=== PATIENT | female | born 1965 | race Caucasian/White ===

== ENCOUNTER 2018-10-24 18:54 | Emergency (ER) | payer OTHER ==
[~2018-10-24] VITALS: Ht 154.9 cm; Wt 161.4 kg
[~2018-10-24 18:54] MED LIST: ASPI-630 PO; DICY20TA3 PO; FLUT1DIS IH; GARL1TAB2 PO; HUM100VI SQ; INSU100V8 SQ; LORA5TAB7 PO; OMEG500C3 PO
--- NOTE | 2018-10-24 19:10 | EKG ---
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
[2018-10-24] MEDS ORDERED: APIX5TAB3 PO (19:12)
[2018-10-24] MEDS ORDERED: MICONAZOLE 2% (19:12)
[2018-10-24] MEDS ORDERED: CARV6.25 PO (19:12)
[2018-10-24] MEDS ORDERED: ATORVASTATIN CA80 MG PO (19:12)
[2018-10-24] MEDS ORDERED: INSU100V SQ (19:12)
[2018-10-24] MEDS ORDERED: METF500T16 PO (19:12)
[2018-10-24] MEDS ORDERED: LORA10TA3 PO (19:12)
[2018-10-24] MEDS ORDERED: FURO-68 PO (19:12)
[2018-10-24] MEDS ORDERED: ESOM40CA PO (19:12)
[2018-10-24] MEDS ORDERED: POTA10TA10 PO (19:15)
[2018-10-24] MEDS ORDERED: ALBU2.5V8 INH (19:15)
[2018-10-24] MEDS ORDERED: LIRA0.6P2 SQ (19:15)
[2018-10-24] MEDS ORDERED: SACU1TAB7 PO (19:15)
[2018-10-24] MEDS ORDERED: NITR0.4T22 SL (19:15)
--- NOTE | 2018-10-24 19:38 | PHYS DOC ---
Past History Past Medical History: A-Fib, Diabetes, Hypertension Additional Past Medical Histor: cardiomegaly Smoking: Non-smoker Alcohol Use: None Drug Use: None Adult General Chief Complaint Chief Complaint: Palpitations HPI HPI Patient is a 52-year-old female presents complaining of palpitations and chills. This is been going on since the beginning of the month. She has been seen 2 times by a the ER at [facility]. They found nothing. She recently completed a 2 week evaluation with an event monitor and is supposed to follow-up with her primary care physician about this and for an additional EKG tomorrow. She has been on no recent antibiotics. Denies any nausea, vomiting, or new diarrhea, has chronic diarrhea from her metformin. Nothing seems to make the symptoms better or worse.[] Review of Systems Review of Systems Constitutional: Denies [] Eyes: Denies change in visual acuity, redness, or eye pain [] HENT: Denies nasal congestion or sore throat [] Respiratory: Denies cough or shortness of breath [] Cardiovascular: No additional information not addressed in HPI [] GI: Denies abdominal pain, nausea, vomiting, bloody stools or new diarrhea [] : Denies dysuria or hematuria [] Musculoskeletal: Denies back pain or joint pain [] Integument: Denies rash or skin lesions [] Neurologic: Denies headache, focal weakness or sensory changes [] Endocrine: Denies polyuria or polydipsia [] All other systems were reviewed and found to be within normal limits, except as documented in this note. Allergies Allergies Allergies Coded Allergies Type Severity Reaction Last Updated Verified No Known Drug Allergies 10/24/18 No Physical Exam Physical Exam Constitutional: Well developed, well nourished, no acute distress, non-toxic appearance. [] HENT: Normocephalic, atraumatic, bilateral external ears normal, oropharynx moist, no oral exudates, nose normal. [] Eyes: PERRLA, EOMI, conjunctiva normal, no discharge. [] Neck: Normal range of motion, no tenderness, supple, no stridor. [] Cardiovascular:Heart rate is in the low 100s with an irregularly irregular rhythm, no murmur [] Lungs & Thorax: Bilateral breath sounds clear to auscultation [] Abdomen: Bowel sounds normal, soft, no tenderness, no masses, no pulsatile masses. [] Skin: Warm, dry, no erythema, no rash. [] Back: No tenderness, no CVA tenderness. [] Extremities: No tenderness, no cyanosis, no clubbing, ROM intact, no edema. [] Neurologic: Alert and oriented X 3, normal motor function, normal sensory function, no focal deficits noted. [] Psychologic: Affect normal, judgement normal, mood normal. [] Current Patient Data Vital Signs Vital Signs Date Time Temp Pulse Resp B/P (MAP) Pulse Ox O2 Delivery O2 Flow Rate FiO2 10/24/18 19:03 98.5 115 26 125/73 (90) 96 Room Air EKG EKG EKG shows an irregular rhythm at 104 bpm, left axis deviation, QTC of 504 ms, no ST elevations, no old EKG available for comparison. Interpreted by me at 1905 [] Radiology/Procedures Radiology/Procedures CHEST PA LATERAL Technique: PA and lateral views of the chest were obtained. Clinical History: cough, shortness of breath Comparison: None. Findings: There is low lung volumes causing crowding of pulmonary vasculature. The heart is moderately enlarged. The pulmonary vessels appear normal. The lungs are clear. Impression: Moderate cardiomegaly. Stable appearance of the chest.[] Course & Med Decision Making Course & Med Decision Making Pertinent Labs and Imaging studies reviewed. (See chart for details) ED course and medical decision making: Patient arrived, was placed in bed, and tolerated exam well. She was transferred to and from radiology with any complications. The return of the imaging and lab studies, these were discussed with the patient who voiced understanding. All questions were answered. She was discharged in improved condition. She appears to have a urinary tract infection causing these chills. There is no evidence of systemic toxicity. She is afebrile. No evidence of this being an acute coronary syndrome. Thyroid studies are a "send out" lab from this facility and will not be back today but she does not appear to be in myxedema coma on clinical exam. No evidence of pneumonia.[] Dragon Disclaimer Dragon Disclaimer This electronic medical record was generated, in whole or in part, using a voice recognition dictation system. Departure Departure: Impression: Primary Impression: Chills (without fever) Additional Impression: Urinary tract infection Disposition: HOME, SELF-CARE Condition: IMPROVED Referrals: EULOGIO KISER (PCP) Keep your appointment tomorrow Patient Instructions: Urinary Tract Infection Additional Instructions: Follow-up with your regular doctor as scheduled tomorrow. Drink plenty of fluids. Take medication as prescribed. Return to the ER if worsening fever, chills, unable to tolerate liquids, or any other concerns. Scripts Cephalexin (KEFLEX) 500 Mg Capsule 500 MG PO TID for UTI for 10 Days, #30 CAP Prov: EHSAN JOHNSON DO 10/24/18 Problem Qualifiers Additional Impression: Urinary tract infection Urinary tract infection type: site unspecified Hematuria presence: with hematuria Qualified Codes: N39.0 - Urinary tract infection, site not specified ; R31.9 - Hematuria, unspecified EHSAN JOHNSON DO Oct 24, 2018 19:38
[2018-10-24 20:16] LABS: BASO # 0.1 x10^3/uL (0.0-0.2); BASO % 1 % (0-3); EOS # 0.1 x10^3/uL (0.0-0.7); EOS % 1 % (0-3); HEMATOCRIT 32.3 % (36.0-47.0); HEMOGLOBIN 9.9 g/dL (12.0-15.5); LYMPH # 2.2 x10^3/uL (1.0-4.8); LYMPH % 27 % (24-48); MEAN CORPUSCULAR HEMOGLOBIN 21 pg (25-35); MEAN CORPUSCULAR HGB CONC 31 g/dL (31-37); MEAN CORPUSCULAR VOLUME 70 fL (79-100); MONO # 0.6 x10^3/uL (0.0-1.1); MONO % 7 % (0-9); NEUT # 5.3 x10^3uL (1.8-7.7); NEUT % 64 % (31-73); PLATELET COUNT 384 x10^3/uL (140-400); RED BLOOD COUNT 4.63 x10^6/uL (3.50-5.40); RED CELL DISTRIBUTION WIDTH 21.1 % (11.5-14.5); WHITE BLOOD COUNT 8.3 x10^3/uL (4.0-11.0)
[2018-10-24 20:39] LABS: ALBUMIN 3.3 g/dL (3.4-5.0); ALBUMIN/GLOBULIN RATIO 0.8 (1.0-1.7); CREATININE 1.2 mg/dL (0.6-1.0); MAGNESIUM 1.9 mg/dL (1.8-2.4); POTASSIUM 4.5 mmol/L (3.5-5.1); TOTAL BILIRUBIN 0.3 mg/dL (0.2-1.0); TOTAL PROTEIN 7.3 g/dL (6.4-8.2)
--- NOTE | 2018-10-24 20:43 | RAD ---
CHEST PA LATERAL Technique: PA and lateral views of the chest were obtained. Clinical History: cough, shortness of breath Comparison: None. Findings: There is low lung volumes causing crowding of pulmonary vasculature. The heart is moderately enlarged. The pulmonary vessels appear normal. The lungs are clear. Impression: Moderate cardiomegaly. Stable appearance of the chest. Electronically signed by: Anand Zabala III, MD (10/24/2018 8:40 PM) [id number]
[2018-10-24 20:46] LABS: BACTERIA,URINE FEW /HPF (0-FEW); BILIRUBIN,URINE NEG (NEG); CLARITY,URINE TURBID; COLOR,URINE AMBER; GLUCOSE,URINE 100 mg/dL (NEG); NITRITE,URINE NEG (NEG); RBC,URINE TNTC /HPF (0-2); SQUAMOUS EPITHELIAL CELL,UR OCC /LPF; UROBILINOGEN,URINE 1 mg/dL (0.2 mg/dL)
[2018-10-24] MEDS ORDERED: cefTRIAXone SODIUM 1 GM VIAL ONE ×2 (21:00→21:01)
[2018-10-24] MEDS ORDERED: IV NORMAL SALINE 50ML 50 ML ONE (21:01)
[2018-10-24] MEDS ORDERED: CEPH-264 PO (21:03)
[2018-10-24 21:13] LABS: ANISOCYTOSIS SLIGHT; HYPOCHROMIA SLIGHT; OVALOCYTES OCC; PLT ESTIMATE INCREASED (ADEQUATE); POLYCHROMASIA SLIGHT; SCHISTOCYTES OCC
[2018-10-24 21:20] VITALS: BP 113/74
== END 2018-10-24 21:24 | disposition home or self-care (01) ==
LOC: ER 18:54
DX: N39.0 Urinary tract infection, site not specified (principal); R68.83 Chills (without fever); R00.2 Palpitations; R31.9 Hematuria, unspecified; I48.91 Unspecified atrial fibrillation; E11.9 Type 2 diabetes mellitus without complications; I10 Essential (primary) hypertension; I51.7 Cardiomegaly
CPT/HCPCS: 36415; 71046; 80053; 81001; 83690; 83735; 83880; 84443; 84484; 85025; 85610; 85730; 87040; 87086; 93005; 96374; 99285; J0696

== ENCOUNTER 2018-10-25 21:44 | Inpatient (IN) | payer OTHER ==
[~2018-10-25] VITALS: Ht 154.9 cm; Wt 158.8 kg
[~2018-10-25 21:44] MED LIST changes: +ALBU2.5V8 INH; +APIX5TAB3 PO; +ATORVASTATIN CA80 MG PO; +CARV6.25 PO; +CEPH-264 PO; +ESOM40CA PO; +FURO-68 PO; +INSU100V SQ; +LIRA0.6P2 SQ; +LORA10TA3 PO; +METF500T16 PO; +MICONAZOLE 2%; +NITR0.4T22 SL; +POTA10TA10 PO; +SACU1TAB7 PO
[2018-10-26] VITALS (8 sets, daily range): BP systolic 101–144; BP diastolic 62–82
--- NOTE | 2018-10-26 01:53 | ED.ADGEN ---
Past History Past Medical History: A-Fib, Arrhythmia, CAD, Diabetes, Hypertension, Other Additional Past Medical Histor: cardiomegaly Past Surgical History: No Surgical History Smoking: Non-smoker Alcohol Use: None Drug Use: None Adult General Chief Complaint Chief Complaint ".. ".. I ve been having these episodes of chest pain.. I was seen here.. I was seen at [place].. but I had them again tonight.. and sometime my heart skips a beat..."..." I got DM.. and COPD... HPI HPI Patient is a 52 year old female who presents with chest pain and dysrhythmia. Pt. follows with Dr. Barton. Hx. of CADz, CHF, HTN, DM, Afib. COPD. Hx. recently reduced lasix from 40 twice a day to 40 once a day. See downtime form for details. Review of Systems Review of Systems Constitutional: Denies fever or chills [] Eyes: Denies change in visual acuity, redness, or eye pain [] HENT: Denies nasal congestion or sore throat [] Respiratory: Denies cough or shortness of breath [] Cardiovascular: No additional information not addressed in HPI [] GI: Denies abdominal pain, nausea, vomiting, bloody stools or diarrhea [] : Denies dysuria or hematuria [] Musculoskeletal: Denies back pain or joint pain [] Integument: Denies rash or skin lesions [] Neurologic: Denies headache, focal weakness or sensory changes [] Endocrine: Denies polyuria or polydipsia [] All other systems were reviewed and found to be within normal limits, except as documented in this note. Family History Family History Cardiac Current Medications Current Medications See Nursing for home meds. Allergies Allergies Allergies Coded Allergies Type Severity Reaction Last Updated Verified No Known Drug Allergies 10/24/18 No Physical Exam Physical Exam Constitutional: mild to moderate distress, non-toxic appearance. [] HENT: Normocephalic, atraumatic, bilateral external ears normal, oropharynx moist, no oral exudates, nose normal. [] Eyes: PERRLA, EOMI, conjunctiva normal, no discharge. [] Neck: Normal range of motion, no tenderness, supple, no stridor. [] Cardiovascular: Irregulatr Heart rate regular rhythm, no murmur []PMI to Lt. Lungs & Thorax: Bilateral breath sounds equal apexes with scattered wheezes on auscultation [] Abdomen: Bowel sounds normal, soft, no tenderness, no masses, no pulsatile masses. [] Morbid obesity. Skin: Warm, dry, no erythema, no rash. [] Decub sacral. Back: No tenderness, no CVA tenderness. [] Extremities: No tenderness, no cyanosis, no clubbing, ROM intact, ankle. edema. [] Neurologic: Alert and oriented X 3, normal motor function, normal sensory function, no focal deficits noted. [] Psychologic: Affect anxious, judgement normal, mood normal. [] EKG EKG EKG - shows Afib. with rapid vent. reponse at rate of 103. Lt. axis , nonspecific anterio septal change] Radiology/Procedures Radiology/Procedures CXR- cardiomegaly. No acute interval changes[] Course & Med Decision Making Course & Med Decision Making Pertinent Labs and Imaging studies reviewed. (See chart for details) Heart score 4-[address] Guevara- with Cardiology consult. Further details see down time paper work. [] Final Impression Final Impression 1. Chest Pain[] 2. Afib 3. Dysrhythmia- PVC 4. COPD 5. DM 170 6. Anemia Hgb 9.4 7 Decub- sacral 8. UTI Dragon Disclaimer Adalberto Disclaimer This electronic medical record was generated, in whole or in part, using a voice recognition dictation system. Discharge Summary Visit Information Final Diagnosis Problems Medical Problems: (1) Chest pain Status: Acute Brief Hospital Course Allergies Allergies Coded Allergies Type Severity Reaction Last Updated Verified No Known Drug Allergies 10/24/18 No Brief Hospital Course Ms. Florez is a 52 old female who presented with chest pain. Admitted Dr. Guevara with cardiology consult. Discharge Information Condition at Discharge: Improved Dischare Medications Active Scripts Active Keflex (Cephalexin) 500 Mg Capsule 500 Mg PO TID 10 Days Reported Victoza 3-Ady (Liraglutide) 0.6 Mg/0.1 Ml Pen.injctr 0.6 Mg SQ D Entresto 49 mg-51 mg Tablet (Sacubitril/Valsartan) 1 Each Tablet 1 Each PO BID Proair Hfa Inhaler (Albuterol Sulfate) 8.5 Gm Hfa.aer.ad 2 Puff INH PRN Q6HRS PRN Potassium Chloride 10 Meq Tablet.er 10 Meq PO DAILY NITROGLYCERIN SubLingual (Nitroglycerin) 0.4 Mg Tab.subl 0.4 Mg SL PRN Q5MIN PRN [miconazole 2% powder] Metformin Hcl 500 Mg Tablet 500 Mg PO BIDWMEALS Humalog (Insulin Lispro) 100 Unit/1 Ml Vial 100 Unit SQ AC/HS Lasix (Furosemide) 40 Mg Tablet 40 Mg PO DAILY Nexium Capsule (Esomeprazole Magnesium) 40 Mg Capsule.dr 40 Mg PO DAILYAC Coreg (Carvedilol) 6.25 Mg Tablet 6.25 Mg PO BIDWMEALS Atorvastatin Calcium 80 Mg Tablet 80 Mg PO QHS Eliquis (Apixaban) 5 Mg Tablet 5 Mg PO BID Loratadine 10 Mg Tablet 10 Mg PO DAILY Lantus (Insulin Glargine,Hum.rec.anlog) 100 Unit/1 Ml Vial 100 Unit SQ Aspirin 81 Mg Tab.chew 81 Mg PO Advair 100-50 Diskus (Fluticasone/Salmeterol) 1 Each Disk.w.dev 1 Each IH Dragon Disclaimer This chart was dictated in whole or in part using Voice Recognition software in a busy, high-work load, and often noisy Emergency Department environment. It may contain unintended and wholly unrecognized errors or omissions. LIBRA TRACEY MD Oct 26, 2018 01:53
[2018-10-26 03:24] LABS: BILIRUBIN,URINE NEG (NEG); CLARITY,URINE HAZY; COLOR,URINE STRAW; GLUCOSE,URINE NEG (NEG)
[2018-10-26 03:25] LABS: BACTERIA,URINE FEW /HPF (0-FEW); NITRITE,URINE NEG (NEG); RBC,URINE >40 /HPF (0-2); RED BLOOD COUNT 4.42 x10^6/uL (3.50-5.40); SQUAMOUS EPITHELIAL CELL,UR FEW /LPF; UROBILINOGEN,URINE 0.2 mg/dL (0.2 mg/dL); WBC,URINE OCC /HPF (0-4); WHITE BLOOD COUNT 7.9 x10^3/uL (4.0-11.0)
[2018-10-26 03:26] LABS: BASO # 0.1 x10^3/uL (0.0-0.2); BASO % 1 % (0-3); EOS # 0.1 x10^3/uL (0.0-0.7); EOS % 1 % (0-3); HEMATOCRIT 30.8 % (36.0-47.0); HEMOGLOBIN 9.4 g/dL (12.0-15.5); LYMPH # 2.2 x10^3/uL (1.0-4.8); LYMPH % 28 % (24-48); MEAN CORPUSCULAR HEMOGLOBIN 21 pg (25-35); MEAN CORPUSCULAR HGB CONC 30 g/dL (31-37); MEAN CORPUSCULAR VOLUME 70 fL (79-100); MONO # 0.7 x10^3/uL (0.0-1.1); MONO % 8 % (0-9); NEUT # 4.9 x10^3uL (1.8-7.7); NEUT % 62 % (31-73); PLATELET COUNT 367 x10^3/uL (140-400); RED CELL DISTRIBUTION WIDTH 20.7 % (11.5-14.5)
[2018-10-26 03:27] LABS: ALBUMIN 3.2 g/dL (3.4-5.0); CALCIUM 8.9 mg/dL (8.5-10.1); CREATININE 1.2 mg/dL (0.6-1.0); TOTAL BILIRUBIN 0.3 mg/dL (0.2-1.0)
[2018-10-26 03:28] LABS: DIRECT BILIRUBIN 0.1 mg/dL (0.0-0.2); POTASSIUM 4.1 mmol/L (3.5-5.1)
[2018-10-26 04:02] LABS: ANISOCYTOSIS MOD; HYPOCHROMIA MOD; MICROCYTOSIS MOD; PLT ESTIMATE ADEQUATE (ADEQUATE)
[2018-10-26] MEDS ORDERED: levoFLOXacin 500 MG TABLET PO ONE (05:30)
[2018-10-26] MEDS ORDERED: ANTI-COAG MONITOR BY PHARMACY. MC PRN (05:45)
[2018-10-26] MEDS: ENOXAPARIN ** NOTE DOSE ** SYRINGE SQ SCH ×2 (06:00→06:10)
--- NOTE | 2018-10-26 07:53 | RAD ---
Portable chest, 10/25/2018: HISTORY: Chest pain Comparison is made to yesterday's study. The heart remains mildly enlarged. The pulmonary vascularity is normal. No pulmonary infiltrate is seen. There is no evidence of pleural fluid. IMPRESSION: 1. Cardiomegaly. 2. No new abnormality is detected. Electronically signed by: Brock Boo MD (10/26/2018 7:50 AM) [facility]
[2018-10-26] MEDS: FUROSEMIDE 40 MG TABLET PO SCH (09:38)
--- NOTE | 2018-10-26 10:21 | PDOC2 ---
CONSULT Date of Admission DATE: 10/26/18 TIME: 10:20 Reason for Consult: chest pain Problem List Problems Medical Problems: (1) Chest pain Status: Acute History of Present Illness Ms Florez is a 52 year old female with a history fo NICM, chronic systolic heart failure, left ventricular thrombus, left bundle branch block, paroxysmal atrial fibrillation, and hypertensive heart disease with renal disease. She follows with [facility] for her cardiology care. She presents to the ER with complaints of chest pain. 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 She recently finished wearing the monitor but has no results. She reports since that time she has been seen here and at [place] for the complaints of chest pain. She presented back to the ED here yesterday reporting ongoing pain. She describes a tapping or pinching sensation unrelated to exertion and lasting only a second or two each occurrence. She denies increased dyspnea or edema from baseline. She denies lightheadedness or syncope. Past Medical History echo 03/24/17 LV moderately dilated, normal wall thickness. severe LV systolic dysfunction with ef of 20-25%. global hypokinesis. prior apical thrombus not observed. Cardiac cath 2017 Normal coronaries. Cardiovascular: AFIB, CHF, HTN, hyperipidemia, Other (NICM) Pulmonary: COPD, Other (pulmonary embolism) GI: GERD Renal/: Chronic renal insuff Endocrine: Diabetes Past Surgical History: Hernia Repair, Other (vaginal surgery) Family History non contributory Social History + smoker, no significant etoh, no illicit drugs Current Medications Current Medications Furosemide (Lasix) 40 mg DAILY PO Last administered on 10/26/18at 09:38; Start 10/26/18 at 09:00 Levofloxacin (Levaquin) 500 mg 1X ONCE PO Last administered on 10/26/18at 06:10 ; Start 10/26/18 at 05:30; Stop 10/26/18 at 05:31; Status DC Enoxaparin Sodium (Lovenox 150mg Syringe) 150 mg Q12HR SQ ; Start 10/26/18 at 06 :00 Info (Anti-Coagulation Monitoring By Pharmacy) 1 each PRN DAILY PRN MC SEE COMMENTS; Start 10/26/18 at 05:45; Status Cancel Active Scripts Active Keflex (Cephalexin) 500 Mg Capsule 500 Mg PO TID 10 Days Reported Victoza 3-Ady (Liraglutide) 0.6 Mg/0.1 Ml Pen.injctr 0.6 Mg SQ D Entresto 49 mg-51 mg Tablet (Sacubitril/Valsartan) 1 Each Tablet 1 Each PO BID Proair Hfa Inhaler (Albuterol Sulfate) 8.5 Gm Hfa.aer.ad 2 Puff INH PRN Q6HRS PRN Potassium Chloride 10 Meq Tablet.er 10 Meq PO DAILY NITROGLYCERIN SubLingual (Nitroglycerin) 0.4 Mg Tab.subl 0.4 Mg SL PRN Q5MIN PRN [miconazole 2% powder] Metformin Hcl 500 Mg Tablet 500 Mg PO BIDWMEALS Humalog (Insulin Lispro) 100 Unit/1 Ml Vial 100 Unit SQ AC/HS Lasix (Furosemide) 40 Mg Tablet 40 Mg PO DAILY Nexium Capsule (Esomeprazole Magnesium) 40 Mg Capsule.dr 40 Mg PO DAILYAC Coreg (Carvedilol) 6.25 Mg Tablet 6.25 Mg PO BIDWMEALS Atorvastatin Calcium 80 Mg Tablet 80 Mg PO QHS Eliquis (Apixaban) 5 Mg Tablet 5 Mg PO BID Loratadine 10 Mg Tablet 10 Mg PO DAILY Lantus (Insulin Glargine,Hum.rec.anlog) 100 Unit/1 Ml Vial 100 Unit SQ Aspirin 81 Mg Tab.chew 81 Mg PO Advair 100-50 Diskus (Fluticasone/Salmeterol) 1 Each Disk.w.dev 1 Each IH Allergies: Coded Allergies: No Known Drug Allergies (Unverified , 10/24/18) Review of System as per HPI, denies fever, chills, signs of infection, denies increase in edema and dyspnea from baseline, denies lightheadedness or syncope. +chest pain, palpitations. + hard of hearing, denies sick contacts, denies signs or symptoms of bleeding. + reflux, no nausea, vomiting, diarrhea or abd pain. Denies other complaints. General: Alert, Oriented X3, Cooperative, No acute distress, Other (morbidly obese) HEENT: Atraumatic, EOMI, Mucous membr. moist/pink, Other (very hard of hearing) Lungs: Clear to auscultation, Normal air movement Heart: Normal S1, Normal S2, Other (irregular rate and rhythm, no gallops, clicks or rubs) Abdomen: Normal bowel sounds, Soft, No tenderness Extremities: No cyanosis, Other (1+ edema, Palpable pulses) Neuro: Normal speech, Strength at 5/5 X4 ext Psych/Mental Status: Mental status NL, Mood NL VITALS Vital Signs Date Time Temp Pulse Resp B/P (MAP) Pulse Ox O2 Delivery O2 Flow Rate FiO2 10/26/18 05:19 88 20 126/73 (90) 99 Room Air 10/26/18 00:45 97.2 Labs Laboratory Tests Test 10/25/18 21:30 10/26/18 02:03 10/26/18 05:57 10/26/18 09:42 White Blood Count 7.9 x10^3/uL (4.0-11.0) Red Blood Count 4.42 x10^6/uL (3.50-5.40) Hemoglobin 9.4 g/dL (12.0-15.5) Hematocrit 30.8 % (36.0-47.0) Mean Corpuscular Volume 70 fL (79-100) Mean Corpuscular Hemoglobin 21 pg (25-35) Mean Corpuscular Hemoglobin Concent 30 g/dL (31-37) Red Cell Distribution Width 20.7 % (11.5-14.5) Platelet Count 367 x10^3/uL (140-400) Neutrophils (%) (Auto) 62 % (31-73) Lymphocytes (%) (Auto) 28 % (24-48) Monocytes (%) (Auto) 8 % (0-9) Eosinophils (%) (Auto) 1 % (0-3) Basophils (%) (Auto) 1 % (0-3) Neutrophils # (Auto) 4.9 x10^3uL (1.8-7.7) Lymphocytes # (Auto) 2.2 x10^3/uL (1.0-4.8) Monocytes # (Auto) 0.7 x10^3/uL (0.0-1.1) Eosinophils # (Auto) 0.1 x10^3/uL (0.0-0.7) Basophils # (Auto) 0.1 x10^3/uL (0.0-0.2) Platelet Estimate Adequate (ADEQUATE) Hypochromasia Mod Anisocytosis Mod Microcytosis Mod Prothrombin Time 11.2 SEC (9.4-11.4) Prothromb Time International Ratio 1.1 (0.9-1.1) Activated Partial Thromboplast Time 26 SEC (23-33) D-Dimer (Maria Alejandra) 0.19 mg/L (0.00-0.50) Urine Collection Type Unknown Urine Color Straw Urine Clarity Hazy Urine pH 6.0 Urine Specific Zimmerman 1.015 Urine Protein 30 mg/dl (NEG-TRACE) Urine Glucose (UA) Neg mg/dL (NEG) Urine Ketones (Stick) Neg mg/dL (NEG) Urine Blood Large (NEG) Urine Nitrite Neg (NEG) Urine Bilirubin Neg (NEG) Urine Urobilinogen Dipstick 0.2 mg/dL (0.2 mg/dL) Urine Leukocyte Esterase Neg (NEG) Urine RBC >40 /HPF (0-2) Urine WBC Occ /HPF (0-4) Urine Squamous Epithelial Cells Few /LPF Urine Bacteria Few /HPF (0-FEW) Sodium Level 142 mmol/L (136-145) Potassium Level 4.1 mmol/L (3.5-5.1) Chloride Level 106 mmol/L (98-107) Carbon Dioxide Level 27 mmol/L (21-32) Anion Gap 9 (6-14) Blood Urea Nitrogen 24 mg/dL (7-20) Creatinine 1.2 mg/dL (0.6-1.0) Estimated GFR (Cockcroft-Gault) 47.0 Glucose Level 170 mg/dL (70-99) Calcium Level 8.9 mg/dL (8.5-10.1) Total Bilirubin 0.3 mg/dL (0.2-1.0) Direct Bilirubin 0.1 mg/dL (0.0-0.2) Aspartate Amino Transf (AST/SGOT) 13 U/L (15-37) Alanine Aminotransferase (ALT/SGPT) 21 U/L (14-59) Alkaline Phosphatase 89 U/L (46-116) Troponin I Quantitative < 0.017 ng/mL (0-0.055) ZZ-Eap-V-Type Natriuretic Peptide 771 pg/mL (0-124) Total Protein 7.0 g/dL (6.4-8.2) Albumin 3.2 g/dL (3.4-5.0) Lipase 219 U/L (73-393) Glucose (Fingerstick) 191 mg/dL (70-99) 169 mg/dL (70-99) 297 mg/dL (70-99) Images CXR - IMPRESSION: 1. Cardiomegaly. 2. No new abnormality is detected. Assessment/Plan 1. Chest pain in the setting of severe NICM, no acute ischemic ekg changes, neg troponin. Normal coronaries by cath in 2017. 2. severe NICM with chronic systolic heart failure - continue with guideline directed medical therapy. check echo. 3. atrial fibrillation - 2 week Zio recently worn revealed 100% AF burden. Rate ranges from 50-110bpm. Continue current medical therapy with rate control. [id number] score = 4+, continue Eliquis for stroke prophylaxis. 4. Hypertension/hypertensive heart disease - 5. CKD stage 2 - monitor. 6. hyperlipidemia - check lipids. 7. Anemia - check fe panel. VEENA [employer] Oct 26, 2018 10:21
[2018-10-26] MEDS ORDERED: NON FORMULARY ITEM (Liraglutide (Victoza 3-Pak) 0.6 MG) SQ SCH (10:45)
[2018-10-26] MEDS ORDERED: ALBUTEROL SULFATE 2.5 MG/3 ML NEBU. INH PRN (10:45)
[2018-10-26] MEDS ORDERED: NITROGLYCERIN SUBLINGUAL 0.4 MG BOTTLE OF 25. SL PRN (10:45)
[2018-10-26] MEDS ORDERED: DEXTROSE 50% 25 GM / 50ML DISP.SYRIN. IV PRN (10:45)
[2018-10-26] MEDS ORDERED: NON FORMULARY ITEM (Insulin Lispro (Humalog) 100 UNIT) SQ SCH (10:45)
[2018-10-26] MEDS ORDERED: FUROSEMIDE 40 MG TABLET PO SCH (11:00)
[2018-10-26] MEDS: PANTOPRAZOLE 40 MG TABLET. PO SCH (11:18)
[2018-10-26] MEDS: SACUBITRIL/VALSARTAN 49/51MG TABLET. PO SCH ×2 (11:18→22:01)
[2018-10-26] MEDS: ASPIRIN 81 MG TAB.CHEW PO SCH (11:18)
[2018-10-26] MEDS: CARVEDILOL 6.25 MG TABLET PO SCH ×2 (11:18→17:40)
[2018-10-26] MEDS: CETIRIZINE HCL 10 MG TABLET PO SCH (11:18)
[2018-10-26] MEDS: POTASSIUM CHLORIDE 10 MEQ TABLET.ER. PO SCH (11:20)
[2018-10-26] MEDS: INSULIN LISPRO 300 UNITS/3 ML INSULN.PEN. SQ SCH ×2 (11:31→17:45)
--- NOTE | 2018-10-26 12:29 | HP ---
ADMIT DATE: 10/26/2018 HISTORY OF PRESENT ILLNESS: The patient is a 52-year-old female patient, who came to the Emergency Room complaining of recurrent episodes of chest pain that she describes as very frequent, has no relationship with exertion. It most commonly happens when she was sitting or lying in her bed, lasts only few seconds, not associated with any nausea, vomiting, no diaphoresis. She is only short of breath when she is exerting herself. She apparently was seen before at her primary prep cook, Dr. Maloney and apparently she has had energy consultant and showed that she is constantly in atrial fibrillation for which she is actually on Eliquis. She was seen apparently for similar problem at [facility]. She was seen few days ago at Emergency Room of [facility], diagnosed with UTI. She was basically evaluated in the Emergency Room, has had extensive investigation including lab work, which showed that she has microcytic hypochromic anemia. Her chemistry showed slightly impaired kidney function; however, her first set of cardiac enzyme was negative. Her D-dimer was normal at 0.19. Urinalysis was actually unremarkable, showed only blood with no leukocyturia. Her chest x-ray showed that she has cardiomegaly, but no other new abnormalities detected. She was admitted to the ICU to consult the cardiology team. PAST MEDICAL HISTORY: Significant for coronary artery disease, diabetes, hypertension, chronic atrial fibrillation, and morbid obesity. PAST SURGICAL HISTORY: Significant for left heart catheterization, which showed no significant obstructive coronary artery disease. ALLERGIES: She has no known drug allergies. MEDICATIONS: She is currently on following medications: She is on loratadine 10 mg once a day, cephalexin 500 mg 3 times a day, albuterol sulfate 2 puffs every 6 hours, apixaban 5 mg twice a day, atorvastatin calcium 80 mg at bedtime, nitroglycerin 0.4 mg sublingually 5 minutes x 3, carvedilol 6.25 mg twice a day, Entresto 49/51 mg tablet twice a day, aspirin 81 mg once a day, potassium chloride 10 mEq once a day, furosemide 40 mg daily, Advair Diskus 100/50 one puff twice a day, Nexium 40 mg once a day, metformin 500 mg twice a day with meals, Victoza 0.6 mg sublingually daily. She is on Lantus insulin. Though, we do not have the actual dose and Humalog also as insulin sliding scale before meals. FAMILY HISTORY: Unremarkable. SOCIAL HISTORY: She lives with her roommate and daughter. She apparently does not smoke, drink alcohol or use recreational drugs. REVIEW OF SYSTEMS: As per history of present illness. PHYSICAL EXAMINATION: GENERAL: On arrival to the Emergency Room, she looked well and was clearly in no apparent respiratory distress, slightly pale, but no jaundice, cyanosis, or thyromegaly. No jugular venous distension. No limb edema. VITAL SIGNS: Her heart rate was 92, blood pressure 101/70, temperature was 97.2, respiratory rate was 20, and oxygen saturation was 98% on room air. HEAD, EYES, EARS, NOSE, AND THROAT: Showed normocephalic, atraumatic. NECK: Supple. HEART: Showed normal first and second heart sounds. No gallop, rub or murmur. CHEST: Clear to auscultation. No crepitation or rhonchi. ABDOMEN: Distended, soft, nontender. No guarding or rigidity. No organomegaly. All hernial orifice intact. Bowel sounds normal. NEUROLOGIC: She was awake, alert, responding appropriately. All cranial nerves intact. EXTREMITIES: She moves extremities without difficulty. She ambulates without assistance or assistive devices. LABORATORY DATA: Showed a white cell count 7900, hemoglobin 9.4, hematocrit 31, MCV 70, platelet count 367,000 with normal manual differential. Her chemistry showed a serum sodium 142, potassium 4.1, chloride 106, bicarbonate 27, anion gap of 9, BUN 24, creatinine 1.2, estimated GFR was 47 mL per minute. Her glucose 170, calcium was 8.9. Total bilirubin, AST, ALT, alkaline phosphatase were normal. Total protein 7, albumin 3.2. Troponin was less than 0.017. Her prothrombin time was 11.2, INR of 1.1, aPTT was 26. Her D-dimer was 0.19 mg/dL. Urinalysis showed the urine was straw colored, hazy with a pH of 6, specific gravity of 1.015 with small amount of protein. The urine was negative for glucose, ketones, large amount of blood, negative for nitrites and leukocyte esterase. There were more than 40 rbc's, occasional wbc's, very few bacteria. She did have a chest x-ray, which showed that the heart remains mildly enlarged. Pulmonary vascularity is normal. No pulmonary infiltrate is seen. There is no evidence of pleural fluid. ASSESSMENT: Currently, the patient is known to the [facility] Cardiology team and has had heart monitor for 2 weeks, which showed that she has been resistant atrial fibrillation. She has a cardiac catheterization done 2 years ago, which showed that nonobstructive coronary artery disease and apparently is known to have nonischemic cardiomyopathy with an ejection fraction of 35%. We did consult the cardiology team. PLAN: For her to have another echocardiogram. Meanwhile, we will discontinue Lovenox and resume her apixaban. We will monitor her blood sugar and use insulin sliding scale to cover her while she is here. WILLIAMS LOUIS MD DR: NEGRA/davina JOB#: [id number] / [id number]
[2018-10-26] MEDS: CEPHALEXIN 250 MG CAPSULE PO SCH ×2 (14:53→22:02)
--- NOTE | 2018-10-26 15:29 | CARD ---
MR#: [id number] Date of Study: 10/26/2018 Ordering Physician: VEENA DE LA VEGA, Referring Physician: WILLIAMS LOUIS Tech: Mary Miller RDCS APPROVED REPORT EXAM: Two-dimensional and M-mode echocardiogram with Doppler and color Doppler. Other Information Quality : Technically Limited Technically limited study due to body habitus. INDICATION Palpitations Chest Pain Morbid Obesity 2D DIMENSIONS RVDd3.6 (2.9-3.5cm)Left Atrium(2D)5.2 (1.6-4.0cm) IVSd1.1 (0.7-1.1cm)Aortic Root(2D)2.8 (2.0-3.7cm) LVDd5.0 (3.9-5.9cm)PWd1.1 (0.7-1.1cm) LVDs4.1 (2.5-4.0cm)FS (%) 17.3 % SV41.7 mlLVEF(%)30.0 (>50%) Aortic Valve AoV Peak Bonifacio.105.8cm/sAoV VTI16.3cm AO Peak GR.4.5mmHgAO Mean GR.3mmHg SHEA (VTI)3.21cm2 Mitral Valve MV E Prvcplre30.2cm/sMV DECEL [id number] Tricuspid Valve TR P. [id number]/sRAP [id number] TR Peak Gr.[id number] LEFT VENTRICLE The left ventricle is normal size. There is normal left ventricular wall thickness. Left ventricle sy stolic function is severely impaired. The Ejection Fraction is 25-30%. There is global hypokinesis of the left ventricle. RIGHT VENTRICLE The right ventricle is normal size. The right ventricular systolic function is normal. ATRIA The left atrium is moderately dilated. The right atrium is moderately dilated. The interatrial septum is intact with no evidence for an atrial septal defect or patent foramen ovale as noted on 2-D or Do ppler imaging. AORTIC VALVE The aortic valve is normal in structure and function. Doppler and Color Flow revealed no significant aortic regurgitation. There is no significant aortic valvular stenosis. MITRAL VALVE The mitral valve is normal in structure and function. There is no evidence of mitral valve prolapse. There is no mitral valve stenosis. Doppler and Color Flow revealed no mitral valve regurgitation note d. TRICUSPID VALVE The tricuspid valve is normal in structure and function. There is mild pulmonary hypertension. The PA pressure was estimated at 31 mmHg. Doppler and Color Flow revealed trace to mild tricuspid regurgita tion. There is no tricuspid valve stenosis. PULMONIC VALVE The pulmonic valve is not well visualized. Doppler and Color Flow revealed trace pulmonic valvular re gurgitation. There is no pulmonic valvular stenosis. GREAT VESSELS The aortic root is normal in size. The ascending aorta is normal in size. The IVC was not visualized. PERICARDIAL EFFUSION There is no evidence of significant pericardial effusion. Critical Notification Critical Value: No <Conclusion> Technically very difficult study. Valves not well visualized. Left ventricle systolic function appears to be severely impaired. The Ejection Fraction is 25-30%. The left atrium is moderately dilated. Trace to mild tricuspid regurgitation. The PA pressure was estimated at 31 mmHg. There is no evidence of significant pericardial effusion. Signed by : Chance Richard, Electronically Approved : 10/26/2018 15:29:11
--- NOTE | 2018-10-26 16:18 | EKG ---
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
[2018-10-26] MEDS: metFORMIN 500 MG TABLET PO SCH (17:40)
[2018-10-26] MEDS ORDERED: ATORVASTATIN CALCIUM 20 MG TABLET PO SCH (21:00)
[2018-10-26] MEDS ORDERED: INSULIN GLARGINE 300 UNITS/3 ML INSULN.PEN. SQ ONE (21:15)
[2018-10-26] MEDS: LACTOBACILLUS RHAMNOSUS GG 1 CAPSULE. PO SCH (22:02)
[2018-10-26] MEDS: APIXABAN 5 MG TABLET. PO SCH (22:02)
[2018-10-27 05:40] VITALS: BP 104/66
[2018-10-27 07:02] LABS: HEMATOCRIT 30.1 % (36.0-47.0); HEMOGLOBIN 9.1 g/dL (12.0-15.5); RED BLOOD COUNT 4.29 x10^6/uL (3.50-5.40); RED CELL DISTRIBUTION WIDTH 21.2 % (11.5-14.5); WHITE BLOOD COUNT 6.4 x10^3/uL (4.0-11.0)
[2018-10-27 07:20] LABS: CALCIUM 8.9 mg/dL (8.5-10.1); POTASSIUM 4.1 mmol/L (3.5-5.1)
[2018-10-27 07:25] VITALS: BP 125/76
[2018-10-27] MEDS: LACTOBACILLUS RHAMNOSUS GG 1 CAPSULE. PO SCH (07:45)
[2018-10-27] MEDS: CARVEDILOL 6.25 MG TABLET PO SCH (07:45)
[2018-10-27] MEDS: CEPHALEXIN 250 MG CAPSULE PO SCH ×2 (07:45→14:00)
[2018-10-27] MEDS: SACUBITRIL/VALSARTAN 49/51MG TABLET. PO SCH (07:45)
[2018-10-27] MEDS: APIXABAN 5 MG TABLET. PO SCH (07:46)
[2018-10-27] MEDS: CETIRIZINE HCL 10 MG TABLET PO SCH (07:46)
[2018-10-27] MEDS: POTASSIUM CHLORIDE 10 MEQ TABLET.ER. PO SCH (07:46)
[2018-10-27] MEDS: metFORMIN 500 MG TABLET PO SCH (07:46)
[2018-10-27] MEDS: FUROSEMIDE 40 MG TABLET PO SCH (07:46)
[2018-10-27] MEDS: PANTOPRAZOLE 40 MG TABLET. PO SCH (07:46)
[2018-10-27] MEDS: ASPIRIN 81 MG TAB.CHEW PO SCH (07:46)
[2018-10-27] MEDS: INSULIN LISPRO 300 UNITS/3 ML INSULN.PEN. SQ SCH ×2 (07:49→12:37)
--- NOTE | 2018-10-27 09:37 | PDOC ---
VEENA DE LA VEGA ARTISTIC DIRECTOR 10/27/18 0937: PROGRESS NOTES Diagnosis Problem Problems Medical Problems: (1) Chest pain Status: Acute Assessment Problems Medical Problems: (1) Chest pain Status: Acute 1. Chest pain, atypical, in the setting of severe NICM, no acute ischemic ekg changes, neg troponin. Normal coronaries by cath in 2017. 2. severe NICM with chronic systolic heart failure - continue with guideline directed medical therapy. EF 25-30 % by echo. follow up with primary templer head to discuss ICD for primary prevention. consult zoll for lifevest as bridge to ICD. 3. atrial fibrillation, chronic - 2 week Zio recently worn revealed 100% AF burden. Rate ranges from 50-110bpm. Continue current medical therapy with rate control. LA diameter 5.2cm [id number] score = 4+, continue Eliquis for stroke prophylaxis. 4. Hypertension/hypertensive heart disease - controlled. 5. CKD stage 2 - monitor. 6. hyperlipidemia - check lipids. 7. Anemia - check fe panel. Subjective no chest pain, breathing stable, no palpitations, c/o low back pain Objective Vital Signs Date Time Temp Pulse Resp B/P (MAP) Pulse Ox O2 Delivery O2 Flow Rate FiO2 10/27/18 08:00 Room Air 10/27/18 07:45 71 10/27/18 07:25 97.8 24 125/76 (92) 98 Intake and Output 10/27/18 06:59 Intake Total 2055 ml Output Total 1875 ml Balance 180 ml Intake Oral 2055 ml Output Urine Total 1875 ml # Bowel Movements 1 Physical Exam gen: awake, alert, NAD ENT: hard of hearing CV: IRR, no gallops, clicks or rubs Lungs: clear abd: soft, non tender, bowel sounds present ext: edema 1+ Review of Relevant I have reviewed the following items madison (where applicable) has been applied. Labs Laboratory Tests Test 10/25/18 21:30 10/26/18 01:30 10/26/18 02:03 10/26/18 05:57 White Blood Count 7.9 x10^3/uL (4.0-11.0) Red Blood Count 4.42 x10^6/uL (3.50-5.40) Hemoglobin 9.4 g/dL (12.0-15.5) Hematocrit 30.8 % (36.0-47.0) Mean Corpuscular Volume 70 fL (79-100) Mean Corpuscular Hemoglobin 21 pg (25-35) Mean Corpuscular Hemoglobin Concent 30 g/dL (31-37) Red Cell Distribution Width 20.7 % (11.5-14.5) Platelet Count 367 x10^3/uL (140-400) Neutrophils (%) (Auto) 62 % (31-73) Lymphocytes (%) (Auto) 28 % (24-48) Monocytes (%) (Auto) 8 % (0-9) Eosinophils (%) (Auto) 1 % (0-3) Basophils (%) (Auto) 1 % (0-3) Neutrophils # (Auto) 4.9 x10^3uL (1.8-7.7) Lymphocytes # (Auto) 2.2 x10^3/uL (1.0-4.8) Monocytes # (Auto) 0.7 x10^3/uL (0.0-1.1) Eosinophils # (Auto) 0.1 x10^3/uL (0.0-0.7) Basophils # (Auto) 0.1 x10^3/uL (0.0-0.2) Platelet Estimate Adequate (ADEQUATE) Hypochromasia Mod Anisocytosis Mod Microcytosis Mod Prothrombin Time 11.2 SEC (9.4-11.4) Prothromb Time International Ratio 1.1 (0.9-1.1) Activated Partial Thromboplast Time 26 SEC (23-33) D-Dimer (Maria Alejandra) 0.19 mg/L (0.00-0.50) Urine Collection Type Unknown Urine Color Straw Urine Clarity Hazy Urine pH 6.0 Urine Specific Whitefish 1.015 Urine Protein 30 mg/dl (NEG-TRACE) Urine Glucose (UA) Neg mg/dL (NEG) Urine Ketones (Stick) Neg mg/dL (NEG) Urine Blood Large (NEG) Urine Nitrite Neg (NEG) Urine Bilirubin Neg (NEG) Urine Urobilinogen Dipstick 0.2 mg/dL (0.2 mg/dL) Urine Leukocyte Esterase Neg (NEG) Urine RBC >40 /HPF (0-2) Urine WBC Occ /HPF (0-4) Urine Squamous Epithelial Cells Few /LPF Urine Bacteria Few /HPF (0-FEW) Sodium Level 142 mmol/L (136-145) Potassium Level 4.1 mmol/L (3.5-5.1) Chloride Level 106 mmol/L (98-107) Carbon Dioxide Level 27 mmol/L (21-32) Anion Gap 9 (6-14) Blood Urea Nitrogen 24 mg/dL (7-20) Creatinine 1.2 mg/dL (0.6-1.0) Estimated GFR (Cockcroft-Gault) 47.0 Glucose Level 170 mg/dL (70-99) Calcium Level 8.9 mg/dL (8.5-10.1) Total Bilirubin 0.3 mg/dL (0.2-1.0) Direct Bilirubin 0.1 mg/dL (0.0-0.2) Aspartate Amino Transf (AST/SGOT) 13 U/L (15-37) Alanine Aminotransferase (ALT/SGPT) 21 U/L (14-59) Alkaline Phosphatase 89 U/L (46-116) Troponin I Quantitative < 0.017 ng/mL (0-0.055) QW-Yvq-T-Type Natriuretic Peptide 771 pg/mL (0-124) Total Protein 7.0 g/dL (6.4-8.2) Albumin 3.2 g/dL (3.4-5.0) Triglycerides Level 93 mg/dL (0-150) Cholesterol Level 110 mg/dL (0-200) LDL Cholesterol, Calculated 51 mg/dL (0-100) VLDL Cholesterol, Calculated 18 mg/dL (0-40) Non-HDL Cholesterol Calculated 69 mg/dL (0-129) HDL Cholesterol 41 mg/dL (40-60) Cholesterol/HDL Ratio 2.0 Lipase 219 U/L (73-393) Nasal Screen MRSA (PCR) Negative (Negative) Glucose (Fingerstick) 191 mg/dL (70-99) 169 mg/dL (70-99) Test 10/26/18 09:42 10/26/18 17:31 10/26/18 20:06 10/27/18 05:40 Glucose (Fingerstick) 297 mg/dL (70-99) 185 mg/dL (70-99) 249 mg/dL (70-99) White Blood Count 6.4 x10^3/uL (4.0-11.0) Red Blood Count 4.29 x10^6/uL (3.50-5.40) Hemoglobin 9.1 g/dL (12.0-15.5) Hematocrit 30.1 % (36.0-47.0) Mean Corpuscular Volume 70 fL (79-100) Mean Corpuscular Hemoglobin 21 pg (25-35) Mean Corpuscular Hemoglobin Concent 30 g/dL (31-37) Red Cell Distribution Width 21.2 % (11.5-14.5) Platelet Count 325 x10^3/uL (140-400) Sodium Level 141 mmol/L (136-145) Potassium Level 4.1 mmol/L (3.5-5.1) Chloride Level 105 mmol/L (98-107) Carbon Dioxide Level 28 mmol/L (21-32) Anion Gap 8 (6-14) Blood Urea Nitrogen 20 mg/dL (7-20) Creatinine 1.0 mg/dL (0.6-1.0) Estimated GFR (Cockcroft-Gault) 58.0 Glucose Level 182 mg/dL (70-99) Calcium Level 8.9 mg/dL (8.5-10.1) Test 10/27/18 07:02 Glucose (Fingerstick) 190 mg/dL (70-99) Medications Current Medications Furosemide (Lasix) 40 mg DAILY PO Last administered on 10/27/18at 07:46; Start 10/26/18 at 09:00 Levofloxacin (Levaquin) 500 mg 1X ONCE PO Last administered on 10/26/18at 06:10 ; Start 10/26/18 at 05:30; Stop 10/26/18 at 05:31; Status DC Enoxaparin Sodium (Lovenox 150mg Syringe) 150 mg Q12HR SQ ; Start 10/26/18 at 06 :00; Stop 10/26/18 at 11:50; Status DC Info (Anti-Coagulation Monitoring By Pharmacy) 1 each PRN DAILY PRN MC SEE COMMENTS; Start 10/26/18 at 05:45; Status Cancel Albuterol Sulfate (Ventolin) 2.5 mg PRN Q6HRS PRN INH SHORTNESS OF BREATH; Start 10/26/18 at 10:45 Nitroglycerin (Nitrostat) 0.4 mg PRN Q5MIN PRN SL CHEST PAIN; Start 10/26/18 at 10:45 Apixaban (Eliquis) 5 mg BID PO Last administered on 10/27/18 07:46; Start at 21:00 Atorvastatin Calcium (Lipitor) 80 mg QHS PO Last administered on 10/26/18at 22: 02; Start 10/26/18 at 21:00 Carvedilol (Coreg) 6.25 mg BIDWMEALS PO Last administered on 10/27/18 07:45; Start 10/26/18 at 11:00 Cephalexin HCl (Keflex) 500 mg TID PO Last administered on 10/27/18 07:45; Start 10/26/18 at 14:00 Pantoprazole Sodium (Protonix) 40 mg DAILYAC PO Last administered on 10/27/18 07:46; Start 10/26/18 at 11:00 Furosemide (Lasix) 40 mg DAILY PO ; Start 10/26/18 at 11:00; Status Cancel Non-Formulary Medication (Insulin Lispro (Humalog)) 100 unit ac/hs SQ ; Start at 10:45; Stop 10/26/18 at 11:50; Status DC Non-Formulary Medication (Liraglutide (Victoza 3-Ady)) 0.6 mg d SQ ; Start 10/26 at 10:45; Status UNV Cetirizine HCl (ZyrTEC) 10 mg DAILY PO Last administered on 10/27/18 07:46; Start 10/26/18 at 11:00 Metformin HCl (Glucophage) 500 mg BIDWMEALS PO Last administered on 10/27/18 07:46; Start 10/26/18 at 17:00 Potassium Chloride (Klor-Con) 10 meq DAILYWBKFT PO Last administered on 07:46; Start 10/26/18 at 12:00 Sacubitril/ Valsartan (Entresto 49 Mg-51 Mg) 1 tab BID PO Last administered on 10/27/18 07:45; Start 10/26/18 at 11:00 Aspirin (Children'S Aspirin) 81 mg DAILYWBKFT PO Last administered on 07:46; Start 10/26/18 at 12:00 Insulin Human Lispro (HumaLOG) 0-7 UNITS TIDWMEALS SQ Last administered on 4/17 /19at 07:49; Start 10/26/18 at 12:00 Dextrose 12.5 gm PRN Q15MIN PRN IV SEE COMMENTS; Start 10/26/18 at 10:45 Lactobacillus Rhamnosus (Culturelle) 1 cap BID PO Last administered on at 07:45; Start 10/26/18 at 21:00 Insulin Glargine (Lantus) 20 units 1X ONCE SQ Last administered on 10/26/18at 22:06; Start 10/26/18 at 21:15; Stop 10/26/18 at 21:16; Status DC Active Scripts Active Keflex (Cephalexin) 500 Mg Capsule 500 Mg PO TID 10 Days Reported Victoza 3-Ady (Liraglutide) 0.6 Mg/0.1 Ml Pen.injctr 0.6 Mg SQ D Entresto 49 mg-51 mg Tablet (Sacubitril/Valsartan) 1 Each Tablet 1 Each PO BID Proair Hfa Inhaler (Albuterol Sulfate) 8.5 Gm Hfa.aer.ad 2 Puff INH PRN Q6HRS PRN Potassium Chloride 10 Meq Tablet.er 10 Meq PO DAILY NITROGLYCERIN SubLingual (Nitroglycerin) 0.4 Mg Tab.subl 0.4 Mg SL PRN Q5MIN PRN [miconazole 2% powder] Metformin Hcl 500 Mg Tablet 500 Mg PO BIDWMEALS Humalog (Insulin Lispro) 100 Unit/1 Ml Vial 100 Unit SQ AC/HS Lasix (Furosemide) 40 Mg Tablet 40 Mg PO DAILY Nexium Capsule (Esomeprazole Magnesium) 40 Mg Capsule.dr 40 Mg PO DAILYAC Coreg (Carvedilol) 6.25 Mg Tablet 6.25 Mg PO BIDWMEALS Atorvastatin Calcium 80 Mg Tablet 80 Mg PO QHS Eliquis (Apixaban) 5 Mg Tablet 5 Mg PO BID Loratadine 10 Mg Tablet 10 Mg PO DAILY Lantus (Insulin Glargine,Hum.rec.anlog) 100 Unit/1 Ml Vial 100 Unit SQ Aspirin 81 Mg Tab.chew 81 Mg PO Advair 100-50 Diskus (Fluticasone/Salmeterol) 1 Each Disk.w.dev 1 Each IH Vitals/I & O Vital Sign - Last 24 Hours 10/26/18 10/26/18 10/26/18 10/26/18 11:00 11:18 11:18 15:00 Pulse 88 88 88 84 Resp 20 20 B/P (MAP) 122/76 (91) 126/73 126/73 101/68 (79) Pulse Ox 94 96 O2 Delivery Room Air Room Air 10/26/18 10/26/18 10/26/18 10/26/18 17:40 19:38 20:30 22:01 Temp 98.0 Pulse 95 91 84 Resp 26 B/P (MAP) 101/68 109/75 (86) 115/80 Pulse Ox 98 O2 Delivery Room Air 10/26/18 10/26/18 10/27/18 10/27/18 23:01 23:54 05:40 05:53 Temp 98.5 97.6 Pulse 76 78 82 Resp 24 22 26 B/P (MAP) 115/80 (92) 105/62 (76) 104/66 (79) Pulse Ox 95 98 97 O2 Delivery Room Air Room Air 10/27/18 10/27/18 10/27/18 10/27/18 07:25 07:45 07:45 08:00 Temp 97.8 Pulse 86 79 71 Resp 24 B/P (MAP) 125/76 (92) Pulse Ox 98 O2 Delivery Room Air Room Air Intake and Output 10/26/18 10/26/18 10/27/18 14:59 22:59 06:59 Intake Total 840 ml 360 ml 855 ml Output Total 525 ml 800 ml 550 ml Balance 315 ml -440 ml 305 ml ADAM ZAMORANO MD 10/27/18 1551: PROGRESS NOTES Review of Relevant Pt. seen and examined. Agree with above STATION REPAIRER note with following changes/comments : 1. Ok to stop ASA given NICM 2. Continue eliquis for afib. 3. Continue coreg, entresto. 4. Continue statin for her dyslipidemia. LDL at goal. VEENA DE LA VEGA ARTISTIC DIRECTOR Oct 27, 2018 09:37 ADAM ZAMORANO MD Oct 27, 2018 15:51
[2018-10-27 12:10] VITALS: BP 95/75
[2018-10-27] MEDS ORDERED: ACETAMINOPHEN 325 MG TABLET PO PRN (12:30)
[2018-10-27 16:21] VITALS: BP 104/71
--- NOTE | 2018-10-27 18:47 | DS ---
DATE OF DISCHARGE: 10/27/2018 HOSPITAL COURSE: The patient is a 52-year-old female patient who came to the Emergency Room complaining of chest pain that is fairly atypical, it lasts only few seconds and is not associated with any exertion, not associated with any nausea, vomiting or diaphoresis. The patient is known to have severe non-ischemic cardiomyopathy with no evidence of ischemic changes in her EKG or troponin. She has had cardiac catheterization done in 2017 showing her coronary arteries to be normal. She is in chronic atrial fibrillation with a heart rate that ranged between 50-110. She was evaluated by the Cardiology team and they initially recommended LifeVest, but apparently that does not fit her and therefore, a decision was made to discharge her home to follow with her primary centrifugal screen tender, Dr. Maloney at [facility]. PHYSICAL EXAMINATION: GENERAL: When I saw her this afternoon, she was resting slightly propped up in bed, in no apparent respiratory distress. No pallor, jaundice, cyanosis, or thyromegaly. No jugular venous distension. No limb edema. VITAL SIGNS: Her heart rate was 84, blood pressure was 104/71, temperature was 97.6, respiratory rate 20, and oxygen saturation was 98%. HEAD, EYES, EARS, NOSE AND THROAT: Showed normocephalic, atraumatic. NECK: Supple. HEART: Showed normal first and second sounds. No gallop, rub or murmur. CHEST: Clear to auscultation. No crepitation or rhonchi. ABDOMEN: Distended, soft, nontender. No guarding or rigidity. No organomegaly. All hernial orifice intact. Bowel sounds normal. NEUROLOGICAL: She was hard of hearing. Otherwise, her cranial nerves intact. She moves extremities without difficulty. She ambulates without assistance or assistive devices. LABORATORY DATA: Her lab work this morning showed a white cell count 6400, hemoglobin 9, hematocrit 30, MCV 70 and platelet count 325,000. Her chemistry showed a serum sodium 141, potassium 4.1, chloride 105, bicarbonate 28, anion gap of 8, BUN 20, creatinine 1, estimated GFR was 58 mL per minute. Her glucose 182, calcium was 8.9. Her prothrombin time was 11.2, INR 1.1, aPTT 26 and D-dimer was 0.19. DISCHARGE MEDICATIONS: She was discharged home to continue on following medication: Albuterol sulfate 2 puffs q.6h, apixaban 5 mg twice a day, aspirin 81 mg once a day, atorvastatin calcium 80 mg at bedtime, carvedilol 6.25 mg twice a day, Keflex 500 mg 3 times a day for UTI for a total of 10 days, Nexium 40 mg daily, Advair Diskus 1 puff once a day, furosemide 40 mg once a day. She is on Lantus insulin as well as Humalog insulin as insulin sliding scale. She is on Victoza 0.6 mg subcutaneously daily, loratadine 10 mg once a day, metformin 500 mg twice a day. FINAL DISCHARGE DIAGNOSES: 1. Severe nonischemic cardiomyopathy with an ejection fraction of 25-30%. 2. Chronic atrial fibrillation. 3. Hypertension. 4. Hypertensive heart disease. 5. Chronic kidney disease. 6. Hyperlipidemia. 7. Anemia. WILLIAMS LOUIS MD DR: NEGRA/davina JOB#: [id number] / [id number]
== END 2018-10-27 16:25 | disposition home or self-care (01) | DRG 315 ==
LOC: ER 21:44 → ICU 21:50
PROVIDERS: ADMIT Internal Medicine; ATTEND Internal Medicine
DX: I42.9 Cardiomyopathy, unspecified (principal); I50.22 Chronic systolic (congestive) heart failure; I13.0 Hypertensive heart and chronic kidney disease with heart failure and stage 1 through stage 4 chronic kidney disease, or unspecified chronic kidney disease; R07.89 Other chest pain; J44.9 Chronic obstructive pulmonary disease, unspecified; D50.9 Iron deficiency anemia, unspecified; E11.22 Type 2 diabetes mellitus with diabetic chronic kidney disease; E78.5 Hyperlipidemia, unspecified; F17.200 Nicotine dependence, unspecified, uncomplicated; I25.10 Atherosclerotic heart disease of native coronary artery without angina pectoris; I48.0 Paroxysmal atrial fibrillation; I48.2 Chronic atrial fibrillation; K21.9 Gastro-esophageal reflux disease without esophagitis; N18.2 Chronic kidney disease, stage 2 (mild); Z86.711 Personal history of pulmonary embolism; E66.01 Morbid (severe) obesity due to excess calories
CPT/HCPCS: 36415; 71045; 80048; 80061; 80076; 81001; 82947; 83690; 83880; 84484; 85025; 85027; 85379; 85610; 85730; 87641; 93005; 93306; J1650; J1815; 99285-25

== ENCOUNTER 2018-11-07 16:00 | Inpatient (IN) | payer OTHER ==
[~2018-11-07] VITALS: Ht 154.9 cm; Wt 161.5 kg
--- NOTE | 2018-11-07 16:25 | PHYS DOC ---
Past History Past Medical History: A-Fib, Arrhythmia, CAD, Diabetes, Hypertension, Other Additional Past Medical Histor: cardiomegaly Past Surgical History: No Surgical History Smoking: Non-smoker Alcohol Use: None Drug Use: None Adult General Chief Complaint Chief Complaint: FLU SYMPTOM HPI HPI Patient is a 52-year-old female presents with cough and fever, labile blood sugars, dry mouth, and blurred vision. This has been going on for the past several days since being released from the hospital. Nothing seems to make the symptoms better or worse.[] Review of Systems Review of Systems Constitutional: Denies fever or chills [] Eyes: Denies change in visual acuity, redness, or eye pain [] HENT: Denies nasal congestion or sore throat [] Respiratory: Denies cough or shortness of breath [] Cardiovascular: No chest pain or palpitations[] GI: Denies abdominal pain, nausea, vomiting, bloody stools or diarrhea [] : Denies dysuria or hematuria [] Musculoskeletal: Denies back pain or joint pain [] Integument: Denies rash or skin lesions [] Neurologic: Denies headache, focal weakness or sensory changes [] Endocrine: Denies polyuria or polydipsia [] All other systems were reviewed and found to be within normal limits, except as documented in this note. Allergies Allergies Allergies Coded Allergies Type Severity Reaction Last Updated Verified No Known Drug Allergies 10/24/18 No Physical Exam Physical Exam Constitutional: Well developed, well nourished, no acute distress, non-toxic appearance. [] HENT: Normocephalic, atraumatic, bilateral external ears normal, oropharynx moist, no oral exudates, nose normal. [] Eyes: PERRLA, EOMI, conjunctiva normal, no discharge. [] Neck: Normal range of motion, no tenderness, supple, no stridor. [] Cardiovascular:Heart rate regular rhythm, no murmur [] Lungs & Thorax: Bilateral breath sounds clear to auscultation [] Abdomen: Bowel sounds normal, soft, no tenderness, no masses, no pulsatile masses. [] Skin: Warm, dry, no erythema, no rash. [] Back: No tenderness, no CVA tenderness. [] Extremities: No tenderness, no cyanosis, no clubbing, ROM intact, no edema. [] Neurologic: Alert and oriented X 3, normal motor function, normal sensory function, no focal deficits noted. [] Psychologic: Affect normal, judgement normal, mood normal. [] EKG EKG EKG shows atrial fibrillation, rate of 92 bpm, left axis at -56, QTC of 498 ms, when compared with EKG of 10/25/2018 no acute changes were noted. Interpreted by me at 1641[] Radiology/Procedures Radiology/Procedures PROCEDURE: PORTABLE CHEST 1V PORTABLE CHEST 1V History: Cough, history of heart disease Comparison: October 25, 2018 Findings: Single view of the chest is submitted. Pericardial cardiac silhouette is again enlarged. There is no dependent pleural fluid or pneumothorax. There is mild hazy right base airspace opacity. Impression: 1. Pericardial cardiac silhouette is again enlarged. There is mild hazy right base airspace opacity difficult to evaluate due to beam attenuation by soft tissues, possible mild infiltrate.[] Course & Med Decision Making Course & Med Decision Making Pertinent Labs and Imaging studies reviewed. (See chart for details) ED course and medical decision making: Patient arrived, was placed in bed, and tolerated exam well. She is remained afebrile while in the emergency department. Chest x-ray is noted, believe this may be more due to fluid rather than an infiltrate given her elevated BNP. Consultation was made with the hospitalist who graciously accepted the patient for admission. Patient was admitted in improved condition. She did receive Lasix in accordance with her daily oral dose, via the IV while in the emergency department.[] Dragon Disclaimer Dragon Disclaimer This electronic medical record was generated, in whole or in part, using a voice recognition dictation system. Departure Departure: Impression: Primary Impression: Chronic atrial fibrillation Additional Impressions: Chronic systolic CHF (congestive heart failure) Acute exacerbation of CHF (congestive heart failure) Disposition: ADMITTED INPATIENT Admitting Physician: Natalia Guevara Condition: IMPROVED Referrals: EULOGIO KISER (PCP) Problem Qualifiers Additional Impressions: Acute exacerbation of CHF (congestive heart failure) Heart failure type: unspecified Qualified Codes: I50.9 - Heart failure, unspecified EHSAN JOHNSON Nov 07, 2018 16:25
[2018-11-07] MEDS ORDERED: IV NORMAL SALINE 500ML 500 ML IV ONE (16:30)
--- NOTE | 2018-11-07 16:40 | RAD ---
PORTABLE CHEST 1V History: Cough, history of heart disease Comparison: October 25, 2018 Findings: Single view of the chest is submitted. Pericardial cardiac silhouette is again enlarged. There is no dependent pleural fluid or pneumothorax. There is mild hazy right base airspace opacity. Impression: 1. Pericardial cardiac silhouette is again enlarged. There is mild hazy right base airspace opacity difficult to evaluate due to beam attenuation by soft tissues, possible mild infiltrate. Electronically signed by: Perfecto Morfin MD (11/07/2018 4:38 PM) [facility]
[2018-11-07 16:56] LABS: BASO # 0.1 x10^3/uL (0.0-0.2); BASO % 1 % (0-3); EOS # 0.2 x10^3/uL (0.0-0.7); EOS % 2 % (0-3); HEMOGLOBIN 9.8 g/dL (12.0-15.5); LYMPH # 2.9 x10^3/uL (1.0-4.8); LYMPH % 31 % (24-48); MEAN CORPUSCULAR HEMOGLOBIN 21 pg (25-35); MEAN CORPUSCULAR HGB CONC 31 g/dL (31-37); MEAN CORPUSCULAR VOLUME 69 fL (79-100); MONO # 0.7 x10^3/uL (0.0-1.1); MONO % 7 % (0-9); NEUT # 5.6 x10^3uL (1.8-7.7); NEUT % 59 % (31-73); PLATELET COUNT 389 x10^3/uL (140-400); RED BLOOD COUNT 4.64 x10^6/uL (3.50-5.40); RED CELL DISTRIBUTION WIDTH 20.3 % (11.5-14.5); WHITE BLOOD COUNT 9.4 x10^3/uL (4.0-11.0)
[2018-11-07 17:01] LABS: ALBUMIN 3.4 g/dL (3.4-5.0); ALBUMIN/GLOBULIN RATIO 0.9 (1.0-1.7); CALCIUM 9.1 mg/dL (8.5-10.1); CREATININE 1.1 mg/dL (0.6-1.0); POTASSIUM 3.7 mmol/L (3.5-5.1); TOTAL BILIRUBIN 0.4 mg/dL (0.2-1.0); TOTAL PROTEIN 7.3 g/dL (6.4-8.2)
--- NOTE | 2018-11-07 17:08 | EKG ---
[address] [address] Test Date: 2018-11-07 Test Time: 16:41:21 Pat Name: DARELL CORONADO Department: Room: Gender: F Curam Developer: LEXIS : 1965 Requested By: EHSNA JOHNSON Order Number: [id number] Reading MD: Leroy Aponte Measurements Intervals [place] Rate: 92 P: VA: QRS: -56 QRSD: 122 T: 66 QT: 398 QTc: 498 Interpretive Statements ATRIAL FIBRILLATION. ABNORMAL LEFT AXIS DEVIATION LOW LIMB LEAD VOLTAGE QRS(T) CONTOUR ABNORMALITY CONSISTENT WITH INFERIOR INFARCT PROBABLY OLD Electronically Signed On 11-10-2018 17:42:31 CDT by Leroy Aponte
[2018-11-07 17:19] LABS: CLARITY,URINE CLOUDY; COLOR,URINE PINK
[2018-11-07 17:20] LABS: BACTERIA,URINE FEW /HPF (0-FEW); BILIRUBIN,URINE NEG (NEG); GLUCOSE,URINE NEG (NEG); NITRITE,URINE NEG (NEG); RBC,URINE TNTC /HPF (0-2); SQUAMOUS EPITHELIAL CELL,UR OCC /LPF; UROBILINOGEN,URINE 1 mg/dL (0.2 mg/dL)
[2018-11-07 17:48] LABS: INFLUENZA A PATIENT NEGATIVE (NEGATIVE); INFLUENZA B PATIENT NEGATIVE (NEGATIVE)
[2018-11-07] MEDS ORDERED: ACETAMINOPHEN 325 MG TABLET PO PRN (18:30)
[2018-11-07] MEDS ORDERED: NITROGLYCERIN SUBLINGUAL 0.4 MG BOTTLE OF 25. SL PRN ×2 (18:30→20:45)
[2018-11-07] MEDS ORDERED: ONDANSETRON PF 4 MG/2 ML VIAL. IV PRN (18:30)
[2018-11-07] MEDS ORDERED: FUROSEMIDE 40 MG/4 ML VIAL IVP ONE (18:30)
[2018-11-07] MEDS ORDERED: IPRATRPIUM/ALBUTEROL 0.5/2.5MG 3 ML NEBU. NEB SCH (20:00)
[2018-11-07 20:33] VITALS: BP 115/74
[2018-11-07] MEDS ORDERED: NON FORMULARY ITEM (Insulin Lispro (Humalog) 100 UNIT) SQ SCH (20:45)
[2018-11-07] MEDS: SACUBITRIL/VALSARTAN 49/51MG TABLET. PO SCH (21:00)
[2018-11-07] MEDS ORDERED: INSULIN LISPRO 300 UNITS/3 ML INSULN.PEN. SQ ONE (21:20)
[2018-11-07 22:00] LABS: ANISOCYTOSIS SLIGHT; HYPOCHROMIA SLIGHT; PLT ESTIMATE INCREASED (ADEQUATE); POLYCHROMASIA SLIGHT; SCHISTOCYTES OCC
[2018-11-07] MEDS: ATORVASTATIN CALCIUM 20 MG TABLET PO SCH (22:15)
[2018-11-07] MEDS: APIXABAN 5 MG TABLET. PO SCH (22:15)
[2018-11-07] MEDS: INSULIN GLARGINE 300 UNITS/3 ML INSULN.PEN. SQ SCH (22:20)
[2018-11-08] MEDS ORDERED: BENZOCAINE/MENTHOL LOZNGE 18'S BOX. PO PRN (04:00)
[2018-11-08 05:30] VITALS: BP 122/80
[2018-11-08 06:32] LABS: ALBUMIN 3.4 g/dL (3.4-5.0); ALBUMIN/GLOBULIN RATIO 0.8 (1.0-1.7); CALCIUM 9.1 mg/dL (8.5-10.1); CREATININE 1.1 mg/dL (0.6-1.0); POTASSIUM 3.8 mmol/L (3.5-5.1); TOTAL BILIRUBIN 0.4 mg/dL (0.2-1.0); TOTAL PROTEIN 7.7 g/dL (6.4-8.2)
[2018-11-08 06:38] LABS: BASO # 0.1 x10^3/uL (0.0-0.2); BASO % 1 % (0-3); EOS # 0.2 x10^3/uL (0.0-0.7); EOS % 2 % (0-3); HEMATOCRIT 33.5 % (36.0-47.0); HEMOGLOBIN 10.1 g/dL (12.0-15.5); LYMPH # 3.7 x10^3/uL (1.0-4.8); LYMPH % 39 % (24-48); MEAN CORPUSCULAR HEMOGLOBIN 21 pg (25-35); MEAN CORPUSCULAR HGB CONC 30 g/dL (31-37); MEAN CORPUSCULAR VOLUME 70 fL (79-100); MONO # 0.9 x10^3/uL (0.0-1.1); MONO % 9 % (0-9); NEUT # 4.7 x10^3uL (1.8-7.7); NEUT % 49 % (31-73); PLATELET COUNT 404 x10^3/uL (140-400); RED BLOOD COUNT 4.79 x10^6/uL (3.50-5.40); RED CELL DISTRIBUTION WIDTH 20.4 % (11.5-14.5); WHITE BLOOD COUNT 9.6 x10^3/uL (4.0-11.0)
[2018-11-08] MEDS: PANTOPRAZOLE 40 MG TABLET. PO SCH (07:50)
[2018-11-08] MEDS ORDERED: CARVEDILOL 6.25 MG TABLET PO SCH (08:00)
[2018-11-08] MEDS ORDERED: CARVEDILOL 3.125 MG PO SCH (08:00)
[2018-11-08] MEDS: INSULIN LISPRO 300 UNITS/3 ML INSULN.PEN. SQ SCH ×3 (08:11→17:44)
[2018-11-08] MEDS ORDERED: FUROSEMIDE 40 MG TABLET PO SCH (09:00)
[2018-11-08] MEDS: CARVEDILOL 3.125 MG TABLET PO SCH ×2 (09:02→17:41)
[2018-11-08] MEDS: ASPIRIN 81 MG TAB.CHEW PO SCH (09:02)
[2018-11-08] MEDS: POTASSIUM CHLORIDE 10 MEQ TABLET.ER. PO SCH (09:03)
[2018-11-08] MEDS: FUROSEMIDE 40 MG/4 ML VIAL IVP SCH ×2 (09:03→14:15)
[2018-11-08] MEDS: SACUBITRIL/VALSARTAN 49/51MG TABLET. PO SCH ×2 (09:04→20:11)
[2018-11-08] MEDS: CETIRIZINE HCL 10 MG TABLET PO SCH (09:04)
[2018-11-08] MEDS: APIXABAN 5 MG TABLET. PO SCH ×2 (09:04→20:12)
[2018-11-08] MEDS: NYSTATIN TOPICAL POWDER 15GM BOTTLE. TP SCH ×2 (09:11→20:15)
[2018-11-08 10:42] VITALS: BP 99/66
[2018-11-08] MEDS ORDERED: PIP/TAZO PER PHARMACY MC PRN (13:30)
[2018-11-08] MEDS: PIPERACILLIN/TAZOBACTAM 4.5 GM in IV NORMAL SALINE 50ML 50 ML IV SCH ×2 (14:17→20:15)
[2018-11-08] MEDS: VANCOMYCIN PER PHARMACY MC PRN (14:51)
[2018-11-08] MEDS ORDERED: VANCOMYCIN 2 GM in IV NORMAL SALINE 500ML 500 ML IV ONE (15:00)
[2018-11-08 15:11] VITALS: BP 102/69
[2018-11-08] MEDS: IPRATRPIUM/ALBUTEROL 0.5/2.5MG 3 ML NEBU. NEB SCH ×2 (16:06→19:12)
--- NOTE | 2018-11-08 16:23 | PDOC2 ---
CONSULT Date of Admission DATE: 11/08/18 TIME: 16:23 Reason for Consult: Congestive heart failure Referring Physician: Dr. Guevara Chief Complaint Shortness of breath, cough Source: Chart review, Patient Problem List Problems Medical Problems: (1) Acute exacerbation of CHF (congestive heart failure) Status: Acute History of Present Illness 52-year-old female presented with shortness of breath and cough and was diagnosed with acute on chronic systolic heart failure. She was recently evaluated at [facility] for atypical chest pain. She is not a very good historian but she presently denied any chest pain, palpitations or syncope. Her cough is productive with greenish sputum. She has history of nonischemic cardiomyopathy and recent 2-D echo showed LVEF 25-30%. She usually sees [facility] for cardiac care. Past Medical History Permanent atrial fibrillation Hypertension Hyperlipidemia Chronic systolic heart failure/nonischemic cardiomyopathy COPD Pulmonary embolism Diabetes mellitus type 2 Gastroesophageal reflux disease Chronic kidney disease Past Surgical History Hernia repair Family History Hypertension Social History Patient is a current smoker but denied any alcohol or drug abuse Current Medications Current Medications Sodium Chloride 500 ml @ 0 mls/hr 1X ONCE IV Last administered on 11/07/18at 17:03; Start 11/07/18 at 16:30; Stop 11/07/18 at 16:47; Status DC Furosemide (Lasix) 40 mg 1X ONCE IVP Last administered on 11/07/18at 19:44; Start 11/07/18 at 18:30; Stop 11/07/18 at 18:31; Status DC Ondansetron HCl (Zofran) 4 mg PRN Q4HRS PRN IV NAUSEA/VOMITING; Start 11/07/18 at 18:30; Stop 11/08/18 at 18:29 Acetaminophen (Tylenol) 650 mg PRN Q4HRS PRN PO FEVER; Start 11/07/18 at 18:30; Stop 11/08/18 at 18:29 Nitroglycerin (Nitrostat) 0.4 mg PRN Q5MIN PRN SL CHEST PAIN; Start 11/07/18 at 18:30; Stop 11/08/18 at 18:29 Albuterol/ Ipratropium (Duoneb) 3 ml RTQID NEB Last administered on 11/07/18at 19:44; Start 11/07/18 at 20:00; Stop 11/07/18 at 20:51; Status DC Nitroglycerin (Nitrostat) 0.4 mg PRN Q5MIN PRN SL CHEST PAIN; Start 11/07/18 at 20:45 Apixaban (Eliquis) 5 mg BID PO Last administered on 11/08/18at 09:04; Start 11/07/18 at 21:00 Atorvastatin Calcium (Lipitor) 80 mg QHS PO Last administered on 11/07/18at 22:15; Start 11/07/18 at 21:00 Carvedilol (Coreg) 6.25 mg BIDWMEALS PO ; Start 11/08/18 at 08:00; Stop 11/08/18 at 08:00; Status DC Pantoprazole Sodium (Protonix) 40 mg DAILYAC PO Last administered on 11/08/18at 07:50; Start 11/08/18 at 07:30 Furosemide (Lasix) 40 mg DAILY PO ; Start 11/08/18 at 09:00; Stop 11/08/18 at 09:00; Status DC Non-Formulary Medication (Insulin Lispro (Humalog)) 100 unit ac/hs SQ ; Start 11/07/18 at 20:45; Stop 11/07/18 at 21:10; Status DC Non-Formulary Medication (Liraglutide (Victoza 3-Ady)) 0.6 mg d SQ ; Start 11/07/18 at 20:45; Status UNV Cetirizine HCl (ZyrTEC) 10 mg DAILY PO Last administered on 11/08/18at 09:04; Start 11/08/18 at 09:00 Potassium Chloride (Klor-Con) 10 meq DAILYWBKFT PO Last administered on 11/08/18at 09:03; Start 11/08/18 at 08:00 Sacubitril/ Valsartan (Entresto 49 Mg-51 Mg) 1 tab BID PO Last administered on 11/08/18 09:04; Start 11/07/18 at 21:00 Insulin Human Lispro (HumaLOG) 15 units TIDAC SQ Last administered on 11/08/18at 12:12; Start 11/08/18 at 07:30 Non-Formulary Medication (Carvedilol (Coreg )) 3.125 mg BIDWMEALS PO ; Start 11/08/18 at 08:00; Status UNV Furosemide (Lasix) 40 mg BID92 IVP Last administered on 11/08/18 14:15; Start 11/08/18 at 09:00 Aspirin (Children'S Aspirin) 81 mg DAILYWBKFT PO Last administered on 11/08/18at 09:02; Start 11/08/18 at 08:00 Insulin Glargine (Lantus) 35 units QHS SQ Last administered on 11/07/18at 22:20; Start 11/07/18 at 21:00 Insulin Glargine (Lantus) 35 units QHS SQ ; Start 11/08/18 at 21:00; Status UNV Carvedilol (Coreg) 3.125 mg BIDWMEALS PO Last administered on 11/08/18 09:02; Start 11/08/18 at 08:00 Nystatin (Nystop) 1 robby BID TP Last administered on 11/08/18at 09:11; Start 11/08/18 at 09:00 Insulin Human Lispro (HumaLOG) 300 units STK-MED ONCE SQ ; Start 11/07/18 at 21:20; Stop 11/07/18 at 21:21; Status DC Throat Lozenges (Cepacol Sore Throat Lozenge) 1 carlos PRN Q2HR PRN PO SORE THROAT Last administered on 11/08/18at 04:11; Start 11/08/18 at 04:00 Furosemide (Lasix) 40 mg BID IVP ; Start 11/08/18 at 21:00; Stop 11/08/18 at 21:00; Status DC Metformin HCl (Glucophage Xr) 500 mg BIDWMEALS PO ; Start 11/08/18 at 17:00 Vancomycin HCl (Vanco Per Pharmacy) 1 each PRN DAILY PRN MC SEE COMMENTS Last administered on 11/08/18at 14:51; Start 11/08/18 at 13:30 Piperacillin Sod/ Tazobactam Sod (Zosyn Per Pharmacy) 1 each PRN DAILY PRN MC SEE COMMENTS; Start 11/08/18 at 13:30 Acetaminophen/ Codeine Phosphate (Tylenol #3) 1 tab QHS PO ; Start 11/08/18 at 21:00 Piperacillin Sod/ Tazobactam Sod 4.5 gm/Sodium Chloride 50 ml @ 100 mls/hr Q6H IV Last administered on 4/29/19at 14:17; Start 11/08/18 at 14:00 Albuterol/ Ipratropium (Duoneb) 3 ml RTQID NEB Last administered on 11/08/18at 16:06; Start 11/08/18 at 16:00 Vancomycin HCl 2 gm/Sodium Chloride 500 ml @ 250 mls/hr 1X ONCE IV Last administered on 11/08/18at 15:25; Start 11/08/18 at 15:00; Stop 11/08/18 at 16:59 Lactobacillus Rhamnosus (Culturelle) 1 cap BID PO ; Start 11/08/18 at 21:00 Vancomycin HCl 2 gm/Sodium Chloride 500 ml @ 250 mls/hr Q12H IV ; Start 11/09/18 at 03:00 Vancomycin HCl (Vancomycin Trough Level) 1 each 1X ONCE MC ; Start 11/10/18 at 02:30; Stop 11/10/18 at 02:31 Active Scripts Active Keflex (Cephalexin) 500 Mg Capsule 500 Mg PO TID 10 Days Reported Victoza 3-Ady (Liraglutide) 0.6 Mg/0.1 Ml Pen.injctr 0.6 Mg SQ D Entresto 49 mg-51 mg Tablet (Sacubitril/Valsartan) 1 Each Tablet 1 Each PO BID Proair Hfa Inhaler (Albuterol Sulfate) 8.5 Gm Hfa.aer.ad 2 Puff INH PRN Q6HRS PRN Potassium Chloride 10 Meq Tablet.er 10 Meq PO DAILY NITROGLYCERIN SubLingual (Nitroglycerin) 0.4 Mg Tab.subl 0.4 Mg SL PRN Q5MIN PRN [miconazole 2% powder] Metformin Hcl 500 Mg Tablet 500 Mg PO BIDWMEALS Humalog (Insulin Lispro) 100 Unit/1 Ml Vial 100 Unit SQ AC/HS Lasix (Furosemide) 40 Mg Tablet 40 Mg PO DAILY Nexium Capsule (Esomeprazole Magnesium) 40 Mg Capsule.dr 40 Mg PO DAILYAC Coreg (Carvedilol) 6.25 Mg Tablet 6.25 Mg PO BIDWMEALS Atorvastatin Calcium 80 Mg Tablet 80 Mg PO QHS Eliquis (Apixaban) 5 Mg Tablet 5 Mg PO BID Loratadine 10 Mg Tablet 10 Mg PO DAILY Lantus (Insulin Glargine,Hum.rec.anlog) 100 Unit/1 Ml Vial 100 Unit SQ Aspirin 81 Mg Tab.chew 81 Mg PO Advair 100-50 Diskus (Fluticasone/Salmeterol) 1 Each Disk.w.dev 1 Each IH Allergies: Coded Allergies: No Known Drug Allergies (Unverified , 11/07/18) PSYCHOLOGICAL ROS: No: Hallucinations Eyes: No: Loss of vision HEENT: No: Epistaxis Respiratory: YES: Cough, Shortness of breath; No: Orthopnea Cardiovascular: No: Chest Pain, Palpitations Gastrointestinal: YES: Diarrhea; No: Vomiting Genitourinary: No: [place] Neurological: No: Memory Loss, Seizures Skin: No: Rash General: Alert, No acute distress HEENT: Atraumatic Lungs: Other (bilateral basal crepitations) Heart: Regular rate Abdomen: Soft, No tenderness Extremities: Other (1+ pitting edema) Psych/Mental Status: Mood NL VITALS Vital Signs Date Time Temp Pulse Resp B/P (MAP) Pulse Ox O2 Delivery O2 Flow Rate FiO2 11/08/18 16:07 97 Room Air 11/08/18 15:11 98.1 71 24 102/69 (80) Labs Laboratory Tests Test 11/07/18 16:08 11/07/18 16:20 11/07/18 16:37 11/07/18 16:50 Glucose (Fingerstick) 180 mg/dL (70-99) White Blood Count 9.4 x10^3/uL (4.0-11.0) Red Blood Count 4.64 x10^6/uL (3.50-5.40) Hemoglobin 9.8 g/dL (12.0-15.5) Hematocrit 32.0 % (36.0-47.0) Mean Corpuscular Volume 69 fL (79-100) Mean Corpuscular Hemoglobin 21 pg (25-35) Mean Corpuscular Hemoglobin Concent 31 g/dL (31-37) Red Cell Distribution Width 20.3 % (11.5-14.5) Platelet Count 389 x10^3/uL (140-400) Neutrophils (%) (Auto) 59 % (31-73) Lymphocytes (%) (Auto) 31 % (24-48) Monocytes (%) (Auto) 7 % (0-9) Eosinophils (%) (Auto) 2 % (0-3) Basophils (%) (Auto) 1 % (0-3) Neutrophils # (Auto) 5.6 x10^3uL (1.8-7.7) Lymphocytes # (Auto) 2.9 x10^3/uL (1.0-4.8) Monocytes # (Auto) 0.7 x10^3/uL (0.0-1.1) Eosinophils # (Auto) 0.2 x10^3/uL (0.0-0.7) Basophils # (Auto) 0.1 x10^3/uL (0.0-0.2) Platelet Estimate Increased (ADEQUATE) Large Platelets Occ Polychromasia Slight Hypochromasia Slight Anisocytosis Slight Schistocytes Occ Sodium Level 142 mmol/L (136-145) Potassium Level 3.7 mmol/L (3.5-5.1) Chloride Level 105 mmol/L (98-107) Carbon Dioxide Level 27 mmol/L (21-32) Anion Gap 10 (6-14) Blood Urea Nitrogen 20 mg/dL (7-20) Creatinine 1.1 mg/dL (0.6-1.0) Estimated GFR (Cockcroft-Gault) 52.0 BUN/Creatinine Ratio 18 (6-20) Glucose Level 181 mg/dL (70-99) Calcium Level 9.1 mg/dL (8.5-10.1) Total Bilirubin 0.4 mg/dL (0.2-1.0) Aspartate Amino Transf (AST/SGOT) 13 U/L (15-37) Alanine Aminotransferase (ALT/SGPT) 22 U/L (14-59) Alkaline Phosphatase 98 U/L (46-116) Troponin I Quantitative 0.018 ng/mL (0-0.055) UQ-Svs-Q-Type Natriuretic Peptide 1223 pg/mL (0-124) Total Protein 7.3 g/dL (6.4-8.2) Albumin 3.4 g/dL (3.4-5.0) Albumin/Globulin Ratio 0.9 (1.0-1.7) Influenza Type A (Rapid) Negative (NEGATIVE) Influenza Type B (Rapid) Negative (NEGATIVE) Urine Collection Type Unknown Urine Color [place] Urine Clarity Cloudy Urine pH 7.0 Urine Specific [place] 1.015 Urine Protein 30 mg/dl (NEG-TRACE) Urine Glucose (UA) Neg mg/dL (NEG) Urine Ketones (Stick) Neg mg/dL (NEG) Urine Blood Large (NEG) Urine Nitrite Neg (NEG) Urine Bilirubin Neg (NEG) Urine Urobilinogen Dipstick 1 mg/dL (0.2 mg/dL) Urine Leukocyte Esterase Trace (NEG) Urine RBC Tntc /HPF (0-2) Urine WBC 5-10 /HPF (0-4) Urine Squamous Epithelial Cells Occ /LPF Urine Bacteria Few /HPF (0-FEW) Test 11/07/18 18:22 11/07/18 22:19 11/08/18 00:40 11/08/18 05:57 Prothrombin Time 11.7 SEC (9.4-11.4) Prothromb Time International Ratio 1.2 (0.9-1.1) Glucose (Fingerstick) 251 mg/dL (70-99) Troponin I Quantitative 0.023 ng/mL (0-0.055) White Blood Count 9.6 x10^3/uL (4.0-11.0) Red Blood Count 4.79 x10^6/uL (3.50-5.40) Hemoglobin 10.1 g/dL (12.0-15.5) Hematocrit 33.5 % (36.0-47.0) Mean Corpuscular Volume 70 fL (79-100) Mean Corpuscular Hemoglobin 21 pg (25-35) Mean Corpuscular Hemoglobin Concent 30 g/dL (31-37) Red Cell Distribution Width 20.4 % (11.5-14.5) Platelet Count 404 x10^3/uL (140-400) Neutrophils (%) (Auto) 49 % (31-73) Lymphocytes (%) (Auto) 39 % (24-48) Monocytes (%) (Auto) 9 % (0-9) Eosinophils (%) (Auto) 2 % (0-3) Basophils (%) (Auto) 1 % (0-3) Neutrophils # (Auto) 4.7 x10^3uL (1.8-7.7) Lymphocytes # (Auto) 3.7 x10^3/uL (1.0-4.8) Monocytes # (Auto) 0.9 x10^3/uL (0.0-1.1) Eosinophils # (Auto) 0.2 x10^3/uL (0.0-0.7) Basophils # (Auto) 0.1 x10^3/uL (0.0-0.2) Sodium Level 140 mmol/L (136-145) Potassium Level 3.8 mmol/L (3.5-5.1) Chloride Level 101 mmol/L (98-107) Carbon Dioxide Level 27 mmol/L (21-32) Anion Gap 12 (6-14) Blood Urea Nitrogen 20 mg/dL (7-20) Creatinine 1.1 mg/dL (0.6-1.0) Estimated GFR (Cockcroft-Gault) 52.0 BUN/Creatinine Ratio 18 (6-20) Glucose Level 228 mg/dL (70-99) Calcium Level 9.1 mg/dL (8.5-10.1) Total Bilirubin 0.4 mg/dL (0.2-1.0) Aspartate Amino Transf (AST/SGOT) 14 U/L (15-37) Alanine Aminotransferase (ALT/SGPT) 22 U/L (14-59) Alkaline Phosphatase 97 U/L (46-116) Total Protein 7.7 g/dL (6.4-8.2) Albumin 3.4 g/dL (3.4-5.0) Albumin/Globulin Ratio 0.8 (1.0-1.7) Test 11/08/18 07:33 11/08/18 11:41 Glucose (Fingerstick) 206 mg/dL (70-99) 176 mg/dL (70-99) Assessment/Plan 1. Acute on chronic systolic heart failure: Patient has history of nonischemic cardiomyopathy. Acute decompensation probably secondary to recent decrease in Lasix dose. Recent 2-D echo 10/26/18 showed LVEF 25-30%. Cardiac catheterization in 2017 did not show any significant coronary artery disease. Continue gentle diuresis with Lasix with close monitoring of BUN/creatinine. 2. Permanent atrial fibrillation: Heart rate slightly elevated. Blood pressure marginal and hence cannot go up on beta blockers. Start digoxin for better rate control. Continue eliquis for stroke prophylaxis. 3. COPD/bronchitis: Continue antibiotics per IM 4. Hyperlipidemia: On statins 5. Diabetes mellitus type 2: Treat per IM Thank you for your consultation ZAIRA SANTOS MD Nov 08, 2018 16:23
--- NOTE | 2018-11-08 16:27 | HP ---
ADMIT DATE: 11/07/2018 HISTORY OF PRESENT ILLNESS: The patient is a 52-year-old female patient, who was brought to the Emergency Room complaining of cough, fever, labile blood sugars, dry mouth, and blurred vision. She stated this has been going on for the past several days since she was released from the hospital. Nothing seems to make her symptoms better or worse. She said that she had the cough that has been productive with greenish to yellowish sputum, although she denied any chest pain. Did complain of shortness of breath. She had also problems with her metformin. She has severe diarrhea whenever she takes her metformin and apparently her diuretics were cut down from 40 mg twice a day to 40 mg once a day when she was discharged from the hospital and since then her symptoms have basically worsened. She was evaluated in the Emergency Room and basically has had a chest x-ray, which showed that the pericardial and cardiac silhouette is again enlarged. There is no dependent pleural fluid or pneumothorax. There are mild hazy right base airspace opacities. Her lab work showed that she has microcytic hypochromic anemia; however, her white cell count and platelets are normal. Her chemistry showed that her beta natriuretic peptide was slightly elevated at 1223. Her troponin was less than 0.018. Her prothrombin time was 11.2. INR was 1.2. Urinalysis showed that she has large amount of blood, trace of leukocyte esterase, too numerous to count rbc's and 5-10 wbc's, very few bacteria. Her influenza A and B were negative and her chest x-ray. The patient was admitted with acute on chronic systolic congestive heart failure, was given IV Lasix. The patient was admitted with acute on chronic systolic congestive heart failure. She has also had recurrent bouts of cough with yellowish sputum as well as metformin-induced severe diarrhea. PAST MEDICAL HISTORY: Significant for she has coronary artery disease, nonischemic cardiomyopathy, type 2 diabetes, hypertension, chronic atrial fibrillation and morbid obesity. PAST SURGICAL HISTORY: Significant for left heart catheterization, which showed that there was no obstructive coronary artery disease. ALLERGIES: She has no known drug allergies. FAMILY HISTORY: Unremarkable. SOCIAL HISTORY: She lives with her roommate and daughter. She apparently does not smoke, drink alcohol or use any recreational drugs. MEDICATIONS: She is currently on following medications: She is on loratadine 10 mg twice a day, cephalexin 500 mg 3 times a day, albuterol sulfate 2 puffs every 6 hours, apixaban 5 mg twice a day, atorvastatin calcium 80 mg at bedtime. She is on nitroglycerin 0.4 mg sublingually every 5 minutes x3, carvedilol 6.25 mg once a day, Entresto 49/51 tablet twice a day, aspirin 81 mg once a day, potassium chloride 10 mEq daily, loop diuretic 40 mg daily, fluticasone/salmeterol, Advair Diskus 100/50 one puff twice a day, Nexium 40 mg once a day, metformin 500 mg twice a day with meals and liraglutide, Victoza ____ subcutaneously daily. She is on Lantus insulin 100 units subQ before meals and at bedtime. PHYSICAL EXAMINATION: GENERAL: On arrival to the Emergency Room, slightly tachypneic, but not pale, not jaundice, cyanosis or thyromegaly. No jugular venous distention. No limb edema. VITAL SIGNS: Her heart rate was 104, blood pressure was 137/78, temperature was 97.8, respiratory rate 22, and oxygen saturation was 96% on room air. HEAD, EYES, EARS, NOSE, and THROAT: Showed normocephalic, atraumatic. NECK: Supple. HEART: Showed normal first and second heart sounds with no gallop, rub or murmur. CHEST: Clear to auscultation. No crepitation or rhonchi. ABDOMEN: Distended, soft, and nontender. No guarding or rigidity. No organomegaly. All hernial orifices intact. Bowel sounds normal. NEUROLOGIC: She was awake, alert, responding appropriately. All cranial nerves are intact. She moves extremities without difficulty. LABORATORY DATA: While in the Emergency Room, her white cell count was 9400, hemoglobin 9.8, hematocrit 32, MCV 69, and platelet count of 389,000. Her chemistry showed a serum sodium of 142, potassium 3.7, chloride 105, bicarbonate 27, anion gap of 10, BUN 20, creatinine 1.1, estimated GFR was 52 mL per minute. Her glucose was 181, calcium was 9.1. Total bilirubin, AST, ALT, and alkaline phosphatase were normal. ____ was 1223. Total protein was 7.3, albumin 3.7. Her prothrombin time was 11.7, INR 1.2. Urinalysis showed the urine was cloudy with a pH of 7, specific gravity of 1.015. There was small amount of protein, negative for glucose and ketones, large amount of blood, trace of leukocyte esterase, too numerous to count rbc's, 5-10 wbc's, and very few bacteria. Her influenza A and B were negative. IMPRESSION: In summary, this is a 52-year-old female patient, who basically came in with [id number] systolic congestive heart failure. Her echocardiogram showed that her left ventricular systolic function appears to be severely impaired, her ejection fraction is 25%-30%, left atrium is moderately dilated, trace to mild tricuspid regurgitation. Pulmonary artery pressure was estimated at 31 mmHg, with no evidence of significant pericardial effusion. She has cough with greenish sputum. Metformin-induced diarrhea with irritation of the perianal skin. Other medical problems include chronic atrial fibrillation, severe nonischemic cardiomyopathy, hypertension, hypertensive heart disease, chronic kidney disease, hyperlipidemia and anemia. PLAN: My plan is to start her on IV antibiotic, add also Lasix twice a day and change her metformin to extended release form. WILLIAMS LOUIS MD DR: NEGRA/davina JOB#: [id number] / [id number]
[2018-11-08] MEDS: metFORMIN XR 500 MG TAB.ER.24H PO SCH (17:40)
[2018-11-08 18:38] VITALS: BP 102/54
[2018-11-08] MEDS: LACTOBACILLUS RHAMNOSUS GG 1 CAPSULE. PO SCH (20:12)
[2018-11-08] MEDS: ACETAMINOPHEN/CODEINE 300/30MG TABLET PO SCH (20:14)
[2018-11-08] MEDS: ATORVASTATIN CALCIUM 20 MG TABLET PO SCH (20:15)
[2018-11-08] MEDS: INSULIN GLARGINE 300 UNITS/3 ML INSULN.PEN. SQ SCH (20:16)
[2018-11-08] MEDS ORDERED: FUROSEMIDE 40 MG/4 ML VIAL IVP SCH (21:00)
[2018-11-08] MEDS ORDERED: INSULIN GLARGINE 300 UNITS/3 ML INSULN.PEN. SQ SCH (21:00)
--- NOTE | 2018-11-08 23:18 | PN ---
DATE: 11/08/2018 SUBJECTIVE: The patient is sitting on the edge of the bed comfortably. On questioning her, she continued to have cough with yellowish to greenish sputum. She does complain of aches and pains all over, but denied any chest pain. PHYSICAL EXAMINATION: GENERAL: When I examined her this afternoon, she was pale, but no jaundice, cyanosis or thyromegaly. No jugular venous distension. No lower limb edema. VITAL SIGNS: Her heart rate was 81, blood pressure was 99/66, temperature was 97.5, respiratory rate was 24, oxygen saturation was 91%. HEAD, EYES, EARS, NOSE AND THROAT: Normocephalic, atraumatic. NECK: Supple. HEART: Showed distant first and second heart sounds. No gallop, rub or murmur. CHEST: Shows central trachea, equally reduced expansion, reduced air entry, vesicular breath sounds. No crepitation or rhonchi. ABDOMEN: Distended, soft, nontender. No guarding or rigidity. No organomegaly. All hernial orifice intact. Bowel sounds normal. NEUROLOGIC: She was very hard of hearing, otherwise, all her cranial nerves are intact. She moves extremities without difficulty. Her intake over the last 24 hours was incompletely recorded. LABORATORY DATA: Her lab work this morning showed that her white cell count was 9600, hemoglobin 10, hematocrit 33, MCV 70 and platelet count 404,000. Her chemistry showed a serum sodium 140, potassium 3.8, chloride 101, bicarbonate 27, anion gap of 20. BUN 20, creatinine was 1.1. Estimated GFR was 52 mL per minute. Her glucose 228, calcium was 9.1. Total bilirubin, AST, ALT, alkaline phosphatase were normal. Total protein was 7.7, albumin was 3.4. ASSESSMENT: 1. Acute on chronic systolic congestive heart failure. 2. Metformin induced diarrhea for which we switched her to extended release metformin. 3. Acute bronchitis with greenish sputum for which she was started on vancomycin and Zosyn. Other medical problems include severe nonischemic cardiomyopathy, chronic systolic heart failure, atrial fibrillation, hypertension, chronic kidney disease, hyperlipidemia as well as anemia, morbid obesity, questionable obstructive sleep apnea. WILLIAMS LOUIS MD DR: NEGRA/davina JOB#: [id number] / [id number]
[2018-11-09] VITALS (12 sets, daily range): BP systolic 71–141; BP diastolic 43–86
[2018-11-09] MEDS: PIPERACILLIN/TAZOBACTAM 4.5 GM in IV NORMAL SALINE 50ML 50 ML IV SCH ×4 (02:00→21:00)
[2018-11-09] MEDS: VANCOMYCIN 2 GM in IV NORMAL SALINE 500ML 500 ML IV SCH ×2 (02:48→15:15)
[2018-11-09] MEDS: IPRATRPIUM/ALBUTEROL 0.5/2.5MG 3 ML NEBU. NEB SCH ×4 (04:20→19:58)
[2018-11-09 06:15] LABS: HEMATOCRIT 32.8 % (36.0-47.0); HEMOGLOBIN 9.9 g/dL (12.0-15.5); RED BLOOD COUNT 4.68 x10^6/uL (3.50-5.40); RED CELL DISTRIBUTION WIDTH 20.8 % (11.5-14.5); WHITE BLOOD COUNT 9.7 x10^3/uL (4.0-11.0)
[2018-11-09 06:23] LABS: CALCIUM 9.2 mg/dL (8.5-10.1); CREATININE 1.1 mg/dL (0.6-1.0); POTASSIUM 3.8 mmol/L (3.5-5.1)
[2018-11-09] MEDS: PANTOPRAZOLE 40 MG TABLET. PO SCH (07:32)
[2018-11-09] MEDS: INSULIN LISPRO 300 UNITS/3 ML INSULN.PEN. SQ SCH ×3 (08:02→17:25)
[2018-11-09] MEDS: POTASSIUM CHLORIDE 10 MEQ TABLET.ER. PO SCH (08:03)
[2018-11-09] MEDS: metFORMIN XR 500 MG TAB.ER.24H PO SCH ×2 (08:03→17:24)
[2018-11-09] MEDS: ASPIRIN 81 MG TAB.CHEW PO SCH (08:04)
[2018-11-09] MEDS: CETIRIZINE HCL 10 MG TABLET PO SCH (08:04)
[2018-11-09] MEDS: CARVEDILOL 3.125 MG TABLET PO SCH ×2 (08:04→17:24)
[2018-11-09] MEDS: APIXABAN 5 MG TABLET. PO SCH ×2 (08:04→21:02)
[2018-11-09] MEDS: LACTOBACILLUS RHAMNOSUS GG 1 CAPSULE. PO SCH ×2 (08:04→21:00)
[2018-11-09] MEDS: FUROSEMIDE 40 MG/4 ML VIAL IVP SCH ×3 (08:05→14:08)
[2018-11-09] MEDS: SACUBITRIL/VALSARTAN 49/51MG TABLET. PO SCH ×2 (08:06→21:07)
[2018-11-09] MEDS: NYSTATIN TOPICAL POWDER 15GM BOTTLE. TP SCH ×2 (08:08→21:05)
[2018-11-09] MEDS ORDERED: DIGOXIN IV 500 MCG/2 ML AMPUL. IV ONE (08:15)
--- NOTE | 2018-11-09 12:18 | PDOC ---
PROGRESS NOTES Diagnosis Problem Problems Medical Problems: (1) Acute exacerbation of CHF (congestive heart failure) Status: Acute Assessment 1. Acute on chronic systolic heart failure: Patient has history of nonischemic cardiomyopathy. Acute decompensation probably secondary to recent decrease in Lasix dose. Recent 2-D echo 10/26/18 showed LVEF 25-30%. Cardiac catheterization in 2017 did not show any significant coronary artery disease. Symptoms improved with diuresis. Change Lasix to 40 mg daily PO. 2. Permanent atrial fibrillation: Heart rate better controlled with addition of digoxin. Continue eliquis for stroke prophylaxis. 3. COPD/acute bronchitis: Continue antibiotics per IM 4. Hyperlipidemia: On statins 5. Diabetes mellitus type 2 with metformin-induced diarrhea: Treat per IM Subjective Continues to complain of cough and generalized body aches Objective Vital Signs Date Time Temp Pulse Resp B/P (MAP) Pulse Ox O2 Delivery O2 Flow Rate FiO2 11/09/18 10:39 97.6 89 83/49 (60) 98 Room Air 11/09/18 05:15 20 Intake and Output 11/09/18 07:00 Intake Total 2340.67 ml Balance 2340.67 ml Intake Oral 1690 ml IV Total 650.67 ml # Voids 5 Abdomen: Soft Heart: Other (heart rate is irregular) Extremities: Other (trace) General: Alert HEENT: Atraumatic Lungs: Clear to auscultation Neck: Supple Psych/Mental Status: Mood NL Review of Relevant I have reviewed the following items [place] (where applicable) has been applied. Labs Laboratory Tests Test 11/07/18 16:08 11/07/18 16:20 11/07/18 16:37 11/07/18 16:50 Glucose (Fingerstick) 180 mg/dL (70-99) White Blood Count 9.4 x10^3/uL (4.0-11.0) Red Blood Count 4.64 x10^6/uL (3.50-5.40) Hemoglobin 9.8 g/dL (12.0-15.5) Hematocrit 32.0 % (36.0-47.0) Mean Corpuscular Volume 69 fL (79-100) Mean Corpuscular Hemoglobin 21 pg (25-35) Mean Corpuscular Hemoglobin Concent 31 g/dL (31-37) Red Cell Distribution Width 20.3 % (11.5-14.5) Platelet Count 389 x10^3/uL (140-400) Neutrophils (%) (Auto) 59 % (31-73) Lymphocytes (%) (Auto) 31 % (24-48) Monocytes (%) (Auto) 7 % (0-9) Eosinophils (%) (Auto) 2 % (0-3) Basophils (%) (Auto) 1 % (0-3) Neutrophils # (Auto) 5.6 x10^3uL (1.8-7.7) Lymphocytes # (Auto) 2.9 x10^3/uL (1.0-4.8) Monocytes # (Auto) 0.7 x10^3/uL (0.0-1.1) Eosinophils # (Auto) 0.2 x10^3/uL (0.0-0.7) Basophils # (Auto) 0.1 x10^3/uL (0.0-0.2) Platelet Estimate Increased (ADEQUATE) Large Platelets Occ Polychromasia Slight Hypochromasia Slight Anisocytosis Slight Schistocytes Occ Sodium Level 142 mmol/L (136-145) Potassium Level 3.7 mmol/L (3.5-5.1) Chloride Level 105 mmol/L (98-107) Carbon Dioxide Level 27 mmol/L (21-32) Anion Gap 10 (6-14) Blood Urea Nitrogen 20 mg/dL (7-20) Creatinine 1.1 mg/dL (0.6-1.0) Estimated GFR (Cockcroft-Gault) 52.0 BUN/Creatinine Ratio 18 (6-20) Glucose Level 181 mg/dL (70-99) Calcium Level 9.1 mg/dL (8.5-10.1) Total Bilirubin 0.4 mg/dL (0.2-1.0) Aspartate Amino Transf (AST/SGOT) 13 U/L (15-37) Alanine Aminotransferase (ALT/SGPT) 22 U/L (14-59) Alkaline Phosphatase 98 U/L (46-116) Troponin I Quantitative 0.018 ng/mL (0-0.055) [id number]-[id number]-Type Natriuretic Peptide 1223 pg/mL (0-124) Total Protein 7.3 g/dL (6.4-8.2) Albumin 3.4 g/dL (3.4-5.0) Albumin/Globulin Ratio 0.9 (1.0-1.7) Influenza Type A (Rapid) Negative (NEGATIVE) Influenza Type B (Rapid) Negative (NEGATIVE) Urine Collection Type Unknown Urine Color [employer] Urine Clarity Cloudy Urine pH 7.0 Urine Specific [place] 1.015 Urine Protein 30 mg/dl (NEG-TRACE) Urine Glucose (UA) Neg mg/dL (NEG) Urine Ketones (Stick) Neg mg/dL (NEG) Urine Blood Large (NEG) Urine Nitrite Neg (NEG) Urine Bilirubin Neg (NEG) Urine Urobilinogen Dipstick 1 mg/dL (0.2 mg/dL) Urine Leukocyte Esterase Trace (NEG) Urine RBC Tntc /HPF (0-2) Urine WBC 5-10 /HPF (0-4) Urine Squamous Epithelial Cells Occ /LPF Urine Bacteria Few /HPF (0-FEW) Test 11/07/18 18:22 11/07/18 22:19 11/08/18 00:40 11/08/18 05:57 Prothrombin Time 11.7 SEC (9.4-11.4) Prothromb Time International Ratio 1.2 (0.9-1.1) Glucose (Fingerstick) 251 mg/dL (70-99) Troponin I Quantitative 0.023 ng/mL (0-0.055) White Blood Count 9.6 x10^3/uL (4.0-11.0) Red Blood Count 4.79 x10^6/uL (3.50-5.40) Hemoglobin 10.1 g/dL (12.0-15.5) Hematocrit 33.5 % (36.0-47.0) Mean Corpuscular Volume 70 fL (79-100) Mean Corpuscular Hemoglobin 21 pg (25-35) Mean Corpuscular Hemoglobin Concent 30 g/dL (31-37) Red Cell Distribution Width 20.4 % (11.5-14.5) Platelet Count 404 x10^3/uL (140-400) Neutrophils (%) (Auto) 49 % (31-73) Lymphocytes (%) (Auto) 39 % (24-48) Monocytes (%) (Auto) 9 % (0-9) Eosinophils (%) (Auto) 2 % (0-3) Basophils (%) (Auto) 1 % (0-3) Neutrophils # (Auto) 4.7 x10^3uL (1.8-7.7) Lymphocytes # (Auto) 3.7 x10^3/uL (1.0-4.8) Monocytes # (Auto) 0.9 x10^3/uL (0.0-1.1) Eosinophils # (Auto) 0.2 x10^3/uL (0.0-0.7) Basophils # (Auto) 0.1 x10^3/uL (0.0-0.2) Sodium Level 140 mmol/L (136-145) Potassium Level 3.8 mmol/L (3.5-5.1) Chloride Level 101 mmol/L (98-107) Carbon Dioxide Level 27 mmol/L (21-32) Anion Gap 12 (6-14) Blood Urea Nitrogen 20 mg/dL (7-20) Creatinine 1.1 mg/dL (0.6-1.0) Estimated GFR (Cockcroft-Gault) 52.0 BUN/Creatinine Ratio 18 (6-20) Glucose Level 228 mg/dL (70-99) Calcium Level 9.1 mg/dL (8.5-10.1) Total Bilirubin 0.4 mg/dL (0.2-1.0) Aspartate Amino Transf (AST/SGOT) 14 U/L (15-37) Alanine Aminotransferase (ALT/SGPT) 22 U/L (14-59) Alkaline Phosphatase 97 U/L (46-116) Total Protein 7.7 g/dL (6.4-8.2) Albumin 3.4 g/dL (3.4-5.0) Albumin/Globulin Ratio 0.8 (1.0-1.7) Test 11/08/18 07:33 11/08/18 11:41 11/08/18 16:31 11/08/18 20:06 Glucose (Fingerstick) 206 mg/dL (70-99) 176 mg/dL (70-99) 141 mg/dL (70-99) 107 mg/dL (70-99) Test 11/09/18 03:34 11/09/18 05:45 11/09/18 07:29 Glucose (Fingerstick) 146 mg/dL (70-99) 209 mg/dL (70-99) White Blood Count 9.7 x10^3/uL (4.0-11.0) Red Blood Count 4.68 x10^6/uL (3.50-5.40) Hemoglobin 9.9 g/dL (12.0-15.5) Hematocrit 32.8 % (36.0-47.0) Mean Corpuscular Volume 70 fL (79-100) Mean Corpuscular Hemoglobin 21 pg (25-35) Mean Corpuscular Hemoglobin Concent 30 g/dL (31-37) Red Cell Distribution Width 20.8 % (11.5-14.5) Platelet Count 378 x10^3/uL (140-400) Sodium Level 142 mmol/L (136-145) Potassium Level 3.8 mmol/L (3.5-5.1) Chloride Level 103 mmol/L (98-107) Carbon Dioxide Level 30 mmol/L (21-32) Anion Gap 9 (6-14) Blood Urea Nitrogen 21 mg/dL (7-20) Creatinine 1.1 mg/dL (0.6-1.0) Estimated GFR (Cockcroft-Gault) 52.0 Glucose Level 208 mg/dL (70-99) Calcium Level 9.2 mg/dL (8.5-10.1) Microbiology 11/07/18 Blood Culture - Preliminary, Resulted NO GROWTH AFTER 1 DAY... Medications Current Medications Sodium Chloride 500 ml @ 0 mls/hr 1X ONCE IV Last administered on 11/07/18at 17:03; Start 11/07/18 at 16:30; Stop 11/07/18 at 16:47; Status DC Furosemide (Lasix) 40 mg 1X ONCE IVP Last administered on 11/07/18at 19:44; Start 11/07/18 at 18:30; Stop 11/07/18 at 18:31; Status DC Ondansetron HCl (Zofran) 4 mg PRN Q4HRS PRN IV NAUSEA/VOMITING; Start 11/07/18 at 18:30; Stop 11/08/18 at 18:29; Status DC Acetaminophen (Tylenol) 650 mg PRN Q4HRS PRN PO FEVER; Start 11/07/18 at 18:30; Stop 11/08/18 at 18:29; Status DC Nitroglycerin (Nitrostat) 0.4 mg PRN Q5MIN PRN SL CHEST PAIN; Start 11/07/18 at 18:30; Stop 11/08/18 at 18:29; Status DC Albuterol/ Ipratropium (Duoneb) 3 ml RTQID NEB Last administered on 11/07/18at 19:44; Start 11/07/18 at 20:00; Stop 11/07/18 at 20:51; Status DC Nitroglycerin (Nitrostat) 0.4 mg PRN Q5MIN PRN SL CHEST PAIN; Start 11/07/18 at 20:45 Apixaban (Eliquis) 5 mg BID PO Last administered on 11/09/18at 08:04; Start 11/07/18 at 21:00 Atorvastatin Calcium (Lipitor) 80 mg QHS PO Last administered on 11/08/18at 20:15; Start 11/07/18 at 21:00 Carvedilol (Coreg) 6.25 mg BIDWMEALS PO ; Start 11/08/18 at 08:00; Stop 11/08/18 at 08:00; Status DC Pantoprazole Sodium (Protonix) 40 mg DAILYAC PO Last administered on 11/09/18at 07:32; Start 11/08/18 at 07:30 Furosemide (Lasix) 40 mg DAILY PO ; Start 11/08/18 at 09:00; Stop 11/08/18 at 09:00; Status DC Non-Formulary Medication (Insulin Lispro (Humalog)) 100 unit ac/hs SQ ; Start 11/07/18 at 20:45; Stop 11/07/18 at 21:10; Status DC Non-Formulary Medication (Liraglutide (Victoza 3-Ady)) 0.6 mg d SQ ; Start 11/07/18 at 20:45; Status UNV Cetirizine HCl (ZyrTEC) 10 mg DAILY PO Last administered on 11/09/18at 08:04; Start 11/08/18 at 09:00 Potassium Chloride (Klor-Con) 10 meq DAILYWBKFT PO Last administered on 9at 08:03; Start 11/08/18 at 08:00 Sacubitril/ Valsartan (Entresto 49 Mg-51 Mg) 1 tab BID PO Last administered on 11/09/18at 08:06; Start 11/07/18 at 21:00 Insulin Human Lispro (HumaLOG) 15 units TIDAC SQ Last administered on 11/09/18 08:02; Start 11/08/18 at 07:30 Non-Formulary Medication (Carvedilol (Coreg )) 3.125 mg BIDWMEALS PO ; Start 11/08/18 at 08:00; Status UNV Furosemide (Lasix) 40 mg BID92 IVP Last administered on 11/09/18 08:05; Start 11/08/18 at 09:00 Aspirin (Children'S Aspirin) 81 mg DAILYWBKFT PO Last administered on 11/09/18 08:04; Start 11/08/18 at 08:00 Insulin Glargine (Lantus) 35 units QHS SQ Last administered on 11/07/18 22:20; Start 11/07/18 at 21:00 Insulin Glargine (Lantus) 35 units QHS SQ ; Start 11/08/18 at 21:00; Status UNV Carvedilol (Coreg) 3.125 mg BIDWMEALS PO Last administered on 11/09/18 08:04; Start 11/08/18 at 08:00 Nystatin (Nystop) 1 robby BID TP Last administered on 11/09/18 08:08; Start 11/08/18 at 09:00 Insulin Human Lispro (HumaLOG) 300 units STK-MED ONCE SQ ; Start 11/07/18 at 21:20; Stop 11/07/18 at 21:21; Status DC Throat Lozenges (Cepacol Sore Throat Lozenge) 1 carlos PRN Q2HR PRN PO SORE THROAT Last administered on 11/08/18at 04:11; Start 11/08/18 at 04:00 Furosemide (Lasix) 40 mg BID IVP ; Start 11/08/18 at 21:00; Stop 11/08/18 at 21:00; Status DC Metformin HCl (Glucophage Xr) 500 mg BIDWMEALS PO Last administered on 9at 08:03; Start 11/08/18 at 17:00 Vancomycin HCl (Vanco Per Pharmacy) 1 each PRN DAILY PRN MC SEE COMMENTS Last administered on 11/08/18at 14:51; Start 11/08/18 at 13:30 Piperacillin Sod/ Tazobactam Sod (Zosyn Per Pharmacy) 1 each PRN DAILY PRN MC SEE COMMENTS; Start 11/08/18 at 13:30 Acetaminophen/ Codeine Phosphate (Tylenol #3) 1 tab QHS PO Last administered on 11/08/18at 20:14; Start 11/08/18 at 21:00 Piperacillin Sod/ Tazobactam Sod 4.5 gm/Sodium Chloride 50 ml @ 100 mls/hr Q6H IV Last administered on 11/09/18at 08:07; Start 11/08/18 at 14:00 Albuterol/ Ipratropium (Duoneb) 3 ml RTQID NEB Last administered on 11/09/18at 09:12; Start 11/08/18 at 16:00 Vancomycin HCl 2 gm/Sodium Chloride 500 ml @ 250 mls/hr 1X ONCE IV Last administered on 11/08/18at 15:25; Start 11/08/18 at 15:00; Stop 11/08/18 at 16:59; Status DC Lactobacillus Rhamnosus (Culturelle) 1 cap BID PO Last administered on 11/09/18at 08:04; Start 11/08/18 at 21:00 Vancomycin HCl 2 gm/Sodium Chloride 500 ml @ 250 mls/hr Q12H IV Last admini stered on 11/09/18at 02:48; Start 11/09/18 at 03:00 Vancomycin HCl (Vancomycin Trough Level) 1 each 1X ONCE MC ; Start 11/10/18 at 02:30; Stop 11/10/18 at 02:31 Digoxin (Lanoxin) 500 mcg 1X ONCE IV Last administered on 11/09/18at 09:19; Start 11/09/18 at 08:15; Stop 11/09/18 at 08:19; Status DC Digoxin (Lanoxin) 125 mcg DAILY PO ; Start 11/10/18 at 09:00 Active Scripts Active Keflex (Cephalexin) 500 Mg Capsule 500 Mg PO TID 10 Days Reported Victoza 3-Ady (Liraglutide) 0.6 Mg/0.1 Ml Pen.injctr 0.6 Mg SQ D Entresto 49 mg-51 mg Tablet (Sacubitril/Valsartan) 1 Each Tablet 1 Each PO BID Proair Hfa Inhaler (Albuterol Sulfate) 8.5 Gm Hfa.aer.ad 2 Puff INH PRN Q6HRS PRN Potassium Chloride 10 Meq Tablet.er 10 Meq PO DAILY NITROGLYCERIN SubLingual (Nitroglycerin) 0.4 Mg Tab.subl 0.4 Mg SL PRN Q5MIN PRN [miconazole 2% powder] Metformin Hcl 500 Mg Tablet 500 Mg PO BIDWMEALS Humalog (Insulin Lispro) 100 Unit/1 Ml Vial 100 Unit SQ AC/HS Lasix (Furosemide) 40 Mg Tablet 40 Mg PO DAILY Nexium Capsule (Esomeprazole Magnesium) 40 Mg Capsule.dr 40 Mg PO DAILYAC Coreg (Carvedilol) 6.25 Mg Tablet 6.25 Mg PO BIDWMEALS Atorvastatin Calcium 80 Mg Tablet 80 Mg PO QHS Eliquis (Apixaban) 5 Mg Tablet 5 Mg PO BID Loratadine 10 Mg Tablet 10 Mg PO DAILY Lantus (Insulin Glargine,Hum.rec.anlog) 100 Unit/1 Ml Vial 100 Unit SQ Aspirin 81 Mg Tab.chew 81 Mg PO Advair 100-50 Diskus (Fluticasone/Salmeterol) 1 Each Disk.w.dev 1 Each IH Vitals/I & O Vital Sign - Last 24 Hours 11/08/18 11/08/18 11/08/18 11/08/18 15:11 16:07 17:41 18:38 Temp 98.1 97.4 Pulse 71 71 84 Resp 24 20 B/P (MAP) 102/69 (80) 102/69 102/54 (70) Pulse Ox 96 97 94 O2 Delivery Room Air Room Air Room Air 11/08/18 11/08/18 11/08/18 11/08/18 19:13 20:00 20:11 20:14 Pulse 84 Resp 22 B/P (MAP) 102/54 Pulse Ox 97 97 O2 Delivery Room Air Room Air Room Air 11/08/18 11/09/18 11/09/18 11/09/18 21:14 00:06 03:40 04:21 Temp 97.7 97.8 Pulse 84 90 Resp 16 24 22 B/P (MAP) 104/68 (80) 103/70 (81) Pulse Ox 95 95 96 96 O2 Delivery Room Air Room Air Room Air Room Air 11/09/18 11/09/18 11/09/18 11/09/18 05:15 08:00 08:04 08:06 Temp 98.1 Pulse 82 82 82 Resp 20 B/P (MAP) 106/68 (81) 106/68 106/68 Pulse Ox 95 O2 Delivery Room Air Room Air 11/09/18 11/09/18 11/09/18 09:13 09:19 10:39 Temp 97.6 Pulse 82 89 B/P (MAP) 106/68 83/49 (60) Pulse Ox 96 98 O2 Delivery Room Air Room Air Intake and Output 11/08/18 11/08/18 11/09/18 15:00 23:00 07:00 Intake Total 240 ml 1610.67 ml 490 ml Balance 240 ml 1610.67 ml 490 ml ZAIRA SANTOS MD Nov 09, 2018 12:18
[2018-11-09] MEDS: ATORVASTATIN CALCIUM 20 MG TABLET PO SCH (21:01)
[2018-11-09] MEDS: ACETAMINOPHEN/CODEINE 300/30MG TABLET PO SCH (21:02)
[2018-11-09] MEDS: INSULIN GLARGINE 300 UNITS/3 ML INSULN.PEN. SQ SCH (21:05)
--- NOTE | 2018-11-09 21:33 | PN ---
DATE: 11/09/2018 SUBJECTIVE: The patient is resting, slightly propped up in bed, in no apparent respiratory distress. She continued to have cough with yellowish sputum. Denied any chest pain. Continued to have shortness of breath on exertion, but denied any orthopnea or paroxysmal nocturnal dyspnea. She is very hard of hearing. She was seen by the gasoline truck operator, who added digoxin to have a better control of her heart rate. PHYSICAL EXAMINATION: GENERAL: When I examined her this morning, she looked well and was clearly in no apparent respiratory distress, pale, but no jaundice, cyanosis or thyromegaly. No jugular venous distension. No lower limb edema. VITAL SIGNS: Her heart rate was 89, blood pressure was 83/49, temperature was 97.6, respiratory rate was 20, and oxygen saturation was 98% on room air. HEAD, EYES, EARS, NOSE, AND THROAT: Showed normocephalic, atraumatic. NECK: Supple. HEART: Showed normal first and second heart sounds with no gallop, rub, or murmur. CHEST: Shows central trachea, equally reduced expansion, reduced air entry, vesicular sounds. I could not appreciate any crepitation or rhonchi. ABDOMEN: Huge, distended, soft, nontender. NEUROLOGIC: She is very hard of hearing, but otherwise all cranial nerves intact. She moves all extremities without difficulty. Her intake over the last 24 hours was 600, no output was recorded. LABORATORY DATA: As of this morning, her serum sodium was 142, potassium 3.8, chloride 103, bicarbonate 30, anion gap of 9, BUN 21, creatinine 1.1, estimated GFR was 62 mL per minute. Her glucose was 208, calcium was 9.2. Her white cell count was 9700, hemoglobin 10, hematocrit 33, MCV 70 and platelet count of 378,000. Her influenza A and B were negative. ASSESSMENT: 1. Acute on chronic systolic congestive heart failure. 2. Metformin-induced diarrhea for which we switched her to extended release metformin. 3. Acute bronchitis with greenish sputum for which she was started on vancomycin and Zosyn. 4. OTHER MEDICAL PROBLEMS: Include: A. Severe nonischemic cardiomyopathy. B. Chronic systolic congestive heart failure. C. Atrial fibrillation. D. Hypertension. E. Chronic kidney disease. F. Hyperlipidemia. G. Anemia. H. Morbid obesity with possible obstructive sleep apnea. PLAN: To continue with the IV antibiotic. Continue with IV Lasix. Digoxin was added for a better control of her heart rate. Continue apixaban for stroke prevention. WILLIAMS LOUIS MD DR: NEGRA/davina JOB#: [id number] / [id number]
[2018-11-10] VITALS (20 sets, daily range): BP systolic 81–115; BP diastolic 43–79
[2018-11-10] MEDS: PIPERACILLIN/TAZOBACTAM 4.5 GM in IV NORMAL SALINE 50ML 50 ML IV SCH ×3 (02:16→14:52)
[2018-11-10 02:47] LABS: CALCIUM 8.8 mg/dL (8.5-10.1); CREATININE 1.2 mg/dL (0.6-1.0); POTASSIUM 4.1 mmol/L (3.5-5.1)
[2018-11-10 02:52] LABS: VANC TR 19.9 mcg/mL (10.0-20.0)
[2018-11-10] MEDS: VANCOMYCIN 2 GM in IV NORMAL SALINE 500ML 500 ML IV SCH ×2 (03:19→15:10)
[2018-11-10] MEDS: VANCOMYCIN PER PHARMACY MC PRN (03:27)
[2018-11-10] MEDS: IPRATRPIUM/ALBUTEROL 0.5/2.5MG 3 ML NEBU. NEB SCH ×3 (05:42→15:09)
[2018-11-10] MEDS: INSULIN LISPRO 300 UNITS/3 ML INSULN.PEN. SQ SCH ×2 (07:30→12:10)
[2018-11-10] MEDS: CARVEDILOL 3.125 MG TABLET PO SCH ×2 (08:00→16:44)
[2018-11-10] MEDS ORDERED: FUROSEMIDE 40 MG TABLET PO SCH (09:00)
[2018-11-10] MEDS ORDERED: DIGOXIN 125 MCG TABLET PO SCH (09:00)
[2018-11-10] MEDS: SACUBITRIL/VALSARTAN 49/51MG TABLET. PO SCH (09:00)
[2018-11-10] MEDS: NYSTATIN TOPICAL POWDER 15GM BOTTLE. TP SCH (09:00)
[2018-11-10] MEDS: CETIRIZINE HCL 10 MG TABLET PO SCH (09:19)
[2018-11-10] MEDS: LACTOBACILLUS RHAMNOSUS GG 1 CAPSULE. PO SCH (09:19)
[2018-11-10] MEDS: ASPIRIN 81 MG TAB.CHEW PO SCH (09:22)
[2018-11-10] MEDS: APIXABAN 5 MG TABLET. PO SCH (09:22)
[2018-11-10] MEDS: PANTOPRAZOLE 40 MG TABLET. PO SCH (09:22)
[2018-11-10] MEDS: POTASSIUM CHLORIDE 10 MEQ TABLET.ER. PO SCH (09:22)
[2018-11-10] MEDS: metFORMIN XR 500 MG TAB.ER.24H PO SCH ×2 (09:22→16:48)
[2018-11-10] MEDS ORDERED: BENZONATATE 100 MG CAPSULE. PO SCH ×2 (15:00→21:00)
[2018-11-10] MEDS ORDERED: guaiFENesin/PS-EPHED 600/60MG 1 TAB TAB.ER.12H PO SCH (21:00)
--- NOTE | 2018-11-10 23:44 | DS ---
DATE OF DISCHARGE: 11/10/2018 HISTORY OF PRESENT ILLNESS: The patient is a 52-year-old female patient, who was admitted originally to the Emergency Room with a complaint of cough, fever, labile blood sugar, dry mouth and blurred vision. She also said that this has been going on for the last several days. Since she was released from the hospital, nothing seems to make the symptoms better or worse. She said that she had cough, which has been productive with greenish to yellowish sputum, although she denied any chest pain, denied any complaint of shortness of breath. She also has problems with her metformin. She has had severe diarrhea whenever she takes metformin and apparently her diuretics were cut down from 40 mg twice a day to 40 mg once a day. She was in the hospital since then, her symptoms have basically worsened. On her last admission, she was fitted with a LifeVest that she did not tolerate and there were plans for her to be admitted to be evaluated by the Cardiology team at [facility] for AICD. However, she ended up in our Emergency Room where she had had basically chest x-ray, which showed that cardiac silhouette is again enlarged. There is no dependent pleural fluid or pneumothorax. There is mild hazy right base airspace opacities. Her lab work showed that she has microcytic hypochromic anemia; however, her white cell count and platelets are normal. Her chemistry showed her brain natriuretic peptide was elevated at 1223. Her troponin was less than 0.018. Urinalysis was mostly unremarkable. Influenza A and B were negative. The patient was admitted with acute on chronic systolic congestive heart failure and treated with IV Lasix. She has also had recurrent bouts of cough with yellowish sputum as well as metformin induce severe diarrhea. We changed her metformin to a longer acting metformin and she was started on IV vancomycin and Zosyn. Unfortunately, the patient's blood pressure continued to be low and with a systolic pressure in the 70s. I did speak with Dr. Maloney about the fact that she was supposed to have an AICD and he currently arranged for her to be transferred to [facility] for further evaluation and treatment. PHYSICAL EXAMINATION: GENERAL: When I saw her this afternoon, she looked well, she was resting, slightly propped up in bed, slightly tachypneic. She was pale, but no jaundice, cyanosis or thyromegaly. No jugular venous distention. No lower limb edema. VITAL SIGNS: Her heart rate was 85, blood pressure was 101/70, temperature was 98, respiratory rate 22, and oxygen saturation was 97. HEAD, EYES, EARS, NOSE AND THROAT: Showed normocephalic, atraumatic. NECK: Supple. HEART: Showed normal first and second heart sounds. No gallop, rub or murmur. CHEST: Shows central trachea, equally reduced expansion, reduced air entry, vascular breath sounds. I could not really appreciate any crepitation or rhonchi. ABDOMEN: Distended, soft, nontender. No guarding or rigidity. No organomegaly. All hernial orifice intact. Bowel sounds normal. NEUROLOGIC: She was awake, alert, responding appropriately. All cranial nerves intact. She moves extremities without difficulty. LABORATORY DATA: Her lab work this morning showed a white cell count 9700, hemoglobin 10, hematocrit 33, MCV 70 and platelet count of 378,000. Her chemistry this morning showed a serum sodium 143, potassium 4.1, chloride 106, bicarbonate 30, anion gap of 7, BUN 20, creatinine 1.2, estimated GFR was 47 mL per minute. Her glucose 118, calcium was 8.8. Her prothrombin time was 11.7, INR 1.2. Urinalysis was essentially unremarkable. There is large amount of too numerous to count rbc's, only 5-10 wbc's and very few bacteria. Her toxic screen showed the vancomycin was slightly elevated at 19.9. Her influenza A and B were negative. Her nasal screen for MRSA PCR was negative. DISCHARGE MEDICATIONS: She was transferred to [facility] to continue on vancomycin as per pharmacy and Zosyn as getting 4.5 grams IV every 6 hours. She is on liraglutide for Victoza 0.6 mg subcutaneously daily, Mucinex 600 mg twice a day, benzonatate 100 mg 3 times a day, furosemide 40 mg daily, digoxin 125 mcg once a day, Tylenol No 3 one tablet at bedtime, metformin extended release 500 mg twice a day, DuoNeb in 3 mL by nebulizer 4 times a day, cetirizine 10 mg once a day, carvedilol 3.125 mg twice a day with meals, aspirin 81 mg once a day, potassium chloride 10 mEq daily with breakfast. She is on Humalog insulin 15 units 3 times a day before meals. She is on Protonix 40 mg daily. She is on throat lozenges 1 lozenge every 2 hours as needed. She is on Lantus insulin 35 units at bedtime. She is also on Entresto 24 and 26 tablet 1 tablet twice a day, atorvastatin calcium 80 mg at bedtime, apixaban 5 mg twice a day, and nitroglycerin 0.4 mg subcutaneously every 5 minutes as needed. FINAL DISCHARGE DIAGNOSES: 1. Acute on chronic systolic congestive heart failure. 2. Metformin-induced diarrhea. We will switch her to extended release metformin. 3. Acute bronchitis with greenish sputum, for which she was started on vancomycin and Zosyn. OTHER MEDICAL PROBLEMS: Include: A. Severe nonischemic cardiomyopathy. B. Chronic systolic congestive heart failure. C. Atrial fibrillation. D. Hypertension. E. Chronic kidney disease. F. Hyperlipidemia. G. She microcytic hypochromic anemia. H. Morbid obesity with possible obstructive sleep apnea. WILLIAMS LOUIS MD DR: NEGRA/davina JOB#: [id number] / [id number]
[2018-11-11] MEDS ORDERED: NON FORMULARY ITEM (Liraglutide (Victoza 3-Pak) 0.6 MG) SQ SCH (09:00)
== END 2018-11-10 17:42 | disposition short-term general hospital (02) | DRG 871 ==
LOC: ER 16:00 → 1 SOUTH 19:06 → ICU 11-09 18:55
PROVIDERS: ADMIT Internal Medicine; ATTEND Internal Medicine
DX: A41.9 Sepsis, unspecified organism (principal); I50.23 Acute on chronic systolic (congestive) heart failure; I13.0 Hypertensive heart and chronic kidney disease with heart failure and stage 1 through stage 4 chronic kidney disease, or unspecified chronic kidney disease; J44.0 Chronic obstructive pulmonary disease with (acute) lower respiratory infection; Z68.44 Body mass index [BMI] 60.0-69.9, adult; I42.9 Cardiomyopathy, unspecified; J20.9 Acute bronchitis, unspecified; D50.9 Iron deficiency anemia, unspecified; E11.22 Type 2 diabetes mellitus with diabetic chronic kidney disease; E66.01 Morbid (severe) obesity due to excess calories; E78.5 Hyperlipidemia, unspecified; H91.90 Unspecified hearing loss, unspecified ear; I25.10 Atherosclerotic heart disease of native coronary artery without angina pectoris; I48.2 Chronic atrial fibrillation; K21.9 Gastro-esophageal reflux disease without esophagitis; G47.33 Obstructive sleep apnea (adult) (pediatric); N18.9 Chronic kidney disease, unspecified; Z82.49 Family history of ischemic heart disease and other diseases of the circulatory system; Z86.711 Personal history of pulmonary embolism
CPT/HCPCS: 36415; 71045; 80048; 80053; 80202; 81001; 82947; 83880; 84484; 85025; 85027; 85610; 87040; 87641; 87804; 93005; 94640; J1160; J1815; J1940; J2543; J3370; J7040; J7620; 92610

== ENCOUNTER 2018-11-18 03:28 | Emergency (ER) | payer OTHER ==
[~2018-11-18] VITALS: Ht 154.9 cm; Wt 165.0 kg
--- NOTE | 2018-11-18 04:00 | PHYS DOC ---
Past History Past Medical History: A-Fib, Anemia, CHF, Diabetes, High Cholesterol, Heart Disease, Hypertension, Renal Disease, Other Additional Past Medical Histor: cardiomegaly Past Surgical History: Other Additional Past Surgical Histo: pacemaker Smoking: Non-smoker Alcohol Use: None Drug Use: None Adult General Chief Complaint Chief Complaint: OTHER COMPLAINTS HPI HPI Patient is a 52-year-old female presents complaining of chills that started earlier this evening. Patient has a cough that has been present for the past several weeks. She was recently admitted here at [facility] and transferred to [facility] where she had a pacemaker placed 6 days ago. She reports doing well since the pacemaker placement. She has taken nothing for fever or chills. Denies any chest pain or palpitations. Denies any nausea or vomiting. Symptoms are mild to moderate.[] Review of Systems Review of Systems Constitutional: Denies fever[] Eyes: Denies change in visual acuity, redness, or eye pain [] HENT: Denies nasal congestion or sore throat [] Respiratory: Denies shortness of breath, see history of present illness [] Cardiovascular: No additional information not addressed in HPI [] GI: Denies abdominal pain, nausea, vomiting, bloody stools or diarrhea [] : Denies dysuria, reports intermittent hematuria since being diagnosed with diabetes[] Musculoskeletal: Denies back pain or joint pain [] Integument: Denies rash or skin lesions [] Neurologic: Denies headache, focal weakness or sensory changes [] Endocrine: Denies polyuria or polydipsia [] All other systems were reviewed and found to be within normal limits, except as documented in this note. Allergies Allergies Allergies Coded Allergies Type Severity Reaction Last Updated Verified No Known Drug Allergies 11/07/18 No Physical Exam Physical Exam Constitutional: Well developed, well nourished, no acute distress, non-toxic appearance. [] HENT: Normocephalic, atraumatic, bilateral external ears normal, oropharynx moist, no oral exudates, nose normal. [] Eyes: PERRLA, EOMI, conjunctiva normal, no discharge. [] Neck: Normal range of motion, no tenderness, supple, no stridor. [] Cardiovascular:Heart rate regular rhythm, no murmur [] Lungs & Thorax: Bilateral breath sounds clear to auscultation [] Abdomen: Bowel sounds normal, soft, no tenderness, no masses, no pulsatile masses. [] Skin: Warm, dry, no erythema, no rash. Pacemaker incision appears clean and dry. Steri-Strips are intact. No purulent drainage, and no wound erythema, no evidence of dehiscence [] Back: No tenderness, no CVA tenderness. [] Extremities: No tenderness, no cyanosis, no clubbing, ROM intact, no edema. [] Neurologic: Alert and oriented X 3, normal motor function, normal sensory function, no focal deficits noted. [] Psychologic: Affect normal, judgement normal, mood normal. [] EKG EKG EKG shows an irregular rhythm with a rate of 94 bpm, axis of -117, PT C of 498 ms, intermittent pacing is present. Compared with EKG of 11/07/2018, demand pacing is now present. Interpreted by me at 0353[] Radiology/Procedures Radiology/Procedures Chest x-ray shows no infiltrate, pacemaker is now in place which was not there on previous x-rays. cardiomegaly is present[] Course & Med Decision Making Course & Med Decision Making Pertinent Labs and Imaging studies reviewed. (See chart for details) ED course: Patient arrived, was placed in bed, and tolerated exam well. She was transported to and from [facility] without any complications. Discussed findings with patient as well as the hospitalist here at [facility]. He is willing to admit her to [facility] were more specialists are available. Offered this plan to the patient. She elects to be transferred to [facility] where the thread cutter tender that cared for her is located. Medical decision making: Patient with reported chills. Normal white count, and afebrile in the emergency department here. Concerned about the gross hematuria along with the anemia noted compared to her previous baseline. Her BNP is elevated but is consistent with previous ~1000 range.[] Dragon Disclaimer Dragon Disclaimer This electronic medical record was generated, in whole or in part, using a voice recognition dictation system. Departure Departure: Impression: Primary Impression: Chills (without fever) Additional Impressions: Chronic systolic CHF (congestive heart failure) Chronic atrial fibrillation Pacemaker Anemia Disposition: 05 TRANSFER OTHER Referrals: EULOGIO KISER (PCP) Problem Qualifiers Additional Impressions: Anemia Anemia type: unspecified type Qualified Codes: D64.9 - Anemia, unspecified EHSAN JOHNSON DO November 18, 2018 04:00
[2018-11-18 04:43] LABS: BASO # 0.1 x10^3/uL (0.0-0.2); BASO % 1 % (0-3); EOS # 0.2 x10^3/uL (0.0-0.7); EOS % 3 % (0-3); HEMATOCRIT 28.8 % (36.0-47.0); HEMOGLOBIN 8.8 g/dL (12.0-15.5); LYMPH % 25 % (24-48); MEAN CORPUSCULAR HEMOGLOBIN 21 pg (25-35); MEAN CORPUSCULAR HGB CONC 31 g/dL (31-37); MEAN CORPUSCULAR VOLUME 70 fL (79-100); MONO # 0.6 x10^3/uL (0.0-1.1); MONO % 8 % (0-9); NEUT % 63 % (31-73); PLATELET COUNT 336 x10^3/uL (140-400); RED BLOOD COUNT 4.12 x10^6/uL (3.50-5.40); RED CELL DISTRIBUTION WIDTH 19.8 % (11.5-14.5); WHITE BLOOD COUNT 7.9 x10^3/uL (4.0-11.0)
[2018-11-18 04:51] LABS: BILIRUBIN,URINE NEG (NEG); CLARITY,URINE CLOUDY; COLOR,URINE RED; GLUCOSE,URINE NEG (NEG)
[2018-11-18 04:52] LABS: BACTERIA,URINE FEW /HPF (0-FEW); NITRITE,URINE NEG (NEG); RBC,URINE TNTC /HPF (0-2); SQUAMOUS EPITHELIAL CELL,UR FEW /LPF; UROBILINOGEN,URINE 1 mg/dL (0.2 mg/dL)
[2018-11-18 04:57] LABS: ANISOCYTOSIS SLIGHT; HYPOCHROMIA SLIGHT; MICROCYTOSIS SLIGHT; PLT ESTIMATE ADEQUATE (ADEQUATE)
[2018-11-18 05:01] LABS: ALBUMIN 3.1 g/dL (3.4-5.0); ALBUMIN/GLOBULIN RATIO 0.8 (1.0-1.7); CALCIUM 9.2 mg/dL (8.5-10.1); CREATININE 1.2 mg/dL (0.6-1.0); MAGNESIUM 1.7 mg/dL (1.8-2.4); POTASSIUM 3.8 mmol/L (3.5-5.1); TOTAL BILIRUBIN 0.4 mg/dL (0.2-1.0)
[2018-11-18] MEDS ORDERED: VANCOMYCIN 1 GM in IV NORMAL SALINE 250ML 250 ML IV ONE (05:45)
[2018-11-18] MEDS ORDERED: IV NORMAL SALINE 50ML 50 ML ONE (05:48)
[2018-11-18] MEDS ORDERED: cefTRIAXone SODIUM 1 GM VIAL ONE (05:48)
[2018-11-18] MEDS ORDERED: VANCOMYCIN PER PHARMACY MC PRN (06:00)
[2018-11-18] MEDS ORDERED: VANCOMYCIN 1 GM VIAL. ONE (06:28)
[2018-11-18] MEDS ORDERED: IV NORMAL SALINE 500ML 500 ML ONE (06:28)
[2018-11-18] MEDS ORDERED: VANCOMYCIN 2 GM in IV NORMAL SALINE 500ML 500 ML IV ONE (06:30)
--- NOTE | 2018-11-18 06:31 | EKG ---
[address] [address] Test Date: 2018-11-18 Test Time: 03:50:26 Pat Name: DARELL CORONADO Department: Room: Gender: F Cell Tuber Machine: MARÍA : 1965 Requested By: EHSAN JOHNSON Order Number: [id number] Reading MD: Chance Richard Measurements Intervals [place] Rate: 94 P: [place]: QRS: -117 QRSD: 114 T: 21 QT: 398 QTc: 498 Interpretive Statements VENTRICULAR PACED RHYTHM Electronically Signed On 12-16-2018 13:10:06 CDT by Chance Richard
[2018-11-18 07:30] VITALS: BP 121/71
--- NOTE | 2018-11-18 07:51 | RAD ---
Chest, 2 views, 11/18/2018: HISTORY: Cough, chills Comparison is made to a study from 11/07/2018. A left-sided transvenous pacing device has been inserted. One lead extends into the inferior aspect of the right ventricle, while the other lead extends along the posterior aspect of the heart presumably lying in a cardiac vein. The heart is enlarged. The pulmonary vascularity is within normal limits. No pulmonary infiltrate is seen. There is no evidence of pleural fluid or pneumothorax. IMPRESSION: 1. Cardiomegaly. 2. Interval insertion of a left-sided transvenous pacing device. 3. No acute infiltrates. Electronically signed by: Brcok Boo MD (11/18/2018 7:48 AM) [facility]
== END 2018-11-18 07:30 | disposition short-term general hospital (02) ==
LOC: ER 03:28
DX: I48.2 Chronic atrial fibrillation (principal); D64.9 Anemia, unspecified; I11.0 Hypertensive heart disease with heart failure; I50.22 Chronic systolic (congestive) heart failure; E11.9 Type 2 diabetes mellitus without complications; E78.00 Pure hypercholesterolemia, unspecified; Z86.2 Personal history of diseases of the blood and blood-forming organs and certain disorders involving the immune mechanism; Z95.0 Presence of cardiac pacemaker
CPT/HCPCS: 36415; 71046; 80053; 81001; 83735; 83880; 84484; 85025; 85610; 87040; 93005; 96365; 96367; 99285; J0696; J3370; J7040

== ENCOUNTER 2018-11-27 06:03 | Emergency (ER) | payer OTHER ==
[~2018-11-27] VITALS: Ht 154.9 cm; Wt 165.0 kg
[2018-11-27 06:24] LABS: BASO # 0.1 x10^3/uL (0.0-0.2); BASO % 1 % (0-3); EOS # 0.3 x10^3/uL (0.0-0.7); EOS % 3 % (0-3); HEMATOCRIT 29.5 % (36.0-47.0); HEMOGLOBIN 8.8 g/dL (12.0-15.5); LYMPH # 3.1 x10^3/uL (1.0-4.8); LYMPH % 37 % (24-48); MEAN CORPUSCULAR HEMOGLOBIN 21 pg (25-35); MEAN CORPUSCULAR HGB CONC 30 g/dL (31-37); MEAN CORPUSCULAR VOLUME 69 fL (79-100); MONO # 0.9 x10^3/uL (0.0-1.1); MONO % 11 % (0-9); NEUT % 48 % (31-73); PLATELET COUNT 326 x10^3/uL (140-400); RED BLOOD COUNT 4.25 x10^6/uL (3.50-5.40); RED CELL DISTRIBUTION WIDTH 19.7 % (11.5-14.5); WHITE BLOOD COUNT 8.4 x10^3/uL (4.0-11.0)
--- NOTE | 2018-11-27 06:34 | PHYS DOC ---
Past History Past Medical History: A-Fib, Anemia, CHF, COPD, Diabetes, High Cholesterol, Heart Disease, Hypertension, Renal Disease, Other Additional Past Medical Histor: cardiomegaly Past Surgical History: Pacemaker, Other Additional Past Surgical Histo: pacemaker Smoking: Non-smoker Alcohol Use: None Drug Use: None Adult General Chief Complaint Chief Complaint: CHEST PAIN [facility] HPI 52-year-old female presents via EMS with chest pain. The patient has been having intermittent chest pain for the last 5 days. It is a dull sensation in the right side of her chest. Sometimes a last for a couple minutes and sometimes for a couple hours. The patient presents today because it seems to be more persistent throughout the night. The pain is still waxing and waning, but she has noticed it more. At this time she rates the pain a 1 out of 10. She was given 324 of aspirin in the ambulance. She thinks that this improved her pain. The patient took one nitroglycerin last night which seemed to work at that time. She denies increased shortness of breath or diaphoresis. The patient had a pacemaker installed a couple weeks ago. She does not report any complications with this procedure. She also had a ureteral stent placed one week ago for kidney stone. The patient admits that she has had some increased stress because her roommate has a hip fracture and she has been more worried about him. She denies other illness, fever or chills. Review of Systems Review of Systems Constitutional: Denies fever or chills [] Eyes: Denies change in visual acuity, redness, or eye pain [] HENT: Denies nasal congestion or sore throat [] Respiratory: Denies cough or shortness of breath [] Cardiovascular: No additional information not addressed in HPI [] GI: Denies abdominal pain, nausea, vomiting, bloody stools or diarrhea [] : Denies dysuria or hematuria [] Musculoskeletal: Denies back pain or joint pain [] Integument: Denies rash or skin lesions [] Neurologic: Denies headache, focal weakness or sensory changes [] Endocrine: Denies polyuria or polydipsia [] All other systems were reviewed and found to be within normal limits, except as documented in this note. Allergies Allergies Allergies Coded Allergies Type Severity Reaction Last Updated Verified No Known Drug Allergies 11/07/18 No Physical Exam Physical Exam Constitutional: Well developed, morbid obesity, well nourished, no acute distress, non-toxic appearance. [] HENT: Normocephalic, atraumatic, bilateral external ears normal, oropharynx moist, no oral exudates, nose normal. Extremely hard of hearing[] Eyes: PERRLA, EOMI, conjunctiva normal, no discharge. [] Neck: Normal range of motion, no tenderness, supple, no stridor. [] Cardiovascular:Heart rate 90, irregular rhythm, no murmur [] Lungs & Thorax: Bilateral breath sounds clear to auscultation [] Abdomen: Bowel sounds normal, soft, no tenderness, no masses, no pulsatile masses. [] Skin: Warm, dry, no erythema, no rash. [] Back: No tenderness, no CVA tenderness. [] Extremities: No tenderness, no cyanosis, no clubbing, ROM intact, no edema. [] Neurologic: Alert and oriented X 3, normal motor function, normal sensory function, no focal deficits noted. [] Psychologic: Affect normal, judgement normal, mood normal. [] EKG EKG Irregular rhythm, rate 90, no ST elevations or depressions, downward QRS in 2, 3, and aVF, low voltage, no R-wave progression[] Radiology/Procedures Radiology/Procedures [] Course & Med Decision Making Course & Med Decision Making Pertinent Labs and Imaging studies reviewed. (See chart for details) EKG is negative for acute findings. Her CXR is negative for acute findings. The patient's labs are remarkable for hemoglobin of 8.8, glucose just above 200, and proBNP 1300. Review of the patient's chart shows that her hemoglobin is similar in the past. Her proBNP is also similar. Her troponin is within normal limits and also similar to previous. The patient's HEART score is 4, mostly due to her risk factors of obesity, diabetes, pacemaker. I discussed with the patient the option of admission for further observation versus going home. She would prefer to go home. She is feeling better at this time. She believes that her discomfort is likely due to the stress of her roommates injury. She is stable for discharge at this time. [] Dragon Disclaimer Dragon Disclaimer This electronic medical record was generated, in whole or in part, using a voice recognition dictation system. Departure Departure: Impression: Primary Impression: Acute chest pain Additional Impression: Chronic atrial fibrillation Disposition: HOME, SELF-CARE Condition: STABLE Referrals: EULOGIO KISER (PCP) Patient Instructions: Chest Pain (Nonspecific), [id number] Problem Qualifiers BETSEY JOYCE DO November 27, 2018 06:34
[2018-11-27 06:44] LABS: ALBUMIN 3.2 g/dL (3.4-5.0); ALBUMIN/GLOBULIN RATIO 0.9 (1.0-1.7); CALCIUM 9.1 mg/dL (8.5-10.1); POTASSIUM 4.2 mmol/L (3.5-5.1); TOTAL BILIRUBIN 0.4 mg/dL (0.2-1.0); TOTAL PROTEIN 6.6 g/dL (6.4-8.2)
--- NOTE | 2018-11-27 06:57 | EKG ---
[address] [address] Test Date: 2018-11-27 Test Time: 06:06:29 Pat Name: DARELL CORONADO Department: Room: Gender: F Rec Therapist: : 1965 Requested By: BETSEY JOYCE Order Number: [id number] Reading MD: Chance Richard Measurements Intervals [place] Rate: 90 P: [place]: QRS: -112 QRSD: 112 T: 71 QT: 412 QTc: 509 Interpretive Statements VENTRICULAR PACED RHYTHM Electronically Signed On 12-17-2018 12:40:31 CDT by Chance Richard
[2018-11-27 06:58] VITALS: BP 126/67
--- NOTE | 2018-11-27 07:39 | RAD ---
EXAM: CHEST 1 VIEW History: Chest pain COMPARISON: 11/18/2018 TECHNIQUE: Single portable radiograph of the chest FINDINGS: Low lung volumes and technique accentuates heart size and pulmonary vascularity. Mild cardiomegaly. Left-sided cardiac pacer AICD is again identified. There is minimal prominent appearing bilateral interstitial lung markings likely minimal congestive changes. Impression: 1. Minimal congestive changes. Electronically signed by: Karlos Birmingham MD (11/27/2018 7:36 AM) [facility]
[2018-11-27 07:57] LABS: PLT ESTIMATE ADEQUATE (ADEQUATE)
[2018-11-27 07:58] LABS: ANISOCYTOSIS SLIGHT; HYPOCHROMIA MOD; MICROCYTOSIS MOD; OVALOCYTES FEW; POLYCHROMASIA SLIGHT; SCHISTOCYTES OCC; TARGET CELLS OCC
== END 2018-11-27 07:11 | disposition home or self-care (01) ==
LOC: ER 06:04
DX: R07.89 Other chest pain (principal); I48.2 Chronic atrial fibrillation; E11.9 Type 2 diabetes mellitus without complications; E78.00 Pure hypercholesterolemia, unspecified; I11.0 Hypertensive heart disease with heart failure; I50.9 Heart failure, unspecified; J44.9 Chronic obstructive pulmonary disease, unspecified; Z86.2 Personal history of diseases of the blood and blood-forming organs and certain disorders involving the immune mechanism; Z95.0 Presence of cardiac pacemaker
CPT/HCPCS: 36415; 71045; 80053; 83880; 84484; 85025; 93005; 99285

== ENCOUNTER 2018-12-17 18:16 | Observation (INO) | payer OTHER ==
[~2018-12-17] VITALS: Ht 154.9 cm; Wt 161.7 kg
--- NOTE | 2018-12-17 18:27 | PHYS DOC ---
Past History Past Medical History: A-Fib, Anemia, CHF, COPD, Diabetes, High Cholesterol, Heart Disease, Hypertension, Renal Disease, Other Additional Past Medical Histor: cardiomegaly Past Surgical History: Pacemaker, Other Additional Past Surgical Histo: pacemaker Smoking: Non-smoker Alcohol Use: None Drug Use: None Adult General Chief Complaint Chief Complaint: CHEST PAIN [facility] HPI Patient is a 52-year-old female who presents with complaint of intermittent chest pain that started a little over an hour ago. Patient states that sometimes this happens when her blood sugar gets elevated. She states the last few days she has been having difficulty maintaining control of her blood sugar. Medics indicate that her blood sugar was 236. Patient states that that is high for her and she states that she become symptomatic when her blood sugar gets over about 190. Currently she denies any chest pain and states that when it was present, it was very mild. She states the pain is intermittent and only lasts for a few seconds to a minute. She denies any radiation of the pain. She denies any nausea, vomiting or diaphoresis. She also denies any shortness of breath.[] Review of Systems Review of Systems Constitutional: Denies fever or chills [] Respiratory: Denies cough or shortness of breath [] Cardiovascular: No additional information not addressed in HPI [] GI: Denies abdominal pain, nausea, vomiting or diarrhea [] Integument: Denies rash or skin lesions [] Neurologic: Denies headache, focal weakness or sensory changes [] All other systems were reviewed and found to be within normal limits, except as documented in this note. Allergies Allergies Allergies Coded Allergies Type Severity Reaction Last Updated Verified No Known Drug Allergies 11/07/18 No Physical Exam Physical Exam Constitutional: Well developed, well nourished, no acute distress, non-toxic appearance. [] HENT: Normocephalic, atraumatic, bilateral external ears normal, oropharynx moist, no oral exudates, nose normal. [] Eyes: PERRLA, EOMI, conjunctiva normal, no discharge. [] Neck: Normal range of motion, no tenderness, supple, no stridor. [] Cardiovascular:Heart rate regular rhythm, no murmur [] Lungs & Thorax: Bilateral breath sounds clear to auscultation [] Abdomen: Bowel sounds normal, soft, no tenderness. [] Skin: Warm, dry, no erythema, no rash. [] Extremities: No tenderness, no cyanosis, no clubbing, ROM intact. [] Neurologic: Alert and oriented X 3, no focal deficits noted. [] EKG EKG EKG demonstrates normal sinus rhythm.[] Radiology/Procedures Radiology/Procedures [] Impressions: PROCEDURE: PORTABLE CHEST 1V EXAM: Chest, single view. HISTORY: Chest pain. COMPARISON: 11/27/2018. FINDINGS: A frontal view of the chest is obtained. There is stable diffuse increased interstitial opacity. There is stable enlargement of the cortex silhouette. There is a cardiac pacemaker defibrillator in expected position. IMPRESSION: 1. Stable diffuse increased interstitial opacity suggesting mild congestion. 2. Stable enlargement of the cardiac silhouette. Electronically signed by: Mildred Edmond MD (12/17/2018 6:44 PM) [facility] Course & Med Decision Making Course & Med Decision Making Pertinent Labs and Imaging studies reviewed. (See chart for details) [] Dragon Disclaimer Dragon Disclaimer This electronic medical record was generated, in whole or in part, using a voice recognition dictation system. Departure Departure: Impression: Primary Impression: Acute chest pain Disposition: ADMITTED INPATIENT Admitting Physician: Chirag Henrandez Condition: IMPROVED Referrals: EULOGIO KISER (PCP) GORDO HARRELL Jr. DO Dec 17, 2018 18:27
--- NOTE | 2018-12-17 18:27 | EKG ---
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
[2018-12-17] MEDS ORDERED: ASPIRIN 81 MG TAB.CHEW PO ONE (18:30)
[2018-12-17 18:39] LABS: BASO # 0.1 x10^3/uL (0.0-0.2); BASO % 1 % (0-3); EOS # 0.2 x10^3/uL (0.0-0.7); EOS % 2 % (0-3); HEMATOCRIT 28.3 % (36.0-47.0); HEMOGLOBIN 8.4 g/dL (12.0-15.5); LYMPH # 2.6 x10^3/uL (1.0-4.8); LYMPH % 33 % (24-48); MEAN CORPUSCULAR HEMOGLOBIN 20 pg (25-35); MEAN CORPUSCULAR HGB CONC 30 g/dL (31-37); MEAN CORPUSCULAR VOLUME 68 fL (79-100); MONO # 0.6 x10^3/uL (0.0-1.1); MONO % 8 % (0-9); NEUT # 4.5 x10^3uL (1.8-7.7); NEUT % 56 % (31-73); PLATELET COUNT 327 x10^3/uL (140-400); RED BLOOD COUNT 4.16 x10^6/uL (3.50-5.40); RED CELL DISTRIBUTION WIDTH 19.1 % (11.5-14.5); WHITE BLOOD COUNT 7.9 x10^3/uL (4.0-11.0)
--- NOTE | 2018-12-17 18:47 | RAD ---
EXAM: Chest, single view. HISTORY: Chest pain. COMPARISON: 11/27/2018. FINDINGS: A frontal view of the chest is obtained. There is stable diffuse increased interstitial opacity. There is stable enlargement of the cortex silhouette. There is a cardiac pacemaker defibrillator in expected position. IMPRESSION: 1. Stable diffuse increased interstitial opacity suggesting mild congestion. 2. Stable enlargement of the cardiac silhouette. Electronically signed by: Mildred Edmond MD (12/17/2018 6:44 PM) [facility]
[2018-12-17 18:54] LABS: ALBUMIN 3.4 g/dL (3.4-5.0); ALBUMIN/GLOBULIN RATIO 1.1 (1.0-1.7); CALCIUM 8.7 mg/dL (8.5-10.1); CREATININE 1.1 mg/dL (0.6-1.0); MAGNESIUM 1.7 mg/dL (1.8-2.4); POTASSIUM 4.1 mmol/L (3.5-5.1); TOTAL BILIRUBIN 0.4 mg/dL (0.2-1.0); TOTAL PROTEIN 6.6 g/dL (6.4-8.2)
[2018-12-17 20:01] LABS: PLT ESTIMATE ADEQUATE (ADEQUATE)
[2018-12-17 20:02] LABS: HYPOCHROMIA MOD
[2018-12-17 20:03] LABS: ANISOCYTOSIS MOD; MICROCYTOSIS SLIGHT
[2018-12-17] MEDS ORDERED: oxyCODONE/APAP 5/325 1 TAB TABLET PO PRN (20:15)
[2018-12-17] MEDS ORDERED: ONDANSETRON PF 4 MG/2 ML VIAL. IV PRN (20:15)
[2018-12-17] MEDS ORDERED: MAG HYDROX/AL HYDROX/SIMETH 30 ML ORAL.SUSP PO PRN (20:15)
--- NOTE | 2018-12-17 20:59 | HP ---
ADMIT DATE: 12/17/2018 ATTENDING PHYSICIAN: Dr. Womack. CHIEF COMPLAINT: Chest pain. HISTORY OF PRESENT ILLNESS: This is a 52-year-old female admitted through the ED with a localized chest pain. It is pressure in nature. She has morbid obesity and diabetes. Her symptoms are very vague. She is very hard of hearing, not exactly a great historian. In any event, she was not in florid heart failure. She had cardiac enzyme, which showed no significant bump in her enzymes. Because of her diabetes and her symptoms, it was decided to bring her in overnight to monitor her, recheck her enzymes, and continue her home meds. Her sugar was not well controlled and she had vague other complaints. The chest x-ray showed stable cardiac silhouette. She does have a permanent pacemaker. There is mild congestion noted on the chest x-ray. She has been saying that she drinks a lot of fluid. The chest pain is intermittent starting over an hour ago. She is having difficulty maintaining control of her blood sugar, it was at 236. PAST MEDICAL HISTORY: Significant for permanent pacemaker, congestive heart failure, type 2 diabetes, essential hypertension, again morbid obesity weighed in excess of 165 kilograms. She also has a history of chronic bronchitis and systolic heart failure. ALLERGIES: She has no recorded drug. SOCIAL HISTORY: Nonsmoker, nondrinker. CURRENT MEDICATIONS: Reviewed. She was Coreg, Lasix, insulin regular and Lantus, senna, aspirin, and oxycodone. SURGICAL HISTORY: Permanent pacemaker. FAMILY HISTORY: Noncontributory. REVIEW OF SYSTEMS: Significant for localized chest pain. She denied any indigestion. She denied any fevers or chills. She has dyspnea with minimal exertion. Her weight is in excess of 335 pounds. All other systems were reviewed and determined to be negative. PHYSICAL EXAMINATION: GENERAL: When I saw her, this is a pleasant female who was in no acute distress. VITAL SIGNS: Her initial vital signs showed a blood pressure of 100 systolic, but it is difficult to getting an accurate reading. Her pulse is 86 and regular. She was afebrile. HEENT: Head is without trauma. Pupils are reactive. Sclerae are nonicteric. The oropharynx is clear. NECK: Supple, no bruits identified. LUNGS: Fairly good breath sounds, minimal crackles at the bases. CARDIOVASCULAR: Showed distant heart tones. No obvious gallops. Peripheral pulses are palpable and full. ABDOMEN: Morbidly obese, protuberant. No guarding or rebound tenderness. EXTREMITIES: Show 2+ edema. NEUROLOGIC FUNCTION: Focally intact. LABORATORY STUDIES: Her hemoglobin is 8.4 g/dL with a white count of 7900. This is chronic in nature for her. MCV are diminished. Chemistry panel showed normal electrolytes. Creatinine is 1.1 mg percent, nonfasting blood sugar 205. First set of troponin was 0.024 with the upper limits of normal at 0.05 at this hospital. ASSESSMENT: 1. This 52-year-old female has atypical chest pain. She has multiple risk factors. She is admitted for observation. 2. Morbid obesity. 3. Type 2 diabetes with poor control. 4. Permanent pacemaker. 5. History of compensated congestive heart failure. 6. Paroxysmal atrial fibrillation. 7. Diabetes. PLAN: 1. Admit to the inpatient unit. 2. Serial enzymes. 3. Continue most home meds. 4. Should her enzymes elevate, we will consult Cardiology in the morning. JAVON WOMACK MD DR: EVERARDO/davina JOB#: [id number] / [id number] WILLIAMS Keith MD
[2018-12-17] MEDS: SENNOSIDES/DOCUSATE 8.6/50MG TABLET. PO SCH (21:00)
[2018-12-17 22:00] VITALS: BP 109/67
[2018-12-17] MEDS ORDERED: ATOR80TA72 (23:22)
[2018-12-17] MEDS ORDERED: DIGO125T2 (23:22)
[2018-12-17] MEDS ORDERED: FURO40TA4 (23:22)
[2018-12-17] MEDS ORDERED: ESOM40CA47 PO (23:22)
[2018-12-17] MEDS ORDERED: METF500T9 (23:22)
[2018-12-17] MEDS ORDERED: APIX5TAB5 PO (23:22)
[2018-12-17] MEDS ORDERED: POTA10TA (23:22)
[2018-12-18 05:25] VITALS: BP 108/69
[2018-12-18] MEDS ORDERED: ANTI-COAG MONITOR BY PHARMACY. MC PRN (06:45)
[2018-12-18] MEDS ORDERED: PANTOPRAZOLE 40 MG TABLET. PO SCH (07:30)
[2018-12-18] MEDS ORDERED: INSULIN LISPRO 300 UNITS/3 ML INSULN.PEN. SQ SCH (08:00)
[2018-12-18] MEDS ORDERED: CARVEDILOL 6.25 MG TABLET PO SCH (08:00)
[2018-12-18] MEDS ORDERED: POTASSIUM CHLORIDE 10 MEQ TABLET.ER. PO SCH (08:00)
[2018-12-18] MEDS ORDERED: metFORMIN XR 500 MG TAB.ER.24H PO SCH (08:00)
[2018-12-18] MEDS: SENNOSIDES/DOCUSATE 8.6/50MG TABLET. PO SCH (08:25)
[2018-12-18 08:32] VITALS: BP 108/69
[2018-12-18] MEDS ORDERED: CETIRIZINE HCL 10 MG TABLET PO SCH (09:00)
[2018-12-18] MEDS ORDERED: DIGOXIN 125 MCG TABLET PO SCH (09:00)
[2018-12-18] MEDS ORDERED: SACUBITRIL/VALSARTAN 49/51MG TABLET. PO SCH (09:00)
[2018-12-18] MEDS ORDERED: FUROSEMIDE 40 MG TABLET PO SCH (09:00)
[2018-12-18] MEDS ORDERED: APIXABAN 5 MG TABLET. PO SCH (09:00)
--- NOTE | 2018-12-18 09:48 | DS ---
DATE OF DISCHARGE: 12/18/2018 ATTENDING PHYSICIAN: Dr. Womack. FINAL DISCHARGE DIAGNOSES: 1. Chest pain, atypical, coronary ischemia ruled out. 2. Morbid obesity, weight 363 pounds. 3. Type 2 diabetes mellitus with poor control. 4. Paroxysmal atrial fibrillation. 5. Acute chronic bronchitis. 6. Acute on chronic systolic congestive heart failure, compensated. 7. Hyperlipidemia. 8. Gastroesophageal reflux disease. HISTORY AND PHYSICAL: This 52-year-old female, morbidly obese, with diabetes also has heart disease. She has had a previous permanent pacemaker and has congestive heart failure. She presented to the ED with atypical chest pressure, noncardiac in nature. EKG showed no acute changes. Chest x-ray showed stable cardiomegaly. Cardiac enzymes were negative on admission. HOSPITAL COURSE: The patient was observed overnight. She had no further chest discomfort. Serial enzymes showed trending downwards and no elevation of troponin levels based on this laboratory. Home meds were continued. Her insulin was continued. By the next hospital day, she was doing better. She was ready for discharge. At this time, I made no changes on her home medication. She should continue her albuterol, Eliquis 5 mg b.i.d., aspirin 81 mg daily, Lipitor 80 mg daily, Coreg 6.25 mg b.i.d., digoxin 0.125 mg daily, Nexium 40 mg daily, Lasix 40 mg daily, insulin Lantus and regular, metformin 500 mg daily, nitroglycerin, potassium, and Entresto 49/51 one tablet b.i.d. She will follow up with her regular physician. She was discharged from our hospital in stable condition with instructions for followup care. JAVON WOMACK MD DR: EVERARDO/davina JOB#: [id number] / [id number] WILLIAMS Keith MD
[2018-12-18] MEDS ORDERED: ATORVASTATIN CALCIUM 20 MG TABLET PO SCH (21:00)
[2018-12-18] MEDS ORDERED: INSULIN GLARGINE 300 UNITS/3 ML INSULN.PEN. SQ SCH (21:00)
== END 2018-12-18 11:00 | disposition home or self-care (01) ==
LOC: ER 18:16 → INTOOBSV 20:34 → 1 SOUTH 20:34 → UNDOADMOB 20:34 → UNDODISOB 12-18 11:00
PROVIDERS: ADMIT Hospitalist; ATTEND Hospitalist
DX: R07.89 Other chest pain (principal); E66.01 Morbid (severe) obesity due to excess calories; E78.00 Pure hypercholesterolemia, unspecified; E78.5 Hyperlipidemia, unspecified; Z95.0 Presence of cardiac pacemaker; J42 Unspecified chronic bronchitis; J44.9 Chronic obstructive pulmonary disease, unspecified; I11.0 Hypertensive heart disease with heart failure; E11.65 Type 2 diabetes mellitus with hyperglycemia; I48.0 Paroxysmal atrial fibrillation; H91.90 Unspecified hearing loss, unspecified ear; N28.9 Disorder of kidney and ureter, unspecified; K21.9 Gastro-esophageal reflux disease without esophagitis; I50.23 Acute on chronic systolic (congestive) heart failure; Z79.01 Long term (current) use of anticoagulants; Z79.899 Other long term (current) drug therapy; Z79.84 Long term (current) use of oral hypoglycemic drugs; Z79.82 Long term (current) use of aspirin
CPT/HCPCS: 36415; 71045; 80053; 82947; 83735; 84484; 85025; 93005; 96372; 99284; G0378; G0379; J1815

== ENCOUNTER 2018-12-27 00:58 | Emergency (ER) | payer OTHER ==
[~2018-12-27] VITALS: Ht 154.9 cm; Wt 156.5 kg
[~2018-12-27 00:58] MED LIST changes: +APIX5TAB5 PO; +ATOR80TA72; +DIGO125T2; +ESOM40CA47 PO; +FURO40TA4; +METF500T9; +POTA10TA
--- NOTE | 2018-12-27 01:01 | ED.ADGEN ---
Past History Past Medical History: Anemia, Angina, Anxiety, Arthritis, CHF, Diabetes, GERD, High Cholesterol, Heart Disease, Hypertension, Kidney Infection, Kidney Stones, Renal Disease, UTI Additional Past Medical Histor: cardiomegaly Past Medical History Marked Hearing Deficits Past Surgical History: No Surgical History, Pacemaker, Other (Rt. renal stent) Additional Past Surgical Histo: pacemaker Smoking: Non-smoker Alcohol Use: None Drug Use: None Adult General Chief Complaint Chief Complaint ".. I ve been having chest pain for past 8 hrs.. I took my nitro.. "..." My sugars are too high.. "... and I am having problems.. with my kidneys..".. " I am tired and short of breath all the time....".." My back and flanks hurt..." HPI HPI Patient is a 52 year old female who presents with above hx and complaints of chest pain, high blood sugars.. and dysuria. Pt. reports Rt sided chest pain for entire day. Pt is reproduce with palpation, deep breaths and movement. Pt. has hx prior hx CADz, CHF, and Angina. Nitro did not seem to help the chest pain today. Pt. recently discharge 12/17 for atypical chest pain. Pt. very poor historian. Pt. has history of chronic congestive heart failure, diabetes, hypertension, morbid obesity, renal insufficiency, chronic bronchitis, A. fib, obstructive renal stone with stent placement and deconditioning. Patient reportedly on multiple meds. but it is unclear if she takes them as directed. Pt. is reportedly on Eliquis 5 mg twice a day. Pt. has kevin hematuria. Reportedly no longer on anti- biotic s for UTI. Pt. states she is to have a renal stent removed or replaced, but has no scheduled follow up. Pt has had tarry stools, but none tonight. Review of Systems Review of Systems Somewhat poor historian- in part because of marked hearing deficit Constitutional: Denies fever or chills [] Eyes: Denies change in visual acuity, redness, or eye pain [] HENT: Denies nasal congestion or sore throat [] Respiratory: Complaints of cough and shortness of breath [] Cardiovascular: No additional information not addressed in HPI [] GI: Flank abdominal pain, nausea. Denies vomiting, diarrhea []Has had tarry stools. : has dysuria and hematuria [] Musculoskeletal: Has flank back pain and joint pain [] Integument: Denies rash or skin lesions [] Neurologic: Denies headache, focal weakness or sensory changes [] Endocrine: Has polyuria or polydipsia [] All other systems were reviewed and found to be within normal limits, except as documented in this note. Family History Family History Noncontributory Current Medications Current Medications Current Medications Medications (Trade) Dose Ordered Sig/Christina Start Time Stop Time Status Last Admin Dose Admin Aspirin (Children'S Aspirin) 324 mg 1X ONCE 12/27/18 01:30 12/27/18 01:49 DC Ceftriaxone Sodium 1 gm/ Sodium Chloride 50 ml @ 100 mls/hr 1X ONCE 12/27/18 03:00 12/27/18 03:29 DC 12/27/18 03:13 100 MLS/HR Ceftriaxone Sodium (Rocephin) 1 gm STK-MED ONCE 12/27/18 03:07 12/27/18 03:08 DC Lactated Ringer's 1,000 ml @ 100 mls/hr Q10H 12/27/18 01:30 12/27/18 05:17 DC 12/27/18 01:52 100 MLS/HR Allergies Allergies Allergies Coded Allergies Type Severity Reaction Last Updated Verified No Known Drug Allergies 11/07/18 No Physical Exam Physical Exam Constitutional: moderate acute distress, non-toxic appearance. [] HENT: Normocephalic, atraumatic, bilateral external ears normal, oropharynx mo ist, no oral exudates, nose normal. []Poor dentition. Eyes: PERRLA, EOMI, conjunctiva pale, no discharge. [] Neck: Normal range of motion, no tenderness, supple, no stridor. [] More than 17 inches circumference Cardiovascular: Irregular Heart rate regular rhythm, PMI to the left. Frequent PVC's on monitor. Lungs & Thorax: Bilateral breath sounds scattered crackles and wheezing on auscultation [Has healing pacer scar on left chest wall Abdomen: Bowel sounds decreased, soft, no tenderness, no masses, no pulsatile masses. Morbid obesity. Skin: Warm, dry, no erythema, no rash. Pale. Back: mid back and chest pain, , bilateral CVA tenderness, more on Rt. Extremities: No tenderness, no cyanosis, no clubbing, ROM intact, ankle edema. [] Neurologic: Alert and oriented X 3, moves all ext. on request, has distal sensory, very hard of hearing. Psychologic: Affect anxious, judgement seems to have limited insight to some of her medical issues, mood normal. [] Current Patient Data Vital Signs Vital Signs Date Time Temp Pulse Resp B/P (MAP) Pulse Ox O2 Delivery O2 Flow Rate FiO2 12/27/18 05:05 91 22 100/70 (80) 97 Room Air 12/27/18 00:58 98.0 Lab Results Laboratory Tests Test 12/27/18 01:15 12/27/18 01:25 12/27/18 02:32 White Blood Count 7.5 x10^3/uL (4.0-11.0) Red Blood Count 4.02 x10^6/uL (3.50-5.40) Hemoglobin 8.1 g/dL (12.0-15.5) L Hematocrit 27.1 % (36.0-47.0) L Mean Corpuscular Volume 68 fL (79-100) L Mean Corpuscular Hemoglobin 20 pg (25-35) L Mean Corpuscular Hemoglobin Concent 30 g/dL (31-37) L Red Cell Distribution Width 19.4 % (11.5-14.5) H Platelet Count 362 x10^3/uL (140-400) Neutrophils (%) (Auto) 55 % (31-73) Lymphocytes (%) (Auto) 33 % (24-48) Monocytes (%) (Auto) 9 % (0-9) Eosinophils (%) (Auto) 2 % (0-3) Basophils (%) (Auto) 1 % (0-3) Neutrophils # (Auto) 4.2 x10^3uL (1.8-7.7) Lymphocytes # (Auto) 2.5 x10^3/uL (1.0-4.8) Monocytes # (Auto) 0.7 x10^3/uL (0.0-1.1) Eosinophils # (Auto) 0.1 x10^3/uL (0.0-0.7) Basophils # (Auto) 0.0 x10^3/uL (0.0-0.2) Platelet Estimate Adequate (ADEQUATE) Hypochromasia Mod Anisocytosis Slight Microcytosis Mod Prothrombin Time 11.2 SEC (9.4-11.4) Prothrombin Time INR 1.1 (0.9-1.1) PTT 26 SEC (23-33) D-Dimer (Maria Alejandra) 0.43 mg/L (0.00-0.50) Sodium Level 141 mmol/L (136-145) Potassium Level 4.3 mmol/L (3.5-5.1) Chloride Level 106 mmol/L (98-107) Carbon Dioxide Level 29 mmol/L (21-32) Anion Gap 6 (6-14) Blood Urea Nitrogen 20 mg/dL (7-20) Creatinine 1.2 mg/dL (0.6-1.0) H Estimated GFR (Cockcroft-Gault) 47.0 Glucose Level 264 mg/dL (70-99) H Glucose (Fingerstick) 271 mg/dL (70-99) H 252 mg/dL (70-99) H Calcium Level 8.7 mg/dL (8.5-10.1) Magnesium Level 1.9 mg/dL (1.8-2.4) Total Bilirubin 0.3 mg/dL (0.2-1.0) Direct Bilirubin 0.1 mg/dL (0.0-0.2) Aspartate Amino Transferase (AST) 14 U/L (15-37) L Alanine Aminotransferase (ALT) 25 U/L (14-59) Alkaline Phosphatase 86 U/L (46-116) Creatine Kinase 74 U/L (26-192) Troponin I Quantitative < 0.017 ng/mL (0-0.055) CY-Xnv-S-Type Natriuretic Peptide 784 pg/mL (0-124) H Total Protein 6.6 g/dL (6.4-8.2) Albumin 3.3 g/dL (3.4-5.0) L Lipase 211 U/L (73-393) Urine Collection Type Unknown Urine Color Yellow Urine Clarity Cloudy Urine pH 6.0 Urine Specific [place] 1.025 Urine Protein 100 mg/dl (NEG-TRACE) Urine Glucose (UA) Neg mg/dL (NEG) Urine Ketones (Stick) Trace mg/dL (NEG) Urine Blood Large (NEG) Urine Nitrite Neg (NEG) Urine Bilirubin Neg (NEG) Urine Urobilinogen Dipstick 4 mg/dL (0.2 mg/dL) Urine Leukocyte Esterase Mod (NEG) Urine RBC >40 /HPF (0-2) Urine WBC >40 /HPF (0-4) Urine Squamous Epithelial Cells Few /LPF Urine Bacteria Many /HPF (0-FEW) Urine Opiates Screen Neg (NEG) Urine Methadone Screen Neg (NEG) Urine Barbiturates Neg (NEG) Urine Phencyclidine Screen Neg (NEG) Urine Amphetamine/Methamphetamine Neg (NEG) Urine Benzodiazepines Screen Neg (NEG) Urine Cocaine Screen Neg (NEG) Urine Cannabinoids Screen Neg (NEG) Urine Ethyl Alcohol Neg (NEG) EKG EKG My interpretation of EKG shows Afib- with Vent. rate of 95. Frequent PVC. No obvious pacer spikes. BB Block. [] Radiology/Procedures Radiology/Procedures My interpretation of CXR shows cardiomegaly, some cephalization. Basilar atelectasis. Pacer. []Renal stent on Rt . Course & Med Decision Making Course & Med Decision Making Pertinent Labs and Imaging studies reviewed. (See chart for details) Discussed presentation, testing and tx plan with Dr. Guevara. Will accept pt in transfer to [facility]. Cardiology consult. Possible Urology and GI consult. Will restart pt. on antibiotics for elevated WBC in urine. [] Final Impression Final Impression 1. Chest Pain[] 2. CHF 784 BNP 3. Renal Insuf. Creat. 1.2 4. Anemia Hgb 8.1, Microcytic Hypochromic 68/20 5. UTI 6. DM= Gluc. 264 7. Afib. 8. Morbid Obesity 9. Marked Hearing Deficits 10.Pacemaker placement November 12. 11.Hx. of Obstructive Renal Stone on Rt. with placement of renal stent. Dragon Disclaimer Dragon Disclaimer This electronic medical record was generated, in whole or in part, using a voice recognition dictation system. Discharge Summary Visit Information Final Diagnosis Problems Medical Problems: (1) Chest pain Status: Acute Brief Hospital Course Allergies Allergies Coded Allergies Type Severity Reaction Last Updated Verified No Known Drug Allergies 11/07/18 No Vital Signs Vital Signs Date Time Temp Pulse Resp B/P (MAP) Pulse Ox O2 Delivery O2 Flow Rate FiO2 12/27/18 05:05 91 22 100/70 (80) 97 Room Air 12/27/18 00:58 98.0 Lab Results Laboratory Tests Test 12/27/18 01:15 12/27/18 01:25 12/27/18 02:32 White Blood Count 7.5 x10^3/uL (4.0-11.0) Red Blood Count 4.02 x10^6/uL (3.50-5.40) Hemoglobin 8.1 g/dL (12.0-15.5) Hematocrit 27.1 % (36.0-47.0) Mean Corpuscular Volume 68 fL (79-100) Mean Corpuscular Hemoglobin 20 pg (25-35) Mean Corpuscular Hemoglobin Concent 30 g/dL (31-37) Red Cell Distribution Width 19.4 % (11.5-14.5) Platelet Count 362 x10^3/uL (140-400) Neutrophils (%) (Auto) 55 % (31-73) Lymphocytes (%) (Auto) 33 % (24-48) Monocytes (%) (Auto) 9 % (0-9) Eosinophils (%) (Auto) 2 % (0-3) Basophils (%) (Auto) 1 % (0-3) Neutrophils # (Auto) 4.2 x10^3uL (1.8-7.7) Lymphocytes # (Auto) 2.5 x10^3/uL (1.0-4.8) Monocytes # (Auto) 0.7 x10^3/uL (0.0-1.1) Eosinophils # (Auto) 0.1 x10^3/uL (0.0-0.7) Basophils # (Auto) 0.0 x10^3/uL (0.0-0.2) Platelet Estimate Adequate (ADEQUATE) Hypochromasia Mod Anisocytosis Slight Microcytosis Mod Prothrombin Time 11.2 SEC (9.4-11.4) Prothromb Time International Ratio 1.1 (0.9-1.1) Activated Partial Thromboplast Time 26 SEC (23-33) D-Dimer (Maria Alejandra) 0.43 mg/L (0.00-0.50) Sodium Level 141 mmol/L (136-145) Potassium Level 4.3 mmol/L (3.5-5.1) Chloride Level 106 mmol/L (98-107) Carbon Dioxide Level 29 mmol/L (21-32) Anion Gap 6 (6-14) Blood Urea Nitrogen 20 mg/dL (7-20) Creatinine 1.2 mg/dL (0.6-1.0) Estimated GFR (Cockcroft-Gault) 47.0 Glucose Level 264 mg/dL (70-99) Glucose (Fingerstick) 271 mg/dL (70-99) 252 mg/dL (70-99) Calcium Level 8.7 mg/dL (8.5-10.1) Magnesium Level 1.9 mg/dL (1.8-2.4) Total Bilirubin 0.3 mg/dL (0.2-1.0) Direct Bilirubin 0.1 mg/dL (0.0-0.2) Aspartate Amino Transf (AST/SGOT) 14 U/L (15-37) Alanine Aminotransferase (ALT/SGPT) 25 U/L (14-59) Alkaline Phosphatase 86 U/L (46-116) Creatine Kinase 74 U/L (26-192) Troponin I Quantitative < 0.017 ng/mL (0-0.055) PC-Bga-L-Type Natriuretic Peptide 784 pg/mL (0-124) Total Protein 6.6 g/dL (6.4-8.2) Albumin 3.3 g/dL (3.4-5.0) Lipase 211 U/L (73-393) Urine Collection Type Unknown Urine Color Yellow Urine Clarity Cloudy Urine pH 6.0 Urine Specific [place] 1.025 Urine Protein 100 mg/dl (NEG-TRACE) Urine Glucose (UA) Neg mg/dL (NEG) Urine Ketones (Stick) Trace mg/dL (NEG) Urine Blood Large (NEG) Urine Nitrite Neg (NEG) Urine Bilirubin Neg (NEG) Urine Urobilinogen Dipstick 4 mg/dL (0.2 mg/dL) Urine Leukocyte Esterase Mod (NEG) Urine RBC >40 /HPF (0-2) Urine WBC >40 /HPF (0-4) Urine Squamous Epithelial Cells Few /LPF Urine Bacteria Many /HPF (0-FEW) Urine Opiates Screen Neg (NEG) Urine Methadone Screen Neg (NEG) Urine Barbiturates Neg (NEG) Urine Phencyclidine Screen Neg (NEG) Urine Amphetamine/Methamphetamine Neg (NEG) Urine Benzodiazepines Screen Neg (NEG) Urine Cocaine Screen Neg (NEG) Urine Cannabinoids Screen Neg (NEG) Urine Ethyl Alcohol Neg (NEG) Brief Hospital Course Ms. Florez is a 52 old female who presented with multiple complaints, CP, Flank pain, Hyperglycemia, CHF, Tarry Stools, Fatigue. Transfer to [facility]- Dr. Guevara. Suspect CP not primary issue currently. May need Urology and GI consults once rule out with Trop. Discharge Information Condition at Discharge: Improved Dischare Medications Current Medications Aspirin (Children'S Aspirin) 324 mg 1X ONCE PO ; Start 12/27/18 at 01:30; Stop 12/27/18 at 01:49; Status DC Lactated Ringer's 1,000 ml @ 100 mls/hr Q10H IV Last administered on 12/27/18at 01:52; Admin Dose 100 MLS/HR; Start 12/27/18 at 01:30; Stop 12/27/18 at 05:17; Status DC Ceftriaxone Sodium 1 gm/ Sodium Chloride 50 ml @ 100 mls/hr 1X ONCE IV Last administered on 12/27/18at 03:13; Admin Dose 100 MLS/HR; Start 12/27/18 at 03:00; Stop 12/27/18 at 03:29; Status DC Ceftriaxone Sodium (Rocephin) 1 gm STK-MED ONCE .ROUTE ; Start 12/27/18 at 03:07; Stop 12/27/18 at 03:08; Status DC Active Scripts Active Reported Eliquis (Apixaban) 5 Mg Tab.ds.pk 5 PO BID Digoxin 125 Mcg Tablet 1 DAILY Atorvastatin Calcium 80 Mg Tablet 1 HS K-Tab (Potassium Chloride) 10 Meq Tablet.er 1 DAILY Esomeprazole Magnesium 40 Mg Capsule. 1 PO DAILY Metformin Hcl Er (Metformin Hcl) 500 Mg Tab.er.24h 1 DAILY Furosemide 40 Mg Tablet 1 DAILY Entresto 49 mg-51 mg Tablet (Sacubitril/Valsartan) 1 Each Tablet 1 Each PO BID Proair Hfa Inhaler (Albuterol Sulfate) 8.5 Gm Hfa.aer.ad 2 Puff INH PRN Q6HRS PRN NITROGLYCERIN SubLingual (Nitroglycerin) 0.4 Mg Tab.subl 0.4 Mg SL PRN Q5MIN PRN Humalog (Insulin Lispro) 100 Unit/1 Ml Vial 35 Unit SQ HS Nexium Capsule (Esomeprazole Magnesium) 40 Mg Capsule. 40 Mg PO DAILYAC Coreg (Carvedilol) 6.25 Mg Tablet 6.25 Mg PO BIDWMEALS Lantus (Insulin Glargine,Hum.rec.anlog) 100 Unit/1 Ml Vial 15 Unit SQ TIDWMEALS Aspirin 81 Mg Tab.chew 81 Mg PO DAILY Dragon Disclaimer This chart was dictated in whole or in part using Voice Recognition software in a busy, high-work load, and often noisy Emergency Department environment. It may contain unintended and wholly unrecognized errors or omissions. LIBRA TRACEY MD Dec 27, 2018 01:01
[2018-12-27] MEDS ORDERED: IV RINGERS SOLUTION,LACTATED 1,000 ML IV SCH (01:30)
[2018-12-27] MEDS ORDERED: ASPIRIN 81 MG TAB.CHEW PO ONE (01:30)
[2018-12-27 01:47] LABS: BARBITURATES NEG (NEG); BENZODIAZEPINES NEG (NEG); CANNABINOIDS NEG (NEG); COCAINE NEG (NEG); METHADONE NEG (NEG); OPIATES NEG (NEG); PHENCYCLIDINE NEG (NEG)
[2018-12-27 01:48] LABS: AMPHETAMINE/METHAMPHETAMINE NEG (NEG)
[2018-12-27 01:54] LABS: BACTERIA,URINE MANY /HPF (0-FEW); BILIRUBIN,URINE NEG (NEG); CLARITY,URINE CLOUDY; COLOR,URINE YELLOW; GLUCOSE,URINE NEG (NEG); NITRITE,URINE NEG (NEG); RBC,URINE >40 /HPF (0-2); SQUAMOUS EPITHELIAL CELL,UR FEW /LPF; UROBILINOGEN,URINE 4 mg/dL (0.2 mg/dL); WBC,URINE >40 /HPF (0-4)
[2018-12-27 01:58] LABS: ALBUMIN 3.3 g/dL (3.4-5.0); CALCIUM 8.7 mg/dL (8.5-10.1); CREATININE 1.2 mg/dL (0.6-1.0); DIRECT BILIRUBIN 0.1 mg/dL (0.0-0.2); MAGNESIUM 1.9 mg/dL (1.8-2.4); POTASSIUM 4.3 mmol/L (3.5-5.1); TOTAL BILIRUBIN 0.3 mg/dL (0.2-1.0); TOTAL PROTEIN 6.6 g/dL (6.4-8.2)
[2018-12-27 02:03] LABS: BASO % 1 % (0-3); EOS # 0.1 x10^3/uL (0.0-0.7); EOS % 2 % (0-3); HEMATOCRIT 27.1 % (36.0-47.0); HEMOGLOBIN 8.1 g/dL (12.0-15.5); LYMPH # 2.5 x10^3/uL (1.0-4.8); LYMPH % 33 % (24-48); MEAN CORPUSCULAR HEMOGLOBIN 20 pg (25-35); MEAN CORPUSCULAR HGB CONC 30 g/dL (31-37); MEAN CORPUSCULAR VOLUME 68 fL (79-100); MONO # 0.7 x10^3/uL (0.0-1.1); MONO % 9 % (0-9); NEUT # 4.2 x10^3uL (1.8-7.7); NEUT % 55 % (31-73); PLATELET COUNT 362 x10^3/uL (140-400); RED BLOOD COUNT 4.02 x10^6/uL (3.50-5.40); RED CELL DISTRIBUTION WIDTH 19.4 % (11.5-14.5); WHITE BLOOD COUNT 7.5 x10^3/uL (4.0-11.0)
[2018-12-27] MEDS ORDERED: cefTRIAXone SODIUM 1 GM VIAL ONE (03:07)
[2018-12-27 03:25] LABS: HYPOCHROMIA MOD; PLT ESTIMATE ADEQUATE (ADEQUATE)
[2018-12-27 03:26] LABS: ANISOCYTOSIS SLIGHT; MICROCYTOSIS MOD
[2018-12-27 05:05] VITALS: BP 100/70
--- NOTE | 2018-12-27 08:00 | RAD ---
CHEST PA LATERAL History: Chest pain, pacemaker Comparison: December 17, 2018 Findings: 2 views of the chest are submitted. There is again left electronic cardiac device. Pericardial cardiac silhouette is somewhat prominent although stable. There is no lobar consolidation, pleural fluid, pneumothorax. Mild interstitial opacity is stable. IMPRESSION: 1. No acute radiographic abnormality is identified. Electronically signed by: Perfecto Morfin MD (12/27/2018 7:57 AM) [id number]
--- NOTE | 2018-12-27 08:29 | RAD ---
Abdomen, 2 views, 12/27/2018: HISTORY: Pain A right ureteral stent is in place. A 1.9 cm radiopacity is projected over the upper pigtail of the stent, approximately L3-4 level. The lower end of the stent is projected over the region of the bladder near the midline. The abdominal gas pattern is unremarkable. No free air seen in the abdomen. There is no evidence of organomegaly. Lower pelvic calcifications are probably phleboliths. IMPRESSION: 1. A right ureteral stent is in place. 2. A moderate sized calculus is projected over the upper pigtail loop of the stent, probably lying near the ureteropelvic junction or in the proximal right ureter. CT scanning may be useful for further evaluation, if clinically indicated. Electronically signed by: Brock Boo MD (12/27/2018 8:26 AM) [facility]
[2018-12-27 13:26] LABS: THYROID STIM HORMONE (TSH) 1.235 uIU/mL (0.358-3.740)
--- NOTE | 2018-12-27 15:10 | EKG ---
[address] [address] Test Date: 2018-12-27 Test Time: 01:09:20 Pat Name: DARELL CORONADO Department: Room: Gender: F Bilingual Sales Representative: MARÍA : 1965 Requested By: LIBRA TRACEY Order Number: [id number] Reading MD: Measurements Intervals [place] Rate: 95 P: DC: QRS: -127 QRSD: 108 T: 39 QT: 396 QTc: 501 Interpretive Statements IRREGULAR RHYTHM, NO P-WAVE FOUND VENTRICULAR PREMATURE COMPLEX(ES) ABNORMAL RIGHT SUPERIOR AXIS DEVIATION LOW VOLTAGE INCOMPLETE RIGHT BUNDLE BRANCH BLOCK RIGHT VENTRICULAR HYPERTROPHY QRS(T) CONTOUR ABNORMALITY CONSISTENT WITH ANTERIOR INFARCT PROBABLY OLD CONSISTENT WITH INFEROLATERAL INFARCT PROBABLY OLD ABNORMAL ECG
== END 2018-12-27 05:15 | disposition short-term general hospital (02) ==
LOC: ER 00:58
DX: R07.89 Other chest pain (principal); I11.0 Hypertensive heart disease with heart failure; I50.9 Heart failure, unspecified; N28.9 Disorder of kidney and ureter, unspecified; N39.0 Urinary tract infection, site not specified; D50.9 Iron deficiency anemia, unspecified; E11.65 Type 2 diabetes mellitus with hyperglycemia; I48.91 Unspecified atrial fibrillation; E66.01 Morbid (severe) obesity due to excess calories; F41.9 Anxiety disorder, unspecified; M19.90 Unspecified osteoarthritis, unspecified site; K21.9 Gastro-esophageal reflux disease without esophagitis; I25.10 Atherosclerotic heart disease of native coronary artery without angina pectoris; K92.1 Melena; Z68.44 Body mass index [BMI] 60.0-69.9, adult; Z87.442 Personal history of urinary calculi; Z87.440 Personal history of urinary (tract) infections; Z86.2 Personal history of diseases of the blood and blood-forming organs and certain disorders involving the immune mechanism; Z95.0 Presence of cardiac pacemaker; Z96.0 Presence of urogenital implants; Z79.82 Long term (current) use of aspirin
CPT/HCPCS: 36415; 71046; 74019; 80048; 80061; 80076; 80307; 81001; 82550; 82947; 83690; 83735; 83880; 84443; 84484; 85025; 85379; 85610; 85730; 87086; 87186; 93005; 96361; 96365; 99285; J0696; J7120

== ENCOUNTER 2019-01-09 04:28 | Observation (INO) | payer OTHER ==
[~2019-01-09] VITALS: Ht 154.9 cm; Wt 155.6 kg
--- NOTE | 2019-01-09 04:46 | ED.ADGEN ---
Past History Past Medical History: Anemia, Angina, Anxiety, Arthritis, CHF, Diabetes, GERD, High Cholesterol, Heart Disease, Hypertension, Kidney Infection, Kidney Stones, Renal Disease, UTI Additional Past Medical Histor: cardiomegaly Past Surgical History: No Surgical History, Pacemaker, Other Additional Past Surgical Histo: pacemaker Smoking: Non-smoker Alcohol Use: None Drug Use: None Adult General Chief Complaint Chief Complaint ".. I think .. I got too hot... to hot today... I don't have ... air condition... I ve been siting on the front porch all day.. in front of fan.. ".." I think .. I got dehydrated..." HPI HPI Patient is a 53 year old female who presents with above hx and complaints of fatigue and "feeling dehydrated...". Pt. has has no air conditioning. Has been sitting front of a fan but not using mists spray or anything to lower overall environmental temperatures.. Patient states she has had less oral intake today because she did not feel like consuming fluids. Patient denies any chest pain. Patient has a history of cardiac disease, morbid obesity and diabetes. Her symptoms are very vague but states she has been very hot today. Patient is overall a very poor historian. Patient is extremely hard of hearing. Patient denies any change in her meds. Patient's previous admission she was noted to have a pacemaker congestive heart failure, diabetes, hypertension, morbid obesity with kilogram waits excess of 160. She has history of chronic bronchitis and diastolic heart failure, anemia, anxiety disorder, arthritis, hyper cholesterol, GERD, chronic pain, renal insufficiency, kidney stones, UTIs, and marked hearing loss. Patient normally follows with Dr. Barton. Patient denies any change in medications. No recent travel. No specific ill contacts... ... Review of Systems Review of Systems Constitutional: Complaints of fever Eyes: Denies change in visual acuity, redness, or eye pain [] HENT: Denies nasal congestion or sore throat [] Respiratory: Complaints of chronic shortness of breath [] Cardiovascular: No additional information not addressed in HPI [] GI: Denies abdominal pain, , vomiting, bloody stools or diarrhea []complaints of nausea : Denies dysuria or hematuria [] Musculoskeletal: Plaints of chronic back pain or joint pain [] Integument: Denies rash or skin lesions [] Neurologic: Denies headache, focal weakness or sensory changes [] Endocrine: Denies polyuria or polydipsia [] All other systems were reviewed and found to be within normal limits, except as documented in this note. Family History Family History Noncontributory to presentation Current Medications Current Medications Current Medications Medications (Trade) Dose Ordered Sig/Christina Start Time Stop Time Status Last Admin Dose Admin Albuterol/ Ipratropium (Duoneb) 3 ml RTQID 01/09/19 08:00 01/10/19 07:59 01/09/19 15:09 3 ML Ceftriaxone Sodium 1 gm/ Sodium Chloride 50 ml @ 100 mls/hr DAILY 01/09/19 09:00 01/09/19 09:27 100 MLS/HR Ceftriaxone Sodium (Rocephin) 1 gm STK-MED ONCE 01/09/19 09:19 01/09/19 09:20 DC Lactated Ringer's 1,000 ml @ 75 mls/hr 1X ONCE 01/09/19 05:45 01/09/19 19:04 01/09/19 05:44 75 MLS/HR Ondansetron HCl (Zofran) 4 mg PRN Q4HRS PRN 01/09/19 05:45 01/10/19 05:44 01/09/19 09:27 4 MG Sodium Chloride 50 ml @ As Directed STK-MED ONCE 01/09/19 09:19 01/09/19 09:20 DC Allergies Allergies Allergies Coded Allergies Type Severity Reaction Last Updated Verified No Known Drug Allergies 11/07/18 No Physical Exam Physical Exam Constitutional: Moderately acute distress, non-toxic appearance. [] HENT: Normocephalic, atraumatic, bilateral external ears normal, oropharynx moist, no oral exudates, nose normal. [] Eyes: PERRLA, EOMI, conjunctiva normal, no discharge. [] Neck: Normal range of motion, no tenderness, supple, no stridor. His neck circumference more than 17 inches . Cardiovascular:Heart rate regular rhythm, no murmur, PMI to the left Lungs & Thorax: Bilateral breath sounds equal at apex with scattered crackles bilateral bases on auscultation [] Abdomen: Bowel sounds normal, soft, no tenderness, no masses, no pulsatile masses. Morbidly obese. Skin: Warm, dry, no erythema, no rash. [] Back: No tenderness, no CVA tenderness. [] Extremities: No tenderness, no cyanosis, no clubbing, ROM intact, bilateral leg edema. [] Patient is ambulatory. Neurologic: Alert and oriented X 3, moves all extremities on request, does have distal sensory, no gross focal deficits noted. []Severe hearing loss. ( Refused hearing aids- states her ears are allergic to them) Psychologic: Affect anxious, judgement normal, mood normal. [] Current Patient Data Vital Signs Vital Signs Date Time Temp Pulse Resp B/P (MAP) Pulse Ox O2 Delivery O2 Flow Rate FiO2 01/09/19 06:06 64 21 111/65 (80) 98 Room Air 01/09/19 04:43 97.6 Lab Results Laboratory Tests Test 01/09/19 04:40 01/09/19 05:00 White Blood Count 8.5 x10^3/uL (4.0-11.0) Red Blood Count 4.52 x10^6/uL (3.50-5.40) Hemoglobin 8.8 g/dL (12.0-15.5) L Hematocrit 29.7 % (36.0-47.0) L Mean Corpuscular Volume 67 fL (79-100) L Mean Corpuscular Hemoglobin 20 pg (25-35) L Mean Corpuscular Hemoglobin Concent 30 g/dL (31-37) L Red Cell Distribution Width 19.3 % (11.5-14.5) H Platelet Count 372 x10^3/uL (140-400) Neutrophils (%) (Auto) 58 % (31-73) Lymphocytes (%) (Auto) 30 % (24-48) Monocytes (%) (Auto) 10 % (0-9) H Eosinophils (%) (Auto) 1 % (0-3) Basophils (%) (Auto) 1 % (0-3) Neutrophils # (Auto) 4.9 x10^3uL (1.8-7.7) Lymphocytes # (Auto) 2.6 x10^3/uL (1.0-4.8) Monocytes # (Auto) 0.8 x10^3/uL (0.0-1.1) Eosinophils # (Auto) 0.1 x10^3/uL (0.0-0.7) Basophils # (Auto) 0.1 x10^3/uL (0.0-0.2) Platelet Estimate Adequate (ADEQUATE) Large Platelets Few Polychromasia Slight Hypochromasia Marked Anisocytosis Mod Microcytosis Marked Macrocytosis Slight Ovalocytes Occ Crenated Cell Present Prothrombin Time 11.5 SEC (9.4-11.4) H Prothrombin Time INR 1.1 (0.9-1.1) PTT 25 SEC (23-33) D-Dimer (Maria Alejandra) 0.29 mg/L (0.00-0.50) Sodium Level 141 mmol/L (136-145) Potassium Level 4.1 mmol/L (3.5-5.1) Chloride Level 106 mmol/L (98-107) Carbon Dioxide Level 25 mmol/L (21-32) Anion Gap 10 (6-14) Blood Urea Nitrogen 22 mg/dL (7-20) H Creatinine 1.1 mg/dL (0.6-1.0) H Estimated GFR (Cockcroft-Gault) 51.8 Glucose Level 185 mg/dL (70-99) H Calcium Level 9.2 mg/dL (8.5-10.1) Magnesium Level 2.0 mg/dL (1.8-2.4) Total Bilirubin 0.5 mg/dL (0.2-1.0) Direct Bilirubin 0.1 mg/dL (0.0-0.2) Aspartate Amino Transferase (AST) 13 U/L (15-37) L Alanine Aminotransferase (ALT) 24 U/L (14-59) Alkaline Phosphatase 92 U/L (46-116) Creatine Kinase 72 U/L (26-192) Troponin I Quantitative < 0.017 ng/mL (0-0.055) XR-Yth-Q-Type Natriuretic Peptide 602 pg/mL (0-124) H Total Protein 7.2 g/dL (6.4-8.2) Albumin 3.3 g/dL (3.4-5.0) L Lipase 160 U/L (73-393) Urine Collection Type Unknown Urine Color Brown Urine Clarity Cloudy Urine pH 6.0 Urine Specific [place] 1.025 Urine Protein 100 mg/dl (NEG-TRACE) Urine Glucose (UA) Neg mg/dL (NEG) Urine Ketones (Stick) Neg mg/dL (NEG) Urine Blood Large (NEG) Urine Nitrite Neg (NEG) Urine Bilirubin Neg (NEG) Urine Urobilinogen Dipstick 2 mg/dL (0.2 mg/dL) Urine Leukocyte Esterase Small (NEG) Urine RBC Tntc /HPF (0-2) Urine WBC >40 /HPF (0-4) Urine Squamous Epithelial Cells Many /LPF Urine Bacteria Many /HPF (0-FEW) Urine Mucus Mod /LPF Urine Opiates Screen Neg (NEG) Urine Methadone Screen Neg (NEG) Urine Barbiturates Neg (NEG) Urine Phencyclidine Screen Neg (NEG) Urine Amphetamine/Methamphetamine Neg (NEG) Urine Benzodiazepines Screen Neg (NEG) Urine Cocaine Screen Neg (NEG) Urine Cannabinoids Screen Neg (NEG) Urine Ethyl Alcohol Neg (NEG) EKG EKG My interpretation EKG shows irregular rhythm and rate with ventricular rate at 82. Findings consistent with A. fib. Does have a right axis deviation.[] Radiology/Procedures Radiology/Procedures My interpretation of chest x-ray shows cardiomegaly, pacer, degenerative joint changes. Some increased cephalization.[] Course & Med Decision Making Course & Med Decision Making Pertinent Labs and Imaging studies reviewed. (See chart for details) Discussed presentation, testing and tx. plan with Dr. Guevara. Will admit for further eval. Social service consult. Administration advised to be held the emergency department no hospital beds available in [facility]. Patient endorsed to Dr. Benavides at shift change because patient is still in the emergency department. Patient still holding in the emergency department at 7:30 hours. [] Final Impression Final Impression 1. Head exhaustion 2. Microcytic Hypochromic Anemia Hgb 8.5 3. DM- 185 4. Morbid Obesity 5. Elevated Creat. /BUN 1.08/03 6. UTI Dragon Disclaimer Dragon Disclaimer This electronic medical record was generated, in whole or in part, using a voice recognition dictation system. Discharge Summary Visit Information Final Diagnosis Problems Medical Problems: (1) Heat exhaustion Status: Acute Brief Hospital Course Allergies Allergies Coded Allergies Type Severity Reaction Last Updated Verified No Known Drug Allergies 11/07/18 No Vital Signs Vital Signs Date Time Temp Pulse Resp B/P (MAP) Pulse Ox O2 Delivery O2 Flow Rate FiO2 01/09/19 06:06 64 21 111/65 (80) 98 Room Air 01/09/19 04:43 97.6 Lab Results Laboratory Tests Test 01/09/19 04:40 01/09/19 05:00 White Blood Count 8.5 x10^3/uL (4.0-11.0) Red Blood Count 4.52 x10^6/uL (3.50-5.40) Hemoglobin 8.8 g/dL (12.0-15.5) Hematocrit 29.7 % (36.0-47.0) Mean Corpuscular Volume 67 fL (79-100) Mean Corpuscular Hemoglobin 20 pg (25-35) Mean Corpuscular Hemoglobin Concent 30 g/dL (31-37) Red Cell Distribution Width 19.3 % (11.5-14.5) Platelet Count 372 x10^3/uL (140-400) Neutrophils (%) (Auto) 58 % (31-73) Lymphocytes (%) (Auto) 30 % (24-48) Monocytes (%) (Auto) 10 % (0-9) Eosinophils (%) (Auto) 1 % (0-3) Basophils (%) (Auto) 1 % (0-3) Neutrophils # (Auto) 4.9 x10^3uL (1.8-7.7) Lymphocytes # (Auto) 2.6 x10^3/uL (1.0-4.8) Monocytes # (Auto) 0.8 x10^3/uL (0.0-1.1) Eosinophils # (Auto) 0.1 x10^3/uL (0.0-0.7) Basophils # (Auto) 0.1 x10^3/uL (0.0-0.2) Platelet Estimate Adequate (ADEQUATE) Large Platelets Few Polychromasia Slight Hypochromasia Marked Anisocytosis Mod Microcytosis Marked Macrocytosis Slight Ovalocytes Occ Crenated Cell Present Prothrombin Time 11.5 SEC (9.4-11.4) Prothromb Time International Ratio 1.1 (0.9-1.1) Activated Partial Thromboplast Time 25 SEC (23-33) D-Dimer (Maria Alejandra) 0.29 mg/L (0.00-0.50) Sodium Level 141 mmol/L (136-145) Potassium Level 4.1 mmol/L (3.5-5.1) Chloride Level 106 mmol/L (98-107) Carbon Dioxide Level 25 mmol/L (21-32) Anion Gap 10 (6-14) Blood Urea Nitrogen 22 mg/dL (7-20) Creatinine 1.1 mg/dL (0.6-1.0) Estimated GFR (Cockcroft-Gault) 51.8 Glucose Level 185 mg/dL (70-99) Calcium Level 9.2 mg/dL (8.5-10.1) Magnesium Level 2.0 mg/dL (1.8-2.4) Total Bilirubin 0.5 mg/dL (0.2-1.0) Direct Bilirubin 0.1 mg/dL (0.0-0.2) Aspartate Amino Transf (AST/SGOT) 13 U/L (15-37) Alanine Aminotransferase (ALT/SGPT) 24 U/L (14-59) Alkaline Phosphatase 92 U/L (46-116) Creatine Kinase 72 U/L (26-192) Troponin I Quantitative < 0.017 ng/mL (0-0.055) EO-Rvd-I-Type Natriuretic Peptide 602 pg/mL (0-124) Total Protein 7.2 g/dL (6.4-8.2) Albumin 3.3 g/dL (3.4-5.0) Lipase 160 U/L (73-393) Urine Collection Type Unknown Urine Color Brown Urine Clarity Cloudy Urine pH 6.0 Urine Specific [place] 1.025 Urine Protein 100 mg/dl (NEG-TRACE) Urine Glucose (UA) Neg mg/dL (NEG) Urine Ketones (Stick) Neg mg/dL (NEG) Urine Blood Large (NEG) Urine Nitrite Neg (NEG) Urine Bilirubin Neg (NEG) Urine Urobilinogen Dipstick 2 mg/dL (0.2 mg/dL) Urine Leukocyte Esterase Small (NEG) Urine RBC Tntc /HPF (0-2) Urine WBC >40 /HPF (0-4) Urine Squamous Epithelial Cells Many /LPF Urine Bacteria Many /HPF (0-FEW) Urine Mucus Mod /LPF Urine Opiates Screen Neg (NEG) Urine Methadone Screen Neg (NEG) Urine Barbiturates Neg (NEG) Urine Phencyclidine Screen Neg (NEG) Urine Amphetamine/Methamphetamine Neg (NEG) Urine Benzodiazepines Screen Neg (NEG) Urine Cocaine Screen Neg (NEG) Urine Cannabinoids Screen Neg (NEG) Urine Ethyl Alcohol Neg (NEG) Brief Hospital Course Ms. Florez is a 53 old female who presented with heat exhaustion. Admitted Dr. Guevara Discharge Information Condition at Discharge: Improved Dischare Medications Current Medications Lactated Ringer's 1,000 ml @ 100 mls/hr Q10H IV Last administered on 01/09/19at 05:05; Admin Dose 100 MLS/HR; Start 01/09/19 at 05:00; Stop 01/09/19 at 14:59; Status DC Ondansetron HCl (Zofran) 4 mg PRN Q4HRS PRN IV NAUSEA/VOMITING Last administered on 01/09/19at 09:27; Admin Dose 4 MG; Start 01/09/19 at 05:45; Stop 01/10/19 at 05:44 Albuterol/ Ipratropium (Duoneb) 3 ml RTQID NEB Last administered on 01/09/19at 15:09; Admin Dose 3 ML; Start 01/09/19 at 08:00; Stop 01/10/19 at 07:59 Lactated Ringer's 1,000 ml @ 75 mls/hr 1X ONCE IV Last administered on 01/09/19at 05:44; Admin Dose 75 MLS/HR; Start 01/09/19 at 05:45; Stop 01/09/19 at 19:04 Ceftriaxone Sodium 1 gm/ Sodium Chloride 50 ml @ 100 mls/hr DAILY IV Last administered on 01/09/19at 09:27; Admin Dose 100 MLS/HR; Start 01/09/19 at 09:00 Sodium Chloride 50 ml @ As Directed STK-MED ONCE .ROUTE ; Start 01/09/19 at 09:19; Stop 01/09/19 at 09:20; Status DC Ceftriaxone Sodium (Rocephin) 1 gm STK-MED ONCE .ROUTE ; Start 01/09/19 at 09:19; Stop 01/09/19 at 09:20; Status DC Active Scripts Active Reported Eliquis (Apixaban) 5 Mg Tab.ds.pk 5 PO BID Digoxin 125 Mcg Tablet 1 DAILY Atorvastatin Calcium 80 Mg Tablet 1 HS K-Tab (Potassium Chloride) 10 Meq Tablet.er 1 DAILY Metformin Hcl Er (Metformin Hcl) 500 Mg Tab.er.24h 1 DAILY Furosemide 40 Mg Tablet 1 DAILY Entresto 49 mg-51 mg Tablet (Sacubitril/Valsartan) 1 Each Tablet 1 Each PO BID Proair Hfa Inhaler (Albuterol Sulfate) 8.5 Gm Hfa.aer.ad 2 Puff INH PRN Q6HRS PRN NITROGLYCERIN SubLingual (Nitroglycerin) 0.4 Mg Tab.subl 0.4 Mg SL PRN Q5MIN PRN Humalog (Insulin Lispro) 100 Unit/1 Ml Vial 35 Unit SQ HS Nexium Capsule (Esomeprazole Magnesium) 40 Mg Capsule.dr 40 Mg PO DAILYAC Coreg (Carvedilol) 6.25 Mg Tablet 6.25 Mg PO BIDWMEALS Lantus (Insulin Glargine,Hum.rec.anlog) 100 Unit/1 Ml Vial 15 Unit SQ TIDWMEALS Aspirin 81 Mg Tab.chew 81 Mg PO DAILY Discharge Summary Visit Information Final Diagnosis Problems Medical Problems: (1) Heat exhaustion Status: Acute Brief Hospital Course Allergies Allergies Coded Allergies Type Severity Reaction Last Updated Verified No Known Drug Allergies 11/07/18 No Vital Signs Vital Signs Date Time Temp Pulse Resp B/P (MAP) Pulse Ox O2 Delivery O2 Flow Rate FiO2 01/09/19 06:06 64 21 111/65 (80) 98 Room Air 01/09/19 04:43 97.6 Lab Results Laboratory Tests Test 01/09/19 04:40 01/09/19 05:00 White Blood Count 8.5 x10^3/uL (4.0-11.0) Red Blood Count 4.52 x10^6/uL (3.50-5.40) Hemoglobin 8.8 g/dL (12.0-15.5) Hematocrit 29.7 % (36.0-47.0) Mean Corpuscular Volume 67 fL (79-100) Mean Corpuscular Hemoglobin 20 pg (25-35) Mean Corpuscular Hemoglobin Concent 30 g/dL (31-37) Red Cell Distribution Width 19.3 % (11.5-14.5) Platelet Count 372 x10^3/uL (140-400) Neutrophils (%) (Auto) 58 % (31-73) Lymphocytes (%) (Auto) 30 % (24-48) Monocytes (%) (Auto) 10 % (0-9) Eosinophils (%) (Auto) 1 % (0-3) Basophils (%) (Auto) 1 % (0-3) Neutrophils # (Auto) 4.9 x10^3uL (1.8-7.7) Lymphocytes # (Auto) 2.6 x10^3/uL (1.0-4.8) Monocytes # (Auto) 0.8 x10^3/uL (0.0-1.1) Eosinophils # (Auto) 0.1 x10^3/uL (0.0-0.7) Basophils # (Auto) 0.1 x10^3/uL (0.0-0.2) Platelet Estimate Adequate (ADEQUATE) Large Platelets Few Polychromasia Slight Hypochromasia Marked Anisocytosis Mod Microcytosis Marked Macrocytosis Slight Ovalocytes Occ Crenated Cell Present Prothrombin Time 11.5 SEC (9.4-11.4) Prothromb Time International Ratio 1.1 (0.9-1.1) Activated Partial Thromboplast Time 25 SEC (23-33) D-Dimer (Maria Alejandra) 0.29 mg/L (0.00-0.50) Sodium Level 141 mmol/L (136-145) Potassium Level 4.1 mmol/L (3.5-5.1) Chloride Level 106 mmol/L (98-107) Carbon Dioxide Level 25 mmol/L (21-32) Anion Gap 10 (6-14) Blood Urea Nitrogen 22 mg/dL (7-20) Creatinine 1.1 mg/dL (0.6-1.0) Estimated GFR (Cockcroft-Gault) 51.8 Glucose Level 185 mg/dL (70-99) Calcium Level 9.2 mg/dL (8.5-10.1) Magnesium Level 2.0 mg/dL (1.8-2.4) Total Bilirubin 0.5 mg/dL (0.2-1.0) Direct Bilirubin 0.1 mg/dL (0.0-0.2) Aspartate Amino Transf (AST/SGOT) 13 U/L (15-37) Alanine Aminotransferase (ALT/SGPT) 24 U/L (14-59) Alkaline Phosphatase 92 U/L (46-116) Creatine Kinase 72 U/L (26-192) Troponin I Quantitative < 0.017 ng/mL (0-0.055) XO-Sex-I-Type Natriuretic Peptide 602 pg/mL (0-124) Total Protein 7.2 g/dL (6.4-8.2) Albumin 3.3 g/dL (3.4-5.0) Lipase 160 U/L (73-393) Urine Collection Type Unknown Urine Color Brown Urine Clarity Cloudy Urine pH 6.0 Urine Specific [place] 1.025 Urine Protein 100 mg/dl (NEG-TRACE) Urine Glucose (UA) Neg mg/dL (NEG) Urine Ketones (Stick) Neg mg/dL (NEG) Urine Blood Large (NEG) Urine Nitrite Neg (NEG) Urine Bilirubin Neg (NEG) Urine Urobilinogen Dipstick 2 mg/dL (0.2 mg/dL) Urine Leukocyte Esterase Small (NEG) Urine RBC Tntc /HPF (0-2) Urine WBC >40 /HPF (0-4) Urine Squamous Epithelial Cells Many /LPF Urine Bacteria Many /HPF (0-FEW) Urine Mucus Mod /LPF Urine Opiates Screen Neg (NEG) Urine Methadone Screen Neg (NEG) Urine Barbiturates Neg (NEG) Urine Phencyclidine Screen Neg (NEG) Urine Amphetamine/Methamphetamine Neg (NEG) Urine Benzodiazepines Screen Neg (NEG) Urine Cocaine Screen Neg (NEG) Urine Cannabinoids Screen Neg (NEG) Urine Ethyl Alcohol Neg (NEG) Brief Hospital Course Ms. Florez is a 53 old female who presented with heat exhaustion. Admitted M bhanu. Discharge Information Condition at Discharge: Improved Dischare Medications Current Medications Lactated Ringer's 1,000 ml @ 100 mls/hr Q10H IV Last administered on 01/09/19at 05:05; Admin Dose 100 MLS/HR; Start 01/09/19 at 05:00; Stop 01/09/19 at 14:59; Status DC Ondansetron HCl (Zofran) 4 mg PRN Q4HRS PRN IV NAUSEA/VOMITING Last administered on 01/09/19at 09:27; Admin Dose 4 MG; Start 01/09/19 at 05:45; Stop 01/10/19 at 05:44 Albuterol/ Ipratropium (Duoneb) 3 ml RTQID NEB Last administered on 01/09/19at 15:09; Admin Dose 3 ML; Start 01/09/19 at 08:00; Stop 01/10/19 at 07:59 Lactated Ringer's 1,000 ml @ 75 mls/hr 1X ONCE IV Last administered on 01/09/19at 05:44; Admin Dose 75 MLS/HR; Start 01/09/19 at 05:45; Stop 01/09/19 at 19:04 Ceftriaxone Sodium 1 gm/ Sodium Chloride 50 ml @ 100 mls/hr DAILY IV Last administered on 01/09/19at 09:27; Admin Dose 100 MLS/HR; Start 01/09/19 at 09:00 Sodium Chloride 50 ml @ As Directed STK-MED ONCE .ROUTE ; Start 01/09/19 at 09:19; Stop 01/09/19 at 09:20; Status DC Ceftriaxone Sodium (Rocephin) 1 gm STK-MED ONCE .ROUTE ; Start 01/09/19 at 09:19; Stop 01/09/19 at 09:20; Status DC Active Scripts Active Reported Eliquis (Apixaban) 5 Mg Tab.ds.pk 5 PO BID Digoxin 125 Mcg Tablet 1 DAILY Atorvastatin Calcium 80 Mg Tablet 1 HS K-Tab (Potassium Chloride) 10 Meq Tablet.er 1 DAILY Metformin Hcl Er (Metformin Hcl) 500 Mg Tab.er.24h 1 DAILY Furosemide 40 Mg Tablet 1 DAILY Entresto 49 mg-51 mg Tablet (Sacubitril/Valsartan) 1 Each Tablet 1 Each PO BID Proair Hfa Inhaler (Albuterol Sulfate) 8.5 Gm Hfa.aer.ad 2 Puff INH PRN Q6HRS PRN NITROGLYCERIN SubLingual (Nitroglycerin) 0.4 Mg Tab.subl 0.4 Mg SL PRN Q5MIN PRN Humalog (Insulin Lispro) 100 Unit/1 Ml Vial 35 Unit SQ HS Nexium Capsule (Esomeprazole Magnesium) 40 Mg Capsule.dr 40 Mg PO DAILYAC Coreg (Carvedilol) 6.25 Mg Tablet 6.25 Mg PO BIDWMEALS Lantus (Insulin Glargine,Hum.rec.anlog) 100 Unit/1 Ml Vial 15 Unit SQ TIDWMEALS Aspirin 81 Mg Tab.chew 81 Mg PO DAILY Dragon Disclaimer This chart was dictated in whole or in part using Voice Recognition software in a busy, high-work load, and often noisy Emergency Department environment. It may contain unintended and wholly unrecognized errors or omissions. Dragon Disclaimer This chart was dictated in whole or in part using Voice Recognition software in a busy, high-work load, and often noisy Emergency Department environment. It m ay contain unintended and wholly unrecognized errors or omissions. LIBRA TRACEY MD Jan 09, 2019 04:46
[2019-01-09] MEDS ORDERED: IV RINGERS SOLUTION,LACTATED 1,000 ML IV SCH (05:00)
[2019-01-09 05:20] LABS: BASO # 0.1 x10^3/uL (0.0-0.2); BASO % 1 % (0-3); EOS # 0.1 x10^3/uL (0.0-0.7); EOS % 1 % (0-3); LYMPH # 2.6 x10^3/uL (1.0-4.8); LYMPH % 30 % (24-48); MEAN CORPUSCULAR VOLUME 67 fL (79-100); MONO # 0.8 x10^3/uL (0.0-1.1); MONO % 10 % (0-9); NEUT # 4.9 x10^3uL (1.8-7.7); NEUT % 58 % (31-73); PLATELET COUNT 372 x10^3/uL (140-400); RED BLOOD COUNT 4.52 x10^6/uL (3.50-5.40); WHITE BLOOD COUNT 8.5 x10^3/uL (4.0-11.0)
[2019-01-09 05:32] LABS: HEMATOCRIT 29.7 % (36.0-47.0); HEMOGLOBIN 8.8 g/dL (12.0-15.5); MEAN CORPUSCULAR HEMOGLOBIN 20 pg (25-35); MEAN CORPUSCULAR HGB CONC 30 g/dL (31-37); RED CELL DISTRIBUTION WIDTH 19.3 % (11.5-14.5)
[2019-01-09 05:36] LABS: ALBUMIN 3.3 g/dL (3.4-5.0); CALCIUM 9.2 mg/dL (8.5-10.1); CREATININE 1.1 mg/dL (0.6-1.0); DIRECT BILIRUBIN 0.1 mg/dL (0.0-0.2); GFR 51.8; POTASSIUM 4.1 mmol/L (3.5-5.1); TOTAL BILIRUBIN 0.5 mg/dL (0.2-1.0); TOTAL PROTEIN 7.2 g/dL (6.4-8.2)
[2019-01-09 05:39] LABS: BARBITURATES NEG (NEG); BENZODIAZEPINES NEG (NEG); CANNABINOIDS NEG (NEG); COCAINE NEG (NEG); METHADONE NEG (NEG); OPIATES NEG (NEG); PHENCYCLIDINE NEG (NEG)
[2019-01-09 05:41] LABS: AMPHETAMINE/METHAMPHETAMINE NEG (NEG)
[2019-01-09] MEDS ORDERED: ONDANSETRON PF 4 MG/2 ML VIAL. IV PRN (05:45)
[2019-01-09] MEDS ORDERED: IV RINGERS SOLUTION,LACTATED 1,000 ML IV ONE (05:45)
[2019-01-09 05:50] LABS: COLOR,URINE BROWN
[2019-01-09 05:51] LABS: BACTERIA,URINE MANY /HPF (0-FEW); BILIRUBIN,URINE NEG (NEG); CLARITY,URINE CLOUDY; GLUCOSE,URINE NEG (NEG); NITRITE,URINE NEG (NEG); RBC,URINE TNTC /HPF (0-2); SQUAMOUS EPITHELIAL CELL,UR MANY /LPF; UROBILINOGEN,URINE 2 mg/dL (0.2 mg/dL); WBC,URINE >40 /HPF (0-4)
[2019-01-09 05:55] LABS: PLT ESTIMATE ADEQUATE (ADEQUATE)
[2019-01-09 05:56] LABS: ANISOCYTOSIS MOD; HYPOCHROMIA MARKED; MICROCYTOSIS MARKED; OVALOCYTES OCC; POLYCHROMASIA SLIGHT
[2019-01-09] MEDS: IPRATRPIUM/ALBUTEROL 0.5/2.5MG 3 ML NEBU. NEB SCH ×3 (08:00→19:48)
--- NOTE | 2019-01-09 08:32 | RAD ---
EXAM: CHEST 1 VIEW. HISTORY: Fever, chronic obstructive pulmonary disease, heat exhaustion. COMPARISON: 12/27/2018. FINDINGS: A frontal view of the chest is obtained. A left-sided pacemaker/defibrillator has its leads in the right atrium, right ventricle and a left cardiac vein. Linear opacities in the bases indicate atelectasis or mild pulmonary edema. There is no pneumothorax or pleural effusion. The heart is moderately enlarged. IMPRESSION: 1. Bibasilar atelectasis versus mild pulmonary edema. Moderate cardiomegaly. Electronically signed by: Rishi Cisneros MD (01/09/2019 8:29 AM) [facility]
[2019-01-09] MEDS ORDERED: IV NORMAL SALINE 50ML 50 ML ONE (09:19)
[2019-01-09] MEDS ORDERED: cefTRIAXone SODIUM 1 GM VIAL ONE (09:19)
[2019-01-09 11:32] VITALS: BP 109/67
[2019-01-09 15:42] VITALS: BP 129/82
[2019-01-09] MEDS: CARVEDILOL 6.25 MG TABLET PO SCH (17:02)
[2019-01-09] MEDS: INSULIN LISPRO 300 UNITS/3 ML INSULN.PEN. SQ SCH (17:05)
--- NOTE | 2019-01-09 18:25 | HP ---
ADMIT DATE: 01/09/2019 HISTORY OF PRESENT ILLNESS: The patient is a 53-year-old female patient, who was brought to the Emergency Room as she apparently got too hot, did not have an air conditioner and she was sitting on the front porch all day in front of a fan. She was apparently drenching in sweats, complaining of fatigue and feeling dehydrated. She has no air conditioning, has been sitting in front of a fan, but not using mist spray or anything to lower overall environmental temperature and apparently has less oral intake, because of this she did not feel like consuming fluid. She denied, however, any chest pain and was admitted for heat exhaustion, dehydration and possible UTI. PAST MEDICAL HISTORY: Significant for congestive heart failure, type 2 diabetes, essential hypertension, morbid obesity, chronic bronchitis, chronic systolic heart failure. PAST SURGICAL HISTORY: Significant for permanent pacemaker placement. She also has stones in her kidney, status post cystoscopy and ureteral stent deployment. She has also microcytic hypochromic anemia. ALLERGIES: She has no known drug allergies. MEDICATIONS: She is currently on following medications: She is on albuterol sulfate 2 puffs every 6 hours, apixaban 5 mg twice a day, digoxin 125 mcg once a day, atorvastatin calcium 80 mg at bedtime, nitroglycerin 0.4 mg sublingually every 5 minutes x 3, carvedilol 6.25 mg twice a day with meals, Entresto 49/51 tablet 1 tablet twice a day, aspirin 81 mg once a day, potassium chloride 10 mEq once a day, furosemide 40 mg daily, Nexium 40 mg p.o. daily, metformin 500 mg once a day. She is on actually Lantus 35 units subcutaneously and Humalog 15 units before meals. FAMILY HISTORY: Noncontributory. SOCIAL HISTORY: She lives with her roommate and daughter. She apparently does not smoke, drink alcohol or use recreational drugs. REVIEW OF SYSTEMS: As per history of present illness. PHYSICAL EXAMINATION: GENERAL: On arrival to the Emergency Room, she looked well and was clearly in no apparent respiratory distress, slightly pale without jaundice, cyanosis, or thyromegaly. No jugular venous distension. No limb edema. VITAL SIGNS: Her heart rate was 77, blood pressure was 113/67, her temperature was 97.6, respiratory rate was 18 and oxygen saturation was 98% on room air. HEAD, EYES, EARS, NOSE AND THROAT: Showed she is normocephalic, atraumatic. NECK: Supple. HEART: Showed normal first and second heart sounds. No gallop, rub or murmur. CHEST: Clear to auscultation. No crepitation or rhonchi. ABDOMEN: Distended, soft, nontender. NEUROLOGIC: She is extremely hard of hearing, but otherwise all cranial nerves intact. EXTREMITIES: She moves extremities without difficulty. She ambulates without assistance or assistive devices. LABORATORY DATA: On admission showed a white cell count of 8500, hemoglobin 8.8, hematocrit 29.7, MCV 67 and platelet count 372,000. Her chemistry showed a serum sodium 141, potassium 4.1, chloride 106, bicarbonate 25, anion gap of 10, BUN 22, creatinine 1.1, estimated GFR was 52 mL per minute. Her glucose 185, calcium was 9.2, magnesium 2. Total bilirubin, AST, ALT, alkaline phosphatase were normal. Her CK was 72. Total protein was 7.2, albumin was 3.3 and serum lipase 160. Her prothrombin time was 11.5, INR of 1.1, aPTT was 25 and D-dimer was 0.29. Her urinalysis showed the urine was brown, cloudy with a pH of 6, specific gravity of 1.025. Her urine has large amount of protein, negative for glucose, negative for ketones, large amount of blood, negative for nitrite, small amount of leukocyte esterase, too numerous to count rbc's, more than 40 wbc's, many bacteria. Her toxicology screen was negative. Her chest x-ray showed the frontal view of the chest, which showed left-sided pacemaker defibrillator has its leads in the right atrium, right ventricle and the left cardiac ____; linear opacities in the bases indicating atelectasis or mild pulmonary edema. There is ____ pneumothorax with pleural effusion and the heart is moderately enlarged. ASSESSMENT AND PLAN: So, the patient was admitted and started on IV fluid with diagnosis of heat exhaustion, acute kidney injury. She has also multiple other medical problems including type 2 diabetes, congestive heart failure and microcytic hypochromic anemia, chronic kidney disease, hypertension and was treated for urinary tract infection at [facility]. WILLIAMS LOUIS MD DR: NEGRA/davina JOB#: [id number] / [id number]
[2019-01-09 19:00] VITALS: BP 107/69
[2019-01-09] MEDS ORDERED: ATORVASTATIN CALCIUM 20 MG TABLET PO SCH (21:00)
[2019-01-09] MEDS ORDERED: INSULIN GLARGINE 300 UNITS/3 ML INSULN.PEN. SQ SCH (21:00)
[2019-01-09] MEDS: APIXABAN 5 MG TABLET. PO SCH (21:29)
[2019-01-09] MEDS: SACUBITRIL/VALSARTAN 49/51MG TABLET. PO SCH (21:39)
[2019-01-09 23:00] VITALS: BP 104/69
[2019-01-10] MEDS: IPRATRPIUM/ALBUTEROL 0.5/2.5MG 3 ML NEBU. NEB SCH (04:42)
[2019-01-10 05:52] VITALS: BP 105/68
[2019-01-10 06:44] LABS: BASO # 0.1 x10^3/uL (0.0-0.2); BASO % 1 % (0-3); EOS # 0.1 x10^3/uL (0.0-0.7); EOS % 2 % (0-3); HEMATOCRIT 29.4 % (36.0-47.0); HEMOGLOBIN 8.5 g/dL (12.0-15.5); LYMPH # 2.8 x10^3/uL (1.0-4.8); LYMPH % 37 % (24-48); MEAN CORPUSCULAR HEMOGLOBIN 20 pg (25-35); MEAN CORPUSCULAR HGB CONC 29 g/dL (31-37); MEAN CORPUSCULAR VOLUME 67 fL (79-100); MONO # 0.7 x10^3/uL (0.0-1.1); MONO % 9 % (0-9); NEUT # 3.8 x10^3uL (1.8-7.7); NEUT % 51 % (31-73); PLATELET COUNT 354 x10^3/uL (140-400); RED BLOOD COUNT 4.36 x10^6/uL (3.50-5.40); WHITE BLOOD COUNT 7.5 x10^3/uL (4.0-11.0)
[2019-01-10 06:52] LABS: CALCIUM 9.5 mg/dL (8.5-10.1); CREATININE 0.9 mg/dL (0.6-1.0); GFR 65.2; POTASSIUM 4.3 mmol/L (3.5-5.1)
[2019-01-10] MEDS ORDERED: PANTOPRAZOLE 40 MG TABLET. PO SCH (07:30)
--- NOTE | 2019-01-10 07:52 | EKG ---
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
[2019-01-10] MEDS ORDERED: metFORMIN 500 MG TABLET PO SCH (08:00)
[2019-01-10] MEDS ORDERED: POTASSIUM CHLORIDE 10 MEQ TABLET.ER. PO SCH (08:00)
[2019-01-10] MEDS ORDERED: ASPIRIN 81 MG TAB.CHEW PO SCH (08:00)
[2019-01-10 08:34] VITALS: BP 106/61
[2019-01-10] MEDS: APIXABAN 5 MG TABLET. PO SCH (08:36)
[2019-01-10] MEDS: SACUBITRIL/VALSARTAN 49/51MG TABLET. PO SCH (08:36)
[2019-01-10] MEDS: INSULIN LISPRO 300 UNITS/3 ML INSULN.PEN. SQ SCH ×2 (08:46→11:55)
[2019-01-10] MEDS ORDERED: FUROSEMIDE 40 MG TABLET PO SCH (09:00)
[2019-01-10] MEDS ORDERED: DIGOXIN 125 MCG TABLET PO SCH (09:00)
[2019-01-10 10:45] VITALS: BP 107/64
[2019-01-10] MEDS: CARVEDILOL 6.25 MG TABLET PO SCH (10:47)
[2019-01-10 12:56] VITALS: BP 96/67
[2019-01-10] MEDS ORDERED: LACTOBACILLUS RHAMNOSUS GG 1 CAPSULE. PO SCH (21:00)
--- NOTE | 2019-01-10 21:12 | DS ---
DATE OF DISCHARGE: 01/10/2019 HOSPITAL COURSE: The patient is sitting in the edge of the bed comfortably in no apparent complaint. She is afebrile, hemodynamically stable. Her kidney function has improved with creatinine down from 1.1 to 0.9. 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 PHYSICAL EXAMINATION: GENERAL: When I examined her this afternoon, she looked well and was clearly in no apparent respiratory distress, pale, but no jaundice, cyanosis, or thyromegaly. No jugular venous distension. No limb edema. VITAL SIGNS: Her heart rate was 73, blood pressure was 107/64, temperature was 97.8, respiratory rate was 18 and oxygen saturation was 96%. HEAD, EYES, EARS, NOSE AND THROAT: Showed normocephalic, atraumatic. NECK: Supple. HEART: Showed normal first and second heart sounds. No gallop, rub or murmur. CHEST: Clear to auscultation. No crepitation or rhonchi. ABDOMEN: Distended, soft, nontender. No guarding or rigidity. No organomegaly. All hernial orifice intact. Bowel sounds normal. NEUROLOGIC: She was awake. She is very hard of hearing, otherwise, all her cranial nerves are intact. She moves extremities without difficulty. She ambulates without assistance or assistive devices. Her intake over the last 24 hours was 2700, no output was recorded. LABORATORY DATA: Her lab work this morning showed a white cell count 7500, hemoglobin 8.5, hematocrit 29, MCV 67 and platelet count of 354,000. Her chemistry showed a serum sodium 139, potassium 4.3, chloride 103, bicarbonate 26, anion gap of 10, BUN 19, creatinine 0.9, estimated GFR was 65 mL per minute. Her glucose was 160 and calcium was 9.5. Prothrombin time was 11.5, INR 1.1, aPTT was 25. D-dimer was 0.29. Urinalysis showed that she has too numerous to count rbc's, more than 40 wbc's, and she has a large amount of blood. Toxic screen was negative. Her blood cultures are negative. SUMMARY: She was discharged home to continue on following medications: Albuterol sulfate 2 puffs every 6 hours, apixaban 5 mg twice a day, aspirin 81 mg once a day, atorvastatin calcium 80 mg at bedtime, carvedilol 6.25 mg twice a day, digoxin 125 mcg once a day, Nexium 40 mg daily, furosemide 40 mg daily, Lantus 15 units at bedtime, insulin lispro 35 units subcutaneous at bedtime and metformin 500 mg daily, nitroglycerin 0.4 mg sublingually every 5 minutes, potassium chloride 10 mEq once a day and Entresto 1 capsule twice a day. FINAL DISCHARGE DIAGNOSES: 1. Heat exhaustion, resolved. 2. Acute kidney injury, resolved. 3. Other medical problems include congestive heart failure due to nonischemic cardiomyopathy, status post AICD, type 2 diabetes mellitus, hypertension, morbid obesity, chronic systolic congestive heart failure. She has also had stones in her kidney, status post cystoscopy, ureteral stent deployment, has microcytic hypochromic anemia. WILLIAMS LOUIS MD DR: NEGRA/davina JOB#: [id number] / [id number]
== END 2019-01-10 14:58 | disposition home or self-care (01) ==
LOC: ER 04:28 → 1 SOUTH 10:34 → INTOOBSV 10:34
PROVIDERS: ADMIT Internal Medicine; ATTEND Internal Medicine
DX: T67.5XXA Heat exhaustion, unspecified, initial encounter (principal); E66.01 Morbid (severe) obesity due to excess calories; E86.0 Dehydration; E78.00 Pure hypercholesterolemia, unspecified; N39.0 Urinary tract infection, site not specified; X30.XXXA Exposure to excessive natural heat, initial encounter; Y93.89 Activity, other specified; Y92.89 Other specified places as the place of occurrence of the external cause; Y99.8 Other external cause status; E11.22 Type 2 diabetes mellitus with diabetic chronic kidney disease; I13.0 Hypertensive heart and chronic kidney disease with heart failure and stage 1 through stage 4 chronic kidney disease, or unspecified chronic kidney disease; N18.9 Chronic kidney disease, unspecified; I50.22 Chronic systolic (congestive) heart failure; N17.9 Acute kidney failure, unspecified; D63.1 Anemia in chronic kidney disease; J42 Unspecified chronic bronchitis; Z79.4 Long term (current) use of insulin; Z79.82 Long term (current) use of aspirin; Z95.0 Presence of cardiac pacemaker; Z95.810 Presence of automatic (implantable) cardiac defibrillator; Z79.01 Long term (current) use of anticoagulants; Z87.442 Personal history of urinary calculi; K21.9 Gastro-esophageal reflux disease without esophagitis; I42.9 Cardiomyopathy, unspecified; M19.90 Unspecified osteoarthritis, unspecified site; D50.9 Iron deficiency anemia, unspecified
CPT/HCPCS: 36415; 71045; 80048; 80076; 80307; 81001; 82550; 82728; 82947; 83540; 83550; 83690; 83735; 83880; 84484; 85025; 85379; 85610; 85730; 87040; 87086; 93005; 94640; 96361; 96365; 96366; 96372; 96375; 97162; 97165; 99284; G0378; J0696; J1815; J2405; J7120; J7620; G0379

== ENCOUNTER 2019-01-28 19:52 | Emergency (ER) | payer OTHER ==
[2019-01-28] MEDS ORDERED: IV NORMAL SALINE 1,000ML 1,000 ML IV ONE (20:15)
[2019-01-28 20:32] LABS: BASO # 0.1 x10^3/uL (0.0-0.2); BASO % 1 % (0-3); EOS # 0.1 x10^3/uL (0.0-0.7); EOS % 1 % (0-3); HEMATOCRIT 28.9 % (36.0-47.0); HEMOGLOBIN 8.3 g/dL (12.0-15.5); LYMPH # 2.3 x10^3/uL (1.0-4.8); LYMPH % 28 % (24-48); MEAN CORPUSCULAR HEMOGLOBIN 19 pg (25-35); MEAN CORPUSCULAR HGB CONC 29 g/dL (31-37); MEAN CORPUSCULAR VOLUME 67 fL (79-100); MONO # 0.8 x10^3/uL (0.0-1.1); MONO % 10 % (0-9); NEUT % 60 % (31-73); PLATELET COUNT 339 x10^3/uL (140-400); RED BLOOD COUNT 4.35 x10^6/uL (3.50-5.40); RED CELL DISTRIBUTION WIDTH 20.1 % (11.5-14.5); WHITE BLOOD COUNT 8.3 x10^3/uL (4.0-11.0)
[2019-01-28 20:49] LABS: ALBUMIN 3.1 g/dL (3.4-5.0); ALBUMIN/GLOBULIN RATIO 0.8 (1.0-1.7); CALCIUM 9.3 mg/dL (8.5-10.1); CREATININE 0.9 mg/dL (0.6-1.0); GFR 65.2; POTASSIUM 3.9 mmol/L (3.5-5.1); TOTAL BILIRUBIN 0.4 mg/dL (0.2-1.0)
--- NOTE | 2019-01-28 21:10 | PHYS DOC ---
Past History Past Medical History: Anemia, Angina, Anxiety, Arthritis, CHF, Diabetes, GERD, High Cholesterol, Heart Disease, Hypertension, Kidney Infection, Kidney Stones, Renal Disease, UTI Additional Past Medical Histor: cardiomegaly Past Surgical History: No Surgical History, Pacemaker, Other Additional Past Surgical Histo: pacemaker Smoking: Non-smoker Alcohol Use: None Drug Use: None Adult General Chief Complaint Chief Complaint: DIZZY/LIGHT HEADED HPI HPI 53-year-old female presents via EMS with visual disturbance and dizziness. The patient tells me that when her blood sugar gets about 200, she tends to have difficulty with her vision. She becomes unable to discern things. She was having a similar episode today, but did not check her blood sugar. She was concerned that her site was worse than usual so she came the emergency room. She also admits that she might be dehydrated. She has not had much to drink today. She denies fever or chills. Review of Systems Review of Systems Constitutional: Denies fever or chills [] Eyes: change in visual acuity. denies redness, or eye pain [] HENT: Denies nasal congestion or sore throat [] Respiratory: Denies cough or shortness of breath [] Cardiovascular: No additional information not addressed in HPI [] GI: Denies abdominal pain, nausea, vomiting, bloody stools or diarrhea [] : Denies dysuria or hematuria [] Musculoskeletal: Denies back pain or joint pain [] Integument: Denies rash or skin lesions [] Neurologic: Denies headache, focal weakness or sensory changes [] Endocrine: Denies polyuria or polydipsia [] All other systems were reviewed and found to be within normal limits, except as documented in this note. Current Medications Current Medications Current Medications Medications (Trade) Dose Ordered Sig/Christina Start Time Stop Time Status Last Admin Dose Admin Sodium Chloride 1,000 ml @ 1,000 mls/hr 1X ONCE 01/28/19 20:15 01/28/19 21:14 01/28/19 20:31 1,000 MLS/HR Allergies Allergies Allergies Coded Allergies Type Severity Reaction Last Updated Verified No Known Drug Allergies 11/07/18 No Physical Exam Physical Exam Constitutional: Well developed, morbidly obese, well nourished, no acute distress, non-toxic appearance. [] HENT: Normocephalic, atraumatic, bilateral external ears normal, oropharynx moist, no oral exudates, nose normal. Extremely hard of hearing.[] Eyes: PERRLA, EOMI, conjunctiva normal, no discharge. Periorbital area mildly erythematous bilaterally, no swelling [] Neck: Normal range of motion, no tenderness, supple, no stridor. [] Cardiovascular:Heart rate regular rhythm, no murmur [] Lungs & Thorax: Bilateral breath sounds clear to auscultation [] Abdomen: Bowel sounds normal, soft, no tenderness, no masses, no pulsatile masses. [] Skin: Warm, dry, no erythema, no rash. [] Back: No tenderness, no CVA tenderness. [] Extremities: No tenderness, no cyanosis, no clubbing, ROM intact, no edema. [] Neurologic: Alert and oriented X 3, normal motor function, normal sensory function, no focal deficits noted. [] Psychologic: Affect normal, judgement normal, mood normal. [] Current Patient Data Vital Signs Vital Signs Date Time Temp Pulse Resp B/P (MAP) Pulse Ox O2 Delivery O2 Flow Rate FiO2 01/28/19 19:58 98.7 80 18 96 Room Air Lab Results Laboratory Tests Test 01/28/19 20:15 01/28/19 20:19 White Blood Count 8.3 x10^3/uL (4.0-11.0) Red Blood Count 4.35 x10^6/uL (3.50-5.40) Hemoglobin 8.3 g/dL (12.0-15.5) L Hematocrit 28.9 % (36.0-47.0) L Mean Corpuscular Volume 67 fL (79-100) L Mean Corpuscular Hemoglobin 19 pg (25-35) L Mean Corpuscular Hemoglobin Concent 29 g/dL (31-37) L Red Cell Distribution Width 20.1 % (11.5-14.5) H Platelet Count 339 x10^3/uL (140-400) Neutrophils (%) (Auto) 60 % (31-73) Lymphocytes (%) (Auto) 28 % (24-48) Monocytes (%) (Auto) 10 % (0-9) H Eosinophils (%) (Auto) 1 % (0-3) Basophils (%) (Auto) 1 % (0-3) Neutrophils # (Auto) 5.0 x10^3uL (1.8-7.7) Lymphocytes # (Auto) 2.3 x10^3/uL (1.0-4.8) Monocytes # (Auto) 0.8 x10^3/uL (0.0-1.1) Eosinophils # (Auto) 0.1 x10^3/uL (0.0-0.7) Basophils # (Auto) 0.1 x10^3/uL (0.0-0.2) Platelet Estimate Pending Sodium Level 141 mmol/L (136-145) Potassium Level 3.9 mmol/L (3.5-5.1) Chloride Level 105 mmol/L (98-107) Carbon Dioxide Level 28 mmol/L (21-32) Anion Gap 8 (6-14) Blood Urea Nitrogen 17 mg/dL (7-20) Creatinine 0.9 mg/dL (0.6-1.0) Estimated GFR (Cockcroft-Gault) 65.2 BUN/Creatinine Ratio 19 (6-20) Glucose Level 220 mg/dL (70-99) H Calcium Level 9.3 mg/dL (8.5-10.1) Total Bilirubin 0.4 mg/dL (0.2-1.0) Aspartate Amino Transferase (AST) 11 U/L (15-37) L Alanine Aminotransferase (ALT) 23 U/L (14-59) Alkaline Phosphatase 99 U/L (46-116) Total Protein 7.0 g/dL (6.4-8.2) Albumin 3.1 g/dL (3.4-5.0) L Albumin/Globulin Ratio 0.8 (1.0-1.7) L Glucose (Fingerstick) 208 mg/dL (70-99) H EKG EKG [] Radiology/Procedures Radiology/Procedures [] Course & Med Decision Making Course & Med Decision Making Pertinent Labs and Imaging studies reviewed. (See chart for details) Patient's labs are unremarkable except for an elevated blood sugar of over 200. She was given 1 L normal saline. The patient is feeling better at this time. Her condition has improved. She feels well enough to go home. She is stable for discharge at this time. [] Dragon Disclaimer Dragon Disclaimer This electronic medical record was generated, in whole or in part, using a voice recognition dictation system. Departure Departure: Impression: Primary Impression: Dizziness Additional Impression: Hyperglycemia due to type 2 diabetes mellitus Disposition: HOME, SELF-CARE Condition: STABLE Referrals: EULOGIO KISER (PCP) Patient Instructions: Hyperglycemia, [id number] Problem Qualifiers Additional Impression: Hyperglycemia due to type 2 diabetes mellitus Diabetes mellitus jail insulin use: with emt intermediate use Qualified Codes: E11.65 - Type 2 diabetes mellitus with hyperglycemia; Z79.4 - prison (current) use of insulin BETSEY JOYCE DO Jan 28, 2019 21:10
[2019-01-28 21:20] LABS: HYPOCHROMIA MOD; PLT ESTIMATE ADEQUATE (ADEQUATE)
[2019-01-28 21:21] LABS: ANISOCYTOSIS MOD; MICROCYTOSIS MOD; POLYCHROMASIA SLIGHT
[2019-01-28 21:48] LABS: BILIRUBIN,URINE NEG (NEG); CLARITY,URINE HAZY; COLOR,URINE YELLOW; GLUCOSE,URINE NEG (NEG)
[2019-01-28 21:49] LABS: BACTERIA,URINE FEW /HPF (0-FEW); NITRITE,URINE NEG (NEG); SQUAMOUS EPITHELIAL CELL,UR OCC /LPF; UROBILINOGEN,URINE 0.2 mg/dL (0.2 mg/dL); WBC,URINE 0 /HPF (0-4)
[2019-01-28 23:28] VITALS: BP 114/43
--- NOTE | 2019-01-29 06:46 | EKG ---
[address] [address] Test Date: 2019-01-28 Test Time: 20:36:46 Pat Name: DARELL CORONADO Department: Room: Gender: F Senior Data Architect: MARÍA : 1965 Requested By: BETSEY JOYCE Order Number: [id number] Reading MD: Measurements Intervals [place] Rate: 80 P: [place]: QRS: -139 QRSD: 104 T: 41 QT: 408 QTc: 474 Interpretive Statements IRREGULAR RHYTHM, NO P-WAVE FOUND ABNORMAL RIGHT SUPERIOR AXIS DEVIATION LOW VOLTAGE RIGHT VENTRICULAR HYPERTROPHY QRS(T) CONTOUR ABNORMALITY CONSISTENT WITH ANTERIOR INFARCT AGE UNDETERMINED CONSISTENT WITH INFEROLATERAL INFARCT PROBABLY OLD ABNORMAL ECG RI6.01 No previous ECG available for comparison
--- NOTE | 2019-01-29 07:32 | RAD ---
Indication: Dizziness TECHNIQUE: A single AP view of the chest COMPARISON: 01/09/2019 FINDINGS: Heart is mildly enlarged in size. Stable position of left chest wall cardiac pacer with leads projecting over the heart. Diffuse bilateral mild interstitial opacities and prominence of vasculature. No focal consolidation. No pneumothorax or pleural effusion. Visualized bony thorax within normal limits. IMPRESSION: Mild cardiomegaly with pulmonary vascular congestion. Electronically signed by: Olaf Medrano DO (01/29/2019 7:29 AM) [facility]
== END 2019-01-28 23:55 | disposition home or self-care (01) ==
LOC: ER 19:52
DX: E11.65 Type 2 diabetes mellitus with hyperglycemia (principal); R42 Dizziness and giddiness; M19.90 Unspecified osteoarthritis, unspecified site; I11.0 Hypertensive heart disease with heart failure; I50.9 Heart failure, unspecified; K21.9 Gastro-esophageal reflux disease without esophagitis; E78.00 Pure hypercholesterolemia, unspecified; Z86.2 Personal history of diseases of the blood and blood-forming organs and certain disorders involving the immune mechanism; Z87.442 Personal history of urinary calculi; Z87.440 Personal history of urinary (tract) infections; Z95.0 Presence of cardiac pacemaker; Z79.4 Long term (current) use of insulin
CPT/HCPCS: 36415; 71045; 80053; 81001; 82947; 85025; 93005; 96360; 99285-25; J7030

== ENCOUNTER 2019-02-06 19:05 | Emergency (ER) | payer OTHER ==
[~2019-02-06] VITALS: Ht 154.9 cm; Wt 153.8 kg
--- NOTE | 2019-02-06 19:11 | ED.ADGEN ---
Past History Past Medical History: Anemia, Angina, Anxiety, Arthritis, CHF, Constipation, Diabetes, GERD, High Cholesterol, Heart Disease, Hypertension, Kidney Infection, Kidney Stones, Renal Disease, UTI, Other Additional Past Medical Histor: cardiomegaly Past Medical History Extremely hard of hearing Past Surgical History: No Surgical History, Pacemaker, Other Additional Past Surgical Histo: pacemaker Smoking: Non-smoker Alcohol Use: None Drug Use: None Adult General Chief Complaint Chief Complaint ".. My blood sugar is up...and it make my vision off....".. " I did see Dr. Barton on and Renee Escalante on .. this month.. ."... " Just felt like I needed to get checked tonight..." HPI HPI Patient is a 53 year old female who presents with above hx and complaints elevated glucose with visual changes. Patient admits to dietary and med noncompliance. Patient also admits to irregular intake of her diabetic meds. Patient has history of multiple medical issues, dysrhythmia with history of pacemaker placement, CHF, diabetes, hypertension, morbid obesity, chronic bronchitis, diastolic and systolic heart dysfunction, paroxysmal A. fib renal insufficiency, microcytic hypochromic anemia, clinical sleep apnea and noncompliance. Patient has been seen previously in the emergency room for dehydration and heat exhaustion and was admitted in December for these complaints. Patient does not remember her last diabetic eye exam. She advised her vision gets blurry when her sugars get high. No recent travel. No history of trauma. No specific ill contacts. Patient normally follows with Dr. Barton for care. Pt. poor historian because she can not hear questions. Pt. had pacemaker place in Nov, 2018. Review of Systems Review of Systems Constitutional: Denies fever or chills [] Eyes: Denies change in visual acuity, redness, or eye pain [] HENT: Denies nasal congestion or sore throat [] Respiratory: Denies cough or shortness of breath [] Cardiovascular: No additional information not addressed in HPI [] GI: Denies abdominal pain, nausea, vomiting, bloody stools or diarrhea [] : Denies dysuria or hematuria [] Musculoskeletal: Denies back pain or joint pain [] Integument: Denies rash or skin lesions [] Neurologic: Denies headache, focal weakness or sensory changes [] Endocrine: Complains of polyuria or polydipsia [] All other systems were reviewed and found to be within normal limits, except as documented in this note. Family History Family History Noncontributory Current Medications Current Medications Current Medications Medications (Trade) Dose Ordered Sig/Christina Start Time Stop Time Status Last Admin Dose Admin Lactated Ringer's 1,000 ml @ 1,000 mls/hr Q1H 02/06/19 19:12 02/06/19 20:11 DC 02/06/19 20:09 1,000 MLS/HR Magnesium Hydroxide (Milk Of Magnesia) 2,400 mg 1X ONCE 02/06/19 22:15 02/06/19 22:16 DC 02/06/19 23:30 2,400 MG Allergies Allergies Allergies Coded Allergies Type Severity Reaction Last Updated Verified No Known Drug Allergies 02/06/19 No Physical Exam Physical Exam Constitutional: , no acute distress, non-toxic appearance. [] HENT: Normocephalic, atraumatic, bilateral external ears normal, oropharynx moist, no oral exudates, nose normal. []Very hard of hearing Eyes: PERRLA, EOMI, conjunctiva normal, no discharge. [] Limited fundus exam- but no obvious significant bleed or cell flare. Microvascular changes noted Neck: Normal range of motion, no tenderness, supple, no stridor. [] Circumferences back more than 17 inches Cardiovascular: Regular Heart rate and irregular regular rhythm, no murmur []PMI to the left Lungs & Thorax: Bilateral breath sounds equal apex with scattered wheezes and basilar crackles on auscultation []pacer on Lt. Abdomen: Bowel sounds normal, soft, no tenderness, no masses, no pulsatile masses. [] Morbidly obese. Skin: Warm, dry, no erythema, no rash. [] Skin lesions Back: No tenderness, no CVA tenderness. [] Extremities: No tenderness, no cyanosis, no clubbing, ROM intact, ankle edema. [] Neurologic: Alert and oriented X 3, moves all extremities on request, plantar sensory decreased, no gross focal deficits noted. []DTRs +2 patella and brac hial. Is ambulatory. Extremely hard of hearing. Psychologic: Affect anxious, poor insight to her medical issues, mood normal. [] Current Patient Data Vital Signs Vital Signs Date Time Temp Pulse Resp B/P (MAP) Pulse Ox O2 Delivery O2 Flow Rate FiO2 02/06/19 23:25 78 22 128/68 (88) 94 Room Air 02/06/19 19:15 98.3 Lab Results Laboratory Tests Test 02/06/19 19:18 02/06/19 19:35 02/06/19 23:54 Glucose (Fingerstick) 168 mg/dL (70-99) H 134 mg/dL (70-99) H White Blood Count 8.2 x10^3/uL (4.0-11.0) Red Blood Count 4.40 x10^6/uL (3.50-5.40) Hemoglobin 8.5 g/dL (12.0-15.5) L Hematocrit 29.0 % (36.0-47.0) L Mean Corpuscular Volume 66 fL (79-100) L Mean Corpuscular Hemoglobin 19 pg (25-35) L Mean Corpuscular Hemoglobin Concent 29 g/dL (31-37) L Red Cell Distribution Width 20.5 % (11.5-14.5) H Platelet Count 357 x10^3/uL (140-400) Neutrophils (%) (Auto) 62 % (31-73) Lymphocytes (%) (Auto) 27 % (24-48) Monocytes (%) (Auto) 9 % (0-9) Eosinophils (%) (Auto) 1 % (0-3) Basophils (%) (Auto) 1 % (0-3) Neutrophils # (Auto) 5.1 x10^3uL (1.8-7.7) Lymphocytes # (Auto) 2.2 x10^3/uL (1.0-4.8) Monocytes # (Auto) 0.7 x10^3/uL (0.0-1.1) Eosinophils # (Auto) 0.1 x10^3/uL (0.0-0.7) Basophils # (Auto) 0.1 x10^3/uL (0.0-0.2) Platelet Estimate Adequate (ADEQUATE) Hypochromasia Mod Anisocytosis Mod Microcytosis Mod Prothrombin Time 11.6 SEC (9.4-11.4) H Prothrombin Time INR 1.1 (0.9-1.1) PTT 25 SEC (23-33) D-Dimer (Maria Alejandra) 0.30 mg/L (0.00-0.50) Urine Collection Type Unknown Urine Color Yellow Urine Clarity Cloudy Urine pH 6.5 Urine Specific [place] 1.020 Urine Protein 100 mg/dl (NEG-TRACE) Urine Glucose (UA) Neg mg/dL (NEG) Urine Ketones (Stick) Neg mg/dL (NEG) Urine Blood Large (NEG) Urine Nitrite Neg (NEG) Urine Bilirubin Neg (NEG) Urine Urobilinogen Dipstick 0.2 mg/dL (0.2 mg/dL) Urine Leukocyte Esterase Neg (NEG) Urine RBC 11-20 /HPF (0-2) Urine WBC Occ /HPF (0-4) Urine Squamous Epithelial Cells Occ /LPF Urine Bacteria Few /HPF (0-FEW) Sodium Level 142 mmol/L (136-145) Potassium Level 4.0 mmol/L (3.5-5.1) Chloride Level 105 mmol/L (98-107) Carbon Dioxide Level 26 mmol/L (21-32) Anion Gap 11 (6-14) Blood Urea Nitrogen 13 mg/dL (7-20) Creatinine 0.9 mg/dL (0.6-1.0) Estimated GFR (Cockcroft-Gault) 65.2 Glucose Level 173 mg/dL (70-99) H Calcium Level 8.9 mg/dL (8.5-10.1) Magnesium Level 1.7 mg/dL (1.8-2.4) L Total Bilirubin 0.4 mg/dL (0.2-1.0) Direct Bilirubin 0.1 mg/dL (0.0-0.2) Aspartate Amino Transferase (AST) 13 U/L (15-37) L Alanine Aminotransferase (ALT) 25 U/L (14-59) Alkaline Phosphatase 96 U/L (46-116) Creatine Kinase 74 U/L (26-192) Troponin I Quantitative < 0.017 ng/mL (0-0.055) QO-Hff-E-Type Natriuretic Peptide 1132 pg/mL (0-124) H Total Protein 6.7 g/dL (6.4-8.2) Albumin 3.3 g/dL (3.4-5.0) L Lipase 134 U/L (73-393) Urine Opiates Screen Neg (NEG) Urine Methadone Screen Neg (NEG) Urine Barbiturates Neg (NEG) Urine Phencyclidine Screen Neg (NEG) Urine Amphetamine/Methamphetamine Neg (NEG) Urine Benzodiazepines Screen Neg (NEG) Urine Cocaine Screen Neg (NEG) Urine Cannabinoids Screen Neg (NEG) Urine Ethyl Alcohol Neg (NEG) EKG EKG My interpretation EKG shows irregular rhythm and rate. No obvious P waves. Does have occasional premature ventricular complexes. Does have intraventricular block.-Findings consistent with A. fib with abnormal intraventricular conduction no pacer spikes appreciated on this EKG[] Radiology/Procedures Radiology/Procedures My interpretation chest x-ray shows no acute interval change. Cardiomegaly. Mild cephalization. Pacer.[] Course & Med Decision Making Course & Med Decision Making Pertinent Labs and Imaging studies reviewed. (See chart for details) Patient to resume her meds as directed. Patient encouraged to take her diabetic meds at scheduled times as well as eating at scheduled times. Patient encouraged to eat scheduled amounts of foods. Patient encouraged follow-up primary care. Patient return if any concerns. [] Final Impression Final Impression 1. Hyperglycemia-diabetes 2. Visual changes[] 3. Microcytic Hypochromic Anemia- Hgb 8.5, 66mcv, 19 mch 4, Diastolic and Systolic CHF- BNP 1132 5. DM - glu - 173 6. Hypomagnesium 1.7 7. Constipation 8. Afib 9. Non-compliance with diet and DM medication-s 10.Morbid Obesity 11.Extremely Hard of Hearing- ( Refuses hearing aid- states she is allergic and they make her ear itch.) Dragon Disclaimer Dragon Disclaimer This electronic medical record was generated, in whole or in part, using a voice recognition dictation system. Discharge Summary Brief Hospital Course Allergies Allergies Coded Allergies Type Severity Reaction Last Updated Verified No Known Drug Allergies 02/06/19 No Vital Signs Vital Signs Date Time Temp Pulse Resp B/P (MAP) Pulse Ox O2 Delivery O2 Flow Rate FiO2 02/06/19 23:25 78 22 128/68 (88) 94 Room Air 02/06/19 19:15 98.3 Lab Results Laboratory Tests Test 02/06/19 19:18 02/06/19 19:35 02/06/19 23:54 Glucose (Fingerstick) 168 mg/dL (70-99) 134 mg/dL (70-99) White Blood Count 8.2 x10^3/uL (4.0-11.0) Red Blood Count 4.40 x10^6/uL (3.50-5.40) Hemoglobin 8.5 g/dL (12.0-15.5) Hematocrit 29.0 % (36.0-47.0) Mean Corpuscular Volume 66 fL (79-100) Mean Corpuscular Hemoglobin 19 pg (25-35) Mean Corpuscular Hemoglobin Concent 29 g/dL (31-37) Red Cell Distribution Width 20.5 % (11.5-14.5) Platelet Count 357 x10^3/uL (140-400) Neutrophils (%) (Auto) 62 % (31-73) Lymphocytes (%) (Auto) 27 % (24-48) Monocytes (%) (Auto) 9 % (0-9) Eosinophils (%) (Auto) 1 % (0-3) Basophils (%) (Auto) 1 % (0-3) Neutrophils # (Auto) 5.1 x10^3uL (1.8-7.7) Lymphocytes # (Auto) 2.2 x10^3/uL (1.0-4.8) Monocytes # (Auto) 0.7 x10^3/uL (0.0-1.1) Eosinophils # (Auto) 0.1 x10^3/uL (0.0-0.7) Basophils # (Auto) 0.1 x10^3/uL (0.0-0.2) Platelet Estimate Adequate (ADEQUATE) Hypochromasia Mod Anisocytosis Mod Microcytosis Mod Prothrombin Time 11.6 SEC (9.4-11.4) Prothromb Time International Ratio 1.1 (0.9-1.1) Activated Partial Thromboplast Time 25 SEC (23-33) D-Dimer (Maria Alejandra) 0.30 mg/L (0.00-0.50) Urine Collection Type Unknown Urine Color Yellow Urine Clarity Cloudy Urine pH 6.5 Urine Specific [place] 1.020 Urine Protein 100 mg/dl (NEG-TRACE) Urine Glucose (UA) Neg mg/dL (NEG) Urine Ketones (Stick) Neg mg/dL (NEG) Urine Blood Large (NEG) Urine Nitrite Neg (NEG) Urine Bilirubin Neg (NEG) Urine Urobilinogen Dipstick 0.2 mg/dL (0.2 mg/dL) Urine Leukocyte Esterase Neg (NEG) Urine RBC 11-20 /HPF (0-2) Urine WBC Occ /HPF (0-4) Urine Squamous Epithelial Cells Occ /LPF Urine Bacteria Few /HPF (0-FEW) Sodium Level 142 mmol/L (136-145) Potassium Level 4.0 mmol/L (3.5-5.1) Chloride Level 105 mmol/L (98-107) Carbon Dioxide Level 26 mmol/L (21-32) Anion Gap 11 (6-14) Blood Urea Nitrogen 13 mg/dL (7-20) Creatinine 0.9 mg/dL (0.6-1.0) Estimated GFR (Cockcroft-Gault) 65.2 Glucose Level 173 mg/dL (70-99) Calcium Level 8.9 mg/dL (8.5-10.1) Magnesium Level 1.7 mg/dL (1.8-2.4) Total Bilirubin 0.4 mg/dL (0.2-1.0) Direct Bilirubin 0.1 mg/dL (0.0-0.2) Aspartate Amino Transf (AST/SGOT) 13 U/L (15-37) Alanine Aminotransferase (ALT/SGPT) 25 U/L (14-59) Alkaline Phosphatase 96 U/L (46-116) Creatine Kinase 74 U/L (26-192) Troponin I Quantitative < 0.017 ng/mL (0-0.055) CY-Opu-L-Type Natriuretic Peptide 1132 pg/mL (0-124) Total Protein 6.7 g/dL (6.4-8.2) Albumin 3.3 g/dL (3.4-5.0) Lipase 134 U/L (73-393) Urine Opiates Screen Neg (NEG) Urine Methadone Screen Neg (NEG) Urine Barbiturates Neg (NEG) Urine Phencyclidine Screen Neg (NEG) Urine Amphetamine/Methamphetamine Neg (NEG) Urine Benzodiazepines Screen Neg (NEG) Urine Cocaine Screen Neg (NEG) Urine Cannabinoids Screen Neg (NEG) Urine Ethyl Alcohol Neg (NEG) Brief Hospital Course Ms. Florez is a 53 old female who presented with DM, but non-compliant with med times and diet. Discharge Information Condition at Discharge: Improved, Stable Disposition/Orders: D/C to Home Dischare Medications Current Medications Lactated Ringer's 1,000 ml @ 1,000 mls/hr Q1H IV Last administered on 02/06/19at 20:09; Admin Dose 1,000 MLS/HR; Start 02/06/19 at 19:12; Stop 02/06/19 at 20:11; Status DC Magnesium Hydroxide (Milk Of Magnesia) 2,400 mg 1X ONCE PO Last administered on 02/06/19at 23:30; Admin Dose 2,400 MG; Start 02/06/19 at 22:15; Stop 02/06/19 at 22:16; Status DC Active Scripts Active Reported Eliquis (Apixaban) 5 Mg Tab.ds.pk 5 PO BID Digoxin 125 Mcg Tablet 1 DAILY Atorvastatin Calcium 80 Mg Tablet 1 HS K-Tab (Potassium Chloride) 10 Meq Tablet.er 1 DAILY Metformin Hcl Er (Metformin Hcl) 500 Mg Tab.er.24h 1 DAILY Furosemide 40 Mg Tablet 1 DAILY Entresto 49 mg-51 mg Tablet (Sacubitril/Valsartan) 1 Each Tablet 1 Each PO BID Proair Hfa Inhaler (Albuterol Sulfate) 8.5 Gm Hfa.aer.ad 2 Puff INH PRN Q6HRS PRN NITROGLYCERIN SubLingual (Nitroglycerin) 0.4 Mg Tab.subl 0.4 Mg SL PRN Q5MIN PRN Humalog (Insulin Lispro) 100 Unit/1 Ml Vial 35 Unit SQ HS Nexium Capsule (Esomeprazole Magnesium) 40 Mg Capsule.dr 40 Mg PO DAILYAC Coreg (Carvedilol) 6.25 Mg Tablet 6.25 Mg PO BIDWMEALS Lantus (Insulin Glargine,Hum.rec.anlog) 100 Unit/1 Ml Vial 15 Unit SQ TIDWMEALS Aspirin 81 Mg Tab.chew 81 Mg PO DAILY Adalberto Disclaimer This chart was dictated in whole or in part using Voice Recognition software in a busy, high-work load, and often noisy Emergency Department environment. It may contain unintended and wholly unrecognized errors or omissions. LIBRA TRACEY MD Feb 06, 2019 19:11
[2019-02-06] MEDS ORDERED: IV RINGERS SOLUTION,LACTATED 1,000 ML IV SCH (19:12)
[2019-02-06 20:01] LABS: BASO # 0.1 x10^3/uL (0.0-0.2); BASO % 1 % (0-3); EOS # 0.1 x10^3/uL (0.0-0.7); EOS % 1 % (0-3); HEMOGLOBIN 8.5 g/dL (12.0-15.5); LYMPH # 2.2 x10^3/uL (1.0-4.8); LYMPH % 27 % (24-48); MEAN CORPUSCULAR HEMOGLOBIN 19 pg (25-35); MEAN CORPUSCULAR HGB CONC 29 g/dL (31-37); MEAN CORPUSCULAR VOLUME 66 fL (79-100); MONO # 0.7 x10^3/uL (0.0-1.1); MONO % 9 % (0-9); NEUT # 5.1 x10^3uL (1.8-7.7); NEUT % 62 % (31-73); PLATELET COUNT 357 x10^3/uL (140-400); RED CELL DISTRIBUTION WIDTH 20.5 % (11.5-14.5); WHITE BLOOD COUNT 8.2 x10^3/uL (4.0-11.0)
[2019-02-06 20:08] LABS: BARBITURATES NEG (NEG); BENZODIAZEPINES NEG (NEG); CANNABINOIDS NEG (NEG); COCAINE NEG (NEG); METHADONE NEG (NEG); OPIATES NEG (NEG); PHENCYCLIDINE NEG (NEG)
[2019-02-06 20:09] LABS: AMPHETAMINE/METHAMPHETAMINE NEG (NEG)
[2019-02-06 20:18] LABS: BILIRUBIN,URINE NEG (NEG); CLARITY,URINE CLOUDY; COLOR,URINE YELLOW; GLUCOSE,URINE NEG (NEG); NITRITE,URINE NEG (NEG); UROBILINOGEN,URINE 0.2 mg/dL (0.2 mg/dL)
[2019-02-06 20:19] LABS: BACTERIA,URINE FEW /HPF (0-FEW); SQUAMOUS EPITHELIAL CELL,UR OCC /LPF; WBC,URINE OCC /HPF (0-4)
[2019-02-06 20:33] LABS: ALBUMIN 3.3 g/dL (3.4-5.0); CALCIUM 8.9 mg/dL (8.5-10.1); CREATININE 0.9 mg/dL (0.6-1.0); DIRECT BILIRUBIN 0.1 mg/dL (0.0-0.2); GFR 65.2; MAGNESIUM 1.7 mg/dL (1.8-2.4); TOTAL BILIRUBIN 0.4 mg/dL (0.2-1.0); TOTAL PROTEIN 6.7 g/dL (6.4-8.2)
[2019-02-06 21:12] LABS: ANISOCYTOSIS MOD; HYPOCHROMIA MOD; MICROCYTOSIS MOD; PLT ESTIMATE ADEQUATE (ADEQUATE)
[2019-02-06] MEDS ORDERED: MAGNESIUM HYDROXIDE 2,400 MG/30 ML ORAL.SUSP. PO ONE (22:15)
[2019-02-06 23:25] VITALS: BP 128/68
--- NOTE | 2019-02-07 06:26 | EKG ---
[address] [address] Test Date: 2019-02-06 Test Time: 19:24:41 Pat Name: DARELL CORONADO Department: Room: Gender: F Fisher Seal: MARTHA : 1965 Requested By: LIBRA TRACEY Order Number: [id number] Reading MD: Measurements Intervals Sidney Rate: 80 P: LA: QRS: -147 QRSD: 126 T: 21 QT: 436 QTc: 507 Interpretive Statements IRREGULAR RHYTHM, NO P-WAVE FOUND VENTRICULAR PREMATURE COMPLEX(ES) ABNORMAL RIGHT SUPERIOR AXIS DEVIATION LOW VOLTAGE NON SPECIFIC INTRAVENTRICULAR BLOCK CONSIDER RIGHT VENTRICULAR HYPERTROPHY QRS(T) CONTOUR ABNORMALITY CONSISTENT WITH ANTERIOR INFARCT AGE UNDETERMINED CONSISTENT WITH INFEROLATERAL INFARCT PROBABLY OLD
--- NOTE | 2019-02-07 08:13 | RAD ---
PORTABLE CHEST 1V History: Dyspnea Comparison: January 28, 2019 Findings: Single view of the chest is submitted. There is a lesser degree of inspiration for this exam, lower lung volumes. There is again left electronic cardiac device. Pericardial cardiac silhouette is again enlarged. There is again degree of cephalization, mild perihilar opacity bilaterally somewhat greater although may be accentuated by lesser degree of inspiration. There is no significant dependent pleural fluid or pneumothorax. Impression: 1. There is a lesser degree of inspiration for this exam, lower lung volumes and mild increased perihilar opacity which could be due to lesser degree of inspiration or mild perihilar edema. Electronically signed by: Perfecto Morfin MD (02/07/2019 8:11 AM) [id number]
[2019-02-08 01:10] LABS: HEMOGLOBIN A1C 9.3 % (4.8-5.6)
== END 2019-02-06 23:49 | disposition home or self-care (01) ==
LOC: ER 19:05
DX: E11.65 Type 2 diabetes mellitus with hyperglycemia (principal); H57.89 Other specified disorders of eye and adnexa; D50.9 Iron deficiency anemia, unspecified; I11.0 Hypertensive heart disease with heart failure; I50.40 Unspecified combined systolic (congestive) and diastolic (congestive) heart failure; E83.42 Hypomagnesemia; K59.00 Constipation, unspecified; I48.91 Unspecified atrial fibrillation; Z91.11 Patient's noncompliance with dietary regimen; Z91.14 Patient's other noncompliance with medication regimen; E66.01 Morbid (severe) obesity due to excess calories; H91.90 Unspecified hearing loss, unspecified ear; F41.9 Anxiety disorder, unspecified; M19.90 Unspecified osteoarthritis, unspecified site; K21.9 Gastro-esophageal reflux disease without esophagitis; E78.00 Pure hypercholesterolemia, unspecified; Z87.442 Personal history of urinary calculi; Z87.440 Personal history of urinary (tract) infections; Z95.0 Presence of cardiac pacemaker; Z68.44 Body mass index [BMI] 60.0-69.9, adult
CPT/HCPCS: 36415; 71045; 80048; 80076; 80307; 81001; 82550; 82947; 83036; 83690; 83735; 83880; 84443; 84484; 85025; 85045; 85379; 85610; 85730; 93005; 96360; 96361; 99285; J7120

== ENCOUNTER 2019-02-14 02:36 | Emergency (ER) | payer OTHER ==
[~2019-02-14] VITALS: Ht 154.9 cm; Wt 153.8 kg
--- NOTE | 2019-02-14 02:44 | ED.ADGEN ---
Past History Past Medical History: Anemia, Angina, Anxiety, Arthritis, CHF, Constipation, Diabetes, GERD, High Cholesterol, Heart Disease, Hypertension, Kidney Infection, Kidney Stones, Renal Disease, UTI, Other Additional Past Medical Histor: cardiomegaly Past Surgical History: No Surgical History, Pacemaker, Other Additional Past Surgical Histo: pacemaker Smoking: Non-smoker Alcohol Use: None Drug Use: None Adult General Chief Complaint Chief Complaint ".. I had some chest discomfort.. so I took two nitros and two aspirin. the chest is gone now..."".. I was hurting from about 10:00 am .. all day.. .here in my Lt shoulder....chest and back..." I got apt. at my Cardiology on . and also see Oralia..." HPI HPI Patient is a 53 year old female who presents with above hx and complaints of chest discomfort. Pt. chest pain resolve with ASA and Nitro. Pt. advise pain in chest and Lt shoulder present all day. Pain is at times severe but seems to be positional related. Moving the position she sits in or rolling on her side makes the pain go away or significantly reduced. Patient admits to noncompliance with her diet and diabetic meds. No recent falls. No history of trauma. Did eat just before coming in to the hospital. Patient just discharged from [facility] on 01/10 and 02/06 and 02/07.. Pt. patient normally follows with Dr. Barton. Patient has a long history of multiple medical p roblems, anemia, angina, anxiety, arthritis, CHF, and constipation, diabetes, GERD, elevated cholesterol, hypertension, UTIs, kidney stones, urinary tract infections. Patient also extremely hard of hearing and refuses to wear hearing aids stated she is allergic to them. Patient does seem exhibit need for attention and appears to enjoy coming to the hospital and the emergency de partment. No history of recent travel.No specific ill contacts. Review of Systems Review of Systems Constitutional: Denies fever or chills []reason history of feelings of fever and chills last only a few seconds Eyes: Denies change in visual acuity, redness, or eye pain [] HENT: Denies nasal congestion or sore throat [] Respiratory: Denies cough or shortness of breath [] Cardiovascular: No additional information not addressed in HPI [] GI: Denies abdominal pain, nausea, vomiting, bloody stools or diarrhea []patient does complain of constipation in the last few days. : Denies dysuria or hematuria [] Musculoskeletal: Complains of chronic back pain and left shoulder joint pain [] Integument: Denies rash or skin lesions [] Neurologic: Denies headache, focal weakness or sensory changes [] Endocrine: Denies polyuria or polydipsia [] All other systems were reviewed and found to be within normal limits, except as documented in this note. Family History Family History Noncontributory Current Medications Current Medications Current Medications Medications (Trade) Dose Ordered Sig/Christina Start Time Stop Time Status Last Admin Dose Admin Diphenhydramine HCl (Benadryl) 50 mg 1X ONCE 02/14/19 05:00 02/14/19 05:01 DC 02/14/19 04:53 50 MG Furosemide (Lasix) 40 mg 1X ONCE 02/14/19 04:15 02/14/19 04:16 DC 02/14/19 04:15 40 MG Ketorolac Tromethamine (Toradol 30mg Vial) 30 mg 1X ONCE 02/14/19 04:15 02/14/19 04:16 DC 02/14/19 04:42 30 MG Lactated Ringer's 1,000 ml @ 100 mls/hr Q10H 02/14/19 03:00 02/14/19 05:27 DC 02/14/19 04:42 100 MLS/HR Magnesium Hydroxide (Milk Of Magnesia) 2,400 mg 1X ONCE 02/14/19 03:00 02/14/19 03:01 DC 02/14/19 04:41 2,400 MG Prochlorperazine Edisylate (Compazine) 10 mg 1X ONCE 02/14/19 05:00 02/14/19 05:01 DC 02/14/19 05:02 10 MG Allergies Allergies Allergies Coded Allergies Type Severity Reaction Last Updated Verified No Known Drug Allergies 02/06/19 No Physical Exam Physical Exam Constitutional: in no acute distress, non-toxic appearance. [] HENT: Normocephalic, atraumatic, bilateral external ears normal, oropharynx moist, no oral exudates, nose normal. Poor dentition Eyes: PERRLA, EOMI, conjunctiva normal, no discharge. [] Neck: Normal range of motion, no tenderness, supple, no stridor. [] Cardiovascular:Heart rate regular rhythm, no murmur []PMI to the left. Monro reflexes a paced rhythm Lungs & Thorax: Bilateral breath sounds equal apexes with basilar crackles bilaterally auscultation []pacer scar Abdomen: Bowel sounds normal, soft, no tenderness, no masses, no pulsatile masses. [] Morbidly obese. Old surgery scars. Skin: Warm, dry, no erythema, no rash. [] Back: Bilateral trapezius muscle tenderness, no CVA tenderness. [] Extremities: No tenderness, no cyanosis, no clubbing, ROM intact, ankle edema. [] No obvious cording Neurologic: Alert and oriented X 3, moves all extremities on request, the motor function is at her baseline, distal sensory function, no focal deficits noted from previous visit on 02/07 . Pt. extremely hard of hearing. Psychologic: Affect normal, judgement normal, mood normal. [] Current Patient Data Vital Signs Vital Signs Date Time Temp Pulse Resp B/P (MAP) Pulse Ox O2 Delivery O2 Flow Rate FiO2 02/14/19 02:36 97.8 77 28 97 Room Air Lab Results Laboratory Tests Test 02/14/19 02:48 02/14/19 04:55 White Blood Count 9.6 x10^3/uL (4.0-11.0) Red Blood Count 4.43 x10^6/uL (3.50-5.40) Hemoglobin 8.6 g/dL (12.0-15.5) L Hematocrit 29.1 % (36.0-47.0) L Mean Corpuscular Volume 66 fL (79-100) L Mean Corpuscular Hemoglobin 20 pg (25-35) L Mean Corpuscular Hemoglobin Concent 30 g/dL (31-37) L Red Cell Distribution Width 20.4 % (11.5-14.5) H Platelet Count 338 x10^3/uL (140-400) Neutrophils (%) (Auto) 62 % (31-73) Lymphocytes (%) (Auto) 27 % (24-48) Monocytes (%) (Auto) 8 % (0-9) Eosinophils (%) (Auto) 1 % (0-3) Basophils (%) (Auto) 1 % (0-3) Neutrophils # (Auto) 6.0 x10^3uL (1.8-7.7) Lymphocytes # (Auto) 2.6 x10^3/uL (1.0-4.8) Monocytes # (Auto) 0.8 x10^3/uL (0.0-1.1) Eosinophils # (Auto) 0.1 x10^3/uL (0.0-0.7) Basophils # (Auto) 0.1 x10^3/uL (0.0-0.2) Platelet Estimate Adequate (ADEQUATE) Hypochromasia Mod Anisocytosis Slight Microcytosis Mod Prothrombin Time 11.0 SEC (9.4-11.4) Prothrombin Time INR 1.1 (0.9-1.1) PTT 21 SEC (23-33) L D-Dimer (Maria Alejandra) 0.27 mg/L (0.00-0.50) Sodium Level 138 mmol/L (136-145) Potassium Level 4.1 mmol/L (3.5-5.1) Chloride Level 104 mmol/L (98-107) Carbon Dioxide Level 26 mmol/L (21-32) Anion Gap 8 (6-14) Blood Urea Nitrogen 19 mg/dL (7-20) Creatinine 1.1 mg/dL (0.6-1.0) H Estimated GFR (Cockcroft-Gault) 51.8 Glucose Level 240 mg/dL (70-99) H Calcium Level 9.0 mg/dL (8.5-10.1) Magnesium Level 2.0 mg/dL (1.8-2.4) Total Bilirubin 0.4 mg/dL (0.2-1.0) Direct Bilirubin 0.1 mg/dL (0.0-0.2) Aspartate Amino Transferase (AST) 13 U/L (15-37) L Alanine Aminotransferase (ALT) 24 U/L (14-59) Alkaline Phosphatase 95 U/L (46-116) Creatine Kinase 52 U/L (26-192) Troponin I Quantitative < 0.017 ng/mL (0-0.055) [id number]-Type Natriuretic Peptide 887 pg/mL (0-124) H Total Protein 7.5 g/dL (6.4-8.2) Albumin 3.3 g/dL (3.4-5.0) L Lipase 293 U/L (73-393) Urine Collection Type Void Urine Color Yellow Urine Clarity Clear Urine pH 7.0 Urine Specific [place] 1.015 Urine Protein Trace (NEG-TRACE) Urine Glucose (UA) 100 mg/dL (NEG) Urine Ketones (Stick) Neg mg/dL (NEG) Urine Blood Large (NEG) Urine Nitrite Neg (NEG) Urine Bilirubin Neg (NEG) Urine Urobilinogen Dipstick 1 mg/dL (0.2 mg/dL) Urine Leukocyte Esterase Trace (NEG) Urine RBC >40 /HPF (0-2) Urine WBC 5-10 /HPF (0-4) Urine Squamous Epithelial Cells Few /LPF Urine Bacteria Few /HPF (0-FEW) Urine Opiates Screen Neg (NEG) Urine Methadone Screen Neg (NEG) Urine Barbiturates Neg (NEG) Urine Phencyclidine Screen Neg (NEG) Urine Amphetamine/Methamphetamine Neg (NEG) Urine Benzodiazepines Screen Neg (NEG) Urine Cocaine Screen Neg (NEG) Urine Cannabinoids Screen Neg (NEG) Urine Ethyl Alcohol Neg (NEG) EKG EKG My interpretation EKG shows a ventricular rate at 77 bpm. It is slightly irregular rhythm. No obvious P-wave some suggestion of A. fib.. Right axis deviation and low voltage does have intraventricular block, rhythm appears to be paced at a majority of the time[] Radiology/Procedures Radiology/Procedures My interpretation of chest x-ray shows no acute interval change. Cardiomegaly. Degenerative joint changes.[] Course & Med Decision Making Course & Med Decision Making Pertinent Labs and Imaging studies reviewed. (See chart for details) Patient take meds as previous directed. Patient review all labs and x-rays with Dr. Barton on follow-up. Patient keep follow-up with cardiology on the seventh. Patient encouraged to be compliant with her diabetic meds and diabetic diet. Suspect presentation today for her chest pain is musculoskeletal or arthritic in nature. Would expect at least some elevation in troponins if she's had cardiac pain since 10 AM. Patient's coag markers also within normal limits. Patient encouraged take a multivitamin with iron. [] Final Impression Final Impression 1. Chest Pain 2. Lt. Shoulder pain- suspect arthritic/ muscular skeletal 3. Renal Insuf. Creat. 1.1 4. Morbid Obesity 5. Hx. Hypertension 6. Anemia - Hgb 8.6, Microcytic Hypochromic 7. DM 240 8. Non Compliance 9. CHF- Chronic systolic and diastolic dysfunction- BNP 887 10.Very Hard of Hearing- refuses hearing aid[] Dragon Disclaimer Dragon Disclaimer This electronic medical record was generated, in whole or in part, using a voice recognition dictation system. Discharge Summary Brief Hospital Course Allergies Allergies Coded Allergies Type Severity Reaction Last Updated Verified No Known Drug Allergies 02/06/19 No Vital Signs Vital Signs Date Time Temp Pulse Resp B/P (MAP) Pulse Ox O2 Delivery O2 Flow Rate FiO2 02/14/19 02:36 97.8 77 28 97 Room Air Lab Results Laboratory Tests Test 02/14/19 02:48 02/14/19 04:55 White Blood Count 9.6 x10^3/uL (4.0-11.0) Red Blood Count 4.43 x10^6/uL (3.50-5.40) Hemoglobin 8.6 g/dL (12.0-15.5) Hematocrit 29.1 % (36.0-47.0) Mean Corpuscular Volume 66 fL (79-100) Mean Corpuscular Hemoglobin 20 pg (25-35) Mean Corpuscular Hemoglobin Concent 30 g/dL (31-37) Red Cell Distribution Width 20.4 % (11.5-14.5) Platelet Count 338 x10^3/uL (140-400) Neutrophils (%) (Auto) 62 % (31-73) Lymphocytes (%) (Auto) 27 % (24-48) Monocytes (%) (Auto) 8 % (0-9) Eosinophils (%) (Auto) 1 % (0-3) Basophils (%) (Auto) 1 % (0-3) Neutrophils # (Auto) 6.0 x10^3uL (1.8-7.7) Lymphocytes # (Auto) 2.6 x10^3/uL (1.0-4.8) Monocytes # (Auto) 0.8 x10^3/uL (0.0-1.1) Eosinophils # (Auto) 0.1 x10^3/uL (0.0-0.7) Basophils # (Auto) 0.1 x10^3/uL (0.0-0.2) Platelet Estimate Adequate (ADEQUATE) Hypochromasia Mod Anisocytosis Slight Microcytosis Mod Prothrombin Time 11.0 SEC (9.4-11.4) Prothromb Time International Ratio 1.1 (0.9-1.1) Activated Partial Thromboplast Time 21 SEC (23-33) D-Dimer (Maria Alejandra) 0.27 mg/L (0.00-0.50) Sodium Level 138 mmol/L (136-145) Potassium Level 4.1 mmol/L (3.5-5.1) Chloride Level 104 mmol/L (98-107) Carbon Dioxide Level 26 mmol/L (21-32) Anion Gap 8 (6-14) Blood Urea Nitrogen 19 mg/dL (7-20) Creatinine 1.1 mg/dL (0.6-1.0) Estimated GFR (Cockcroft-Gault) 51.8 Glucose Level 240 mg/dL (70-99) Calcium Level 9.0 mg/dL (8.5-10.1) Magnesium Level 2.0 mg/dL (1.8-2.4) Total Bilirubin 0.4 mg/dL (0.2-1.0) Direct Bilirubin 0.1 mg/dL (0.0-0.2) Aspartate Amino Transf (AST/SGOT) 13 U/L (15-37) Alanine Aminotransferase (ALT/SGPT) 24 U/L (14-59) Alkaline Phosphatase 95 U/L (46-116) Creatine Kinase 52 U/L (26-192) Troponin I Quantitative < 0.017 ng/mL (0-0.055) GZ-Dzo-N-Type Natriuretic Peptide 887 pg/mL (0-124) Total Protein 7.5 g/dL (6.4-8.2) Albumin 3.3 g/dL (3.4-5.0) Lipase 293 U/L (73-393) Urine Collection Type Void Urine Color Yellow Urine Clarity Clear Urine pH 7.0 Urine Specific [place] 1.015 Urine Protein Trace (NEG-TRACE) Urine Glucose (UA) 100 mg/dL (NEG) Urine Ketones (Stick) Neg mg/dL (NEG) Urine Blood Large (NEG) Urine Nitrite Neg (NEG) Urine Bilirubin Neg (NEG) Urine Urobilinogen Dipstick 1 mg/dL (0.2 mg/dL) Urine Leukocyte Esterase Trace (NEG) Urine RBC >40 /HPF (0-2) Urine WBC 5-10 /HPF (0-4) Urine Squamous Epithelial Cells Few /LPF Urine Bacteria Few /HPF (0-FEW) Urine Opiates Screen Neg (NEG) Urine Methadone Screen Neg (NEG) Urine Barbiturates Neg (NEG) Urine Phencyclidine Screen Neg (NEG) Urine Amphetamine/Methamphetamine Neg (NEG) Urine Benzodiazepines Screen Neg (NEG) Urine Cocaine Screen Neg (NEG) Urine Cannabinoids Screen Neg (NEG) Urine Ethyl Alcohol Neg (NEG) Brief Hospital Course Ms. Florez is a 53 old female who presented with chest and Lt shoulder pain that has been constant since 1000 hrs. Neg. Trop and coags. [place] pain muscular skeletal. Has follow up on . with cardiology and tomorrow with primary. Pt. return if any concerns. Pt. encourage compliance her meds. Discharge Information Condition at Discharge: Improved, Stable Disposition/Orders: D/C to Home Dischare Medications Current Medications Lactated Ringer's 1,000 ml @ 100 mls/hr Q10H IV Last administered on 02/14/19at 04:42; Admin Dose 100 MLS/HR; Start 02/14/19 at 03:00; Stop 02/14/19 at 05:27; Status DC Magnesium Hydroxide (Milk Of Magnesia) 2,400 mg 1X ONCE PO Last administered on 02/14/19at 04:41; Admin Dose 2,400 MG; Start 02/14/19 at 03:00; Stop 02/14/19 at 03:01; Status DC Furosemide (Lasix) 40 mg 1X ONCE IVP Last administered on 02/14/19at 04:15; Admin Dose 40 MG; Start 02/14/19 at 04:15; Stop 02/14/19 at 04:16; Status DC Ketorolac Tromethamine (Toradol 30mg Vial) 30 mg 1X ONCE IV Last administered on 02/14/19at 04:42; Admin Dose 30 MG; Start 02/14/19 at 04:15; Stop 02/14/19 at 04:16; Status DC Prochlorperazine Edisylate (Compazine) 10 mg 1X ONCE IM Last administered on 02/14/19at 05:02; Admin Dose 10 MG; Start 02/14/19 at 05:00; Stop 02/14/19 at 05:01; Status DC Diphenhydramine HCl (Benadryl) 50 mg 1X ONCE IM Last administered on 02/14/19at 04:53; Admin Dose 50 MG; Start 02/14/19 at 05:00; Stop 02/14/19 at 05:01; Status DC Active Scripts Active Reported Eliquis (Apixaban) 5 Mg Tab.ds.pk 5 PO BID Digoxin 125 Mcg Tablet 1 DAILY Atorvastatin Calcium 80 Mg Tablet 1 HS K-Tab (Potassium Chloride) 10 Meq Tablet.er 1 DAILY Metformin Hcl Er (Metformin Hcl) 500 Mg Tab.er.24h 1 DAILY Furosemide 40 Mg Tablet 1 DAILY Entresto 49 mg-51 mg Tablet (Sacubitril/Valsartan) 1 Each Tablet 1 Each PO BID Proair Hfa Inhaler (Albuterol Sulfate) 8.5 Gm Hfa.aer.ad 2 Puff INH PRN Q6HRS PRN NITROGLYCERIN SubLingual (Nitroglycerin) 0.4 Mg Tab.subl 0.4 Mg SL PRN Q5MIN PRN Humalog (Insulin Lispro) 100 Unit/1 Ml Vial 35 Unit SQ HS Nexium Capsule (Esomeprazole Magnesium) 40 Mg Capsule.dr 40 Mg PO DAILYAC Coreg (Carvedilol) 6.25 Mg Tablet 6.25 Mg PO BIDWMEALS Lantus (Insulin Glargine,Hum.rec.anlog) 100 Unit/1 Ml Vial 15 Unit SQ TIDWMEALS Aspirin 81 Mg Tab.chew 81 Mg PO DAILY Adalberto Disclaimer This chart was dictated in whole or in part using Voice Recognition software in a busy, high-work load, and often noisy Emergency Department environment. It may contain unintended and wholly unrecognized errors or omissions. LIBRA TRACEY MD Feb 14, 2019 02:44
[2019-02-14] MEDS ORDERED: IV RINGERS SOLUTION,LACTATED 1,000 ML IV SCH (03:00)
[2019-02-14] MEDS ORDERED: MAGNESIUM HYDROXIDE 2,400 MG/30 ML ORAL.SUSP. PO ONE (03:00)
[2019-02-14 03:40] LABS: ALBUMIN 3.3 g/dL (3.4-5.0); CREATININE 1.1 mg/dL (0.6-1.0); DIRECT BILIRUBIN 0.1 mg/dL (0.0-0.2); GFR 51.8; POTASSIUM 4.1 mmol/L (3.5-5.1); TOTAL BILIRUBIN 0.4 mg/dL (0.2-1.0); TOTAL PROTEIN 7.5 g/dL (6.4-8.2)
[2019-02-14 04:04] LABS: BASO # 0.1 x10^3/uL (0.0-0.2); BASO % 1 % (0-3); EOS # 0.1 x10^3/uL (0.0-0.7); EOS % 1 % (0-3); HEMATOCRIT 29.1 % (36.0-47.0); HEMOGLOBIN 8.6 g/dL (12.0-15.5); LYMPH # 2.6 x10^3/uL (1.0-4.8); LYMPH % 27 % (24-48); MEAN CORPUSCULAR HEMOGLOBIN 20 pg (25-35); MEAN CORPUSCULAR HGB CONC 30 g/dL (31-37); MEAN CORPUSCULAR VOLUME 66 fL (79-100); MONO # 0.8 x10^3/uL (0.0-1.1); MONO % 8 % (0-9); NEUT % 62 % (31-73); PLATELET COUNT 338 x10^3/uL (140-400); RED BLOOD COUNT 4.43 x10^6/uL (3.50-5.40); RED CELL DISTRIBUTION WIDTH 20.4 % (11.5-14.5); WHITE BLOOD COUNT 9.6 x10^3/uL (4.0-11.0)
[2019-02-14] MEDS ORDERED: FUROSEMIDE 40 MG/4 ML VIAL IVP ONE (04:15)
[2019-02-14] MEDS ORDERED: KETOROLAC 30 MG/ML VIAL. IV ONE (04:15)
[2019-02-14 04:35] LABS: HYPOCHROMIA MOD; MICROCYTOSIS MOD; PLT ESTIMATE ADEQUATE (ADEQUATE)
[2019-02-14 04:36] LABS: ANISOCYTOSIS SLIGHT
[2019-02-14] MEDS ORDERED: diphenhydrAMINE 50 MG/ML VIAL IM ONE (05:00)
[2019-02-14] MEDS ORDERED: PROCHLORPERAZINE 10 MG/2 ML VIAL. IM ONE (05:00)
[2019-02-14 05:29] LABS: BARBITURATES NEG (NEG); BENZODIAZEPINES NEG (NEG); CANNABINOIDS NEG (NEG); COCAINE NEG (NEG); METHADONE NEG (NEG); OPIATES NEG (NEG); PHENCYCLIDINE NEG (NEG)
[2019-02-14 05:30] LABS: AMPHETAMINE/METHAMPHETAMINE NEG (NEG)
[2019-02-14 05:31] LABS: BACTERIA,URINE FEW /HPF (0-FEW); BILIRUBIN,URINE NEG (NEG); CLARITY,URINE CLEAR; COLOR,URINE YELLOW; GLUCOSE,URINE 100 mg/dL (NEG); NITRITE,URINE NEG (NEG); RBC,URINE >40 /HPF (0-2); SQUAMOUS EPITHELIAL CELL,UR FEW /LPF; UROBILINOGEN,URINE 1 mg/dL (0.2 mg/dL)
--- NOTE | 2019-02-14 08:24 | RAD ---
EXAM: Chest, single view. HISTORY: Chest pain. COMPARISON: 02/06/2019 FINDINGS: A frontal view of the chest is obtained. There is mild interstitial prominence without kevin congestion. There is no consolidation, pleural effusion or pneumothorax. There is a stable prominent cardiac silhouette. There are cardiac pacemaker defibrillator leads. IMPRESSION: 1. Stable mild diffuse interstitial prominence without kevin congestion. 2. Stable prominent cardiac silhouette. Electronically signed by: Mildred Edmond MD (02/14/2019 8:21 AM) [id number]
[2019-02-16 03:19] VITALS: BP 110/72
== END 2019-02-14 05:25 | disposition home or self-care (01) ==
LOC: ER 02:36
DX: R07.89 Other chest pain (principal); M25.512 Pain in left shoulder; G89.29 Other chronic pain; M54.6 Pain in thoracic spine; K59.00 Constipation, unspecified; N28.9 Disorder of kidney and ureter, unspecified; E66.01 Morbid (severe) obesity due to excess calories; I10 Essential (primary) hypertension; D50.9 Iron deficiency anemia, unspecified; E11.9 Type 2 diabetes mellitus without complications; I11.0 Hypertensive heart disease with heart failure; I50.42 Chronic combined systolic (congestive) and diastolic (congestive) heart failure; H91.90 Unspecified hearing loss, unspecified ear; M19.90 Unspecified osteoarthritis, unspecified site; K21.9 Gastro-esophageal reflux disease without esophagitis; E78.00 Pure hypercholesterolemia, unspecified; Z87.442 Personal history of urinary calculi; Z87.440 Personal history of urinary (tract) infections; Z95.0 Presence of cardiac pacemaker; Z91.19 Patient's noncompliance with other medical treatment and regimen; Z86.73 Personal history of transient ischemic attack (TIA), and cerebral infarction without residual deficits; Z68.44 Body mass index [BMI] 60.0-69.9, adult
CPT/HCPCS: 36415; 71045; 80048; 80076; 80307; 81001; 82550; 83690; 83735; 83880; 84484; 85025; 85379; 85610; 85730; 87086; 93005; 96372; 96374; 96375; 99285; J0780; J1200; J1885; J1940; J7120

== ENCOUNTER 2019-02-23 23:12 | Emergency (ER) | payer OTHER ==
[~2019-02-23] VITALS: Ht 154.9 cm; Wt 153.8 kg
--- NOTE | 2019-02-23 23:19 | ED.ADGEN ---
Past History Past Medical History: Anemia, Angina, Anxiety, Arthritis, CHF, Constipation, Diabetes, GERD, High Cholesterol, Heart Disease, Hypertension, Kidney Infection, Kidney Stones, Renal Disease, UTI, Other Additional Past Medical Histor: cardiomegaly Past Surgical History: No Surgical History, Pacemaker, Other Additional Past Surgical Histo: pacemaker Smoking: Non-smoker Alcohol Use: None Drug Use: None Adult General Chief Complaint Chief Complaint ".. I don't think my insulin is working right.. I took my blood sugar before dinner and it was 203.. then I ate a hamburger with lettuce... and I rechecked my glucose 2 hours afterwards.. and it was 225.. so I called the ambulance.. because when I sugars go up... I pee and pee..and pee... and then I get dizzy... ".. I get dehydrated.. if I pee too much..." HPI HPI Patient is a 53 year old female who presents with complaints of hyperglycemia, frequent urination and dizziness. Patient denies any changes in her meds. Patient denies any travel. Patient denies any specific ill contacts. Patient was recently seen in the emergency department for these type problems. Patient was seen on 12/17, 11/27, 11/28, 11/07, 10/24 Patient normally follows with [facility] primary care. Patient has history of multiple medical conditions consisting of anemia, angina, anxiety, arthritis, CHF, chronic constipation, diabetes, GERD, elevated cholesterol, coronary artery disease, hypertension, UTIs, kidney stones, renal insufficiency, morbid obesity, very hard of hearing, and deconditioning. Review of Systems Review of Systems Constitutional: Denies fever or chills [] Eyes: Denies change in visual acuity, redness, or eye pain [] HENT: Denies nasal congestion or sore throat [] Respiratory: Denies cough or shortness of breath [] Cardiovascular: No additional information not addressed in HPI [] GI: Denies abdominal pain, nausea, vomiting, bloody stools or diarrhea [] : Complaints frequent urination Musculoskeletal: Denies back pain or joint pain [] Integument: Denies rash or skin lesions [] Neurologic: Denies headache, focal weakness or sensory changes []dizzy Endocrine: Denies polyuria or polydipsia [] All other systems were reviewed and found to be within normal limits, except as documented in this note. Family History Family History Non contributory Current Medications Current Medications Current Medications Medications (Trade) Dose Ordered Sig/Christina Start Time Stop Time Status Last Admin Dose Admin Sodium Chloride 1,000 ml @ 1,000 mls/hr Q1H 02/23/19 23:30 02/24/19 00:29 DC 02/24/19 00:24 1,000 MLS/HR Allergies Allergies Allergies Coded Allergies Type Severity Reaction Last Updated Verified No Known Drug Allergies 02/06/19 No Physical Exam Physical Exam Constitutional: no acute distress, non-toxic appearance. [] HENT: Normocephalic, atraumatic, bilateral external ears normal, oropharynx moist, no oral exudates, nose normal. []Very hard of hearing. E dentures. Eyes: PERRLA, EOMI, conjunctiva normal, no discharge. [] Neck: Normal range of motion, no tenderness, supple, no stridor. [] More than 17 inches circumference Cardiovascular:Heart rate regular rhythm, no murmur [] Lungs & Thorax: Bilateral breath sounds equal apexes with basilar crackles bilateral auscultation [] Abdomen: Bowel sounds normal, soft, no tenderness, no masses, no pulsatile masses. [] Morbid obesity. Skin: Warm, dry, areas of skin that she's picked at Back: No tenderness, no CVA tenderness. [] Extremities: No tenderness, no cyanosis, no clubbing, ROM intact, bilateral leg edema. [] Neurologic: Alert and oriented X 3, normal extremities on request. Does have some distal sensory function. DTRs +2 patella and brachial. Psychologic: Affect anxious ,judgement limited insight to her medical condition,, mood normal. [] Current Patient Data Lab Results Laboratory Tests Test 02/24/19 00:05 02/24/19 00:34 White Blood Count 8.7 x10^3/uL (4.0-11.0) Red Blood Count 4.13 x10^6/uL (3.50-5.40) Hemoglobin 8.0 g/dL (12.0-15.5) L Hematocrit 27.0 % (36.0-47.0) L Mean Corpuscular Volume 65 fL (79-100) L Mean Corpuscular Hemoglobin 20 pg (25-35) L Mean Corpuscular Hemoglobin Concent 30 g/dL (31-37) L Red Cell Distribution Width 20.7 % (11.5-14.5) H Platelet Count 360 x10^3/uL (140-400) Neutrophils (%) (Auto) 63 % (31-73) Lymphocytes (%) (Auto) 27 % (24-48) Monocytes (%) (Auto) 8 % (0-9) Eosinophils (%) (Auto) 2 % (0-3) Basophils (%) (Auto) 1 % (0-3) Neutrophils # (Auto) 5.4 x10^3uL (1.8-7.7) Lymphocytes # (Auto) 2.3 x10^3/uL (1.0-4.8) Monocytes # (Auto) 0.7 x10^3/uL (0.0-1.1) Eosinophils # (Auto) 0.1 x10^3/uL (0.0-0.7) Basophils # (Auto) 0.1 x10^3/uL (0.0-0.2) Platelet Estimate Adequate (ADEQUATE) Hypochromasia Mod Anisocytosis Slight Microcytosis Slight Prothrombin Time 11.4 SEC (9.4-11.4) Prothrombin Time INR 1.1 (0.9-1.1) Activated Partial Thromboplast Time 26 SEC (23-33) D-Dimer (Maria Alejandra) 0.28 mg/L (0.00-0.50) Sodium Level 139 mmol/L (136-145) Potassium Level 4.4 mmol/L (3.5-5.1) Chloride Level 105 mmol/L (98-107) Carbon Dioxide Level 27 mmol/L (21-32) Anion Gap 7 (6-14) Blood Urea Nitrogen 21 mg/dL (7-20) H Creatinine 1.1 mg/dL (0.6-1.0) H Estimated GFR (Cockcroft-Gault) 51.8 Glucose Level 233 mg/dL (70-99) H Calcium Level 8.7 mg/dL (8.5-10.1) Magnesium Level 1.9 mg/dL (1.8-2.4) Total Bilirubin 0.4 mg/dL (0.2-1.0) Direct Bilirubin 0.1 mg/dL (0.0-0.2) Aspartate Amino Transferase (AST) 11 U/L (15-37) L Alanine Aminotransferase (ALT) 23 U/L (14-59) Alkaline Phosphatase 99 U/L (46-116) Creatine Kinase 60 U/L (26-192) Troponin I Quantitative < 0.017 ng/mL (0-0.055) OH-Tbf-W-Type Natriuretic Peptide 1105 pg/mL (0-124) H Total Protein 7.1 g/dL (6.4-8.2) Albumin 3.1 g/dL (3.4-5.0) L Lipase 272 U/L (73-393) Urine Collection Type Unknown Urine Color Yellow Urine Clarity Hazy Urine pH 5.5 Urine Specific [place] 1.020 Urine Protein 100 mg/dl (NEG-TRACE) Urine Glucose (UA) Neg mg/dL (NEG) Urine Ketones (Stick) Neg mg/dL (NEG) Urine Blood Large (NEG) Urine Nitrite Neg (NEG) Urine Bilirubin Neg (NEG) Urine Urobilinogen Dipstick 2 mg/dL (0.2 mg/dL) Urine Leukocyte Esterase Trace (NEG) Urine RBC >40 /HPF (0-2) Urine WBC Occ /HPF (0-4) Urine Squamous Epithelial Cells Mod /LPF Urine Bacteria Few /HPF (0-FEW) Urine Opiates Screen Neg (NEG) Urine Methadone Screen Neg (NEG) Urine Barbiturates Neg (NEG) Urine Phencyclidine Screen Neg (NEG) Urine Amphetamine/Methamphetamine Neg (NEG) Urine Benzodiazepines Screen Neg (NEG) Urine Cocaine Screen Neg (NEG) Urine Cannabinoids Screen Neg (NEG) Urine Ethyl Alcohol Neg (NEG) EKG EKG My interpretation of EKG shows a sinus rhythm at 70 bpm. Appears to be junctional rhythm and normal QRS with RVH right axis deviation.[] Radiology/Procedures Radiology/Procedures [address] [address] IMAGING REPORT Signed PATIENT: DARELL CORONADO LACCOUNT: [id number] : 1965 LOCATION: ER AGE: 53 SEX: F EXAM STATUS: PRE ER ORD. PHYSICIAN: LIBRA TRACEY MD REASON: Dizziness, weakness, short of air PROCEDURE: PORTABLE CHEST 1V Exam: Chest one view INDICATION: Dizziness TECHNIQUE: Frontal view of the chest Comparisons: 02/14/2019 FINDINGS: AICD with leads terminating in the right atrium and ventricle. Heart is enlarged. Pulmonary vessels are within normal limits. The lung and pleural spaces are clear. IMPRESSION: AICD with cardiomegaly. No acute pulmonary process. Electronically signed by: José Miguel Shah MD (02/23/2019 11:41 PM) [facility] DICTATED AND SIGNED BY: JOSÉ MIGUEL SHAH MD DATE: 02/23/192340 CC: LIBRA TRACEY MD; EULOGIO KISER ~ [][address] [address] IMAGING REPORT Signed PATIENT: DARELL CORONADO LACCOUNT: [id number] : 1965 LOCATION: ER AGE: 53 SEX: F EXAM STATUS: PRE ER ORD. PHYSICIAN: LIBRA TRACEY MD REASON: Dizziness, weakness, short of air PROCEDURE: PORTABLE CHEST 1V Exam: Chest one view INDICATION: Dizziness TECHNIQUE: Frontal view of the chest Comparisons: 02/14/2019 FINDINGS: AICD with leads terminating in the right atrium and ventricle. Heart is enlarged. Pulmonary vessels are within normal limits. The lung and pleural spaces are clear. IMPRESSION: AICD with cardiomegaly. No acute pulmonary process. Electronically signed by: José Miguel Shah MD (02/23/2019 11:41 PM) [facility] DICTATED AND SIGNED BY: JOSÉ MIGUEL SAHH MD DATE: 02/23/192340 CC: LIBRA TRACEY MD; EULOGIO KISER ~ Course & Med Decision Making Course & Med Decision Making Pertinent Labs and Imaging studies reviewed. (See chart for details) Pt. to keep follow up with [facility]. Pt. to regulate her intake calories and take meds as directed. Patient to keep records of her glucose levels. Patient push fluids. Patient return of any concerns. Pt. to review labs and X-rays with Dr. Kiser. Must follow up. [] Final Impression Final Impression 1. Hyperglycemia 2. Dizzy[]- Dehydration 3. Hypertension 4. Elevated creatinine and BUN 1.08/02 5. Anemia - microcytic hypochromic- hemoglobin 8.0 6. Elevated BNP 1105 Dragon Disclaimer Dragon Disclaimer This electronic medical record was generated, in whole or in part, using a voice recognition dictation system. Dragon Disclaimer This chart was dictated in whole or in part using Voice Recognition software in a busy, high-work load, and often noisy Emergency Department environment. It may contain unintended and wholly unrecognized errors or omissions. LIBRA TRACEY MD Feb 23, 2019 23:19
[2019-02-23] MEDS ORDERED: IV NORMAL SALINE 1,000ML 1,000 ML IV SCH (23:30)
--- NOTE | 2019-02-23 23:44 | RAD ---
Exam: Chest one view INDICATION: Dizziness TECHNIQUE: Frontal view of the chest Comparisons: 02/14/2019 FINDINGS: AICD with leads terminating in the right atrium and ventricle. Heart is enlarged. Pulmonary vessels are within normal limits. The lung and pleural spaces are clear. IMPRESSION: AICD with cardiomegaly. No acute pulmonary process. Electronically signed by: José Miguel Tucker MD (02/23/2019 11:41 PM) [facility]
[2019-02-24 00:48] LABS: ALBUMIN 3.1 g/dL (3.4-5.0); CALCIUM 8.7 mg/dL (8.5-10.1); CREATININE 1.1 mg/dL (0.6-1.0); DIRECT BILIRUBIN 0.1 mg/dL (0.0-0.2); GFR 51.8; MAGNESIUM 1.9 mg/dL (1.8-2.4); POTASSIUM 4.4 mmol/L (3.5-5.1); TOTAL BILIRUBIN 0.4 mg/dL (0.2-1.0); TOTAL PROTEIN 7.1 g/dL (6.4-8.2)
[2019-02-24 00:59] LABS: BASO # 0.1 x10^3/uL (0.0-0.2); BASO % 1 % (0-3); EOS # 0.1 x10^3/uL (0.0-0.7); EOS % 2 % (0-3); LYMPH # 2.3 x10^3/uL (1.0-4.8); LYMPH % 27 % (24-48); MEAN CORPUSCULAR HEMOGLOBIN 20 pg (25-35); MEAN CORPUSCULAR HGB CONC 30 g/dL (31-37); MEAN CORPUSCULAR VOLUME 65 fL (79-100); MONO # 0.7 x10^3/uL (0.0-1.1); MONO % 8 % (0-9); NEUT # 5.4 x10^3uL (1.8-7.7); NEUT % 63 % (31-73); PLATELET COUNT 360 x10^3/uL (140-400); RED BLOOD COUNT 4.13 x10^6/uL (3.50-5.40); RED CELL DISTRIBUTION WIDTH 20.7 % (11.5-14.5); WHITE BLOOD COUNT 8.7 x10^3/uL (4.0-11.0)
[2019-02-24 01:04] LABS: ANISOCYTOSIS SLIGHT; HYPOCHROMIA MOD; MICROCYTOSIS SLIGHT; PLT ESTIMATE ADEQUATE (ADEQUATE)
[2019-02-24 01:06] LABS: BARBITURATES NEG (NEG); BENZODIAZEPINES NEG (NEG); CANNABINOIDS NEG (NEG); COCAINE NEG (NEG); METHADONE NEG (NEG); OPIATES NEG (NEG); PHENCYCLIDINE NEG (NEG)
[2019-02-24 01:09] LABS: BILIRUBIN,URINE NEG (NEG); CLARITY,URINE HAZY; COLOR,URINE YELLOW; GLUCOSE,URINE NEG (NEG)
[2019-02-24 01:10] LABS: BACTERIA,URINE FEW /HPF (0-FEW); NITRITE,URINE NEG (NEG); RBC,URINE >40 /HPF (0-2); SQUAMOUS EPITHELIAL CELL,UR MOD /LPF; UROBILINOGEN,URINE 2 mg/dL (0.2 mg/dL); WBC,URINE OCC /HPF (0-4)
[2019-02-24 01:12] LABS: AMPHETAMINE/METHAMPHETAMINE NEG (NEG)
--- NOTE | 2019-02-24 06:38 | EKG ---
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
[2019-02-24 13:03] LABS: THYROID STIM HORMONE (TSH) 1.252 uIU/mL (0.358-3.740)
[2019-02-24 23:06] LABS: HEMOGLOBIN A1C 9.3 % (4.8-5.6)
[2019-02-25 00:59] VITALS: BP 96/49
[2019-02-25] MEDS ORDERED: METO200T46 PO (01:31)
[2019-02-25] MEDS ORDERED: GUAI12003 PO (01:31)
[2019-02-25] MEDS ORDERED: FLUT1DIS IH (01:31)
[2019-02-25] MEDS ORDERED: LORA10TA55 PO (01:31)
[2019-02-26] MEDS ORDERED: INSU100I13 SQ (10:42)
[2019-02-26] MEDS ORDERED: INSU100C SQ (10:43)
== END 2019-02-24 04:00 | disposition home or self-care (01) ==
LOC: ER 23:12
DX: E11.65 Type 2 diabetes mellitus with hyperglycemia (principal); E86.0 Dehydration; I11.0 Hypertensive heart disease with heart failure; I50.9 Heart failure, unspecified; D50.9 Iron deficiency anemia, unspecified; R79.89 Other specified abnormal findings of blood chemistry; M19.90 Unspecified osteoarthritis, unspecified site; K21.9 Gastro-esophageal reflux disease without esophagitis; E78.00 Pure hypercholesterolemia, unspecified; Z86.2 Personal history of diseases of the blood and blood-forming organs and certain disorders involving the immune mechanism; Z87.442 Personal history of urinary calculi; Z87.440 Personal history of urinary (tract) infections; Z95.0 Presence of cardiac pacemaker
CPT/HCPCS: 36415; 71045; 80048; 80061; 80076; 80307; 81001; 82550; 82947; 83036; 83690; 83735; 83880; 84443; 84484; 85025; 85379; 85610; 85730; 87086; 93005; 96360; 99285-25; J7030

== ENCOUNTER 2019-02-24 17:16 | Observation (INO) | payer OTHER ==
[~2019-02-24] VITALS: Ht 154.9 cm; Wt 157.6 kg
--- NOTE | 2019-02-24 17:40 | ED.ADGEN ---
Past History Past Medical History: Anemia, Angina, Anxiety, Arthritis, CHF, Constipation, Diabetes, GERD, High Cholesterol, Heart Disease, Hypertension, Kidney Infection, Kidney Stones, Renal Disease, UTI, Other Additional Past Medical Histor: cardiomegaly Past Surgical History: No Surgical History, Pacemaker, Other Additional Past Surgical Histo: pacemaker Smoking: Non-smoker Alcohol Use: None Drug Use: None Adult General Chief Complaint Chief Complaint ".. It felt like my sugar was too low... I ate two servings of chicken,,... and drank some tea... but I felt like my sugar as too low... I checked it and it was 156....but when paramedics checked it... it was over 200....I just feel tired and dizzy....." HPI HPI Patient is a 53 year old female who presents with above hx and complaints dizzy, feeling like glucose is too low. Patient is clutching her baby doll for comfort .Pt. discharged from the ED this morning.. Pt. states she had no change in her diet or meds. Patient has had numerous visits to emergency department has had 8 ED visits since December. Most of ED visits involved diabetes complaints. Patient always very anxious and concerned about elevated glucose levels. Patient reports compliance with her meds but diet has been intermittent. Patient normally follows with Dr. Cavanaugh. Patient has multiple medical issues in a history of congestive heart failure, diabetes, essential hypertension, morbid obesity, chronic bronchitis, chronic diastolic and systolic heart failure. Patient extremely hard of hearing and ED visits are somewhat difficult because of her refusal wear hearing aids. Patient has been in the emergency department twice in last in 8 hours. Patient does appear to have some intellectual development issues. Review of Systems Review of Systems Constitutional: Denies fever or chills [] Eyes: Denies change in visual acuity, redness, or eye pain [] HENT: Denies nasal congestion or sore throat [] Respiratory: Denies cough or shortness of breath [] Cardiovascular: No additional information not addressed in HPI [] GI: Denies abdominal pain, , vomiting, bloody stools or diarrhea []complains of nausea : Denies dysuria or hematuria [] Musculoskeletal: Denies back pain or joint pain [] Integument: Denies rash or skin lesions [] Neurologic: Denies headache, focal weakness or sensory changes [] Endocrine: Complaints of polyuria or polydipsia [] All other systems were reviewed and found to be within normal limits, except as documented in this note. Family History Family History Diabetes and hypertension Current Medications Current Medications Current Medications Medications (Trade) Dose Ordered Sig/Christina Start Time Stop Time Status Last Admin Dose Admin Aspirin (Children'S Aspirin) 81 mg 1X ONCE 02/24/19 18:00 02/24/19 18:01 DC 02/24/19 18:40 81 MG Enoxaparin Sodium (Lovenox 150mg Syringe) 150 mg Q12HR 02/24/19 21:00 02/24/19 23:44 150 MG Lactated Ringer's 1,000 ml @ 1,000 mls/hr Q1H 02/24/19 18:00 02/24/19 18:59 DC 02/24/19 18:40 1,000 MLS/HR Ondansetron HCl (Zofran) 4 mg PRN Q4HRS PRN 02/24/19 20:45 02/25/19 20:44 Sodium Chloride 1,000 ml @ 1,000 mls/hr 1X ONCE 02/24/19 20:30 02/24/19 21:29 DC 02/24/19 20:30 1,000 MLS/HR See nursing for home meds Allergies Allergies Allergies Coded Allergies Type Severity Reaction Last Updated Verified No Known Drug Allergies 02/06/19 No Physical Exam Physical Exam Constitutional: Mild to moderate distress, non-toxic appearance. [] HENT: Normocephalic, atraumatic, bilateral external ears normal, oropharynx moist, no oral exudates, nose normal. []Very hard of hearing Eyes: PERRLA, EOMI, conjunctiva normal, no discharge. [] Neck: Normal range of motion, no tenderness, supple, no stridor. [] Cardiovascular:Heart rate regular rhythm, no murmur []PMI to the left. Lungs & Thorax: Bilateral breath sounds equal at apex on auscultation []pacer defibrillator scar left. Basilar crackles Abdomen: Bowel sounds normal, soft, no tenderness, no masses, no pulsatile masses. [] Morbidly obese Skin: Warm, dry, no erythema, no rash. [] Back: No tenderness, no CVA tenderness. [] Extremities: No tenderness, no cyanosis, no clubbing, ROM intact, lower leg edema. [] Arthritic Neurologic: Alert and oriented X 3, moves extremities on request, does have distal sensory, no no gross focal deficits noted. [] Psychologic: Affect anxious, judgement limited insight, mood normal. [] Current Patient Data Vital Signs Vital Signs Date Time Temp Pulse Resp B/P (MAP) Pulse Ox O2 Delivery O2 Flow Rate FiO2 02/24/19 19:21 86 18 127/65 (85) 94 Room Air 02/24/19 17:23 98.3 Lab Results Laboratory Tests Test 02/24/19 18:21 02/24/19 19:31 White Blood Count 9.2 x10^3/uL (4.0-11.0) Red Blood Count 4.33 x10^6/uL (3.50-5.40) Hemoglobin 8.3 g/dL (12.0-15.5) L Hematocrit 28.1 % (36.0-47.0) L Mean Corpuscular Volume 65 fL (79-100) L Mean Corpuscular Hemoglobin 19 pg (25-35) L Mean Corpuscular Hemoglobin Concent 29 g/dL (31-37) L Red Cell Distribution Width 20.7 % (11.5-14.5) H Platelet Count 362 x10^3/uL (140-400) Neutrophils (%) (Auto) 65 % (31-73) Lymphocytes (%) (Auto) 25 % (24-48) Monocytes (%) (Auto) 7 % (0-9) Eosinophils (%) (Auto) 2 % (0-3) Basophils (%) (Auto) 1 % (0-3) Neutrophils # (Auto) 6.0 x10^3uL (1.8-7.7) Lymphocytes # (Auto) 2.3 x10^3/uL (1.0-4.8) Monocytes # (Auto) 0.6 x10^3/uL (0.0-1.1) Eosinophils # (Auto) 0.1 x10^3/uL (0.0-0.7) Basophils # (Auto) 0.1 x10^3/uL (0.0-0.2) Prothrombin Time 11.0 SEC (9.4-11.4) Prothrombin Time INR 1.1 (0.9-1.1) Activated Partial Thromboplast Time 25 SEC (23-33) D-Dimer (Maria Alejandra) 0.38 mg/L (0.00-0.50) Sodium Level 140 mmol/L (136-145) Potassium Level 4.0 mmol/L (3.5-5.1) Chloride Level 106 mmol/L (98-107) Carbon Dioxide Level 27 mmol/L (21-32) Anion Gap 7 (6-14) Blood Urea Nitrogen 19 mg/dL (7-20) Creatinine 1.1 mg/dL (0.6-1.0) H Estimated GFR (Cockcroft-Gault) 51.8 Glucose Level 164 mg/dL (70-99) H Calcium Level 8.7 mg/dL (8.5-10.1) Magnesium Level 1.8 mg/dL (1.8-2.4) Total Bilirubin 0.2 mg/dL (0.2-1.0) Direct Bilirubin 0.1 mg/dL (0.0-0.2) Aspartate Amino Transferase (AST) 12 U/L (15-37) L Alanine Aminotransferase (ALT) 21 U/L (14-59) Alkaline Phosphatase 94 U/L (46-116) Creatine Kinase 70 U/L (26-192) Troponin I Quantitative < 0.017 ng/mL (0-0.055) QD-Gfj-A-Type Natriuretic Peptide 1428 pg/mL (0-124) H Total Protein 7.0 g/dL (6.4-8.2) Albumin 3.1 g/dL (3.4-5.0) L Lipase 204 U/L (73-393) Urine Collection Type Unknown Urine Color Yellow Urine Clarity Hazy Urine pH 5.5 Urine Specific [place] 1.020 Urine Protein 100 mg/dl (NEG-TRACE) Urine Glucose (UA) Neg mg/dL (NEG) Urine Ketones (Stick) Neg mg/dL (NEG) Urine Blood Large (NEG) Urine Nitrite Neg (NEG) Urine Bilirubin Neg (NEG) Urine Urobilinogen Dipstick 1 mg/dL (0.2 mg/dL) Urine Leukocyte Esterase Trace (NEG) Urine RBC Tntc /HPF (0-2) Urine WBC 5-10 /HPF (0-4) Urine Squamous Epithelial Cells Occ /LPF Urine Bacteria 0 /HPF (0-FEW) Urine Mucus Mod /LPF Urine Opiates Screen Neg (NEG) Urine Methadone Screen Neg (NEG) Urine Barbiturates Neg (NEG) Urine Phencyclidine Screen Neg (NEG) Urine Amphetamine/Methamphetamine Neg (NEG) Urine Benzodiazepines Screen Neg (NEG) Urine Cocaine Screen Neg (NEG) Urine Cannabinoids Screen Neg (NEG) Urine Ethyl Alcohol Neg (NEG) EKG EKG My interpretation EKG shows a rhythm that appears to be paced. No P waves found. Ventricular conduction. Current rate 70 bpm[] Radiology/Procedures Radiology/Procedures My interpretation of chest x-ray shows cardiomegaly with no acute interval chet nge. Some increased cephalization consistent with CHF[] Course & Med Decision Making Course & Med Decision Making Pertinent Labs and Imaging studies reviewed. (See chart for details) Patient to be admitted to Dr. Guevara for further evaluation. Social service consult, see if she can get some home nursing visits to help with glucose control and reduce the number of ED and Hospital Admits. [] Final Impression Final Impression 1. Hyperglycemia- DM 2. Anemia Hgb 8.0 this Am, now 8.3 3. Weakness 4. Anxiety 5. Elevated Creat. 1.1 6. CHF BNP 1428 7. Anemia hgb 8.3 8. Malnutrition Abl. 3.1 9. Morbid Obesity 10.Very Hard of Hearing- does not wear hearing aids 11. Frequent ED usage- 12. Intellectual disability Dragon Disclaimer Dragon Disclaimer This electronic medical record was generated, in whole or in part, using a voice recognition dictation system. Dragon Disclaimer This chart was dictated in whole or in part using Voice Recognition software in a busy, high-work load, and often noisy Emergency Department environment. It may contain unintended and wholly unrecognized errors or omissions. LIBRA TRACEY MD Feb 24, 2019 17:40
[2019-02-24] MEDS ORDERED: IV RINGERS SOLUTION,LACTATED 1,000 ML IV SCH (18:00)
[2019-02-24] MEDS ORDERED: ASPIRIN 81 MG TAB.CHEW PO ONE (18:00)
--- NOTE | 2019-02-24 18:04 | EKG ---
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
[2019-02-24 18:57] LABS: BASO # 0.1 x10^3/uL (0.0-0.2); BASO % 1 % (0-3); EOS # 0.1 x10^3/uL (0.0-0.7); EOS % 2 % (0-3); HEMATOCRIT 28.1 % (36.0-47.0); HEMOGLOBIN 8.3 g/dL (12.0-15.5); LYMPH # 2.3 x10^3/uL (1.0-4.8); LYMPH % 25 % (24-48); MEAN CORPUSCULAR HEMOGLOBIN 19 pg (25-35); MEAN CORPUSCULAR HGB CONC 29 g/dL (31-37); MEAN CORPUSCULAR VOLUME 65 fL (79-100); MONO # 0.6 x10^3/uL (0.0-1.1); MONO % 7 % (0-9); NEUT % 65 % (31-73); PLATELET COUNT 362 x10^3/uL (140-400); RED BLOOD COUNT 4.33 x10^6/uL (3.50-5.40); RED CELL DISTRIBUTION WIDTH 20.7 % (11.5-14.5); WHITE BLOOD COUNT 9.2 x10^3/uL (4.0-11.0)
--- NOTE | 2019-02-24 19:01 | RAD ---
Exam: Chest one view INDICATION: Dyspnea TECHNIQUE: Frontal view of the chest Comparisons: 02/23/2019 FINDINGS: AICD with lead terminating in the right ventricle. Heart is enlarged. Pulmonary vessels are within normal limits. The lung and pleural spaces are clear. IMPRESSION: Cardiomegaly and AICD without acute pulmonary process. Electronically signed by: José Miguel Tucker MD (02/24/2019 6:58 PM) [facility]
[2019-02-24 19:15] LABS: ALBUMIN 3.1 g/dL (3.4-5.0); CALCIUM 8.7 mg/dL (8.5-10.1); CREATININE 1.1 mg/dL (0.6-1.0); DIRECT BILIRUBIN 0.1 mg/dL (0.0-0.2); GFR 51.8; MAGNESIUM 1.8 mg/dL (1.8-2.4); TOTAL BILIRUBIN 0.2 mg/dL (0.2-1.0)
[2019-02-24 19:57] LABS: BARBITURATES NEG (NEG); BENZODIAZEPINES NEG (NEG); CANNABINOIDS NEG (NEG); COCAINE NEG (NEG); METHADONE NEG (NEG); OPIATES NEG (NEG); PHENCYCLIDINE NEG (NEG)
[2019-02-24 20:03] LABS: AMPHETAMINE/METHAMPHETAMINE NEG (NEG)
[2019-02-24 20:26] LABS: BACTERIA,URINE 0 /HPF (0-FEW); BILIRUBIN,URINE NEG (NEG); CLARITY,URINE HAZY; COLOR,URINE YELLOW; GLUCOSE,URINE NEG (NEG); NITRITE,URINE NEG (NEG); RBC,URINE TNTC /HPF (0-2); SQUAMOUS EPITHELIAL CELL,UR OCC /LPF; UROBILINOGEN,URINE 1 mg/dL (0.2 mg/dL)
[2019-02-24] MEDS ORDERED: IV NORMAL SALINE 1,000ML 1,000 ML IV ONE (20:30)
[2019-02-24] MEDS ORDERED: ONDANSETRON PF 4 MG/2 ML VIAL. IV PRN (20:45)
[2019-02-24] MEDS: ENOXAPARIN ** NOTE DOSE ** SYRINGE SQ SCH (21:00)
[2019-02-24 22:36] VITALS: BP 117/73
[2019-02-25 00:59] VITALS: BP 96/49
[2019-02-25] MEDS ORDERED: GUAI12003 PO (01:31)
[2019-02-25] MEDS ORDERED: LORA10TA55 PO (01:31)
[2019-02-25] MEDS ORDERED: FLUT1DIS IH (01:31)
[2019-02-25] MEDS ORDERED: METO200T46 PO (01:31)
[2019-02-25 05:44] VITALS: BP 119/80
[2019-02-25 06:25] LABS: BASO # 0.1 x10^3/uL (0.0-0.2); BASO % 1 % (0-3); EOS # 0.1 x10^3/uL (0.0-0.7); EOS % 2 % (0-3); HEMOGLOBIN 7.8 g/dL (12.0-15.5); LYMPH # 2.6 x10^3/uL (1.0-4.8); LYMPH % 33 % (24-48); MEAN CORPUSCULAR HEMOGLOBIN 19 pg (25-35); MEAN CORPUSCULAR HGB CONC 29 g/dL (31-37); MEAN CORPUSCULAR VOLUME 66 fL (79-100); MONO # 0.5 x10^3/uL (0.0-1.1); MONO % 7 % (0-9); NEUT # 4.6 x10^3uL (1.8-7.7); NEUT % 58 % (31-73); PLATELET COUNT 346 x10^3/uL (140-400); RED BLOOD COUNT 4.06 x10^6/uL (3.50-5.40); RED CELL DISTRIBUTION WIDTH 21.1 % (11.5-14.5); WHITE BLOOD COUNT 7.9 x10^3/uL (4.0-11.0)
[2019-02-25 06:40] LABS: CALCIUM 8.7 mg/dL (8.5-10.1); GFR 57.8
[2019-02-25 07:27] LABS: ACANTHOCYTES OCC; ANISOCYTOSIS SLIGHT; HYPOCHROMIA MOD; MICROCYTOSIS MOD; OVALOCYTES PRESENT; PLT ESTIMATE ADEQUATE (ADEQUATE); POIKILOCYTOSIS PRESENT; POLYCHROMASIA PRESENT; SCHISTOCYTES OCC
[2019-02-25] MEDS: IPRATRPIUM/ALBUTEROL 0.5/2.5MG 3 ML NEBU. NEB SCH ×4 (08:00→21:32)
[2019-02-25] MEDS ORDERED: FUROSEMIDE 40 MG TABLET PO SCH (09:00)
[2019-02-25] MEDS: ENOXAPARIN ** NOTE DOSE ** SYRINGE SQ SCH (09:26)
[2019-02-25 10:57] VITALS: BP 110/71
--- NOTE | 2019-02-25 14:32 | HP ---
ADMIT DATE: 02/24/2019 HISTORY OF PRESENT ILLNESS: The patient is a 53-year-old female who presents with a complaint of being tired, dizzy, feeling like glucose is too low; however, when she checked her blood sugar at home, it was 156 mg/dL. When paramedics checked, it was 200. She was clutching her baby doll for comfort. The patient was discharged from the Emergency Department yesterday morning and she stated that she had no change in her diet or medication. The patient had numerous visits to the Emergency Department and had 8 Emergency Department visits since December. Most of the ED visits involved diabetes complaint. She is always very anxious and concerned about elevated glucose level. She reported compliance with her medication. She normally follows with Dr. Rico. She was evaluated in the Emergency Room extensively and was basically admitted with weakness, anxiety and hyperglycemia. PAST MEDICAL HISTORY: Significant for severe nonischemic cardiomyopathy. She apparently has normal coronaries by catheterization in 2017. She has nonischemic cardiomyopathy with resultant chronic systolic congestive heart failure. She apparently had an AICD placed at [facility]. She is also known to have atrial fibrillation for which she is on Eliquis; hypertension, hypertensive heart disease, chronic kidney disease stage 2, hyperlipidemia, microcytic hypochromic anemia as well as type 2 diabetes. She also has stone in her left ureter for which she has a ureteral stent placed at [facility]. PAST SURGICAL HISTORY: Significant for hernia repair, left heart catheterization and placement of automated implantable cardioverter defibrillator. FAMILY HISTORY: She has also cystoscopy and ureteral stent placement done at [facility]. SOCIAL HISTORY: She lives with her roommate and daughter. She apparently does not smoke, drink alcohol or use any recreational drugs. FAMILY HISTORY: Unremarkable. ALLERGIES: She has no known drug allergies. MEDICATIONS: She is currently on following medications: She is on loratadine 10 mg daily, albuterol sulfate 2 puffs every 6 hours as needed, apixaban 5 mg twice a day, digoxin 125 mcg daily, atorvastatin calcium 80 mg at bedtime. She is on nitroglycerin 0.4 mg sublingually every 5 minutes x 3, metoprolol succinate 100 mg extended release once a day. She is on Entresto 49/51 tablet twice a day, aspirin 81 mg once a day, potassium chloride 10 mEq once a day, furosemide 40 mg once a day. She is on Advair Diskus 100/50 one puff twice a day, Mucinex 1200 mg at bedtime. She is on Nexium capsule 40 mg daily, metformin extended release 500 mg once a day. She is on Lantus 35 units at bedtime. She is on Humalog insulin 15 units 3 times a day before meals. PHYSICAL EXAMINATION: GENERAL: On arrival to the Emergency Room, she looked well and was clearly in no apparent respiratory distress. No pallor, jaundice, cyanosis or thyromegaly. No jugular venous distention. No limb edema. VITAL SIGNS: Her heart rate was 89, blood pressure was 127/65, temperature was 98.3, respiratory rate was 18 and oxygen saturation was 94% on room air. HEENT: Showed normocephalic, atraumatic. NECK: Supple. HEART: Showed normal first and second heart sounds with no gallop, rub or murmur. CHEST: Clear to auscultation. No crepitation, rhonchi. ABDOMEN: Distended, soft, nontender. No guarding or rigidity. No organomegaly. All hernial orifice intact. Bowel sounds normal. NEUROLOGIC: She is very hard of hearing, but otherwise all her other cranial nerves intact. EXTREMITIES: She moves extremities without difficulty. She ambulates without assistance or assistive devices. LABORATORY DATA: On arrival showed a white cell count 9200, hemoglobin 8.3, hematocrit 28, MCV 65 and platelet count 362,000. Her chemistry showed a serum sodium 140, potassium 4, chloride 106, bicarbonate 27, anion gap of 7, BUN 19, creatinine 1.1, estimated GFR was 52 mL per minute. Her glucose 164, calcium was 8.7, magnesium was 1.8. Total bilirubin, AST, ALT, alkaline phosphatase were normal. Her BNP was 1428 and total protein was 7, albumin 3.1. Her prothrombin time was 11, INR 1.1, aPTT was 25. D-dimer was 0.38. Urinalysis showed the urine was yellow, hazy with a pH of 5.5, specific gravity of 1.020, there was large amount of protein. The urine was negative for glucose, ketones. There was large amount of blood, negative for nitrite. There was a trace of leukocyte esterase, too numerous to count rbc's, 5-10 wbc's, and no bacteria. Her toxic screen was essentially negative. Her chest x-ray showed that the patient has AICD with leads emanating in the right ventricle. Heart is enlarged. Pulmonary vessels are within normal limits. The lungs and pleural spaces are clear. IMPRESSION: In summary, the patient is complaining of dizziness and weakness and fluttering in her heart that she somehow attributes to higher blood glucose level, although her blood sugar actually when she came to the Emergency Room was within acceptable range. She was not hypoglycemic. PLAN: I did consult the cardiology team and we looked at her monitor and she seemed to go into episodes of atrial fibrillation with rapid ventricular response despite the fact that she is on 200 mg of metoprolol. We will arrange to interrogate her AICD and decide on further management accordingly. WILLIAMS LOUIS MD DR: NEGRA/davina JOB#: [id number] / [id number]
--- NOTE | 2019-02-25 15:15 | PDOC2 ---
CARDIAC CONSULT DATE OF CONSULT Date Of Consult DATE: 02/25/19 TIME: 15:02 REASON FOR CONSULT Reason for Consult Ectopy REFERRING PHYSICIAN Referring Physician Dr. Guevara SOURCE Source: Chart review, Patient HPI History of Present Illness This is a 53 yo female, with a history of NICM a/p Medtronic AICD, AFIB, HTN, and HLP, who presented with concerns with her glucose level. Patient reports she gets "queasy shakes" when her blood sugar in elevated. Vision also becomes blurry. Has had significant amount of ED visits/admissions to the hospital in the last 6 months. Yesterday morning, blood sugar was in the 200 range. Took her normal insulin. Reports that she began feeling funny around 3 pm. Had urinary frequency/urgency. Checked blood glucose and it was 155. Became diaphoresis suddenly and had daughter call EMS. Does c/o fluttering in her chest when her blood sugar is elevated. Does have a history of AFIB. Tele noted with a couple of bursts of AFIB. Was seen in cardiology clinic 02/16/19. Patient reports Coreg was discontinued at that time and Metoprolol Succinate 200mg daily was initiated. PAST MEDICAL HISTORY Cardiovascular: AFIB, CHF (NICM), HTN, hyperipidemia Pulmonary: Asthma, COPD GI: GERD Psych: Anxiety Renal/: Chronic renal insuff Endocrine: Diabetes PAST SURGICAL HISTORY Past Surgical History: Pacemaker (AICD) FAMILY HISTORY Family History: Heart Disease, Hypertension SOCIAL HISTORY Smoke: Quit ALCOHOL: none Drugs: None Lives: with Family CURRENT MEDICATIONS Current Medications Current Medications Aspirin (Children'S Aspirin) 81 mg 1X ONCE PO Last administered on 02/24/19at 18:40; Start 02/24/19 at 18:00; Stop 02/24/19 at 18:01; Status DC Lactated Ringer's 1,000 ml @ 1,000 mls/hr Q1H IV Last administered on 02/24/19at 18:40; Start 02/24/19 at 18:00; Stop 02/24/19 at 18:59; Status DC Sodium Chloride 1,000 ml @ 1,000 mls/hr 1X ONCE IV Last administered on 02/24/19at 20:30; Start 02/24/19 at 20:30; Stop 02/24/19 at 21:29; Status DC Ondansetron HCl (Zofran) 4 mg PRN Q4HRS PRN IV NAUSEA/VOMITING; Start 02/24/19 at 20:45; Stop 02/25/19 at 20:44 Albuterol/ Ipratropium (Duoneb) 3 ml RTQID NEB Last administered on 02/25/19at 10:58; Start 02/25/19 at 08:00; Stop 02/26/19 at 07:59 Enoxaparin Sodium (Lovenox 150mg Syringe) 150 mg Q12HR SQ Last administered on 02/25/19at 09:26; Start 02/24/19 at 21:00 Furosemide (Lasix) 40 mg DAILY PO Last administered on 02/25/19at 09:26; Start 02/25/19 at 09:00 Active Scripts Active Reported Metoprolol Succinate ( Xl ) (Metoprolol Succinate) 200 Mg Tab.er.24h 200 Mg PO DAILY Mucinex (Guaifenesin) 1,200 Mg Tbmp.12hr 1 Tab PO HS Advair 100-50 Diskus (Fluticasone/Salmeterol) 1 Each Disk.w.dev 1 Puff IH BID Loratadine 10 Mg Tab.rapdis 10 Mg PO DAILY Eliquis (Apixaban) 5 Mg Tab.ds.pk 5 PO BID Digoxin 125 Mcg Tablet 1 DAILY Atorvastatin Calcium 80 Mg Tablet 1 HS K-Tab (Potassium Chloride) 10 Meq Tablet.er 1 DAILY Metformin Hcl Er (Metformin Hcl) 500 Mg Tab.er.24h 1 DAILY Furosemide 40 Mg Tablet 1 DAILY Entresto 49 mg-51 mg Tablet (Sacubitril/Valsartan) 1 Each Tablet 1 Each PO BID Proair Hfa Inhaler (Albuterol Sulfate) 8.5 Gm Hfa.aer.ad 2 Puff INH PRN Q6HRS PRN NITROGLYCERIN SubLingual (Nitroglycerin) 0.4 Mg Tab.subl 0.4 Mg SL PRN Q5MIN PRN Humalog (Insulin Lispro) 100 Unit/1 Ml Vial 15 Unit SQ TIDAC Nexium Capsule (Esomeprazole Magnesium) 40 Mg Capsule.dr 40 Mg PO DAILYAC Lantus (Insulin Glargine,Hum.rec.anlog) 100 Unit/1 Ml Vial 35 Unit SQ HS Aspirin 81 Mg Tab.chew 81 Mg PO DAILY ALLERGIES Allergies: Coded Allergies: No Known Drug Allergies (Unverified , 02/06/19) ROS Review of Systems 14 point ROS conducted with pertinent positives noted above in HPI. PHYSICAL EXAM General: Alert, Cooperative, No acute distress HEENT: Atraumatic, Mucous membr. moist/pink Lungs: Clear to auscultation Heart: Other (AFIB with intermittent V-pacing ) Abdomen: Soft, Other (obese ) Extremities: No edema Skin: No rashes, No breakdown Neuro: Normal speech, Sensation intact Psych/Mental Status: Mood NL MUSCULOSKELETAL: Osteoarthritic changes both hands VITALS Vital Signs Vital Signs Date Time Temp Pulse Resp B/P (MAP) Pulse Ox O2 Delivery O2 Flow Rate FiO2 02/25/19 10:58 96 Room Air 02/25/19 10:57 97.9 57 20 110/71 (84) LABS LABS Laboratory Tests Test 02/24/19 18:21 02/24/19 19:31 02/25/19 06:07 02/25/19 07:56 White Blood Count 9.2 x10^3/uL (4.0-11.0) 7.9 x10^3/uL (4.0-11.0) Red Blood Count 4.33 x10^6/uL (3.50-5.40) 4.06 x10^6/uL (3.50-5.40) Hemoglobin 8.3 g/dL (12.0-15.5) 7.8 g/dL (12.0-15.5) Hematocrit 28.1 % (36.0-47.0) 27.0 % (36.0-47.0) Mean Corpuscular Volume 65 fL (79-100) 66 fL (79-100) Mean Corpuscular Hemoglobin 19 pg (25-35) 19 pg (25-35) Mean Corpuscular Hemoglobin Concent 29 g/dL (31-37) 29 g/dL (31-37) Red Cell Distribution Width 20.7 % (11.5-14.5) 21.1 % (11.5-14.5) Platelet Count 362 x10^3/uL (140-400) 346 x10^3/uL (140-400) Neutrophils (%) (Auto) 65 % (31-73) 58 % (31-73) Lymphocytes (%) (Auto) 25 % (24-48) 33 % (24-48) Monocytes (%) (Auto) 7 % (0-9) 7 % (0-9) Eosinophils (%) (Auto) 2 % (0-3) 2 % (0-3) Basophils (%) (Auto) 1 % (0-3) 1 % (0-3) Neutrophils # (Auto) 6.0 x10^3uL (1.8-7.7) 4.6 x10^3uL (1.8-7.7) Lymphocytes # (Auto) 2.3 x10^3/uL (1.0-4.8) 2.6 x10^3/uL (1.0-4.8) Monocytes # (Auto) 0.6 x10^3/uL (0.0-1.1) 0.5 x10^3/uL (0.0-1.1) Eosinophils # (Auto) 0.1 x10^3/uL (0.0-0.7) 0.1 x10^3/uL (0.0-0.7) Basophils # (Auto) 0.1 x10^3/uL (0.0-0.2) 0.1 x10^3/uL (0.0-0.2) Prothrombin Time 11.0 SEC (9.4-11.4) Prothromb Time International Ratio 1.1 (0.9-1.1) Activated Partial Thromboplast Time 25 SEC (23-33) D-Dimer (Maria Alejandra) 0.38 mg/L (0.00-0.50) Sodium Level 140 mmol/L (136-145) 143 mmol/L (136-145) Potassium Level 4.0 mmol/L (3.5-5.1) 4.0 mmol/L (3.5-5.1) Chloride Level 106 mmol/L (98-107) 107 mmol/L (98-107) Carbon Dioxide Level 27 mmol/L (21-32) 28 mmol/L (21-32) Anion Gap 7 (6-14) 8 (6-14) Blood Urea Nitrogen 19 mg/dL (7-20) 18 mg/dL (7-20) Creatinine 1.1 mg/dL (0.6-1.0) 1.0 mg/dL (0.6-1.0) Estimated GFR (Cockcroft-Gault) 51.8 57.8 Glucose Level 164 mg/dL (70-99) 207 mg/dL (70-99) Calcium Level 8.7 mg/dL (8.5-10.1) 8.7 mg/dL (8.5-10.1) Magnesium Level 1.8 mg/dL (1.8-2.4) Total Bilirubin 0.2 mg/dL (0.2-1.0) Direct Bilirubin 0.1 mg/dL (0.0-0.2) Aspartate Amino Transf (AST/SGOT) 12 U/L (15-37) Alanine Aminotransferase (ALT/SGPT) 21 U/L (14-59) Alkaline Phosphatase 94 U/L (46-116) Creatine Kinase 70 U/L (26-192) Troponin I Quantitative < 0.017 ng/mL (0-0.055) WT-Zxh-K-Type Natriuretic Peptide 1428 pg/mL (0-124) Total Protein 7.0 g/dL (6.4-8.2) Albumin 3.1 g/dL (3.4-5.0) Lipase 204 U/L (73-393) Urine Collection Type Unknown Urine Color Yellow Urine Clarity Hazy Urine pH 5.5 Urine Specific [place] 1.020 Urine Protein 100 mg/dl (NEG-TRACE) Urine Glucose (UA) Neg mg/dL (NEG) Urine Ketones (Stick) Neg mg/dL (NEG) Urine Blood Large (NEG) Urine Nitrite Neg (NEG) Urine Bilirubin Neg (NEG) Urine Urobilinogen Dipstick 1 mg/dL (0.2 mg/dL) Urine Leukocyte Esterase Trace (NEG) Urine RBC Tntc /HPF (0-2) Urine WBC 5-10 /HPF (0-4) Urine Squamous Epithelial Cells Occ /LPF Urine Bacteria 0 /HPF (0-FEW) Urine Mucus Mod /LPF Urine Opiates Screen Neg (NEG) Urine Methadone Screen Neg (NEG) Urine Barbiturates Neg (NEG) Urine Phencyclidine Screen Neg (NEG) Urine Amphetamine/Methamphetamine Neg (NEG) Urine Benzodiazepines Screen Neg (NEG) Urine Cocaine Screen Neg (NEG) Urine Cannabinoids Screen Neg (NEG) Urine Ethyl Alcohol Neg (NEG) Platelet Estimate Adequate (ADEQUATE) Polychromasia Present Hypochromasia Mod Poikilocytosis Present Anisocytosis Slight Microcytosis Mod Ovalocytes Present Acanthocytes Occ Schistocytes Occ Glucose (Fingerstick) 205 mg/dL (70-99) Test 02/25/19 11:51 Glucose (Fingerstick) 231 mg/dL (70-99) ECHOCARDIOGRAM Echocardiogram <Conclusion> Technically very difficult study. Valves not well visualized. Left ventricle systolic function appears to be severely impaired. The Ejection Fraction is 25-30%. The left atrium is moderately dilated. Trace to mild tricuspid regurgitation. The PA pressure was estimated at 31 mmHg. There is no evidence of significant pericardial effusion. DATE: 10/26/18 1529 HEART CATH Heart Cath Cath 2017 with normal coronaries ASSESSMENT/PLAN Assessment/Plan 1. Diabetes, II; as per PCP 2. Palpitations 3. PAFIB, Couple of bursts of tachycardia that appears to AFIB with RVR noted on tele, but device interrogation shows 0% AT/AF burden since 02/16/19. Coreg converted to Toprol 200mg daily earlier this month. 4. Chronic systolic HF with NICM; s/p Medtronic AICD. Cath 2017 with normal coronaries. LVEF 25-30%. Follows with Dr. Maloney [facility] Cardiology 4. Hypertension; controlled 5. CKD; Cr stable. 6. Hyperlipidemia; statin 7. Diabetes, II Recommendation Continue HF optimization with Entresto, BB, and lasix BB, digoxin for rate control Check dig level; bolus if level low. Eliquis for stroke prophylaxis Supportive care STAS MARTIN APRN Feb 25, 2019 15:15
[2019-02-25 15:28] VITALS: BP 101/66
[2019-02-25 16:26] LABS: DIG 0.3 ng/dL (0.9-2.0)
[2019-02-25] MEDS: INSULIN LISPRO 300 UNITS/3 ML INSULN.PEN. SQ SCH (17:25)
[2019-02-25 20:00] VITALS: BP 112/71
[2019-02-25] MEDS: APIXABAN 5 MG TABLET. PO SCH (20:46)
[2019-02-25] MEDS: SACUBITRIL/VALSARTAN 49/51MG TABLET. PO SCH (20:46)
[2019-02-25] MEDS ORDERED: ATORVASTATIN CALCIUM 20 MG TABLET PO SCH (21:00)
[2019-02-25] MEDS ORDERED: INSULIN GLARGINE 300 UNITS/3 ML INSULN.PEN. SQ SCH (21:00)
[2019-02-25 22:23] VITALS: BP 104/63
--- NOTE | 2019-02-25 23:37 | PN ---
DATE: SUBJECTIVE: The patient is sitting up in her bed comfortably, in no apparent distress. She continued to complain of episodes of fluttering of her heart. It transpired that she has severe nonischemic cardiomyopathy with an ejection fraction of 30%. She has chronic systolic congestive heart failure and she underwent AICD in 2017. At that time, her cardiac catheterization showed normal coronaries. She has also persistent atrial fibrillation that is presumably rate controlled, although the monitor showed that she has episodes of atrial fibrillation with rapid ventricular response despite the fact that she is on 200 mg of metoprolol. She is also on digoxin 125 mcg once a day. PHYSICAL EXAMINATION: GENERAL: When I saw her this afternoon, she was sitting comfortably in bed, in no apparent respiratory distress, pale, but no jaundice, cyanosis or thyromegaly. No jugular venous distention. No limb edema. VITAL SIGNS: Her heart rate was anything on the lower side at 57, blood pressure was 110/71, temperature was 97.9, respiratory rate was 20, and oxygen saturation was 96% on room air. HEAD, EYES, EARS, NOSE AND THROAT: Showed normocephalic, atraumatic. NECK: Supple. HEART: Showed normal first and second heart sounds with no gallop, rub or murmur. CHEST: Clear to auscultation. No crepitation or rhonchi. ABDOMEN: Distended, soft, nontender. No guarding or rigidity. No organomegaly. All hernial orifices intact. Bowel sounds normal. NEUROLOGIC: She was very hard of hearing, but otherwise all cranial nerves were intact. She moves extremities without difficulty. Her intake was 2000, no output was recorded. LABORATORY DATA: Her lab work this morning showed a white cell count 7900, hemoglobin 7.8, hematocrit 27, MCV 66 and platelet count 346,000. Her chemistry showed a serum sodium 143, potassium 4, chloride 107, bicarbonate 28, anion gap of 8, BUN 18, creatinine 1, estimated GFR was 58 mL per minute, her glucose was 107, calcium was 8.7. ASSESSMENT: 1. Suboptimally controlled type 2 diabetes. 2. Most likely episodes of atrial fibrillation with rapid ventricular response. 3. Severe nonischemic cardiomyopathy, ejection fraction of less than 25%, hypertension, hyperlipidemia, type 2 diabetes mellitus and morbid obesity. PLAN: We did consult the Cardiology team and the plan is for her to interrogate her AICD. WILLIAMS LOUIS MD DR: NEGRA/davina JOB#: [id number] / [id number]
[2019-02-26 05:22] VITALS: BP 118/67
[2019-02-26] MEDS ORDERED: PANTOPRAZOLE 40 MG TABLET. PO SCH (07:30)
[2019-02-26] MEDS ORDERED: POTASSIUM CHLORIDE 10 MEQ TABLET.ER. PO SCH (08:00)
[2019-02-26] MEDS: SACUBITRIL/VALSARTAN 49/51MG TABLET. PO SCH (08:07)
[2019-02-26] MEDS: APIXABAN 5 MG TABLET. PO SCH (08:07)
[2019-02-26] MEDS: INSULIN LISPRO 300 UNITS/3 ML INSULN.PEN. SQ SCH ×2 (08:13→11:30)
[2019-02-26] MEDS ORDERED: FUROSEMIDE 40 MG TABLET PO SCH (09:00)
[2019-02-26] MEDS ORDERED: METOPROLOL SUCC 24HR ER 50 MG TAB.ER.24H. PO SCH (09:00)
[2019-02-26] MEDS ORDERED: DIGOXIN 125 MCG TABLET PO SCH (09:00)
[2019-02-26] MEDS ORDERED: ASPIRIN 81 MG TAB.CHEW PO SCH (09:00)
[2019-02-26] MEDS ORDERED: NITROGLYCERIN SUBLINGUAL 0.4 MG BOTTLE OF 25. SL PRN (10:30)
[2019-02-26] MEDS ORDERED: ALBUTEROL SULFATE 2.5 MG/3 ML NEBU. INH PRN (10:30)
[2019-02-26] MEDS ORDERED: INSU100I13 SQ (10:42)
[2019-02-26] MEDS ORDERED: INSU100C SQ (10:43)
[2019-02-26 10:56] VITALS: BP 111/67
[2019-02-26] MEDS ORDERED: metFORMIN XR 500 MG TAB.ER.24H PO SCH (11:00)
[2019-02-26] MEDS ORDERED: CETIRIZINE HCL 10 MG TABLET PO SCH (11:00)
[2019-02-26] MEDS ORDERED: ALBUTEROL SULFATE 2.5 MG/3 ML NEBU. NEB SCH (12:00)
--- NOTE | 2019-02-26 12:29 | DS ---
DATE OF DISCHARGE: HISTORY OF PRESENT ILLNESS: The patient is a 53-year-old female patient who was admitted with a complaint of dizziness and fluttering in her heart whenever her blood sugar rises above certain value. Her blood sugar at that time was 155 and she does have atrial fibrillation and has this estranged fluttering sensation in her chest whenever her blood sugar is elevated and on telemetry, at least a couple of bursts of AFib. Apparently, she was seen by [facility] Cardiology team on 02/16/2019 and her Coreg was discontinued at that time and was switched to metoprolol succinate 200 mg daily. She is also on digoxin. Her AICD was interrogated and there was no evidence of any episodes of tachybrady arrhythmias. Her blood sugar is suboptimally controlled, but there is no evidence of extreme hyperglycemia or hypoglycemia. I explained to her that we could make some minor adjustment of her Humalog and Lantus to achieve better controlled. She has also stent in her left ureter with a stone that was placed by Dr. Burnett, the urologist at [facility], but she claims that her insurance will not allow her to have her stent removed at [place] and/or [facility]. She does not have any issue with her stent now. She has no hematuria, no evidence of urinary tract infection. When I saw her this morning, she was sitting at the edge of the bed comfortably in no apparent distress. Denied any complaint. Denied any further episode of fluttering in her chest. Denied any dizziness, lightheadedness, has been up and about. Her blood sugar was then around between 150-200 and thus, she remained hemodynamically stable and afebrile. A decision was made to discharge her home with minor increased in her Humalog and Lantus insulin. PHYSICAL EXAMINATION: GENERAL: When I saw her this morning, she looked pale, but no jaundice, cyanosis or thyromegaly. No jugular venous distention. No limb edema. VITAL SIGNS: Her heart rate was 76, blood pressure 118/67, temperature was 97.8, respiratory rate 20, and oxygen saturation was 97%. HEAD, EYES, EARS, NOSE AND THROAT: Showed normocephalic, atraumatic. NECK: Supple. HEART: Showed normal first and second heart sounds. No gallop, rub or murmur. CHEST: Clear to auscultation. No crepitation or rhonchi. ABDOMEN: Distended, soft, nontender. NEUROLOGIC: She is very hard of hearing, but otherwise all cranial nerves intact. She moves extremities without difficulty. She ambulates without assistance or assistive devices. LABORATORY DATA: Her lab work this morning showed a white cell count of 7900, hemoglobin 7.8, hematocrit 27, MCV 66 and platelet count 346,000. Her chemistry showed a serum sodium 143, potassium 4, chloride 107, bicarbonate 28, anion gap of 8, BUN 18, creatinine 1, estimated GFR was 56 mL per minute. Her glucose was 207, calcium was 8.7. TSH was normal at 1.848. Prothrombin time, INR, aPTT and D-dimer are all normal. Urinalysis showed no bacteria, 5-10 wbc's, too numerous to count rbc's. Toxic screen was negative. Her digoxin was only 0.3 ng/dL. DISCHARGE MEDICATIONS: She was discharged home to continue on following medications: She is on Lantus insulin 38 units at bedtime and Humalog insulin 17 units before meals. She is continuing her albuterol sulfate 2 puffs every 6 hours, apixaban 5 mg twice a day, aspirin 81 mg once a day, atorvastatin 80 mg at bedtime, digoxin 125 mcg once a day, Nexium 40 mg daily, Advair Diskus 100/50 one puff twice a day, furosemide 40 mg once a day, Mucinex 1200 mg at bedtime, loratadine 10 mg once a day, metformin 500 mg once a day, metoprolol succinate 200 mg once a day, nitroglycerin 0.4 mg sublingually as needed, potassium chloride 10 mEq once a day and Entresto 49/51 one capsule twice a day. FINAL DISCHARGE DIAGNOSES: 1. Type 2 diabetes mellitus, suboptimally controlled. I made adjustment of her Lantus and Humalog insulin. 2. She has fluttering sensation in her heart, whenever her blood sugar is high, so we will adjust insulin to bring the blood sugar much better controlled. Her AICD was interrogated and showed no evidence of any abnormalities. Other medical problems include: A. Chronic systolic congestive heart failure due to nonischemic cardiomyopathy, status post AICD, catheterization in 2006 showed normal coronaries. Her left ventricular ejection fraction was 25-30%. She follows with Dr. Maloney at [facility] Cardiology team. B. Hypertension, well controlled. C. Chronic kidney disease, stable. D. Hyperlipidemia, on statin. E. Type 2 diabetes, suboptimally controlled; however, we are made adjustment to her insulin, both Lantus and Humalog and she should continue on metformin and should continue on Eliquis for stroke prophylaxis. WILLIAMS LOUIS MD DR: NEGRA/davina JOB#: [id number] / [id number]
[2019-02-26] MEDS ORDERED: BUDESONIDE 0.5 MG/2 ML NEBU NEB SCH (20:00)
[2019-02-26] MEDS ORDERED: NON FORMULARY ITEM (Fluticasone/Salmeterol (Advair 100-50 Diskus) 1 PUFF) IH SCH (21:00)
== END 2019-02-26 13:15 | disposition still patient (30) ==
LOC: ER 17:16 → INTOOBSV 21:00 → 1 SOUTH 21:00
PROVIDERS: ADMIT Internal Medicine; ATTEND Internal Medicine
DX: R42 Dizziness and giddiness (principal); E11.65 Type 2 diabetes mellitus with hyperglycemia; D64.9 Anemia, unspecified; E46 Unspecified protein-calorie malnutrition; I11.0 Hypertensive heart disease with heart failure; I50.9 Heart failure, unspecified; K21.9 Gastro-esophageal reflux disease without esophagitis; E66.01 Morbid (severe) obesity due to excess calories; E78.00 Pure hypercholesterolemia, unspecified; E78.5 Hyperlipidemia, unspecified; F41.9 Anxiety disorder, unspecified; N39.0 Urinary tract infection, site not specified; I42.9 Cardiomyopathy, unspecified; J44.9 Chronic obstructive pulmonary disease, unspecified; N18.2 Chronic kidney disease, stage 2 (mild); I13.0 Hypertensive heart and chronic kidney disease with heart failure and stage 1 through stage 4 chronic kidney disease, or unspecified chronic kidney disease; I50.42 Chronic combined systolic (congestive) and diastolic (congestive) heart failure; E11.22 Type 2 diabetes mellitus with diabetic chronic kidney disease; H91.90 Unspecified hearing loss, unspecified ear; I48.1 Persistent atrial fibrillation; Z79.01 Long term (current) use of anticoagulants; Z82.49 Family history of ischemic heart disease and other diseases of the circulatory system; Z83.3 Family history of diabetes mellitus; Z87.442 Personal history of urinary calculi; Z95.810 Presence of automatic (implantable) cardiac defibrillator; R53.1 Weakness
CPT/HCPCS: 36415; 71045; 80048; 80076; 80162; 80307; 81001; 82550; 82947; 83690; 83735; 83880; 84443; 84484; 85025; 85379; 85610; 85730; 86850; 86900; 86901; 87086; 93005; 94640; 96360; 96361; 96372; 99284; G0238; G0378; G0379; J1650; J1815; J7120; J7620; 99285-25; J7030

== ENCOUNTER 2019-02-27 04:23 | Emergency (ER) | payer OTHER ==
[~2019-02-27] VITALS: Ht 154.9 cm; Wt 157.7 kg
[~2019-02-27 04:23] MED LIST changes: +GUAI12003 PO; +INSU100C SQ; +INSU100I13 SQ; +LORA10TA55 PO; +METO200T46 PO
--- NOTE | 2019-02-27 04:49 | PHYS DOC ---
Past History Past Medical History: Anemia, Angina, Anxiety, Arthritis, CHF, Constipation, Diabetes, GERD, High Cholesterol, Heart Disease, Hypertension, Kidney Infection, Kidney Stones, Renal Disease, UTI, Other Additional Past Medical Histor: cardiomegaly Past Surgical History: No Surgical History, Pacemaker, Other Additional Past Surgical Histo: pacemaker Smoking: Non-smoker Alcohol Use: None Drug Use: None Adult General Chief Complaint Chief Complaint: MULTIPLE COMPLAINTS HPI HPI 53-year-old female returns to the emergency room with feeling hot, sweaty, and, with intermittent chest pain. Patient states that she woke up around midnight to eat a banana and eat some weenie sausages. Since that time, she has been having intermittent chest discomfort and shortness of breath. She denies choking on her food. She does admit that the power is turned off at her house since she just went home at noon yesterday from being admitted to this hospital. She was admitted for similar complaints. The patient is a known, poorly controlled diabetic. She denies vomiting, diarrhea, or constipation. She may have a fever and she has been sweaty. She has not measured her temperature. Review of Systems Review of Systems Constitutional: "Maybe fever" [] Eyes: Denies change in visual acuity, redness, or eye pain [] HENT: Denies nasal congestion or sore throat [] Respiratory: shortness of breath [] Cardiovascular: No additional information not addressed in HPI [] GI: Denies abdominal pain, nausea, vomiting, bloody stools or diarrhea [] : Denies dysuria or hematuria [] Musculoskeletal: Denies back pain or joint pain [] Integument: Denies rash or skin lesions [] Neurologic: Denies headache, focal weakness or sensory changes [] Endocrine: Denies polyuria or polydipsia [] All other systems were reviewed and found to be within normal limits, except as documented in this note. Current Medications Current Medications Current Medications Medications (Trade) Dose Ordered Sig/Christina Start Time Stop Time Status Last Admin Dose Admin Sodium Chloride 1,000 ml @ 1,000 mls/hr 1X ONCE 02/27/19 05:00 02/27/19 05:59 Allergies Allergies Allergies Coded Allergies Type Severity Reaction Last Updated Verified No Known Drug Allergies 02/06/19 No Physical Exam Physical Exam Constitutional: Well developed, morbidly obese, well nourished, no acute distress, non-toxic appearance. [] HENT: Normocephalic, atraumatic, bilateral external ears normal, oropharynx moist, no oral exudates, nose normal. Hard of hearing.[] Eyes: PERRLA, EOMI, conjunctiva normal, no discharge. [] Neck: Normal range of motion, no tenderness, supple, no stridor. [] Cardiovascular:Heart rate regular rhythm, no murmur [] Lungs & Thorax: Bilateral breath sounds clear to auscultation [] Abdomen: Bowel sounds normal, soft, no tenderness, no masses, no pulsatile masses. [] Skin: Warm, dry, no erythema, no rash. [] Back: No tenderness, no CVA tenderness. [] Extremities: No tenderness, no cyanosis, no clubbing, ROM intact, no edema. [] Neurologic: Alert and oriented X 3, normal motor function, normal sensory function, no focal deficits noted. [] Psychologic: Affect normal, judgement normal, mood normal. [] Current Patient Data Vital Signs Vital Signs Date Time Temp Pulse Resp B/P (MAP) Pulse Ox O2 Delivery O2 Flow Rate FiO2 02/27/19 04:23 98.0 77 26 93 Room Air Lab Results Laboratory Tests Test 02/27/19 04:33 Glucose (Fingerstick) 233 mg/dL (70-99) H EKG EKG Likely paced rhythm, rate 71, no P-wave, no ST elevation or depression. Similar to previous from 02/24/19.[] Radiology/Procedures Radiology/Procedures [] Impressions: EXAM: CHEST ONE VIEW. HISTORY: Chest pain. COMPARISON: 02/24/2019. FINDINGS: A frontal view of the chest is obtained. A left-sided pacemaker/defibrillator has its leads in the right atrium, right ventricle and a left cardiac vein. There are no confluent infiltrates. There is no pneumothorax or pleural effusion. The heart is moderately enlarged. IMPRESSION: 1. Moderate cardiomegaly. Electronically signed by: Rishi Cisneros MD (02/27/2019 4:56 AM) [facility] DICTATED AND SIGNED BY: ZAINA CISNEROS MD DATE: 02/27/19 0456 CC: BETSEY JOYCE DO; EULOGIO KISER ~ Course & Med Decision Making Course & Med Decision Making Pertinent Labs and Imaging studies reviewed. (See chart for details) Patient's chest x-ray is negative for acute findings. Rest of her workup is pending. I am signing the patient out to Dr. Rosado at 0600 he will determine her final disposition. [] Dragon Disclaimer Dragon Disclaimer This electronic medical record was generated, in whole or in part, using a voice recognition dictation system. Departure Departure: Disposition: 01 HOME/RESIDENCE PRIOR TO ADM Condition: STABLE Referrals: EULOGIO KISER (PCP) BETSEY JOYCE DO Feb 27, 2019 04:49
--- NOTE | 2019-02-27 04:59 | RAD ---
EXAM: CHEST ONE VIEW. HISTORY: Chest pain. COMPARISON: 02/24/2019. FINDINGS: A frontal view of the chest is obtained. A left-sided pacemaker/defibrillator has its leads in the right atrium, right ventricle and a left cardiac vein. There are no confluent infiltrates. There is no pneumothorax or pleural effusion. The heart is moderately enlarged. IMPRESSION: 1. Moderate cardiomegaly. Electronically signed by: Rishi Cisneros MD (02/27/2019 4:56 AM) [facility]
[2019-02-27] MEDS ORDERED: IV NORMAL SALINE 1,000ML 1,000 ML IV ONE (05:00)
[2019-02-27 05:41] LABS: BASO # 0.1 x10^3/uL (0.0-0.2); BASO % 1 % (0-3); EOS # 0.2 x10^3/uL (0.0-0.7); EOS % 2 % (0-3); HEMATOCRIT 27.2 % (36.0-47.0); HEMOGLOBIN 7.9 g/dL (12.0-15.5); LYMPH # 2.5 x10^3/uL (1.0-4.8); LYMPH % 27 % (24-48); MEAN CORPUSCULAR HEMOGLOBIN 19 pg (25-35); MEAN CORPUSCULAR HGB CONC 29 g/dL (31-37); MEAN CORPUSCULAR VOLUME 66 fL (79-100); MONO # 0.7 x10^3/uL (0.0-1.1); MONO % 8 % (0-9); NEUT # 5.8 x10^3uL (1.8-7.7); NEUT % 63 % (31-73); PLATELET COUNT 356 x10^3/uL (140-400); RED BLOOD COUNT 4.15 x10^6/uL (3.50-5.40); RED CELL DISTRIBUTION WIDTH 20.9 % (11.5-14.5); WHITE BLOOD COUNT 9.2 x10^3/uL (4.0-11.0)
[2019-02-27 05:50] LABS: ALBUMIN 3.1 g/dL (3.4-5.0); ALBUMIN/GLOBULIN RATIO 0.8 (1.0-1.7); CALCIUM 8.7 mg/dL (8.5-10.1); CREATININE 1.2 mg/dL (0.6-1.0); GFR 46.8; POTASSIUM 4.1 mmol/L (3.5-5.1); TOTAL BILIRUBIN 0.4 mg/dL (0.2-1.0); TOTAL PROTEIN 7.1 g/dL (6.4-8.2)
[2019-02-27 06:29] LABS: ANISOCYTOSIS SLIGHT; HYPOCHROMIA MOD; MICROCYTOSIS MOD; OVALOCYTES PRESENT; PLT ESTIMATE ADEQUATE (ADEQUATE); POLYCHROMASIA PRESENT
[2019-02-27 06:34] LABS: BILIRUBIN,URINE NEG (NEG); CLARITY,URINE CLOUDY; COLOR,URINE YELLOW; GLUCOSE,URINE 100 mg/dL (NEG); NITRITE,URINE NEG (NEG); RBC,URINE >40 /HPF (0-2); UROBILINOGEN,URINE 2 mg/dL (0.2 mg/dL)
[2019-02-27 06:35] LABS: BACTERIA,URINE FEW /HPF (0-FEW); SQUAMOUS EPITHELIAL CELL,UR MANY /LPF
[2019-02-27 06:38] VITALS: BP 141/79
--- NOTE | 2019-02-27 18:51 | EKG ---
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
== END 2019-02-27 07:08 | disposition home or self-care (01) ==
LOC: ER 04:27
DX: E11.65 Type 2 diabetes mellitus with hyperglycemia (principal); R07.89 Other chest pain; M19.90 Unspecified osteoarthritis, unspecified site; I11.0 Hypertensive heart disease with heart failure; I50.9 Heart failure, unspecified; K21.9 Gastro-esophageal reflux disease without esophagitis; E78.00 Pure hypercholesterolemia, unspecified; Z86.73 Personal history of transient ischemic attack (TIA), and cerebral infarction without residual deficits; Z87.442 Personal history of urinary calculi; Z87.440 Personal history of urinary (tract) infections; Z95.0 Presence of cardiac pacemaker
CPT/HCPCS: 36415; 71045; 80053; 81001; 82947; 83880; 84484; 85025; 87086; 93005; 96360; 99285-25; J7030

== ENCOUNTER 2019-03-14 19:43 | Emergency (ER) | payer OTHER ==
[~2019-03-14] VITALS: Ht 154.9 cm; Wt 157.7 kg
[~2019-03-14 19:43] MED LIST changes: +METF500T11; -METF500T9
[2019-03-14 19:52] VITALS: BP 107/54
--- NOTE | 2019-03-14 20:24 | PHYS DOC ---
Past History Past Medical History: Anemia, Angina, Anxiety, Arthritis, CHF, Constipation, Diabetes, GERD, High Cholesterol, Heart Disease, Hypertension, Kidney Infection, Kidney Stones, Renal Disease, UTI, Other Additional Past Medical Histor: cardiomegaly Past Surgical History: No Surgical History, Pacemaker, Other Additional Past Surgical Histo: pacemaker Smoking: Non-smoker Alcohol Use: None Drug Use: None Adult General Chief Complaint Chief Complaint: CHEST PAIN HPI HPI Patient is a 53-year-old female presents with intermittent twinges of chest discomfort across her chest that last for seconds that started at approximately noon today. No nausea or vomiting. No diaphoresis. Reports that her blood sugar was high, in the 200s last night, and low for her in the 100s today. Nothing makes the chest discomfort better or worse. There is no association with exertion or breathing. There has been no cough or fever. No nausea or vomiting. No current pain. Pain is mild to moderate when it occurs. Sharp in nature.[] Review of Systems Review of Systems Constitutional: Denies fever or chills [] Eyes: Denies change in visual acuity, redness, or eye pain [] HENT: Denies nasal congestion or sore throat [] Respiratory: Denies cough or shortness of breath [] Cardiovascular: No additional information not addressed in HPI [] GI: Denies abdominal pain, nausea, vomiting, bloody stools or diarrhea [] : Denies dysuria or hematuria [] Musculoskeletal: Denies back pain or joint pain [] Integument: Denies rash or skin lesions [] Neurologic: Denies headache, focal weakness or sensory changes [] Endocrine: Denies polyuria or polydipsia [] All other systems were reviewed and found to be within normal limits, except as documented in this note. Allergies Allergies Allergies Coded Allergies Type Severity Reaction Last Updated Verified No Known Drug Allergies 02/06/19 No Physical Exam Physical Exam Constitutional: Well developed, well nourished, no acute distress, non-toxic appearance. [] HENT: Normocephalic, atraumatic, bilateral external ears normal, oropharynx moist, no oral exudates, nose normal. [] Eyes: PERRLA, EOMI, conjunctiva normal, no discharge. [] Neck: Normal range of motion, no tenderness, supple, no stridor. [] Cardiovascular:Heart rate regular rhythm, no murmur [] Lungs & Thorax: Bilateral breath sounds clear to auscultation [] Abdomen: Bowel sounds normal, soft, no tenderness, no masses, no pulsatile medina s. [] Skin: Warm, dry, no erythema, no rash. [] Back: No tenderness, no CVA tenderness. [] Extremities: No tenderness, no cyanosis, no clubbing, ROM intact, no edema. [] Neurologic: Alert and oriented X 3, normal motor function, normal sensory function, no focal deficits noted. [] Psychologic: Affect normal, judgement normal, mood normal. [] Current Patient Data Vital Signs Vital Signs Date Time Temp Pulse Resp B/P (MAP) Pulse Ox O2 Delivery O2 Flow Rate FiO2 03/14/19 19:52 107/54 (71) 03/14/19 19:47 98.4 72 18 98 Room Air EKG EKG EKG shows a regular rhythm at 73 bpm, appears to be paced. [place] of -144. QTc of 513 ms. When compared with EKG of 02/27/2019, no acute changes are present. Interpreted by me at 1951.[] Radiology/Procedures Radiology/Procedures Chest x-ray shows no infiltrate, no effusion, no pneumothorax. No acute changes when compared with chest x-ray, AP, of 02/27/2019.[] Course & Med Decision Making Course & Med Decision Making Pertinent Labs and Imaging studies reviewed. (See chart for details) ED course: Patient arrived, was placed in bed, and tolerated exam well. She is transferred to and from radiology with any complications. After return of lab and imaging findings, these were discussed with the patient voiced understanding. All questions were answered. She was discharged in improved condition. Medical decision making: There is no evidence of an acute coronary syndrome. No evidence of pneumonia, pneumothorax, pulmonary embolism, nor significant congestive heart failure given that her BNP is elevated however it is lower than it has been previously.[] Dragon Disclaimer Dragon Disclaimer This electronic medical record was generated, in whole or in part, using a voice recognition dictation system. Departure Departure: Impression: Primary Impression: Acute chest pain Disposition: HOME, SELF-CARE Condition: IMPROVED Referrals: EULOGIO KISER (PCP) Follow-up in 2 days Patient Instructions: Chest Pain (Nonspecific), DASH Diet Additional Instructions: Follow-up with your regular doctor in 2 days. Take your medication as prescribe d. Return to the ER if worsening discomfort or any other concerns. EHSAN JOHNSON DO Mar 14, 2019 20:24
[2019-03-14 20:55] LABS: BASO # 0.1 x10^3/uL (0.0-0.2); BASO % 1 % (0-3); EOS # 0.1 x10^3/uL (0.0-0.7); EOS % 1 % (0-3); HEMATOCRIT 28.7 % (36.0-47.0); HEMOGLOBIN 8.4 g/dL (12.0-15.5); LYMPH # 2.3 x10^3/uL (1.0-4.8); LYMPH % 26 % (24-48); MEAN CORPUSCULAR HEMOGLOBIN 20 pg (25-35); MEAN CORPUSCULAR HGB CONC 29 g/dL (31-37); MEAN CORPUSCULAR VOLUME 67 fL (79-100); MONO # 0.8 x10^3/uL (0.0-1.1); MONO % 9 % (0-9); NEUT # 5.8 x10^3uL (1.8-7.7); NEUT % 64 % (31-73); PLATELET COUNT 317 x10^3/uL (140-400); RED BLOOD COUNT 4.26 x10^6/uL (3.50-5.40); RED CELL DISTRIBUTION WIDTH 23.2 % (11.5-14.5); WHITE BLOOD COUNT 9.1 x10^3/uL (4.0-11.0)
[2019-03-14 21:00] LABS: ALBUMIN 3.2 g/dL (3.4-5.0); ALBUMIN/GLOBULIN RATIO 0.9 (1.0-1.7); CALCIUM 8.9 mg/dL (8.5-10.1); GFR 57.8; MAGNESIUM 1.9 mg/dL (1.8-2.4); POTASSIUM 4.2 mmol/L (3.5-5.1); TOTAL BILIRUBIN 0.4 mg/dL (0.2-1.0); TOTAL PROTEIN 6.9 g/dL (6.4-8.2)
[2019-03-14 21:21] LABS: BACTERIA,URINE FEW /HPF (0-FEW); BILIRUBIN,URINE NEG (NEG); CLARITY,URINE CLOUDY; COLOR,URINE YELLOW; GLUCOSE,URINE NEG (NEG); NITRITE,URINE NEG (NEG); RBC,URINE >40 /HPF (0-2); SQUAMOUS EPITHELIAL CELL,UR FEW /LPF; UROBILINOGEN,URINE 1 mg/dL (0.2 mg/dL)
[2019-03-14 21:53] LABS: ANISOCYTOSIS MOD; HYPOCHROMIA MOD; MICROCYTOSIS MOD; OVALOCYTES PRESENT; PLT ESTIMATE ADEQUATE (ADEQUATE); POIKILOCYTOSIS SLIGHT
[2019-03-14 21:54] LABS: BURR CELLS PRESENT
--- NOTE | 2019-03-15 03:21 | EKG ---
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
--- NOTE | 2019-03-15 03:51 | RAD ---
PA and lateral chest. HISTORY: Chest pain, short of air PA and lateral views were taken of the chest. Heart is enlarged. Pacemaker is unchanged. There is no effusion. There are no confluent infiltrates. IMPRESSION: 1. Mild cardiac enlargement. 2. No acute infiltrates. Electronically signed by: Harpal Queen MD (03/15/2019 3:49 AM) [facility]
== END 2019-03-14 22:18 | disposition home or self-care (01) ==
LOC: ER 19:43
DX: R07.89 Other chest pain (principal); F41.9 Anxiety disorder, unspecified; I11.0 Hypertensive heart disease with heart failure; I50.9 Heart failure, unspecified; K21.9 Gastro-esophageal reflux disease without esophagitis; E11.9 Type 2 diabetes mellitus without complications; M19.90 Unspecified osteoarthritis, unspecified site; Z87.442 Personal history of urinary calculi; Z87.440 Personal history of urinary (tract) infections; Z86.2 Personal history of diseases of the blood and blood-forming organs and certain disorders involving the immune mechanism; Z95.0 Presence of cardiac pacemaker
CPT/HCPCS: 36415; 71046; 80053; 81001; 82947; 83690; 83735; 83880; 84484; 85025; 85610; 85730; 87086; 93005; 99285

== ENCOUNTER 2019-03-16 00:49 | Emergency (ER) | payer OTHER ==
[~2019-03-16] VITALS: Ht 154.9 cm; Wt 157.7 kg
--- NOTE | 2019-03-16 01:05 | PHYS DOC ---
Past History Past Medical History: Anemia, Angina, Anxiety, Arthritis, CHF, Constipation, Diabetes, GERD, High Cholesterol, Heart Disease, Hypertension, Kidney Infection, Kidney Stones, Renal Disease, UTI, Other Additional Past Medical Histor: cardiomegaly Past Surgical History: No Surgical History, Pacemaker, Other Additional Past Surgical Histo: pacemaker Smoking: Non-smoker Alcohol Use: None Drug Use: None Adult General HPI HPI Patient is a 53-year-old female with multiple medical problems who presents via EMS secondary to getting overheated at home. She states her air-conditioning is out. She also states that her chronic back pain is acting up. She denies any nausea or vomiting. She has not taken her temperature. She says she was sweating at home. She states she is drinking a lot of water. She can't really give me a specific reason why she decided to come to the emergency department tonight.[] Review of Systems Review of Systems Constitutional: Denies fever or chills [] Eyes: Denies change in visual acuity, redness, or eye pain [] HENT: Denies nasal congestion or sore throat [] Respiratory: Denies cough or shortness of breath [] Cardiovascular: No additional information not addressed in HPI [] GI: Denies abdominal pain, nausea, vomiting, bloody stools or diarrhea [] : Denies dysuria or hematuria [] Musculoskeletal: Reports chronic back pain[] Integument: Denies rash or skin lesions [] Neurologic: Denies headache, focal weakness or sensory changes [] Endocrine: Reports polydipsia[] All other systems were reviewed and found to be within normal limits, except as documented in this note. Allergies Allergies Allergies Coded Allergies Type Severity Reaction Last Updated Verified No Known Drug Allergies 02/06/19 No Physical Exam Physical Exam Constitutional: Well developed, well nourished, no acute distress, non-toxic appearance. [] HENT: Normocephalic, atraumatic, bilateral external ears normal, oropharynx moist, no oral exudates, nose normal, hard of hearing. [] Eyes: PERRLA, EOMI, conjunctiva normal, no discharge. [] Neck: Normal range of motion, no tenderness, supple, no stridor. [] Cardiovascular:Heart rate regular rhythm, no murmur [] Lungs & Thorax: Bilateral breath sounds clear to auscultation [] Abdomen: Morbidly obese, Bowel sounds normal, soft, no tenderness, no masses, no pulsatile masses. [] Skin: Warm, dry, no erythema, no rash. [] Back: No tenderness, no CVA tenderness. [] Extremities: No tenderness, no cyanosis, no clubbing, ROM intact, no edema. [] Neurologic: Alert and oriented X 3, normal motor function, normal sensory function, no focal deficits noted. [] Psychologic: Anxious. [] EKG EKG [] Radiology/Procedures Radiology/Procedures [] Course & Med Decision Making Course & Med Decision Making Pertinent Labs and Imaging studies reviewed. (See chart for details) [ED course: Evaluation reveals a 53-year-old female that appears to be in no particular distress at this evening. I do not believe the patient has a medical emergency at this time. Feel she is safe for discharge back home and to follow up with her primary care physician.] Dragon Disclaimer Dragon Disclaimer This electronic medical record was generated, in whole or in part, using a voice recognition dictation system. Departure Departure: Impression: Primary Impression: Chronic back pain greater than 3 months duration Additional Impression: Morbid obesity Disposition: 01 HOME, SELF-CARE Condition: STABLE Referrals: EULOGIO KISER (PCP) Patient Instructions: Chronic Back Pain, Heat-Related Illness Additional Instructions: You need to follow with your primary care physician this week for recheck. Problem Qualifiers DUKE GORMAN DO Mar 16, 2019 01:05
[2019-03-16 01:30] VITALS: BP 115/61
== END 2019-03-16 01:30 | disposition home or self-care (01) ==
LOC: ER 00:49
DX: G89.29 Other chronic pain (principal); M54.89 Other dorsalgia; E66.01 Morbid (severe) obesity due to excess calories; M19.90 Unspecified osteoarthritis, unspecified site; I11.0 Hypertensive heart disease with heart failure; I50.9 Heart failure, unspecified; E11.9 Type 2 diabetes mellitus without complications; K21.9 Gastro-esophageal reflux disease without esophagitis; E78.00 Pure hypercholesterolemia, unspecified; Z68.44 Body mass index [BMI] 60.0-69.9, adult; Z86.2 Personal history of diseases of the blood and blood-forming organs and certain disorders involving the immune mechanism; Z87.442 Personal history of urinary calculi; Z87.440 Personal history of urinary (tract) infections; Z95.0 Presence of cardiac pacemaker
CPT/HCPCS: 99281; 99283

== ENCOUNTER → 2019-05-11 | Outpatient (CLI) | payer OTHER ==
[2019-05-11 16:40] LABS: ALBUMIN 3.4 g/dL (3.4-5.0); ALBUMIN/GLOBULIN RATIO 0.7 (1.0-1.7); CALCIUM 9.1 mg/dL (8.5-10.1); CREATININE 1.2 mg/dL (0.6-1.0); GFR 46.8; POTASSIUM 4.7 mmol/L (3.5-5.1); TOTAL BILIRUBIN 0.4 mg/dL (0.2-1.0); TOTAL PROTEIN 8.1 g/dL (6.4-8.2)
[2019-05-11 17:32] LABS: BASO # 0.1 x10^3/uL (0.0-0.2); BASO % 1 % (0-3); EOS # 0.1 x10^3/uL (0.0-0.7); EOS % 1 % (0-3); HEMATOCRIT 33.8 % (36.0-47.0); HEMOGLOBIN 10.1 g/dL (12.0-15.5); LYMPH # 2.5 x10^3/uL (1.0-4.8); LYMPH % 30 % (24-48); MEAN CORPUSCULAR HEMOGLOBIN 21 pg (25-35); MEAN CORPUSCULAR HGB CONC 30 g/dL (31-37); MEAN CORPUSCULAR VOLUME 69 fL (79-100); MONO # 0.6 x10^3/uL (0.0-1.1); MONO % 8 % (0-9); NEUT # 5.1 x10^3uL (1.8-7.7); NEUT % 60 % (31-73); PLATELET COUNT 311 x10^3/uL (140-400); RED BLOOD COUNT 4.91 x10^6/uL (3.50-5.40); RED CELL DISTRIBUTION WIDTH 23.8 % (11.5-14.5); WHITE BLOOD COUNT 8.5 x10^3/uL (4.0-11.0)
[2019-05-11 18:12] LABS: ANISOCYTOSIS MOD; HYPOCHROMIA MOD; PLT ESTIMATE ADEQUATE (ADEQUATE)
[2019-05-11 18:13] LABS: MICROCYTOSIS MOD; POLYCHROMASIA SLIGHT
[2019-05-12 14:12] LABS: FREE T4 1.18 ng/dL (0.76-1.46); THYROID STIM HORMONE (TSH) 1.499 uIU/mL (0.358-3.740)
== END | disposition home or self-care (01) ==
LOC: LAB 14:33
PROVIDERS: ATTEND Physician Assistant
DX: E11.22 Type 2 diabetes mellitus with diabetic chronic kidney disease (principal); I12.9 Hypertensive chronic kidney disease with stage 1 through stage 4 chronic kidney disease, or unspecified chronic kidney disease; N18.2 Chronic kidney disease, stage 2 (mild); D64.9 Anemia, unspecified; J44.9 Chronic obstructive pulmonary disease, unspecified; E78.5 Hyperlipidemia, unspecified; I48.91 Unspecified atrial fibrillation; I25.10 Atherosclerotic heart disease of native coronary artery without angina pectoris
CPT/HCPCS: 80053; 80061; 82728; 83036; 83540; 83550; 84439; 84443; 85025

== ENCOUNTER 2019-05-31 21:29 | Emergency (ER) | payer OTHER ==
[~2019-05-31] VITALS: Ht 154.9 cm; Wt 157.7 kg
--- NOTE | 2019-05-31 23:07 | RAD ---
Indication: Ureteral stent position check. Right flank pain TECHNIQUE: 2 views of the abdomen pelvis COMPARISON: None FINDINGS: Right ureteral stent is seen in expected location. 2.1 cm radiopaque density in the right lower quadrant projecting over the proximal end of the ureteral stent suggests a stone. No abnormally dilated bowel loops. Mild to moderate diffuse colonic stool burden. Diastases of the pubic symphysis noted. IMPRESSION: As above. Electronically signed by: Olaf Medrano DO (05/31/2019 11:04 PM) [facility]
[2019-05-31 23:09] LABS: BILIRUBIN,URINE NEG (NEG); CLARITY,URINE CLOUDY; COLOR,URINE YELLOW; GLUCOSE,URINE >=1000 mg/dL (NEG)
[2019-05-31 23:10] LABS: BACTERIA,URINE 0 /HPF (0-FEW); NITRITE,URINE NEG (NEG); RBC,URINE TNTC /HPF (0-2); SQUAMOUS EPITHELIAL CELL,UR OCC /LPF; UROBILINOGEN,URINE 0.2 mg/dL (0.2 mg/dL)
[2019-06-01] MEDS ORDERED: PHEN100T82 PO (00:31)
[2019-06-01] MEDS ORDERED: LEVO500T59 PO (00:31)
[2019-06-01] MEDS ORDERED: PHENAZOPYRIDINE 200 MG TABLET. PO ONE (00:45)
[2019-06-01] MEDS ORDERED: levoFLOXacin 500 MG TABLET PO ONE (00:45)
[2019-06-01] MEDS ORDERED: IBUPROFEN 600 MG TABLET. PO ONE (00:53)
[2019-06-01 01:12] VITALS: BP 113/69
--- NOTE | 2019-06-01 06:51 | PHYS DOC ---
Past History Past Medical History: Anemia, Angina, Anxiety, Arthritis, CHF, Constipation, Diabetes, GERD, High Cholesterol, Heart Disease, Hypertension, Kidney Infection, Kidney Stones, Renal Disease, UTI, Other Additional Past Medical Histor: cardiomegaly Past Surgical History: No Surgical History, Pacemaker, Other Additional Past Surgical Histo: pacemaker, KIDNEY STENTS PLACED Smoking: Non-smoker Alcohol Use: None Drug Use: None Adult General Chief Complaint Chief Complaint: FLANK PAIN HPI HPI Patient is a 53-year-old diabetic female with history of pyelonephritis and kidney stones with right ureteral stent in place who presents with urinary frequency urgency and burning. No fevers chills, nausea vomiting or sweats. No flank pain. No other acute symptoms or complaints. Patient states she has not had antibiotics in the past 3 months. Patient's urologist practices at [facility].[] Review of Systems Review of Systems ReView symptoms as per history of present illness. All other review symptoms are negative. All other systems were reviewed and found to be within normal limits, except as documented in this note. Current Medications Current Medications Current Medications Medications (Trade) Dose Ordered Sig/Christina Start Time Stop Time Status Last Admin Dose Admin Ibuprofen (Motrin) 600 mg STK-MED ONCE 06/01/19 00:53 06/01/19 00:53 DC Levofloxacin (Levaquin) 500 mg 1X ONCE 06/01/19 00:45 06/01/19 01:04 DC 06/01/19 01:10 500 MG Phenazopyridine HCl (Pyridium) 200 mg 1X ONCE 06/01/19 00:45 06/01/19 01:04 DC 06/01/19 01:10 200 MG Allergies Allergies Allergies Coded Allergies Type Severity Reaction Last Updated Verified No Known Drug Allergies 02/06/19 No Physical Exam Physical Exam Constitutional: Well developed, well nourished, no acute distress, non-toxic appearance. [] HENT: Normocephalic, atraumatic, bilateral external ears normal, oropharynx m oist, no oral exudates, nose normal. [] Eyes: PERRLA, EOMI, conjunctiva normal, no discharge. [] Neck: Normal range of motion, no tenderness, supple, no stridor. [] Cardiovascular:Heart rate regular rhythm, no murmur [] Lungs & Thorax: Bilateral breath sounds clear to auscultation [] Abdomen: Bowel sounds normal, soft, suprapubic pain/tenderness.. [] Skin: Warm, dry, no erythema, no rash. [] Back: No tenderness, no CVA tenderness. [] Extremities: No tenderness, no cyanosis, no clubbing, ROM intact, no edema. [] Neurologic: Alert and oriented X 3, normal motor function, normal sensory function, no focal deficits noted. [] Psychologic: Affect normal, judgement normal, mood normal. [] Current Patient Data Vital Signs Vital Signs Date Time Temp Pulse Resp B/P (MAP) Pulse Ox O2 Delivery O2 Flow Rate FiO2 06/01/19 01:12 72 16 113/69 (84) 95 Room Air 05/31/19 21:35 98.9 Lab Results Laboratory Tests Test 05/31/19 22:33 Urine Collection Type Unknown Urine Color Yellow Urine Clarity Cloudy Urine pH 5.5 Urine Specific [place] 1.015 Urine Protein Trace (NEG-TRACE) Urine Glucose (UA) >=1000 mg/dL (NEG) Urine Ketones (Stick) Trace mg/dL (NEG) Urine Blood Large (NEG) Urine Nitrite Neg (NEG) Urine Bilirubin Neg (NEG) Urine Urobilinogen Dipstick 0.2 mg/dL (0.2 mg/dL) Urine Leukocyte Esterase Neg (NEG) Urine RBC Tntc /HPF (0-2) Urine WBC 1-4 /HPF (0-4) Urine Squamous Epithelial Cells Occ /LPF Urine Bacteria 0 /HPF (0-FEW) Urine Mucus Slight /LPF EKG EKG [] Radiology/Procedures Radiology/Procedures [] Course & Med Decision Making Course & Med Decision Making Pertinent Labs and Imaging studies reviewed. (See chart for details) [UTI without systemic symptoms. Initial dose of antibiotics given. Culture sent. Recommendations are for outpatient antibiotics and urology follow-up. Return cautions reviewed. Patient verbalizes understanding and agreement discharge instructions prior to departure.] Dragon Disclaimer Dragon Disclaimer This electronic medical record was generated, in whole or in part, using a voice recognition dictation system. Departure Departure: Impression: Primary Impression: Ureteral stenosis, right Additional Impression: Urinary tract infection Disposition: 01 HOME/RESIDENCE PRIOR TO ADM Condition: STABLE Patient Instructions: Urinary Tract Infection, [id number] Additional Instructions: Please increase fluids and take antibitoics as directed. Follow up with your PCP in 2-3 days for re-evaluation. Return to the ED if new or worsening symptoms. Scripts Phenazopyridine Hcl (PYRIDIUM) 100 Mg Tablet 1 TAB PO TID for urinary discomfort for 2 Days, #6 TAB 0 Refills Prov: BETSEY ESCAMILLA DO 06/01/19 Levofloxacin (LEVAQUIN) 500 Mg Tablet 1 TAB PO DAILY for 7 Days, #7 TAB 0 Refills Prov: BETSEY ESCAMILLA DO 06/01/19 Problem Qualifiers BETSEY ESCAMILLA DO Jun 01, 2019 06:51
== END 2019-06-01 01:34 | disposition home or self-care (01) ==
LOC: ER 21:29
DX: N39.0 Urinary tract infection, site not specified (principal); Q62.10 Congenital occlusion of ureter, unspecified; M19.90 Unspecified osteoarthritis, unspecified site; E11.9 Type 2 diabetes mellitus without complications; K21.9 Gastro-esophageal reflux disease without esophagitis; E78.00 Pure hypercholesterolemia, unspecified; I11.0 Hypertensive heart disease with heart failure; I50.9 Heart failure, unspecified; Z87.442 Personal history of urinary calculi; Z87.440 Personal history of urinary (tract) infections; Z95.0 Presence of cardiac pacemaker
CPT/HCPCS: 74018; 81001; 99285

== ENCOUNTER 2019-08-26 22:30 | Emergency (ER) | payer OTHER ==
[~2019-08-26] VITALS: Ht 154.9 cm; Wt 157.7 kg
[~2019-08-26 22:30] MED LIST changes: -DIGO125T2; +DIGO125T3; +LEVO500T59 PO; +PHEN100T82 PO
--- NOTE | 2019-08-26 22:50 | PHYS DOC ---
Past History Past Medical History: Anemia, Angina, Anxiety, Arthritis, CHF, Constipation, Diabetes, GERD, High Cholesterol, Heart Disease, Hypertension, Kidney Infection, Kidney Stones, Renal Disease, UTI, Other Additional Past Medical Histor: cardiomegaly Past Surgical History: No Surgical History, Pacemaker, Other Additional Past Surgical Histo: pacemaker, KIDNEY STENTS PLACED Smoking: Non-smoker Alcohol Use: None Drug Use: None Adult General HPI HPI Patient is a 53 year old female that presents with the chief complaint of chest pain. Patient states she has had chest pain on and off since 0500hrs. Patient states pain comes and goes. No associated nausea. Patient denies shortness of breath. Patient states she has had a cough with white sputum x 3-4 days. Review of Systems Review of Systems Constitutional: Denies fever or chills [] Eyes: Denies change in visual acuity, redness, or eye pain [] HENT: Denies nasal congestion or sore throat [] Respiratory: Denies shortness of breath [positive cough] Cardiovascular: No additional information not addressed in HPI [positive chest pain] GI: Denies abdominal pain, nausea, vomiting, bloody stools or diarrhea [] : Denies dysuria or hematuria [] Musculoskeletal: Denies back pain or joint pain [] Integument: Denies rash or skin lesions [] Neurologic: Denies headache, focal weakness or sensory changes [] Endocrine: Denies polyuria or polydipsia [] All other systems were reviewed and found to be within normal limits, except as documented in this note. Allergies Allergies Allergies Coded Allergies Type Severity Reaction Last Updated Verified No Known Drug Allergies 02/06/19 No Physical Exam Physical Exam Constitutional: Well developed, well nourished, no acute distress, non-toxic appearance. [] HENT: Normocephalic, atraumatic, bilateral external ears normal, oropharynx moist, no oral exudates, nose normal. [] Eyes: PERRLA, EOMI, conjunctiva normal, no discharge. [] Neck: Normal range of motion, no tenderness, supple, no stridor. [] Cardiovascular:Heart rate regular rhythm, no murmur [] Lungs & Thorax: Bilateral breath sounds clear to auscultation [] Abdomen: Bowel sounds normal, soft, no tenderness, no masses, no pulsatile masses. [] Skin: Warm, dry, no erythema, no rash. [] Back: No tenderness, no CVA tenderness. [] Extremities: No tenderness, no cyanosis, no clubbing, ROM intact, no edema. [] Neurologic: Alert and oriented X 3, normal motor function, normal sensory function, no focal deficits noted. [] Psychologic: Affect normal, judgement normal, mood normal. [] EKG EKG []Irregular Rhythn Heart rate 73 No STEMI Radiology/Procedures Radiology/Procedures [] Impressions: Chest Xray no acute process Course & Med Decision Making Course & Med Decision Making Pertinent Labs and Imaging studies reviewed. (See chart for details) Patient was evaluated for chief complaint. Workup consisted of laboratory analysis and radiologic imaging. Results reviewed and discussed with patient. No acute lab and radiologic and EKG abnormalities. Patient does state she has a yeast infection. Patient be placed on Diflucan. Patient will be discharged home with instructions to follow up with primary care physician. [] Dragon Disclaimer Dragon Disclaimer This electronic medical record was generated, in whole or in part, using a voice recognition dictation system. Departure Departure: Impression: Primary Impression: Acute bronchitis Additional Impressions: Chest pain Yeast infection Disposition: HOME, SELF-CARE Condition: STABLE Referrals: EULOGIO KISER (PCP) Patient Instructions: Bronchitis, Sindi Infection, Adult, Chest Pain (Nonspecific) Scripts Fluconazole (DIFLUCAN) 150 Mg Tablet 1 TAB PO ONCE, #1 TAB 1 Refill Prov: LARA MAYBERRY I DO 08/27/19 Problem Qualifiers LARA MAYBERRY I DO Aug 26, 2019 22:50
--- NOTE | 2019-08-26 23:05 | EKG ---
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
[2019-08-26 23:30] VITALS: BP 116/65
[2019-08-26 23:55] LABS: CALCIUM 8.7 mg/dL (8.5-10.1); CREATININE 1.3 mg/dL (0.6-1.0); GFR 42.7; POTASSIUM 4.9 mmol/L (3.5-5.1)
[2019-08-27 00:01] LABS: ALBUMIN 3.5 g/dL (3.4-5.0); ALBUMIN/GLOBULIN RATIO 0.8 (1.0-1.7); TOTAL BILIRUBIN 0.3 mg/dL (0.2-1.0); TOTAL PROTEIN 7.7 g/dL (6.4-8.2)
--- NOTE | 2019-08-27 00:03 | RAD ---
Study: CHEST AP ONLY Indication: Chest pain. Cough. Comparison: 03/14/2019 Findings: Left chest wall pacer/AICD is unchanged. Redemonstrated cardiomegaly. The configuration of the lev is no different from the prior. No layering effusion, pneumothorax or lobar infiltrate. Impression: Unchanged appearance of the chest from 03/14/2019 with redemonstration of cardiomegaly. Electronically signed by: ACOSTA HARDIN MD (08/27/2019 12:00 AM) [id number]
[2019-08-27 00:05] LABS: BASO # 0.1 x10^3/uL (0.0-0.2); BASO % 1 % (0-3); EOS # 0.2 x10^3/uL (0.0-0.7); EOS % 1 % (0-3); HEMOGLOBIN 10.1 g/dL (12.0-15.5); LYMPH # 3.2 x10^3/uL (1.0-4.8); LYMPH % 28 % (24-48); MEAN CORPUSCULAR HEMOGLOBIN 20 pg (25-35); MEAN CORPUSCULAR HGB CONC 29 g/dL (31-37); MEAN CORPUSCULAR VOLUME 68 fL (79-100); MONO # 0.8 x10^3/uL (0.0-1.1); MONO % 7 % (0-9); NEUT % 62 % (31-73); PLATELET COUNT 375 x10^3/uL (140-400); RED BLOOD COUNT 5.16 x10^6/uL (3.50-5.40); RED CELL DISTRIBUTION WIDTH 21.4 % (11.5-14.5); WHITE BLOOD COUNT 11.3 x10^3/uL (4.0-11.0)
[2019-08-27 00:06] LABS: HEMATOCRIT 34.8 % (36.0-47.0)
[2019-08-27] MEDS ORDERED: FLUC150T PO (00:16)
[2019-08-27 01:27] LABS: PLT ESTIMATE ADEQUATE (ADEQUATE); POLYCHROMASIA MOD
[2019-08-27 01:28] LABS: ANISOCYTOSIS MOD; HYPOCHROMIA MOD; MICROCYTOSIS MOD; OVALOCYTES OCC
[2019-08-27 01:29] LABS: BURR CELLS OCC; TEAR DROP CELLS OCC
== END 2019-08-27 00:36 | disposition home or self-care (01) ==
LOC: ER 22:30
DX: J20.9 Acute bronchitis, unspecified (principal); B37.9 Candidiasis, unspecified; I11.0 Hypertensive heart disease with heart failure; I50.9 Heart failure, unspecified; K21.9 Gastro-esophageal reflux disease without esophagitis; E78.5 Hyperlipidemia, unspecified; Z95.0 Presence of cardiac pacemaker
CPT/HCPCS: 36415; 71045; 80053; 84484; 85025; 93005; 99285

== ENCOUNTER 2020-03-26 19:47 | Observation (INO) | payer OTHER ==
[~2020-03-26] VITALS: Ht 154.9 cm; Wt 153.0 kg
[~2020-03-26 19:47] MED LIST changes: +FLUC150T PO; +METF-658; -METF500T11
[2020-03-26 20:31] LABS: BASO # 0.1 x10^3/uL (0.0-0.2); BASO % 1 % (0-3); EOS # 0.1 x10^3/uL (0.0-0.7); EOS % 2 % (0-3); HEMATOCRIT 32.2 % (36.0-47.0); HEMOGLOBIN 9.5 g/dL (12.0-15.5); LYMPH # 2.7 x10^3/uL (1.0-4.8); LYMPH % 31 % (24-48); MEAN CORPUSCULAR HEMOGLOBIN 21 pg (25-35); MEAN CORPUSCULAR HGB CONC 30 g/dL (31-37); MEAN CORPUSCULAR VOLUME 70 fL (79-100); MONO # 0.8 x10^3/uL (0.0-1.1); MONO % 9 % (0-9); NEUT # 5.1 x10^3uL (1.8-7.7); NEUT % 58 % (31-73); PLATELET COUNT 362 x10^3/uL (140-400); RED BLOOD COUNT 4.63 x10^6/uL (3.50-5.40); RED CELL DISTRIBUTION WIDTH 22.1 % (11.5-14.5); WHITE BLOOD COUNT 8.7 x10^3/uL (4.0-11.0)
[2020-03-26 20:37] LABS: CALCIUM 8.6 mg/dL (8.5-10.1); CREATININE 1.6 mg/dL (0.6-1.0); GFR 33.5; POTASSIUM 4.5 mmol/L (3.5-5.1)
[2020-03-26 20:49] LABS: ALBUMIN 3.2 g/dL (3.4-5.0); ALBUMIN/GLOBULIN RATIO 0.7 (1.0-1.7); TOTAL BILIRUBIN 0.2 mg/dL (0.2-1.0); TOTAL PROTEIN 7.6 g/dL (6.4-8.2)
[2020-03-26 20:56] LABS: PLT ESTIMATE ADEQUATE (ADEQUATE)
[2020-03-26 20:57] LABS: ANISOCYTOSIS MOD; HYPOCHROMIA MOD; MICROCYTOSIS MOD
--- NOTE | 2020-03-26 21:09 | RAD ---
EXAM: CHEST ONE VIEW. HISTORY: Chest pain. COMPARISON: 08/26/2019. FINDINGS: A frontal view of the chest is obtained. A left-sided pacemaker/defibrillator has its leads in the right atrium, right ventricle and a left cardiac vein. There are no confluent infiltrates. There is no pneumothorax or pleural effusion. The heart is mildly enlarged. IMPRESSION: 1. Mild cardiomegaly. No confluent infiltrates. Electronically signed by: Rishi Cisneros MD (03/26/2020 9:05 PM) [facility]
[2020-03-26] MEDS ORDERED: IV NORMAL SALINE 1,000ML 1,000 ML IV ONE (21:15)
--- NOTE | 2020-03-26 21:18 | PHYS DOC ---
Past History Past Medical History: Asthma, CHF, COPD, Diabetes, Renal Failure Additional Past Medical Histor: cardiomegaly Past Surgical History: , Pacemaker, Other Additional Past Surgical Histo: HERNIA Smoking: Non-smoker Alcohol Use: Rarely Drug Use: None General Adult EDM: Chief Complaint: CHEST PAIN HPI: HPI: The history was obtained from the patient. Patient is a 54-year-old female with PMH CHF, pacemaker placement, diabetes who presents with a chief complaint of chest pain. Patient states he has had intermittent sharp chest pain that began 24 hours ago. She is unsure of what seems to bring on her symptoms. States last for several minutes and resolved on its own. She notes a history of pacemaker placement but denies history of AL or stent placement. She does state that she has heart failure feels as though she may have fluid around her heart and legs. Denies syncope. Does endorse orthopnea. Denies cough or fever. Has not tried any medicine at home to help. Does note that she takes Eliquis daily. Denies any feelings of irregular rapid heartbeats. Denies any active chest pain at this time. Review of Systems: Review of Systems: Constitutional: Denies fever or chills Eyes: Denies change in visual acuity HENT: Denies nasal congestion or sore throat Respiratory: Denies cough or shortness of breath Cardiovascular: Positive for chest pain GI: Denies abdominal pain, nausea, vomiting, bloody stools or diarrhea : Denies dysuria Musculoskeletal: Denies back pain or joint pain Integument: Denies rash Neurologic: Denies headache, focal weakness or sensory changes Endocrine: Denies polyuria or polydipsia Lymphatic: Denies swollen glands Psychiatric: Denies depression or anxiety Heart Score: HEART Score for Chest Pain: HEART Score for Chest Pain Response (Comments) Value History Moderately Suspicious 1 ECG Nonspecific Repolarizatio 1 Age >45 - < 65 1 Risk Factors >3 Risk Factors or Hx CAD 2 Troponin < Normal Limit 0 Total 5 Risk Factors: Risk Factors: DM, Current or recent (<one month) smoker, HTN, HLP, family history of CAD, obesity. Risk Scores: Score 0 - 3: 2.5% MACE over next 6 weeks - Discharge Home Score 4 - 6: 20.3% MACE over next 6 weeks - Admit for Clinical Observation Score 7 - 10: 72.7% MACE over next 6 weeks - Early Invasive Strategies Current Medications: Current Meds: Current Medications Medications (Trade) Dose Ordered Sig/Christina Start Time Stop Time Status Last Admin Dose Admin Sodium Chloride 1,000 ml @ 1,000 mls/hr 1X ONCE 03/26/20 21:15 03/26/20 22:14 Allergies: Allergies: Allergies Coded Allergies Type Severity Reaction Last Updated Verified No Known Drug Allergies 08/26/19 No Physical Exam: PE: Constitutional: Well developed, well nourished, no acute distress, non-toxic appearance. [] HENT: Normocephalic, atraumatic, bilateral external ears normal, oropharynx moist, no oral exudates, nose normal. [] Eyes: PERRLA, EOMI, conjunctiva normal, no discharge. [] Neck: Normal range of motion, no tenderness, supple, no stridor. [] Cardiovascular:Heart rate regular rhythm, no murmur [] Lungs & Thorax: Bilateral breath sounds clear to auscultation [] Abdomen: soft, no tenderness, no masses, no pulsatile masses. [] Skin: Warm, dry, no erythema, no rash. [] Back: No tenderness, no CVA tenderness. [] Extremities: +2-4 pitting edema in the lower extremities bilaterally Neurologic: Alert and oriented X 3, normal motor function, normal sensory function, no focal deficits noted. [] Psychologic: Affect normal, judgement normal, mood normal. [] Current Patient Data: Labs: Laboratory Tests Test 03/26/20 20:00 White Blood Count 8.7 x10^3/uL (4.0-11.0) Red Blood Count 4.63 x10^6/uL (3.50-5.40) Hemoglobin 9.5 g/dL (12.0-15.5) L Hematocrit 32.2 % (36.0-47.0) L Mean Corpuscular Volume 70 fL (79-100) L Mean Corpuscular Hemoglobin 21 pg (25-35) L Mean Corpuscular Hemoglobin Concent 30 g/dL (31-37) L Red Cell Distribution Width 22.1 % (11.5-14.5) H Platelet Count 362 x10^3/uL (140-400) Neutrophils (%) (Auto) 58 % (31-73) Lymphocytes (%) (Auto) 31 % (24-48) Monocytes (%) (Auto) 9 % (0-9) Eosinophils (%) (Auto) 2 % (0-3) Basophils (%) (Auto) 1 % (0-3) Neutrophils # (Auto) 5.1 x10^3uL (1.8-7.7) Lymphocytes # (Auto) 2.7 x10^3/uL (1.0-4.8) Monocytes # (Auto) 0.8 x10^3/uL (0.0-1.1) Eosinophils # (Auto) 0.1 x10^3/uL (0.0-0.7) Basophils # (Auto) 0.1 x10^3/uL (0.0-0.2) Platelet Estimate Adequate (ADEQUATE) Hypochromasia Mod Anisocytosis Mod Microcytosis Mod Sodium Level 138 mmol/L (136-145) Potassium Level 4.5 mmol/L (3.5-5.1) Chloride Level 104 mmol/L (98-107) Carbon Dioxide Level 25 mmol/L (21-32) Anion Gap 9 (6-14) Blood Urea Nitrogen 31 mg/dL (7-20) H Creatinine 1.6 mg/dL (0.6-1.0) H Estimated GFR (Cockcroft-Gault) 33.5 BUN/Creatinine Ratio 19 (6-20) Glucose Level 200 mg/dL (70-99) H Calcium Level 8.6 mg/dL (8.5-10.1) Total Bilirubin 0.2 mg/dL (0.2-1.0) Aspartate Amino Transferase (AST) 21 U/L (15-37) Alanine Aminotransferase (ALT) 25 U/L (14-59) Alkaline Phosphatase 92 U/L (46-116) Troponin I Quantitative < 0.017 ng/mL (0-0.055) RB-Wsz-O-Type Natriuretic Peptide 1043 pg/mL (0-124) H Total Protein 7.6 g/dL (6.4-8.2) Albumin 3.2 g/dL (3.4-5.0) L Albumin/Globulin Ratio 0.7 (1.0-1.7) L Lipase 184 U/L (73-393) Vital Signs: Vital Signs Date Time Temp Pulse Resp B/P (MAP) Pulse Ox O2 Delivery O2 Flow Rate FiO2 03/26/20 20:47 69 24 107/60 (76) 97 Room Air 03/26/20 19:50 98.6 EKG: EKG: EKG consistent with normal sinus rhythm. Artifact present making interpretation of intervals difficult. No acute ischemic changes noted. Flipped T waves noted in lead III. No kevin ST segment elevation appreciated. [] Radiology/Procedures: Radiology/Procedures: [address] [id number] IMAGING REPORT Signed PATIENT: DARELL CORONADO LACCOUNT: [id number] : 1965 LOCATION: ER AGE: 54 SEX: F EXAM STATUS: REG ER ORD. PHYSICIAN: MALCOM SOLANO DO REASON: CP PROCEDURE: CHEST AP ONLY EXAM: CHEST ONE VIEW. HISTORY: Chest pain. COMPARISON: 08/26/2019. FINDINGS: A frontal view of the chest is obtained. A left-sided pacemaker/defibrillator has its leads in the right atrium, right ventricle and a left cardiac vein. There are no confluent infiltrates. There is no pneumothorax or pleural effusion. The heart is mildly enlarged. IMPRESSION: 1. Mild cardiomegaly. No confluent infiltrates. Electronically signed by: Rishi Cisneros MD (03/26/2020 9:05 PM) [facility] DICTATED AND SIGNED BY: ZAINA CISNEROS MD DATE: 03/26/202104 CC: EULOGIO KISER; MALCOM SOLANO DO ~ [] Course & Med Decision Making: Course & Med Decision Making Pertinent Labs and Imaging studies reviewed. (See chart for details) [] Patient is a 54-year-old female who presents with chief complaint of intermittent chest pain over the past day and a half. Initial vital signs unremarkable. EKG shows no acute ischemic changes. Troponin negative. proBNP mildly elevated at thousand. Chest x-ray unremarkable. I do estimate the patient be a moderate risk heart score. I do feel she would benefit from hospitalization. She was given a full dose aspirin. She remained chest pain- free in the emergency department. She will be hospitalized for further care. Dragon Disclaimer: Dragon Disclaimer: This electronic medical record was generated, in whole or in part, using a voice recognition dictation system. Departure Departure: Disposition: 01 HOME/RESIDENCE PRIOR TO ADM Condition: STABLE Referrals: EULOGIO KISER (PCP) Justification of Admission: Justification of Admission: Justification of Admission Dx: Yes Angina: Cresendo Worsening of Sym MALCOM SOLANO DO Mar 26, 2020 21:18
[2020-03-26] MEDS ORDERED: ONDANSETRON PF 4 MG/2 ML VIAL. IVP PRN (21:30)
[2020-03-26] MEDS ORDERED: ASPIRIN CHEWABLE 81 MG TABLET. PO ONE (22:00)
[2020-03-26 22:15] VITALS: BP 129/67
--- NOTE | 2020-03-26 22:15 | NUR ---
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
[2020-03-26] MEDS ORDERED: CANA300T PO (23:01)
[2020-03-26] MEDS ORDERED: DICL100G28 TP (23:01)
--- NOTE | 2020-03-26 23:17 | NUR ---
Aspirin for 2200 given in ED per report
--- NOTE | 2020-03-27 01:37 | EKG ---
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
[2020-03-27 03:45] LABS: CALCIUM 8.2 mg/dL (8.5-10.1); CREATININE 1.5 mg/dL (0.6-1.0); GFR 36.1; POTASSIUM 4.3 mmol/L (3.5-5.1)
[2020-03-27 04:52] LABS: BASO # 0.1 x10^3/uL (0.0-0.2); BASO % 1 % (0-3); EOS # 0.1 x10^3/uL (0.0-0.7); EOS % 1 % (0-3); HEMATOCRIT 32.6 % (36.0-47.0); HEMOGLOBIN 9.7 g/dL (12.0-15.5); LYMPH % 35 % (24-48); MEAN CORPUSCULAR HEMOGLOBIN 21 pg (25-35); MEAN CORPUSCULAR HGB CONC 30 g/dL (31-37); MEAN CORPUSCULAR VOLUME 70 fL (79-100); MONO # 0.6 x10^3/uL (0.0-1.1); MONO % 7 % (0-9); NEUT # 4.9 x10^3uL (1.8-7.7); NEUT % 56 % (31-73); PLATELET COUNT 325 x10^3/uL (140-400); RED BLOOD COUNT 4.64 x10^6/uL (3.50-5.40); RED CELL DISTRIBUTION WIDTH 22.2 % (11.5-14.5); WHITE BLOOD COUNT 8.8 x10^3/uL (4.0-11.0)
[2020-03-27 05:32] VITALS: BP 126/73
[2020-03-27] MEDS ORDERED: IPRATRPIUM/ALBUTEROL 0.5/2.5MG 3 ML NEBU. NEB SCH (08:00)
[2020-03-27] MEDS: PANTOPRAZOLE 40 MG TABLET. PO SCH (08:05)
[2020-03-27] MEDS: DIGOXIN 125 MCG TABLET PO SCH (08:06)
[2020-03-27] MEDS: POTASSIUM CHLORIDE 10 MEQ TABLET.ER. PO SCH (08:06)
[2020-03-27] MEDS: ASPIRIN CHEWABLE 81 MG TABLET. PO SCH (08:06)
[2020-03-27] MEDS: CETIRIZINE HCL 10 MG TABLET PO SCH (08:06)
[2020-03-27] MEDS: APIXABAN 5 MG TABLET. PO SCH ×2 (08:06→21:02)
--- NOTE | 2020-03-27 08:06 | PDOC2 ---
STAS MARTIN CAROLE 03/27/20 0806: CARDIAC CONSULT DATE OF CONSULT DOS: DATE: 03/27/20 TIME: 08:02 REASON FOR CONSULT Reason for Consult Chest pain REFERRING PHYSICIAN Referring Physician Dr. Guevara SOURCE Source: Chart review, Patient HPI History of Present Illness This is a 54 yo female who presented secondary to chest heaviness and shortness of breath with exertion. Began two days ago. Progressively worse. 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 Patient reports it "feel like I do when I have too much water and needs to get ride of it. Feeling better this am. No dizziness, diaphoresis, palpitations, or nausea/vomiting. Reports having cath 11/29 without intervention; "everything looked good''. PAST MEDICAL HISTORY Past Medical History Cardiovascular: AFIB, CHF (NICM), HTN, hyperipidemia Pulmonary: Asthma, COPD GI: GERD Psych: Anxiety Renal/: Chronic renal insuff Endocrine: Diabetes PAST SURGICAL HISTORY Past Surgical History: Pacemaker (AICD) FAMILY HISTORY Family History Heart Disease, Hypertension SOCIAL HISTORY Social History Smoke: Quit ALCOHOL: none Drugs: None Lives: with Family CURRENT MEDICATIONS Current Medications Current Medications Sodium Chloride 1,000 ml @ 1,000 mls/hr 1X ONCE IV Last administered on 03/26/20at 21:22; Start 03/26/20 at 21:15; Stop 03/26/20 at 22:14; Status DC Ondansetron HCl (Zofran) 4 mg PRN Q4HRS PRN IVP NAUSEA/VOMITING 1ST CHOICE; Start 03/26/20 at 21:30; Stop 03/27/20 at 21:29 Aspirin (Aspirin Chewable) 324 mg 1X ONCE PO ; Start 03/26/20 at 22:00; Stop 03/26/20 at 22:01; Status DC Aspirin (Aspirin Chewable) 81 mg DAILY PO ; Start 03/27/20 at 09:00 Digoxin (Lanoxin) 125 mcg DAILY PO ; Start 03/27/20 at 09:00 Furosemide (Lasix) 40 mg DAILY PO ; Start 03/27/20 at 09:00 Metformin HCl (Glucophage Xr) 500 mg DAILY PO ; Start 03/27/20 at 09:00 Sacubitril/ Valsartan (Entresto 49 Mg-51 Mg) 1 tab BID PO ; Start 03/27/20 at 09:00 Apixaban (Eliquis) 5 mg BID PO ; Start 03/27/20 at 09:00 Atorvastatin Calcium (Lipitor) 80 mg QHS PO ; Start 03/27/20 at 21:00 Non-Formulary Medication (Canagliflozin (Invokana)) 1 tab DAILY PO ; Start 03/27/20 at 09:00; Status UNV Pantoprazole Sodium (Protonix) 40 mg DAILYAC PO ; Start 03/27/20 at 07:30 Non-Formulary Medication (Fluticasone/ Salmeterol (Advair 100-50 Diskus)) 1 puff BID IH ; Start 03/27/20 at 09:00; Stop 03/27/20 at 08:00; Status DC Insulin Glargine (Lantus Syringe) 38 unit QHS SQ ; Start 03/27/20 at 21:00 Insulin Human Lispro (HumaLOG) 17 units TIDWMEALS SQ ; Start 03/27/20 at 08:00 Cetirizine HCl (ZyrTEC) 10 mg DAILY PO ; Start 03/27/20 at 09:00 Metoprolol Succinate (Toprol Xl) 200 mg DAILY PO ; Start 03/27/20 at 09:00 Potassium Chloride (Klor-Con) 10 meq DAILYWBKFT PO ; Start 03/27/20 at 08:00 Albuterol/ Ipratropium (Duoneb) 3 ml RTQID NEB ; Start 03/27/20 at 08:00; Stop 03/27/20 at 07:36; Status DC Albuterol Sulfate (Ventolin) 2.5 mg RTQID NEB ; Start 03/27/20 at 08:00 Budesonide (Pulmicort) 0.5 mg RTBID NEB ; Start 03/27/20 at 08:00 Active Scripts Active Humalog (Insulin Lispro) 100 Unit/1 Ml Cartridge 17 Unit SQ TID PRN 30 Days Lantus Solostar (Insulin Glargine,Hum.rec.anlog) 100 Unit/1 Ml Insuln.pen 38 Unit SQ QHS 30 Days Reported Diclofenac Sodium 100 Gm Gel..gram. 1 Ila TP BID Invokana (Canagliflozin) 300 Mg Tablet 1 Tab PO DAILY Metoprolol Succinate ( Xl ) (Metoprolol Succinate) 200 Mg Tab.er.24h 200 Mg PO DAILY Advair 100-50 Diskus (Fluticasone/Salmeterol) 1 Each Disk.w.dev 1 Puff IH BID Loratadine 10 Mg Tab.rapdis 10 Mg PO DAILY Eliquis (Apixaban) 5 Mg Tab.ds.pk 5 PO BID Digoxin 125 Mcg Tablet 1 DAILY Atorvastatin Calcium 80 Mg Tablet 1 HS K-Tab (Potassium Chloride) 10 Meq Tablet.er 1 DAILY Metformin Hcl Er (Metformin Hcl) 500 Mg Tab.er.24h 1 DAILY Furosemide 40 Mg Tablet 1 DAILY Entresto 49 mg-51 mg Tablet (Sacubitril/Valsartan) 1 Each Tablet 1 Each PO BID Nexium Capsule (Esomeprazole Magnesium) 40 Mg Capsule.dr 40 Mg PO DAILYAC Aspirin 81 Mg Tab.chew 81 Mg PO DAILY ALLERGIES Allergies: Coded Allergies: No Known Drug Allergies (Unverified , 08/26/19) ROS Review of Systems 14 point ROS conducted with pertinent positives noted above in HPI. PHYSICAL EXAM Physical Exam General: Alert, Cooperative, No acute distress HEENT: Atraumatic, Mucous membr. moist/pink Lungs: Clear to auscultation. diminished bases Heart: Other (AFIB with intermittent V-pacing ) Abdomen: Soft, Other (obese ) Extremities: trace LE edema Skin: No rashes, No breakdown Neuro: Normal speech, Sensation intact Psych/Mental Status: Mood NL MUSCULOSKELETAL: Osteoarthritic changes both hands VITALS Vital Signs Vital Signs Date Time Temp Pulse Resp B/P (MAP) Pulse Ox O2 Delivery O2 Flow Rate FiO2 03/27/20 05:32 98.6 70 20 126/73 (90) 98 Room Air LABS LABS Laboratory Tests Test 03/26/20 20:00 03/27/20 03:16 03/27/20 07:48 White Blood Count 8.7 x10^3/uL (4.0-11.0) 8.8 x10^3/uL (4.0-11.0) Red Blood Count 4.63 x10^6/uL (3.50-5.40) 4.64 x10^6/uL (3.50-5.40) Hemoglobin 9.5 g/dL (12.0-15.5) 9.7 g/dL (12.0-15.5) Hematocrit 32.2 % (36.0-47.0) 32.6 % (36.0-47.0) Mean Corpuscular Volume 70 fL (79-100) 70 fL (79-100) Mean Corpuscular Hemoglobin 21 pg (25-35) 21 pg (25-35) Mean Corpuscular Hemoglobin Concent 30 g/dL (31-37) 30 g/dL (31-37) Red Cell Distribution Width 22.1 % (11.5-14.5) 22.2 % (11.5-14.5) Platelet Count 362 x10^3/uL (140-400) 325 x10^3/uL (140-400) Neutrophils (%) (Auto) 58 % (31-73) 56 % (31-73) Lymphocytes (%) (Auto) 31 % (24-48) 35 % (24-48) Monocytes (%) (Auto) 9 % (0-9) 7 % (0-9) Eosinophils (%) (Auto) 2 % (0-3) 1 % (0-3) Basophils (%) (Auto) 1 % (0-3) 1 % (0-3) Neutrophils # (Auto) 5.1 x10^3uL (1.8-7.7) 4.9 x10^3uL (1.8-7.7) Lymphocytes # (Auto) 2.7 x10^3/uL (1.0-4.8) 3.0 x10^3/uL (1.0-4.8) Monocytes # (Auto) 0.8 x10^3/uL (0.0-1.1) 0.6 x10^3/uL (0.0-1.1) Eosinophils # (Auto) 0.1 x10^3/uL (0.0-0.7) 0.1 x10^3/uL (0.0-0.7) Basophils # (Auto) 0.1 x10^3/uL (0.0-0.2) 0.1 x10^3/uL (0.0-0.2) Platelet Estimate Adequate (ADEQUATE) Hypochromasia Mod Anisocytosis Mod Microcytosis Mod Sodium Level 138 mmol/L (136-145) 140 mmol/L (136-145) Potassium Level 4.5 mmol/L (3.5-5.1) 4.3 mmol/L (3.5-5.1) Chloride Level 104 mmol/L (98-107) 106 mmol/L (98-107) Carbon Dioxide Level 25 mmol/L (21-32) 24 mmol/L (21-32) Anion Gap 9 (6-14) 10 (6-14) Blood Urea Nitrogen 31 mg/dL (7-20) 27 mg/dL (7-20) Creatinine 1.6 mg/dL (0.6-1.0) 1.5 mg/dL (0.6-1.0) Estimated GFR (Cockcroft-Gault) 33.5 36.1 BUN/Creatinine Ratio 19 (6-20) Glucose Level 200 mg/dL (70-99) 270 mg/dL (70-99) Calcium Level 8.6 mg/dL (8.5-10.1) 8.2 mg/dL (8.5-10.1) Total Bilirubin 0.2 mg/dL (0.2-1.0) Aspartate Amino Transf (AST/SGOT) 21 U/L (15-37) Alanine Aminotransferase (ALT/SGPT) 25 U/L (14-59) Alkaline Phosphatase 92 U/L (46-116) Troponin I Quantitative < 0.017 ng/mL (0-0.055) < 0.017 ng/mL (0-0.055) QX-Hqf-G-Type Natriuretic Peptide 1043 pg/mL (0-124) Total Protein 7.6 g/dL (6.4-8.2) Albumin 3.2 g/dL (3.4-5.0) Albumin/Globulin Ratio 0.7 (1.0-1.7) Lipase 184 U/L (73-393) Glucose (Fingerstick) 274 mg/dL (70-99) ECHOCARDIOGRAM Echocardiogram <Conclusion> Technically very difficult study. Valves not well visualized. Left ventricle systolic function appears to be severely impaired. The Ejection Fraction is 25-30%. The left atrium is moderately dilated. Trace to mild tricuspid regurgitation. The PA pressure was estimated at 31 mmHg. There is no evidence of significant pericardial effusion. DATE: 10/26/18 1529 HEART CATH Heart Cath Cath 2016 with normal coronaries ASSESSMENT/PLAN Assessment/Plan 1. Chest pain, atypical. AMI ruled out. Reports having normal cath 11/2019 at [facility] 2. Mild acute on chronic systolic HF with NICM; s/p [employer] AICD. Cath 2016 with normal coronaries. LVEF 25-30%. Follows with Dr. Maloney [facility] Cardiology 3. PAFIB; presently v-paced with underlying AFIB. 4. Hypertension; controlled 5. Hyperlipidemia; statin 6. CKD; Cr stable. 7. Diabetes, II; as per PCP Recommendation Will obtain records from [facility] Continue HF optimization with Entresto, BB, and lasix Will give extra dose of Lasix this am BB, digoxin for rate control Eliquis for stroke prophylaxis Supportive care Has appointment scheduled with Ela Escalante this Thursday. ZAIRA SANTOS MD 03/27/202120: CARDIAC CONSULT ASSESSMENT/PLAN Assessment/Plan Patient seen and examined. Agree with MANAGER WATER's assessment and plan, CP very atypical, NC ruled out, recent cath without any significant cad Continue diuresis for mild ac on chr syst HF PAF, continue eliquis for stroke prophylaxis s/p AICD, stable Follow up with primary cardiology as previously scheduled Thank you for your consultation STAS MARTIN APRN Mar 27, 2020 08:06 ZAIRA SANTOS MD Mar 27, 2020 21:21
[2020-03-27] MEDS: FUROSEMIDE 40 MG TABLET PO SCH (08:07)
[2020-03-27] MEDS: metFORMIN XR 500 MG TAB.ER.24H PO SCH (08:07)
[2020-03-27] MEDS: SACUBITRIL/VALSARTAN 49/51MG TABLET. PO SCH ×2 (08:08→21:02)
[2020-03-27] MEDS: METOPROLOL SUCC 24HR ER 50 MG TAB.ER.24H. PO SCH (08:11)
[2020-03-27] MEDS: INSULIN LISPRO 300 UNITS/3 ML VIAL. SQ SCH ×3 (08:13→17:14)
[2020-03-27] MEDS ORDERED: FUROSEMIDE 40 MG/4 ML VIAL IVP ONE (08:45)
[2020-03-27] MEDS ORDERED: NON FORMULARY ITEM (Canagliflozin (Invokana) 1 TAB) PO SCH (09:00)
[2020-03-27] MEDS ORDERED: NON FORMULARY ITEM (Fluticasone/Salmeterol (Advair 100-50 Diskus) 1 PUFF) IH SCH (09:00)
[2020-03-27] MEDS: ALBUTEROL SULFATE 2.5 MG/3 ML NEBU. NEB SCH ×4 (10:53→21:05)
[2020-03-27] MEDS: BUDESONIDE 0.5 MG/2 ML NEBU NEB SCH ×2 (10:53→21:05)
[2020-03-27 11:31] VITALS: BP 124/78
--- NOTE | 2020-03-27 16:58 | HP ---
ADMIT DATE: HISTORY OF PRESENT ILLNESS: The patient is a 54-year-old female patient who presented to the Emergency Room with chief complaint of chest pain and stated that she had had intermittent sharp chest pain that started about 24 hours ago. She is unsure of what seems to bring on her symptoms, ____ for several minutes and resolved on its own. She apparently also complained of shortness of breath, has difficulty walking the distance from her bathroom to her room. She also stated that she is using multiple pillows at nighttime. In fact, she does not sleep at all at nighttime and most of time, she sleeps during the daytime when there is somebody there at home, she is afraid that if she slept at night she would not be able to wake up. She states that she feels that she has fluid around her heart and lungs and she was therefore evaluated in the Emergency Room and was extensively investigated. Her EKG showed that she was in sinus rhythm with no acute ischemic changes noted. Her chest x-ray showed mild cardiomegaly, no confluent infiltrate, and she has had lab work including troponin. She has microcytic hypochromic anemia and also chronic kidney injury. Therefore, the patient was admitted with diagnosis of chest pain and to do 2 more sets of cardiac enzymes and also to consult the Cardiology team. She did receive IV Lasix as well as aspirin and 1 liter of normal saline together with Advair Diskus 1 puff twice a day. PAST MEDICAL HISTORY: Significant for severe nonischemic cardiomyopathy. She apparently has normal coronaries by catheterization in 2017. She has nonischemic cardiomyopathy with a resultant chronic systolic congestive heart failure. She has had an AICD placed at [facility]. She also has atrial fibrillation, for which she is on Eliquis; hypertension; hypertensive heart disease; chronic kidney disease stage 2; hyperlipidemia; microcytic hypochromic anemia; as well as type 2 diabetes. She also has stones in her left ureter, for which she has ureteral stent placed at [facility]. PAST SURGICAL HISTORY: Significant for hernia repair, left heart catheterization, placement of automated implantable cardioverter-defibrillator. She has had cystoscopy and ureterostomy with ureteral stent placement. FAMILY HISTORY: Unremarkable. SOCIAL HISTORY: She lives with her roommate and daughter. She apparently does not smoke, drink alcohol or use any recreational drugs. ALLERGIES: She has no known drug allergies. MEDICATIONS: She is currently on the following medications: She has loratadine 10 mg daily, apixaban 5 mg twice a day, digoxin 125 mcg once a day, atorvastatin calcium 80 mg at bedtime. She is on metoprolol succinate 200 mg extended release 1 tablet once a day, angiotensin receptor for which she is on Entresto 49/51 mg 1 tablet twice a day. Aspirin 81 mg once a day, diclofenac sodium 1 gram applied topically twice a day, potassium chloride 10 mEq once a day, furosemide 40 mg once a day, Advair Diskus 100/50 one puff twice a day, Nexium 40 mg once a day, metformin 500 mg twice a day, Lantus insulin 38 units at bedtime. She is also on Humalog insulin 17 units before meals and she is also on Invokana ____ mg 1 tablet once a day. REVIEW OF SYSTEMS: As per history of present illness. PHYSICAL EXAMINATION: GENERAL: On arrival, the patient looked well and was clearly in no apparent respiratory distress. Pale, not jaundiced, cyanosis or thyromegaly. No jugular venous distention. No limb edema. VITAL SIGNS: Her heart rate was 88, blood pressure was 89/48, temperature was 98.6, respiratory rate was 24, and her oxygen saturation was 98% on room air. HEAD, EYES, EARS, NOSE AND THROAT: Showed normocephalic, atraumatic. NECK: Supple. HEART: Showed normal first and second heart sounds. No gallop, rub or murmur. CHEST: Clear to auscultation. No crepitation or rhonchi. ABDOMEN: Distended, soft, nontender. No guarding or rigidity. No organomegaly. All hernial orifices intact. Bowel sounds normal. NEUROLOGIC: She was awake, alert, responding appropriately. All cranial nerves intact. EXTREMITIES: She moves extremities without difficulty. LABORATORY DATA: Showed a white cell count of 8700, hemoglobin 9.5, hematocrit 32, MCV 70, platelet count of 362,000. Her serum sodium 138, potassium 4.5, chloride 104, bicarbonate 25, anion gap of 9, BUN 31, creatinine 1.6, estimated GFR was 33 mL per minute. Her glucose was 100, calcium was 8.6. Total bilirubin, AST, ALT, alkaline phosphatase were normal. Beta natriuretic peptide 1043. Total protein was 7.6, albumin was 3.2. Serum lipase was ____. ASSESSMENT AND PLAN: 1. In summary, this is a 54-year-old female patient who came in with increasing shortness of breath and questionable chest pain. Chest pain was atypical, acute myocardial infarction ruled out. 2. Mild acute on chronic systolic congestive heart failure. The patient has, due to nonischemic cardiomyopathy, status post Medtronic AICD ____ with normal coronaries. Her left ventricular ejection fraction 25-30% ____. She normally follows with Dr. Maloney at [facility]. 3. Paroxysmal atrial fibrillation, hypertension, hyperlipidemia, chronic kidney disease and diabetes mellitus. Apparently, the patient was given IV and orally. Her records were requested from [facility] and apparently she has an appointment to be followed by . ____. WILLIAMS LOUIS MD DR: NEGRA/davina JOB#: [id number] / [id number]
--- NOTE | 2020-03-27 18:20 | PN ---
DATE: 03/27/2020 SUBJECTIVE: The patient is a 54-year-old female patient who came last night with a complaint of chest pain, shortness of breath. She was extensively investigated and she has had 2 sets of cardiac enzymes that ruled out myocardial infarction. Her chest x-ray showed that she has mild cardiomegaly, no confluent infiltrates. There is no pneumothorax or pleural effusion. The heart is mildly enlarged. She has a left sided pacemaker defibrillator, has its leads in the right atrium, right ventricle and left cardiac vein. She apparently was treated with IV Lasix and when I saw her this afternoon, she was sitting on the edge of the bed, continued to complain of some chest tightness and shortness of breath on exertion. She was seen by the Cardiology team and apparently her records were requested from [facility]. PHYSICAL EXAMINATION: GENERAL: When I examined her, she was pale, but no jaundice, cyanosis or thyromegaly. No jugular venous distention or limb edema. VITAL SIGNS: Her heart rate was 73. Her blood pressure was 124/78, temperature 97.6, respiratory rate 20, and oxygen saturation was 98% on room air. HEAD, EYES, EARS, NOSE AND THROAT: Normocephalic, atraumatic. NECK: Supple. HEART: Showed normal first and second heart sounds. No gallop or murmur. CHEST: Clear to auscultation. No crepitation or rhonchi. ABDOMEN: Distended, soft, nontender. No guarding or rigidity. No organomegaly. All hernial orifice intact. Bowel sounds normal. NEUROLOGIC: She was hard of hearing, but otherwise all her cranial nerves are intact. She moves extremities without difficulty. Her intake over the last 24 hours and output are incompletely recorded. LABORATORY DATA: Her lab work this morning showed that her white cell count was 8800, hemoglobin 10, hematocrit 32, MCV [place] [address]. Her chemistry this morning showed a serum sodium 140, potassium 4.3, chloride 106, bicarbonate 24, anion gap of 10, BUN 27, creatinine 1.5, estimated GFR was 36 mL per minute. Her glucose was 170, calcium was 8.2. ASSESSMENT: 1. Chest pain. Acute myocardial infarction was ruled out. 2. Acute on chronic systolic congestive heart failure as she has poor ejection fraction 25-30% with normal coronary arteries on cardiac catheterization done in 2017. She also has a Medtronic AICD for nonischemic cardiomyopathy. 3. Paroxysmal atrial fibrillation with V-paced with underlying atrial fibrillation. 4. Hypertension, well controlled. 5. Hyperlipidemia, on statin. 6. Chronic kidney disease with stable creatinine. 7. Type 2 diabetes mellitus, seems to be reasonably controlled. Apparently, the records from [place] were requested. She was given an extra dose of Lasix. She continues to be on beta alonso, digoxin as well as Eliquis and she has an appointment to see Benjamin Florez this Thursday. WILLIAMS LOUIS MD DR: NEGRA/davina JOB#: [id number] / [id number]
[2020-03-27 20:34] VITALS: BP 118/73
[2020-03-27] MEDS ORDERED: INSULIN GLARGINE SYRINGE. SQ SCH (21:00)
[2020-03-27] MEDS ORDERED: ATORVASTATIN CALCIUM 20 MG TABLET PO SCH (21:00)
[2020-03-27 22:43] VITALS: BP 104/55
[2020-03-28] MEDS: ALBUTEROL SULFATE 2.5 MG/3 ML NEBU. NEB SCH ×2 (05:05→11:01)
[2020-03-28 06:16] VITALS: BP 111/65
[2020-03-28] MEDS: CETIRIZINE HCL 10 MG TABLET PO SCH (07:43)
[2020-03-28] MEDS: ASPIRIN CHEWABLE 81 MG TABLET. PO SCH (07:43)
[2020-03-28] MEDS: DIGOXIN 125 MCG TABLET PO SCH (07:44)
[2020-03-28] MEDS: APIXABAN 5 MG TABLET. PO SCH (07:44)
[2020-03-28] MEDS: metFORMIN XR 500 MG TAB.ER.24H PO SCH (07:45)
[2020-03-28] MEDS: POTASSIUM CHLORIDE 10 MEQ TABLET.ER. PO SCH (07:45)
[2020-03-28] MEDS: METOPROLOL SUCC 24HR ER 50 MG TAB.ER.24H. PO SCH (07:45)
[2020-03-28] MEDS: PANTOPRAZOLE 40 MG TABLET. PO SCH (07:45)
[2020-03-28] MEDS: FUROSEMIDE 40 MG TABLET PO SCH (07:46)
[2020-03-28] MEDS: SACUBITRIL/VALSARTAN 49/51MG TABLET. PO SCH (07:46)
[2020-03-28] MEDS: INSULIN LISPRO 300 UNITS/3 ML VIAL. SQ SCH (07:49)
--- NOTE | 2020-03-28 08:06 | PDOC ---
CARDIO Progress Notes Date & Time Date of Service DATE: 03/28/20 TIME: 08:06 Time of Evaluation 08:06 Subjective Notes Chest pain, SOA, dizziness, diaphoresis, or nausea/vomiting. Vitals Vitals Vital Signs Date Time Temp Pulse Resp B/P (MAP) Pulse Ox O2 Delivery O2 Flow Rate FiO2 03/28/20 07:46 74 111/65 03/28/20 06:16 98.2 22 94 Room Air Weight Weight [ ] Input and Output I.O. Intake and Output 03/28/20 07:00 Intake Total 1560 ml Balance 1560 ml Intake Oral 1560 ml # Voids 4 # Bowel Movements 1 Laboratory Labs Laboratory Tests Test 03/26/20 20:00 03/27/20 03:16 03/27/20 07:48 03/27/20 11:18 White Blood Count 8.7 x10^3/uL (4.0-11.0) 8.8 x10^3/uL (4.0-11.0) Red Blood Count 4.63 x10^6/uL (3.50-5.40) 4.64 x10^6/uL (3.50-5.40) Hemoglobin 9.5 g/dL (12.0-15.5) 9.7 g/dL (12.0-15.5) Hematocrit 32.2 % (36.0-47.0) 32.6 % (36.0-47.0) Mean Corpuscular Volume 70 fL (79-100) 70 fL (79-100) Mean Corpuscular Hemoglobin 21 pg (25-35) 21 pg (25-35) Mean Corpuscular Hemoglobin Concent 30 g/dL (31-37) 30 g/dL (31-37) Red Cell Distribution Width 22.1 % (11.5-14.5) 22.2 % (11.5-14.5) Platelet Count 362 x10^3/uL (140-400) 325 x10^3/uL (140-400) Neutrophils (%) (Auto) 58 % (31-73) 56 % (31-73) Lymphocytes (%) (Auto) 31 % (24-48) 35 % (24-48) Monocytes (%) (Auto) 9 % (0-9) 7 % (0-9) Eosinophils (%) (Auto) 2 % (0-3) 1 % (0-3) Basophils (%) (Auto) 1 % (0-3) 1 % (0-3) Neutrophils # (Auto) 5.1 x10^3uL (1.8-7.7) 4.9 x10^3uL (1.8-7.7) Lymphocytes # (Auto) 2.7 x10^3/uL (1.0-4.8) 3.0 x10^3/uL (1.0-4.8) Monocytes # (Auto) 0.8 x10^3/uL (0.0-1.1) 0.6 x10^3/uL (0.0-1.1) Eosinophils # (Auto) 0.1 x10^3/uL (0.0-0.7) 0.1 x10^3/uL (0.0-0.7) Basophils # (Auto) 0.1 x10^3/uL (0.0-0.2) 0.1 x10^3/uL (0.0-0.2) Platelet Estimate Adequate (ADEQUATE) Hypochromasia Mod Anisocytosis Mod Microcytosis Mod Sodium Level 138 mmol/L (136-145) 140 mmol/L (136-145) Potassium Level 4.5 mmol/L (3.5-5.1) 4.3 mmol/L (3.5-5.1) Chloride Level 104 mmol/L (98-107) 106 mmol/L (98-107) Carbon Dioxide Level 25 mmol/L (21-32) 24 mmol/L (21-32) Anion Gap 9 (6-14) 10 (6-14) Blood Urea Nitrogen 31 mg/dL (7-20) 27 mg/dL (7-20) Creatinine 1.6 mg/dL (0.6-1.0) 1.5 mg/dL (0.6-1.0) Estimated GFR (Cockcroft-Gault) 33.5 36.1 BUN/Creatinine Ratio 19 (6-20) Glucose Level 200 mg/dL (70-99) 270 mg/dL (70-99) Calcium Level 8.6 mg/dL (8.5-10.1) 8.2 mg/dL (8.5-10.1) Total Bilirubin 0.2 mg/dL (0.2-1.0) Aspartate Amino Transf (AST/SGOT) 21 U/L (15-37) Alanine Aminotransferase (ALT/SGPT) 25 U/L (14-59) Alkaline Phosphatase 92 U/L (46-116) Troponin I Quantitative < 0.017 ng/mL (0-0.055) < 0.017 ng/mL (0-0.055) HP-Fxb-R-Type Natriuretic Peptide 1043 pg/mL (0-124) Total Protein 7.6 g/dL (6.4-8.2) Albumin 3.2 g/dL (3.4-5.0) Albumin/Globulin Ratio 0.7 (1.0-1.7) Lipase 184 U/L (73-393) Glucose (Fingerstick) 274 mg/dL (70-99) 301 mg/dL (70-99) Test 03/27/20 16:55 03/28/20 07:21 Glucose (Fingerstick) 277 mg/dL (70-99) 243 mg/dL (70-99) Physical Exams HEENT: Neck Supple W Full Motion Chest: Symmetric Lungs: Clear to Auscultation Heart: other (v-paced ) Abdomen: Soft N/T Extremities: No Edema, Other (obese ) Neurology: alert, oriented, follow commands Assessment Assessment 1. Chest pain, atypical. AMI ruled out. Reports normal cath 11/2019 at [facility]. Did not received records 2. Mild acute on chronic systolic HF with NICM; s/p Medtronic AICD. Cath 2016 with normal coronaries. LVEF 25-30%. Follows with Dr. Maloney [facility] Cardiology. Now compensated following IV diuresis 3. PAFIB; presently v-paced with underlying AFIB. 4. Hypertension; controlled 5. Hyperlipidemia; statin 6. CKD; Cr stable. 7. Diabetes, II; as per PCP Recommendation Continue HF optimization with Entresto, BB, and lasix BB, digoxin for rate control Eliquis for stroke prophylaxis Supportive care Okay to discharge from a CV standpoint and f/u with Ela Escalante as previously scheduled. STAS MARTIN APRN Mar 28, 2020 08:06
--- NOTE | 2020-03-28 09:57 | DS ---
DATE OF DISCHARGE: 03/28/2020 ATTENDING PHYSICIAN: Dr. Guevara. FINAL DISCHARGE DIAGNOSES: 1. Atypical chest pain, coronary ischemia ruled out. 2. History of mild congestive heart failure, systolic. 3. Nonischemic cardiomyopathy. 4. AICD placement. 5. Decreased left ventricular ejection fraction. 6. Paroxysmal atrial fibrillation. 7. Essential hypertension. 8. Chronic kidney disease. 9. Type 2 diabetes mellitus. HISTORY AND PHYSICAL: This is a 54-year-old female admitted to the ED with atypical chest pain, shortness of breath. She is morbidly obese with a BMI of 63.7. She is admitted for treatment, followup and Cardiology consultation. PHYSICAL EXAMINATION: Please see the dictated note. PERTINENT LABORATORY AND X-RAY STUDIES: Serial cardiac enzymes were negative for myocardial necrosis. Her nonfasting blood sugars were in the mid 200s. This will be adjusted accordingly. Hemoglobin 9.7 grams, white count 8800. COURSE IN THE HOSPITAL: She was seen in consultation by Cardiology Services. Their recommendation are conservative therapy given she sees her primary interventional technologist at [facility]. She denied any further pain. Sugars were fairly controlled. She was pain free and was stable to go home. There are no changes on her home meds, they include the following: She should continue her Eliquis 5 mg b.i.d., aspirin daily, Lipitor, Invokana, diclofenac gel, digoxin 125 mcg daily, Nexium, insulin regular and Lantus, loratadine, metformin, metoprolol and potassium supplementation along with Dietary supplementation including multivitamin daily. She will follow up with her regular PCP as scheduled. The patient was then discharged from our hospital in stable condition with explicit instructions and followup care. JAVON WOMACK MD DR: EVERARDO/davina JOB#: [id number] / [id number]
[2020-03-28 10:49] VITALS: BP 102/64
[2020-03-28] MEDS: BUDESONIDE 0.5 MG/2 ML NEBU NEB SCH (11:01)
--- NOTE | 2020-03-28 11:08 | NUR ---
PATIENT IS DISCHARGED HOME, DISCHARGED INSTRUCTIONS DISCUSSED WITH PATIENT, PT VERBALIZED UNDERSTANDING. PATIENT LEFT ROOM VIA W/C ACCOMPANIED BY STAFF MEMBER. PATIENT IS TAKEN HOME VIA 'S CAB.
== END 2020-03-28 11:05 | disposition home or self-care (01) ==
LOC: ER 19:47 → 1 SOUTH 22:02 → INTOOBSV 22:02
PROVIDERS: ADMIT Internal Medicine; ATTEND Internal Medicine
DX: I13.0 Hypertensive heart and chronic kidney disease with heart failure and stage 1 through stage 4 chronic kidney disease, or unspecified chronic kidney disease (principal); I50.23 Acute on chronic systolic (congestive) heart failure; N18.2 Chronic kidney disease, stage 2 (mild); E11.22 Type 2 diabetes mellitus with diabetic chronic kidney disease; I48.0 Paroxysmal atrial fibrillation; E78.5 Hyperlipidemia, unspecified; I42.8 Other cardiomyopathies; D50.9 Iron deficiency anemia, unspecified; J44.9 Chronic obstructive pulmonary disease, unspecified; E66.01 Morbid (severe) obesity due to excess calories; F41.9 Anxiety disorder, unspecified; Z87.442 Personal history of urinary calculi; Z79.4 Long term (current) use of insulin; Z98.890 Other specified postprocedural states; Z98.891 History of uterine scar from previous surgery; Z79.82 Long term (current) use of aspirin; Z79.01 Long term (current) use of anticoagulants; Z87.891 Personal history of nicotine dependence; Z95.810 Presence of automatic (implantable) cardiac defibrillator; Z79.899 Other long term (current) drug therapy; Z68.44 Body mass index [BMI] 60.0-69.9, adult
CPT/HCPCS: 36415; 71045; 80048; 80053; 82947; 83690; 83880; 84484; 85025; 93005; 94640; 94760; 96361; 96372; 96374; 99285; G0378; J1815; J1940; J7030; J7613; 96360; G0379

== ENCOUNTER 2020-04-14 13:46 | Emergency (ER) | payer OTHER ==
[~2020-04-14] VITALS: Ht 154.9 cm; Wt 153.0 kg
[~2020-04-14 13:46] MED LIST changes: +CANA300T PO; +DICL100G28 TP
[2020-04-14 14:00] VITALS: BP 122/63
--- NOTE | 2020-04-14 15:59 | EKG ---
[address] [address] Test Date: 2020-04-14 Test Time: 15:33:50 Pat Name: DARELL CORONADO Department: Room: Gender: F Route Deliverer: JACK : 1965 Requested By: CHUNG WOODWARD Order Number: [id number] Reading MD: Measurements Intervals [place] Rate: 70 P: WI: QRS: 211 QRSD: 172 T: 25 QT: 492 QTc: 535 Interpretive Statements REGULAR RHYTHM, NO P WAVE FOUND ABNORMAL RIGHT SUPERIOR AXIS DEVIATION LOW VOLTAGE RIGHT BUNDLE BRANCH BLOCK CONSIDER RIGHT VENTRICULAR HYPERTROPHY QRS(T) CONTOUR ABNORMALITY CONSISTENT WITH INFERIOR INFARCT PROBABLY OLD ABNORMAL ECG RI6.02 No previous ECG available for comparison
[2020-04-14 16:19] LABS: BASO # 0.1 x10^3/uL (0.0-0.2); BASO % 1 % (0-3); EOS # 0.1 x10^3/uL (0.0-0.7); EOS % 1 % (0-3); HEMATOCRIT 32.2 % (36.0-47.0); HEMOGLOBIN 9.4 g/dL (12.0-15.5); LYMPH # 2.4 x10^3/uL (1.0-4.8); LYMPH % 30 % (24-48); MEAN CORPUSCULAR HEMOGLOBIN 20 pg (25-35); MEAN CORPUSCULAR HGB CONC 29 g/dL (31-37); MEAN CORPUSCULAR VOLUME 69 fL (79-100); MONO # 0.6 x10^3/uL (0.0-1.1); MONO % 8 % (0-9); NEUT # 4.8 x10^3uL (1.8-7.7); NEUT % 61 % (31-73); PLATELET COUNT 344 x10^3/uL (140-400); RED BLOOD COUNT 4.63 x10^6/uL (3.50-5.40); RED CELL DISTRIBUTION WIDTH 21.9 % (11.5-14.5); WHITE BLOOD COUNT 7.9 x10^3/uL (4.0-11.0)
[2020-04-14 16:36] LABS: CREATININE 1.2 mg/dL (0.6-1.0); GFR 46.6; POTASSIUM 3.9 mmol/L (3.5-5.1)
[2020-04-14 16:41] LABS: ALBUMIN 3.2 g/dL (3.4-5.0); ALBUMIN/GLOBULIN RATIO 0.7 (1.0-1.7); TOTAL BILIRUBIN 0.4 mg/dL (0.2-1.0); TOTAL PROTEIN 7.5 g/dL (6.4-8.2)
[2020-04-14 16:47] LABS: BILIRUBIN,URINE NEG (NEG); CLARITY,URINE CLEAR; COLOR,URINE YELLOW; NITRITE,URINE POS (NEG); UROBILINOGEN,URINE 0.2 mg/dL (0.2 mg/dL)
[2020-04-14 16:48] LABS: BACTERIA,URINE 0 /HPF (0-FEW); RBC,URINE 20-40 /HPF (0-2)
[2020-04-14 17:14] LABS: HYPOCHROMIA MOD; PLT ESTIMATE ADEQUATE (ADEQUATE)
[2020-04-14 17:15] LABS: ANISOCYTOSIS SLIGHT; MICROCYTOSIS MOD
[2020-04-14] MEDS ORDERED: CEPH-264 PO (17:22)
--- NOTE | 2020-04-14 17:22 | PHYS DOC ---
Past History Past Medical History: Asthma, CHF, COPD, Diabetes, Renal Failure Additional Past Medical Histor: cardiomegaly Past Surgical History: , Pacemaker, Other Additional Past Surgical Histo: HERNIA Smoking: Non-smoker Alcohol Use: Rarely Drug Use: None Adult General Chief Complaint Chief Complaint: OTHER COMPLAINTS HPI HPI Patient is a 54-year-old female who presents to the emergency room after having an episode of chills earlier today. She states that she has had these previously. She is not sure what causes them. She also had a hot feeling in her pacemaker without any associated symptoms which is now resolved. Patient has been seen for this previously. Review of Systems Review of Systems General: Denies fever, sweats, fatigue. Reports chills Eyes: Denies drainage, blurred vision, eye redness HENT: Denies rhinorrhea, sore throat, earache Respiratory: Denies cough, shortness of breath, wheezing Cardiac: Denies edema, palpitations, chest pain GI: Denies abdominal pain, Nausea, vomiting MSK: Denies back pain, neck pain Skin: Denies rash, jaundice Neuro: Denies headache, dizziness Psychiatric: Denies SI/HI Allergies Allergies Allergies Coded Allergies Type Severity Reaction Last Updated Verified No Known Drug Allergies 08/26/19 No Physical Exam Physical Exam General: Awake, alert, NAD. Well Nourished, well hydrated. Cooperative HEENT: Atraumatic, EOMI, PERRL, airway patent, moist oral mucosa Neck: Supple, trachea midline Respiratory: CTA bilaterally, normal effort, no wheezing/crackles CV: RRR, no murmur, cap refill <2 GI: Soft, nondistended, nontender, no masses MSK: No obvious deformities Skin: Warm, dry, intact Neuro: A&O x3, speech NL, sensory and motor grossly intact, no focal deficits Psych: Normal affect, normal mood, not suicidal or homicidal Current Patient Data Vital Signs Vital Signs Date Time Temp Pulse Resp B/P (MAP) Pulse Ox O2 Delivery O2 Flow Rate FiO2 04/14/20 14:00 97.9 73 22 122/63 (82) 97 Room Air Lab Results Laboratory Tests Test 04/14/20 16:03 04/14/20 16:08 White Blood Count 7.9 x10^3/uL (4.0-11.0) Red Blood Count 4.63 x10^6/uL (3.50-5.40) Hemoglobin 9.4 g/dL (12.0-15.5) L Hematocrit 32.2 % (36.0-47.0) L Mean Corpuscular Volume 69 fL (79-100) L Mean Corpuscular Hemoglobin 20 pg (25-35) L Mean Corpuscular Hemoglobin Concent 29 g/dL (31-37) L Red Cell Distribution Width 21.9 % (11.5-14.5) H Platelet Count 344 x10^3/uL (140-400) Neutrophils (%) (Auto) 61 % (31-73) Lymphocytes (%) (Auto) 30 % (24-48) Monocytes (%) (Auto) 8 % (0-9) Eosinophils (%) (Auto) 1 % (0-3) Basophils (%) (Auto) 1 % (0-3) Neutrophils # (Auto) 4.8 x10^3uL (1.8-7.7) Lymphocytes # (Auto) 2.4 x10^3/uL (1.0-4.8) Monocytes # (Auto) 0.6 x10^3/uL (0.0-1.1) Eosinophils # (Auto) 0.1 x10^3/uL (0.0-0.7) Basophils # (Auto) 0.1 x10^3/uL (0.0-0.2) Platelet Estimate Pending Sodium Level 141 mmol/L (136-145) Potassium Level 3.9 mmol/L (3.5-5.1) Chloride Level 105 mmol/L (98-107) Carbon Dioxide Level 25 mmol/L (21-32) Anion Gap 11 (6-14) Blood Urea Nitrogen 23 mg/dL (7-20) H Creatinine 1.2 mg/dL (0.6-1.0) H Estimated GFR (Cockcroft-Gault) 46.6 BUN/Creatinine Ratio 19 (6-20) Glucose Level 212 mg/dL (70-99) H Calcium Level 9.0 mg/dL (8.5-10.1) Total Bilirubin 0.4 mg/dL (0.2-1.0) Aspartate Amino Transferase (AST) 11 U/L (15-37) L Alanine Aminotransferase (ALT) 19 U/L (14-59) Alkaline Phosphatase 96 U/L (46-116) Total Protein 7.5 g/dL (6.4-8.2) Albumin 3.2 g/dL (3.4-5.0) L Albumin/Globulin Ratio 0.7 (1.0-1.7) L Urine Collection Type Unknown Urine Color Yellow Urine Clarity Clear Urine pH 6.0 Urine Specific [place] 1.015 Urine Protein Neg (NEG-TRACE) Urine Glucose (UA) Neg mg/dL (NEG) Urine Ketones (Stick) Neg mg/dL (NEG) Urine Blood Mod (NEG) Urine Nitrite Pos (NEG) Urine Bilirubin Neg (NEG) Urine Urobilinogen Dipstick 0.2 mg/dL (0.2 mg/dL) Urine Leukocyte Esterase Trace (NEG) Urine RBC 20-40 /HPF (0-2) Urine WBC 5-10 /HPF (0-4) Urine Squamous Epithelial Cells None /LPF Urine Bacteria 0 /HPF (0-FEW) EKG EKG [] Radiology/Procedures Radiology/Procedures [] Course & Med Decision Making Course & Med Decision Making Pertinent Labs and Imaging studies reviewed. (See chart for details) Patient is a 54-year-old female who presents to the emergency room after having an episode of chills which is now resolved. Basic labs were ordered and are overall normal. She does have a mild UTI which will be treated with antibiotics. At this time patient is stable for discharge. Patient's test results and vitals while in the ED were fully reviewed and discussed with the patient. Patient is stable and at this time does not need admission to the hospital. We have discussed strict return precautions and the importance of following up with their Primary Care Physician. Patient stated understanding and was given an opportunity to ask any questions. Patient is in agreement with plan. Dragon Disclaimer Dragon Disclaimer This electronic medical record was generated, in whole or in part, using a voice recognition dictation system. Departure Departure: Impression: Primary Impression: UTI (urinary tract infection) Disposition: HOME/RESIDENCE PRIOR TO ADM Condition: STABLE Referrals: EULOGIO KISER (PCP) Patient Instructions: Urinary Tract Infection Scripts Cephalexin (KEFLEX) 500 Mg Capsule 1 CAP PO BID for UTI for 14 Days, #28 CAP 0 Refills Prov: CHUNG WOODWARD MD 04/14/20 CHUNG WOODWARD MD Apr 14, 2020 17:22
[2020-04-15 12:30] LABS: GLUCOSE,URINE 500 mg/dL (NEG)
== END 2020-04-14 18:07 | disposition home or self-care (01) ==
LOC: ER 13:46
DX: N39.0 Urinary tract infection, site not specified (principal); J45.909 Unspecified asthma, uncomplicated; I50.9 Heart failure, unspecified; E11.9 Type 2 diabetes mellitus without complications; E11.22 Type 2 diabetes mellitus with diabetic chronic kidney disease; N18.9 Chronic kidney disease, unspecified; Z95.0 Presence of cardiac pacemaker
CPT/HCPCS: 36415; 80053; 81001; 85025; 87077; 87086; 87186; 93005; 99284

== ENCOUNTER 2020-08-11 01:39 | Emergency (ER) | payer OTHER ==
[~2020-08-11] VITALS: Ht 154.9 cm; Wt 165.6 kg
[~2020-08-11 01:39] MED LIST changes: +LORA-52 PO; -LORA10TA55 PO
[2020-08-11 02:17] LABS: CALCIUM 7.9 mg/dL (8.5-10.1); CREATININE 1.3 mg/dL (0.6-1.0); GFR 42.5; POTASSIUM 4.3 mmol/L (3.5-5.1)
[2020-08-11 02:26] LABS: BASO # 0.1 x10^3/uL (0.0-0.2); BASO % 1 % (0-3); EOS # 0.1 x10^3/uL (0.0-0.7); EOS % 1 % (0-3); HEMATOCRIT 31.1 % (36.0-47.0); LYMPH % 31 % (24-48); MEAN CORPUSCULAR HEMOGLOBIN 20 pg (25-35); MEAN CORPUSCULAR HGB CONC 29 g/dL (31-37); MEAN CORPUSCULAR VOLUME 68 fL (79-100); MONO # 0.6 x10^3/uL (0.0-1.1); MONO % 7 % (0-9); NEUT # 5.9 x10^3uL (1.8-7.7); NEUT % 60 % (31-73); PLATELET COUNT 320 x10^3/uL (140-400); RED BLOOD COUNT 4.56 x10^6/uL (3.50-5.40); RED CELL DISTRIBUTION WIDTH 20.9 % (11.5-14.5); WHITE BLOOD COUNT 9.8 x10^3/uL (4.0-11.0)
[2020-08-11 02:28] LABS: ALBUMIN 2.9 g/dL (3.4-5.0); ALBUMIN/GLOBULIN RATIO 0.7 (1.0-1.7); TOTAL BILIRUBIN 0.5 mg/dL (0.2-1.0); TOTAL PROTEIN 6.9 g/dL (6.4-8.2)
[2020-08-11] MEDS ORDERED: CONTRAST GIVEN. MC PRN (03:00)
--- NOTE | 2020-08-11 03:04 | RAD ---
XR CHEST 1V Clinical Indication: Reason: SOB / Comparison: AP chest March 26, 2020.. Findings: There is left chest biventricular ICD. This obscures the lateral left mid chest. Stable mild cardiome kristin. Pulmonary vasculature is stable. Lungs are clear. There is no pneumothorax. No pleural effusion is appreciated. No acute bone abnormality. IMPRESSION: No acute cardiopulmonary process. Electronically signed by: Kervin Morel MD (08/11/2020 2:59 AM) [facility]OS[facility]er[facility]
[2020-08-11 03:11] LABS: BGAS PH 7.37 (7.35-7.45)
[2020-08-11 03:22] LABS: PLT ESTIMATE ADEQUATE (ADEQUATE)
[2020-08-11 03:23] LABS: ANISOCYTOSIS MOD; HYPOCHROMIA MARKED; MICROCYTOSIS MARKED; OVALOCYTES OCC; POLYCHROMASIA SLIGHT
[2020-08-11 03:27] LABS: BACTERIA,URINE MANY /HPF (0-FEW); BILIRUBIN,URINE NEG (NEG); CLARITY,URINE HAZY; COLOR,URINE YELLOW; GLUCOSE,URINE >=1000 mg/dL (NEG); NITRITE,URINE POS (NEG); RBC,URINE TNTC /HPF (0-2); SQUAMOUS EPITHELIAL CELL,UR FEW /LPF; WBC,URINE TNTC /HPF (0-4)
[2020-08-11 03:28] LABS: AMORPHOUS SEDIMENT,UR PRESENT /HPF
[2020-08-11] MEDS ORDERED: DEXAMETHASONE 4 MG TABLET PO ONE (03:30)
[2020-08-11] MEDS ORDERED: IPRATRPIUM/ALBUTEROL 0.5/2.5MG 3 ML NEBU. NEB ONE (03:30)
[2020-08-11] MEDS ORDERED: IOHEXOL 350 MG/ML 100 ML VIAL. IV ONE (03:30)
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
--- NOTE | 2020-08-11 03:52 | RAD ---
PQRS Compliance Statement: One or more of the following individualized dose reduction techniques were utilized for this examinat ion: 1. Automated exposure control 2. Adjustment of the mA and/or kV according to patient size 3. Use of iterative reconstruction technique CT CHEST WITH CONTRAST, PULMONARY ANGIOGRAM History: Reason: SOB Comparison: None. Technique: Helical CT of the chest was performed after the administration of 75 cc of Omnipaque 350 intravenous contrast according to PE protocol. Axial and coronal reconstructions were obtained. 3-D MIP images were constructed to better evaluate the pulmonary arteries. Findings: Pulmonary arteries are adequately opacified. There is no evidence of pulmonary embolism. There is left chest biventricular ICD. No thoracic aortic dissection is seen. The great vessels are n ormal caliber. There is no adenopathy in the chest. There is mild cardiomegaly. No pericardial effusi on. There is no pleural effusion. The central airways are patent. Respiratory motion artifact limits eval uation of the lungs. There are groundglass opacities with mosaic attenuation pattern throughout the l ungs. There is no consolidation. Outside of orrkh-ya-lzak artifact degrades image quality in the upper abdomen. Thoracic spine alignment is maintained. No acute bone abnormality. IMPRESSION: 1. There is no CT evidence of pulmonary embolus. 2. Mosaic attenuation pattern in the lungs. Common etiology is small airways disease. 3. Mild cardiomegaly. Electronically signed by: Kervin Morel MD (08/11/2020 3:49 AM) [facility]
[2020-08-11] MEDS ORDERED: AMOX1TAB61 PO (04:14)
[2020-08-11 04:15] VITALS: BP 111/60
[2020-08-11] MEDS ORDERED: AMOXICILLIN/K CLAV 875/125MG TABLET. PO ONE (04:30)
[2020-08-11] MEDS ORDERED: CEPHALEXIN 250 MG CAPSULE PO ONE (04:30)
[2020-08-11] MEDS ORDERED: PROMETH/CODEINE 6.25/10MG 5 ML SYRUP. PEG ONE (04:30)
--- NOTE | 2020-08-11 07:36 | EKG ---
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
--- NOTE | 2020-08-13 10:06 | NUR ---
IP: patient notified of COVID result.
== END 2020-08-11 04:45 | disposition home or self-care (01) ==
LOC: ER 01:39
DX: J45.901 Unspecified asthma with (acute) exacerbation (principal); N39.0 Urinary tract infection, site not specified; E11.22 Type 2 diabetes mellitus with diabetic chronic kidney disease; J44.9 Chronic obstructive pulmonary disease, unspecified; I50.9 Heart failure, unspecified; Z20.822 Contact with and (suspected) exposure to COVID-19; Z95.0 Presence of cardiac pacemaker
CPT/HCPCS: 36415; 71045; 71275; 80053; 81001; 82010; 82803; 83605; 83880; 84484; 85025; 85379; 87086; 93005; 94640; 99285; C9803; J8540; Q9967; U0003

== ENCOUNTER 2020-08-28 01:34 | Inpatient (IN) | payer OTHER ==
[~2020-08-28] VITALS: Ht 154.9 cm; Wt 165.6 kg
[~2020-08-28 01:34] MED LIST changes: +AMOX1TAB61 PO
--- NOTE | 2020-08-28 02:23 | EKG ---
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
[2020-08-28 02:25] LABS: CALCIUM 8.2 mg/dL (8.5-10.1); CREATININE 1.2 mg/dL (0.6-1.0); GFR 46.6
[2020-08-28] MEDS ORDERED: dilTIAZem 25 MG/5 ML VIAL IVP ONE (02:30)
[2020-08-28] MEDS ORDERED: CONTRAST GIVEN. MC PRN (02:30)
[2020-08-28] MEDS ORDERED: IOHEXOL 300 MG/ML 75 ML VIAL. IV ONE (02:30)
[2020-08-28] MEDS ORDERED: IV RINGERS SOLUTION,LACTATED 500 ML IV ONE (02:30)
[2020-08-28 02:31] LABS: ALBUMIN 2.8 g/dL (3.4-5.0); ALBUMIN/GLOBULIN RATIO 0.7 (1.0-1.7); TOTAL BILIRUBIN 0.9 mg/dL (0.2-1.0); TOTAL PROTEIN 6.9 g/dL (6.4-8.2)
[2020-08-28 02:34] LABS: BASO # 0.1 x10^3/uL (0.0-0.2); BASO % 1 % (0-3); EOS # 0.1 x10^3/uL (0.0-0.7); EOS % 1 % (0-3); HEMATOCRIT 30.2 % (36.0-47.0); HEMOGLOBIN 8.8 g/dL (12.0-15.5); LYMPH # 2.1 x10^3/uL (1.0-4.8); LYMPH % 20 % (24-48); MEAN CORPUSCULAR HEMOGLOBIN 20 pg (25-35); MEAN CORPUSCULAR HGB CONC 29 g/dL (31-37); MEAN CORPUSCULAR VOLUME 68 fL (79-100); MONO # 0.8 x10^3/uL (0.0-1.1); MONO % 8 % (0-9); NEUT # 7.3 x10^3uL (1.8-7.7); NEUT % 71 % (31-73); PLATELET COUNT 349 x10^3/uL (140-400); RED BLOOD COUNT 4.43 x10^6/uL (3.50-5.40); RED CELL DISTRIBUTION WIDTH 21.8 % (11.5-14.5); WHITE BLOOD COUNT 10.3 x10^3/uL (4.0-11.0)
[2020-08-28 02:44] LABS: POTASSIUM 4.9 mmol/L (3.5-5.1)
--- NOTE | 2020-08-28 02:50 | PHYS DOC ---
Past History Past Medical History: A-Fib, Anemia, Anxiety, Asthma, CHF, COPD, Diabetes, High Cholesterol, Heart Disease, Hypertension, NC, Renal Failure Additional Past Medical Histor: cardiomegaly Past Surgical History: , Pacemaker, Other Additional Past Surgical Histo: HERNIA; cataract lt eye Smoking: Non-smoker Alcohol Use: Rarely Drug Use: None Adult General Chief Complaint Chief Complaint: SHORTNESS OF BREATH HPI HPI Patient is a 54-year-old female with a past medical history significant for A. fib, COPD, asthma, insulin-dependent diabetes and recent hospitalization and discharge 3 days ago for rectal bleeding, colitis and urinary tract infection who presents to the emergency department with 2 to 3 days of shortness of breath. States that since being discharged from the hospital she did have a chance to get her medications and had not taken any of her antibiotics or medications for A. fib. Denies headache, lightheadedness, chest pain, vomiting, diarrhea, melena or hematochezia. Denies any sore throat, cough, dysuria. Does endorse shortness of breath and generalized abdominal discomfort with nausea but no vomiting. Review of Systems Review of Systems Review of systems otherwise unremarkable except noted in HPI Current Medications Current Medications Current Medications Medications (Trade) Dose Ordered Sig/Christina Start Time Stop Time Status Last Admin Dose Admin Diltiazem HCl (Cardizem Iv Push) 20 mg 1X ONCE 08/28/20 02:30 08/28/20 02:31 DC 08/28/20 02:35 20 MG Info (Do NOT chart on this entry -- for MONITORING) 1 each PRN DAILY PRN 08/28/20 02:30 08/30/20 02:29 Iohexol (Omnipaque 300 Mg/ml) 75 ml 1X ONCE 08/28/20 02:30 08/28/20 02:31 DC Lactated Ringer's 500 ml @ 500 mls/hr 1X ONCE 08/28/20 02:30 08/28/20 03:29 08/28/20 02:34 500 MLS/HR Allergies Allergies Allergies Coded Allergies Type Severity Reaction Last Updated Verified No Known Drug Allergies 08/28/20 No Physical Exam Physical Exam Constitutional: Obese, well nourished, no acute distress, non-toxic appearance. [] HENT: Normocephalic, atraumatic, bilateral external ears normal, oropharynx moist, no oral exudates, nose normal. [] Eyes: conjunctiva normal, no discharge. [] Neck: Normal range of motion, no tenderness, Cardiovascular: Tachycardia, irregular rhythm Lungs & Thorax: Lungs clear, tachypneic on room air [] Abdomen: , soft, generalized tenderness, no masses, no pulsatile masses. [] Skin: Warm, dry, no erythema, no rash. [] Back: No tenderness, no CVA tenderness. [] Extremities: No tenderness, no cyanosis, no clubbing, ROM intact, no edema. [] Neurologic: Alert and oriented X 3, normal motor function, normal sensory function, no focal deficits noted. [] Psychologic: Affect normal, judgement normal, mood normal. [] Current Patient Data Vital Signs Vital Signs Date Time Temp Pulse Resp B/P (MAP) Pulse Ox O2 Delivery O2 Flow Rate FiO2 08/28/20 02:35 106 153/75 08/28/20 01:34 98.0 31 97 Room Air Lab Results Laboratory Tests Test 08/28/20 01:55 08/28/20 02:23 White Blood Count 10.3 x10^3/uL (4.0-11.0) Red Blood Count 4.43 x10^6/uL (3.50-5.40) Hemoglobin 8.8 g/dL (12.0-15.5) L Hematocrit 30.2 % (36.0-47.0) L Mean Corpuscular Volume 68 fL (79-100) L Mean Corpuscular Hemoglobin 20 pg (25-35) L Mean Corpuscular Hemoglobin Concent 29 g/dL (31-37) L Red Cell Distribution Width 21.8 % (11.5-14.5) H Platelet Count 349 x10^3/uL (140-400) Neutrophils (%) (Auto) 71 % (31-73) Lymphocytes (%) (Auto) 20 % (24-48) L Monocytes (%) (Auto) 8 % (0-9) Eosinophils (%) (Auto) 1 % (0-3) Basophils (%) (Auto) 1 % (0-3) Neutrophils # (Auto) 7.3 x10^3uL (1.8-7.7) Lymphocytes # (Auto) 2.1 x10^3/uL (1.0-4.8) Monocytes # (Auto) 0.8 x10^3/uL (0.0-1.1) Eosinophils # (Auto) 0.1 x10^3/uL (0.0-0.7) Basophils # (Auto) 0.1 x10^3/uL (0.0-0.2) Sodium Level 138 mmol/L (136-145) Potassium Level 4.9 mmol/L (3.5-5.1) Chloride Level 103 mmol/L (98-107) Carbon Dioxide Level 19 mmol/L (21-32) L Anion Gap 16 (6-14) H Blood Urea Nitrogen 22 mg/dL (7-20) H Creatinine 1.2 mg/dL (0.6-1.0) H Estimated GFR (Cockcroft-Gault) 46.6 BUN/Creatinine Ratio 18 (6-20) Glucose Level 247 mg/dL (70-99) H Calcium Level 8.2 mg/dL (8.5-10.1) L Magnesium Level 2.0 mg/dL (1.8-2.4) Total Bilirubin 0.9 mg/dL (0.2-1.0) Aspartate Amino Transferase (AST) 142 U/L (15-37) H Alanine Aminotransferase (ALT) 228 U/L (14-59) H Alkaline Phosphatase 236 U/L (46-116) H Troponin I Quantitative 0.044 ng/mL (0-0.055) Total Protein 6.9 g/dL (6.4-8.2) Albumin 2.8 g/dL (3.4-5.0) L Albumin/Globulin Ratio 0.7 (1.0-1.7) L Glucose (Fingerstick) 236 mg/dL (70-99) H EKG EKG EKG with a rate of 117, QRS of 104, QTc of 45, multiple PVCs, irregular rhythm. Appears to be atrial fibrillation with PVCs [] Radiology/Procedures Radiology/Procedures []INDINGS: Comparison study is dated 08/20/2020. Images through the lung bases demonstrate mild cardiomegaly. There are very small bilateral pleural effusions, left greater than right. Groundglass perihilar infiltrates are seen involving both lungs which may reflect pulmonary edema. The liver is mildly enlarged measuring 24 cm in length. Decreased attenuation of the liver parenchyma is seen consistent with fatty infiltration. The spleen, pancreas, adrenal glands and left kidney are within normal limits. Areas of probable scarring are seen scattered throughout the right kidney. A double-J ureteral stent extends from the right renal pelvis into the urinary bladder. The abdominal aorta tapers normally. The gallbladder is contracted. No free air is seen within the abdomen. There is no evidence of bowel obstruction. Edema is again seen throughout the subcutaneous fat throughout the anterior abdomen, unchanged. Small to moderate amount of free fluid is seen within the left lower quadrant abdomen/pelvis. Images through the pelvis demonstrate the urinary bladder distended with urine. Calcifications are seen within the pelvis consistent with phleboliths. Minimal S-shaped curvature of the thoracolumbar spine is noted. IMPRESSION: 1. Cardiomegaly with very small bilateral pleural effusions, left greater than right. Groundglass perihilar infiltrates are seen involving both lungs which may reflect pulmonary edema. 2. Small to moderate amount of free fluid is seen within the left lower quadrant of the abdomen/pelvis. Electronically signed by: Len Wood MD (08/28/2020 3:52 AM) [id number] Heart Score Risk Factors: Risk Factors: DM, Current or recent (<one month) smoker, HTN, HLP, family history of CAD, obesity. Risk Scores: Risk Factors: DM, Current or recent (<one month) smoker, HTN, HLP, family history of CAD, obesity. Course & Med Decision Making Course & Med Decision Making Patient is a 54-year-old female who presents to the emergency department with a chief complaint of shortness of breath Vital signs notable for hypertension, and tachycardia with an irregular rhythm suggesting atrial fibrillation, tachypnea on room air. Patient placed on the monitor with IV access established and small fluid bolus given. Started on diltiazem for A. fib with RVR. Chest x-ray with probable pulmonary edema/signs of CHF and started on Levaquin in the ED for possible pneumonia as well given tachycardia, and tachypnea. Patient with previous UTI in hazy urine today. Levaquin given will cover for UTI as well. D-dimer slightly elevated, but shortness of breath explained by pulmonary edema/probable component of pneumonia as well. Patient also with no chest pain, increased lower extremity swelling, edema or pain. States she has no history of DVT or PE either. Discussed all findings with patient and recommended admission for continued evaluation and treatment of her atrial fibrillation/fluid overload and possible pneumonia. Patient grateful, verbalized understanding and agreed with plan of admission. [] Dragon Disclaimer Dragon Disclaimer This electronic medical record was generated, in whole or in part, using a voice recognition dictation system. Departure Departure: Impression: Primary Impression: Urinary tract infection Additional Impressions: Shortness of breath Atrial fibrillation Pulmonary edema Pneumonia Disposition: ADMITTED INPT THIS HOSP Admitting Physician: Natalia Guevara Condition: IMPROVED Referrals: EULOGIO KISER (PCP) Problem Qualifiers BULMARO HOFFMAN MD Aug 28, 2020 02:50
[2020-08-28] MEDS ORDERED: IV NORMAL SALINE 100ML 100 ML ONE (03:28)
--- NOTE | 2020-08-28 03:55 | RAD ---
CT scan of the abdomen and pelvis with contrast 08/28/2020 CLINICAL HISTORY: Abdominal pain. TECHNIQUE: After the intravenous administration of 60 cc of Omnipaque 300 only, contiguous, 5 mm axia l sections were obtained through the abdomen and pelvis. One or more of the following individualized dose reduction techniques were utilized for this study: 1. Automated exposure control. 2. Adjustment of the mA and/or kV according to patient size. 3. Use of iterative reconstruction technique. FINDINGS: Comparison study is dated 08/20/2020. Images through the lung bases demonstrate mild cardiomegaly. There are very small bilateral pleural e ffusions, left greater than right. Groundglass perihilar infiltrates are seen involving both lungs wh ich may reflect pulmonary edema. The liver is mildly enlarged measuring 24 cm in length. Decreased attenuation of the liver parenchyma is seen consistent with fatty infiltration. The spleen, pancreas, adrenal glands and left kidney are within normal limits. Areas of probable scarring are seen scattered throughout the right kidney. A d ouble-J ureteral stent extends from the right renal pelvis into the urinary bladder. The abdominal aorta tapers normally. The gallbladder is contracted. No free air is seen within the ab domen. There is no evidence of bowel obstruction. Edema is again seen throughout the subcutaneous fat throughout the anterior abdomen, unchanged. Small to moderate amount of free fluid is seen within th e left lower quadrant abdomen/pelvis. Images through the pelvis demonstrate the urinary bladder distended with urine. Calcifications are se en within the pelvis consistent with phleboliths. Minimal S-shaped curvature of the thoracolumbar sp ine is noted. IMPRESSION: 1. Cardiomegaly with very small bilateral pleural effusions, left greater than right. Groundglass per ihilar infiltrates are seen involving both lungs which may reflect pulmonary edema. 2. Small to moderate amount of free fluid is seen within the left lower quadrant of the abdomen/pelvi s. Electronically signed by: Len Wood MD (08/28/2020 3:52 AM) [place] [id number]
[2020-08-28] MEDS ORDERED: dilTIAZem VIAL 125 MG in IV NORMAL SALINE 100ML 100 ML IV ONE (04:00)
--- NOTE | 2020-08-28 04:05 | RAD ---
AP portable chest radiograph 08/28/2020 Clinical History: Shortness of breath. An AP erect portable digital radiograph of the chest was obtained. Comparison study is dated 08/11/2020. A left-sided pacemaker/defibrillator is unchanged. The cardiac silhouette is mildly enlarged. The tho racic aorta is mildly tortuous. Prominence of pulmonary vasculature and interstitial markings in both lungs is seen suggesting mild to moderate CHF. No pneumothorax or pleural effusion is seen. The osse ous structures are unchanged. Impression: Findings suggesting mild to moderate CHF. Electronically signed by: Len Wood MD (08/28/2020 4:03 AM) [id number]
[2020-08-28 04:37] LABS: ANISOCYTOSIS MOD; HYPOCHROMIA SLIGHT; MICROCYTOSIS MOD
[2020-08-28 04:38] LABS: PLT ESTIMATE ADEQUATE (ADEQUATE)
[2020-08-28] MEDS ORDERED: FUROSEMIDE 40 MG/4 ML VIAL IVP ONE ×2 (05:00→14:00)
[2020-08-28 05:13] LABS: BACTERIA,URINE FEW /HPF (0-FEW); BILIRUBIN,URINE NEG (NEG); CLARITY,URINE HAZY; COLOR,URINE YELLOW; GLUCOSE,URINE NEG (NEG); NITRITE,URINE NEG (NEG); RBC,URINE >40 /HPF (0-2); SQUAMOUS EPITHELIAL CELL,UR OCC /LPF; UROBILINOGEN,URINE 0.2 mg/dL (0.2 mg/dL); WBC,URINE >40 /HPF (0-4)
[2020-08-28] MEDS ORDERED: FUROSEMIDE 40 MG TABLET PO ONE (05:30)
[2020-08-28] MEDS ORDERED: levoFLOXacin 500 MG TABLET PO ONE (05:30)
[2020-08-28 11:00] VITALS: BP 123/75
--- NOTE | 2020-08-28 14:37 | HP ---
ADMIT DATE: 08/28/2020 HISTORY OF PRESENT ILLNESS: The patient is a 54-year-old female patient who was apparently discharged from [facility] on 08/24/2020 after she was admitted there with acute lower gastrointestinal bleeding on Eliquis. She was found to have also microcytic anemia and urinary tract infection. She was apparently discharged on amoxicillin/clavulanic acid 500/125 one tablet two times a day for 7 days. She was also discharged on metoprolol succinate 50 mg once a day, Protonix 40 mg once a day, vancomycin 125 mg four times a day for 14 days together with albuterol sulfate, aspirin, atorvastatin, digoxin, fluticasone/salmeterol for Advair Diskus 100/50. She was also discharged on potassium chloride, loratadine, and lactobacillus acidophilus. Her carvedilol, metformin, and her metoprolol tartrate were discontinued as well as her Entresto. Unfortunately, the patient basically continued to have severe cough that is mostly dry, very short of breath, and very weak and therefore she came back to the Emergency Room for further evaluation and treatment. On arrival, the patient was pale, but no jaundice, cyanosis, or thyromegaly. No jugular venous distention. No lower limb edema. She has had lab work, which showed that she has microcytic hypochromic anemia. Her chemistry showed that she has chronic kidney disease. Her liver enzymes were elevated and BNP was high at 1800. Her D-dimer was high at 1.26 and urinalysis essentially showed that she has also urinary tract infection. The patient was admitted with acute on chronic systolic congestive heart failure due to nonischemic cardiomyopathy, atrial fibrillation with rapid ventricular response. Her chest x-ray showed that the patient has findings suggestive of [id number] congestive heart failure. Her CT scan of the abdomen and pelvis with IV contrast only showed the patient has cardiomegaly with very small bilateral pleural effusion, left greater than right. Ground-glass perihilar infiltrates are seen involving both lungs, which may reflect pulmonary edema. She has gxqqb-[id number] amount of free fluid seen within the left lower quadrant of the abdomen and pelvis. PAST MEDICAL HISTORY: Significant for chronic systolic congestive heart failure due to nonischemic cardiomyopathy, for which she has AICD. She apparently had normal cardiac catheterization in 2017. She has nonischemic cardiomyopathy with resultant chronic systolic congestive heart failure. She has had an AICD placed at [facility]. She also has atrial fibrillation, for which she was seen on Eliquis; hypertension, hypertensive heart disease, chronic kidney disease stage 2, hyperlipidemia, microcytic hypochromic anemia as well as type 2 diabetes. She also has stones in her left ureter, for which she underwent ureteral stent placement at [facility]. PAST SURGICAL HISTORY: Significant for hernia repair, left heart catheterization, and placement of automated implantable cardioverter defibrillator. She has had cystoscopy and ureteroscopy with ureteral stent placement. FAMILY HISTORY: Unremarkable. SOCIAL HISTORY: She lives with her roommate and daughter. She apparently does not smoke, drink alcohol, or use any recreational drugs. ALLERGIES: She has no known drug allergies. MEDICATIONS: She was discharged from [facility] to continue on amoxicillin/clavulanic acid 500/125 one tablet twice a day for 7 days, metoprolol succinate 50 mg one tablet once a day, Protonix 40 mg once a day, vancomycin 125 mg four times a day for 14 days for C. diff colitis. She was discharged also on albuterol sulfate 2 puffs 4 times a day, aspirin 81 mg once a day, atorvastatin calcium 80 mg once a day, digoxin 125 mcg once a day, fluticasone/salmeterol for Advair Diskus 100/50 one puff twice a day. She is on Lantus insulin 70 units subcutaneously at bedtime. She is on Humalog insulin 38 units 3 times a day before meals, lactobacillus acidophilus one capsule twice a day, loratadine 10 mg once a day, potassium chloride 10 mEq once a day. She was advised to stop taking her carvedilol, furosemide, metformin, metoprolol tartrate as well as Entresto. She was advised to restart Entresto in 2-3 days if systolic blood pressure is more than 120. PHYSICAL EXAMINATION: GENERAL: On arrival to the Emergency Room, the patient was clearly pale, tachypneic, and orthopneic. VITAL SIGNS: Her heart rate 107, blood pressure was 128/85, temperature was 98, respiratory rate was 31, and oxygen saturation was 97% on room air. HEAD, EYES, EARS, NOSE, AND THROAT: Showed normocephalic, atraumatic. NECK: Supple. HEART: Showed normal first and second heart sounds. No gallop, rub, or murmur. CHEST: Shows central trachea. Equal bilateral chest expansion, air entry, vesicular breath sounds. No crepitation or rhonchi. ABDOMEN: Markedly distended, soft, nontender. NEUROLOGIC: She is very hard of hearing, but otherwise all cranial nerves intact. EXTREMITIES: She moves extremities without difficulty. She normally ambulates with a walker. LABORATORY WORK: Her lab work this morning showed a white cell count of 10,300, hemoglobin 8.8, hematocrit 30, MCV 68, and platelet count of 349,000. Her chemistry showed a serum sodium 138, potassium 4.9, chloride 103, bicarbonate 19, anion gap of 16, BUN 22, creatinine 1.2, estimated GFR was 46 mL per minute. Her glucose was 236. Lactic acid was 2.3, calcium was 8.2, magnesium 2. Total bilirubin is normal. AST, ALT, and alkaline phosphatase are all elevated. Her troponin was 0.044. Her beta natriuretic peptide was 1800. Total protein 6.9, albumin was 2.8. Her D-dimer was 1.26 and urinalysis showed the urine was yellow, hazy with a pH of 6.5, specific gravity of 1.020. Her total protein was 100 mg/dL. The urine was negative for glucose and ketones. There is large amount of blood. The urine was negative for nitrite, bilirubin. There is moderate amount of leukocyte esterase, more than 40 wbc's, more than 40 rbc's, very few bacteria. Her chest x-ray showed that the patient has left-sided pacemaker defibrillator, unchanged. The cardiac silhouette is mildly enlarged. The thoracic aorta is mildly tortuous. Prominence of pulmonary vasculature and interstitial markings in both lungs is seen suggesting tbar-cd-nxinfeeg congestive heart failure. No pneumothorax or pleural effusion is seen. The osseous structures are unchanged. IMAGING: She did have a CT scan of the abdomen and pelvis with IV contrast only and it showed that images of the lung bases demonstrates mild cardiomegaly. There are very small bilateral pleural effusions, large left greater than right. Ground-glass perihilar infiltrates are seen involving both lungs, which may reflect pulmonary edema. Liver is mildly enlarged measuring 24 cm in length. Decreased attenuation of the liver parenchyma is seen consistent with fatty infiltration. The spleen, pancreas, adrenal glands, and left kidney are within normal limits. Areas of probable scarring are seen scattered throughout the right kidney. A double-J ureteral stent extends from the right renal pelvis into the urinary bladder. The abdominal aorta tapers normally. The gallbladder is contracted. No free air is seen within the abdomen. There is no evidence of bowel obstruction. Edema is again seen throughout the subcutaneous fat throughout the anterior abdomen, unchanged. Mxugw-fp-laozyrlf amount of free fluid is seen within the left lower quadrant abdomen and pelvis. Images through the pelvis demonstrate the urinary bladder distended with urine. Calcifications are seen within the pelvis consistent with phleboliths. Normal S-shaped curvature of the thoracolumbar spine is noted. The impression is the patient has cardiomegaly with very small bilateral pleural effusion, left greater than right. Ground-glass perihilar infiltrates are seen involving both lungs, which may reflect pulmonary edema. Svfjt-xu-xkwdttgr amount of free fluid is seen within the left lower quadrant of the abdomen and pelvis. ASSESSMENT AND PLAN: The patient was admitted with probably acute on chronic systolic congestive heart failure. The patient has Clostridium difficile colitis, for which she is on vancomycin. She has also atrial fibrillation with rapid ventricular response. My plan is to reconcile all her medication. Continue with oral vancomycin. Consult the Cardiology team and she probably needs an IV Lasix that was discontinued. WILLIAMS LOUIS MD DR: NEGRA/davina JOB#: [id number] / [id number]
[2020-08-28 15:00] VITALS: BP 136/79
[2020-08-28] MEDS ORDERED: METOPROLOL TART IMMED RELEASE 50 MG TABLET PO SCH ×2 (15:00→21:00)
[2020-08-28] MEDS: BUDESONIDE 0.5 MG/2 ML NEBU NEB SCH ×2 (15:30→21:02)
[2020-08-28] MEDS: guaiFENesin DM 200MG/20MG 10 ML SYRUP PO PRN (15:41)
[2020-08-28] MEDS: VANCOMYCIN 125 MG/2.5 ML ORAL SOLUTION. PO SCH ×2 (17:00→20:05)
[2020-08-28] MEDS: INSULIN LISPRO 300 UNITS/3 ML VIAL. SQ SCH (18:00)
[2020-08-28] MEDS ORDERED: DEXTROSE 50% 25 GM / 50ML DISP.SYRIN. IV PRN (18:00)
[2020-08-28] MEDS ORDERED: ONDANSETRON PF 4 MG/2 ML VIAL. IVP PRN (18:00)
[2020-08-28 19:00] VITALS: BP 133/80
[2020-08-28] MEDS: LACTOBACILLUS RHAMNOSUS GG 1 CAPSULE. PO SCH (20:05)
[2020-08-28] MEDS: AMOXICILLIN/K CLAV 500/125MG TABLET. PO SCH (20:24)
[2020-08-28] MEDS: INSULIN GLARGINE SYRINGE. SQ SCH (20:59)
[2020-08-28 23:00] VITALS: BP 133/80
[2020-08-29 03:00] VITALS: BP 129/86
[2020-08-29 07:55] VITALS: BP 113/85
[2020-08-29] MEDS ORDERED: BENZOCAINE/MENTHOL LOZNGE 18'S BOX. PO PRN (08:00)
[2020-08-29] MEDS: INSULIN LISPRO 300 UNITS/3 ML VIAL. SQ SCH ×3 (08:00→17:17)
[2020-08-29] MEDS: VANCOMYCIN 125 MG/2.5 ML ORAL SOLUTION. PO SCH ×4 (08:04→20:43)
[2020-08-29] MEDS: LACTOBACILLUS RHAMNOSUS GG 1 CAPSULE. PO SCH ×2 (08:04→20:43)
[2020-08-29] MEDS: PANTOPRAZOLE 40 MG TABLET. PO SCH (08:05)
[2020-08-29] MEDS: AMOXICILLIN/K CLAV 500/125MG TABLET. PO SCH ×2 (08:05→20:43)
[2020-08-29] MEDS: METOPROLOL SUCC 24HR ER 50 MG TAB.ER.24H. PO SCH (08:05)
[2020-08-29] MEDS: FUROSEMIDE 40 MG/4 ML VIAL IVP SCH (08:06)
[2020-08-29] MEDS: BUDESONIDE 0.5 MG/2 ML NEBU NEB SCH ×2 (09:48→20:15)
[2020-08-29 11:00] VITALS: BP 105/88
--- NOTE | 2020-08-29 11:34 | PN ---
DATE: 08/29/2020 ATTENDING PHYSICIAN: Dr. Guevara. SUBJECTIVE: The patient is breathing better. She has very little insight into what is going on. She was discharged from [facility] on 08/24/2020, but did not have her medications delivered. She therefore went without meds for several days including her beta blockers. She was started on Cardizem. Since then, she has been converted to sinus rhythm and metoprolol and Coreg restarted. She also did not have her Entresto. She did respond to some IV Lasix. OBJECTIVE FINDINGS: VITAL SIGNS: Blood pressure today is 113/84, pulse is 80 and regular, oxygen saturation 97% on room air. She was afebrile. HEENT: Head is without trauma. Pupils are reactive. Sclerae nonicteric. Oropharynx is clear. NECK: Supple. LUNGS: Fairly good breath sounds. CARDIOVASCULAR: Showed distant heart tones. No gallops. ABDOMEN: Morbidly obese, protuberant. No guarding. Large pannus. EXTREMITIES: Showed 2+ edema. NEUROLOGIC: Hard of hearing, otherwise intact. LABORATORY DATA: Hemoglobin on admission was 8.8 g/dL with white count of 10,300. Nonfasting blood sugar is down to 138. ASSESSMENT: 1. A 54-year-old female with acute on chronic congestive heart failure. 2. Noncompliance of meds, some mix up regarding her discharge meds, she has been without her medications for several days. 3. Atrial fibrillation with rapid ventricular rate, now controlled. 4. Morbid obesity. 5. Recent Clostridium difficile colitis. 6. Anemia of chronic disease. PLAN: 1. Meds reviewed and continue as recommended. 2. Rx per Cardiology. 3. Transfer to floor when available. 4. Diet as tolerated. JAVON WOMACK MD DR: EVERARDO/davina JOB#: [id number] / [id number]
[2020-08-29] MEDS ORDERED: FUROSEMIDE 40 MG/4 ML VIAL IVP ONE (12:00)
--- NOTE | 2020-08-29 17:09 | PDOC ---
PROVIDER NOTE PROVIDER NOTE PROVIDER NOTE CARDIOLOGY PROGRESS NOTE: Please see records from [facility] for full details. Late entry for 08/28/2020 Subjective: Patient is well-known to our service and was admitted to the hospitalist [facility] in early August for diarrhea with C. difficile colitis. She also had a GI bleed and in the setting her digoxin was continued and due to a low blood pressure her metoprolol was decreased and also her Entresto. She was advised to restart her medications when her blood pressure improved. She was also advised to follow-up with [facility] cardiology where she normally has her primary segmental paver installer. Her anticoagulation was held in the setting of her GI bleeding. Her past medical history is significant for the followin. Nonischemic cardiomyopathy with a prior ejection fraction of 30 to 35% 2. Chronic atrial fibrillation on Eliquis and 200 mg of metoprolol 3. 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 COPD with continued tobacco abuse 5. Morbid obesity 6. Chronic kidney disease 7. Chronic anemia 8. Hypertension It appears that after her discharge recently she unfortunately continued to have volume overload and did not restart her medical therapy. In this setting she presented to the hospital in acute on chronic decompensated systolic and diastolic heart failure. Objective: On examination she was alert and oriented but in mild dyspnea. She had 1+ pitting edema bilaterally Her abdomen is obese protuberant nontender She has irregular heart tones Her ICD site is clean, dry and intact Lungs were notable for decreased breath sounds bilaterally No focal neurologic deficits Diagnostic studies: Laboratory studies and telemetry reviewed. Medications reviewed. There was mckenzie e confusion about her medications as she was discharged on Toprol-XL but was also taking metoprolol twice daily according to some of the records. Medication reconciliation has been attempted. Impression: 1. Acute on chronic systolic and diastolic heart failure in the setting of medication changes due to prior acute issues at hospitalization previously from anemia and C. difficile colitis. Recommendations: 1. Continue Toprol-XL, furosemide and Entresto. 2. Hold Eliquis given her recent GI bleeding. 3. Consider outpatient evaluation for left atrial appendage occlusion therapy. Supportive care for now. We will follow along closely. Thank you for this consultation. Justification of Admission: Justification of Admission: Justification of Admission Dx: Yes Angina: Cresendo Worsening of Sym ADAM ZAMORANO MD Aug 29, 2020 17:09
[2020-08-29] MEDS: SACUBITRIL/VALSARTAN 49/51MG TABLET. PO SCH (17:13)
[2020-08-29 18:00] VITALS: BP 96/56
[2020-08-29] MEDS: guaiFENesin DM 200MG/20MG 10 ML SYRUP PO PRN (20:43)
[2020-08-29] MEDS: INSULIN GLARGINE SYRINGE. SQ SCH (20:43)
[2020-08-29 22:33] VITALS: BP 115/85
[2020-08-30 07:31] VITALS: BP 117/71
[2020-08-30] MEDS: INSULIN LISPRO 300 UNITS/3 ML VIAL. SQ SCH ×3 (07:32→16:56)
[2020-08-30] MEDS: AMOXICILLIN/K CLAV 500/125MG TABLET. PO SCH ×2 (07:51→20:37)
[2020-08-30] MEDS: LACTOBACILLUS RHAMNOSUS GG 1 CAPSULE. PO SCH ×2 (07:51→20:37)
[2020-08-30] MEDS: METOPROLOL SUCC 24HR ER 50 MG TAB.ER.24H. PO SCH (07:51)
[2020-08-30] MEDS: VANCOMYCIN 125 MG/2.5 ML ORAL SOLUTION. PO SCH ×4 (07:52→20:37)
[2020-08-30] MEDS: PANTOPRAZOLE 40 MG TABLET. PO SCH (07:52)
[2020-08-30] MEDS: FUROSEMIDE 40 MG/4 ML VIAL IVP SCH (07:52)
[2020-08-30] MEDS: SACUBITRIL/VALSARTAN 49/51MG TABLET. PO SCH ×2 (07:52→20:37)
--- NOTE | 2020-08-30 10:05 | PN ---
DATE: 08/30/2020 ATTENDING PHYSICIAN: Dr. Guevara. SUBJECTIVE: The patient is breathing better. She still has a dry nonproductive cough. She still has pedal edema. She has some generalized numbness of the lower extremity. Unfortunately, she remains morbidly obese, in excess of 360 pounds. She is responding well to Lasix. OBJECTIVE FINDINGS: VITAL SIGNS: Blood pressure today is 117/71 mmHg, pulse 82 and regular, temperature 98.0 degrees Fahrenheit, oxygen saturation 97% on room air. HEENT: Head is without trauma. Pupils are reactive. Sclerae nonicteric. Oropharynx clear. NECK: Supple, no bruits. LUNGS: Good breath sounds. CARDIOVASCULAR: Showed distant heart tones. No gallops. ABDOMEN: Morbidly obese, protuberant. No guarding. I could not assess any organomegaly. EXTREMITIES: Showed 3+ pitting edema extending up to her thighs. NEUROLOGIC: Focally intact. Hard of hearing. LABORATORY DATA: Followup chemistry panel is pending. ASSESSMENT: 1. A 54-year-old female with qkyxy-wm-lcfuptp congestive heart failure. 2. Noncompliance of meds. 3. Paroxysmal atrial fibrillation, rapid ventricular rate, now controlled. 4. Morbid obesity. 5. Recent Clostridium difficile colitis, improved. 6. Anemia of chronic disease. PLAN: 1. Continue diuresis. 2. Afterload reduction. 3. Recommendations per Cardiology. 4. Diet as tolerated. 5. Tentative discharge plans for tomorrow. I inquired about a higher level of care. She declined. JAVON WOMACK MD DR: EVERARDO/davina JOB#: [id number] / [id number]
[2020-08-30 10:32] LABS: CALCIUM 7.5 mg/dL (8.5-10.1); CREATININE 1.3 mg/dL (0.6-1.0); GFR 42.5; POTASSIUM 3.4 mmol/L (3.5-5.1)
[2020-08-30] MEDS: BUDESONIDE 0.5 MG/2 ML NEBU NEB SCH ×2 (11:25→20:04)
[2020-08-30 11:59] VITALS: BP 117/72
[2020-08-30 17:29] VITALS: BP 123/72
[2020-08-30] MEDS: guaiFENesin DM 200MG/20MG 10 ML SYRUP PO PRN (20:37)
[2020-08-30] MEDS: INSULIN GLARGINE SYRINGE. SQ SCH (20:38)
[2020-08-30 23:17] VITALS: BP 109/71
[2020-08-31 06:02] VITALS: BP 133/87
[2020-08-31 06:58] LABS: CREATININE 1.2 mg/dL (0.6-1.0); GFR 46.6; POTASSIUM 3.7 mmol/L (3.5-5.1)
[2020-08-31] MEDS: INSULIN LISPRO 300 UNITS/3 ML VIAL. SQ SCH ×2 (08:00→12:00)
--- NOTE | 2020-08-31 08:11 | PDOC ---
STAS MARTIN TREAD BUILDER 08/31/20 0811: CARDIO Progress Notes Date & Time Date of Service DATE: 08/31/20 TIME: 08:04 Time of Evaluation 08:04 Subjective Notes Shortness of breath and edema better. Vitals Vitals Vital Signs Date Time Temp Pulse Resp B/P (MAP) Pulse Ox O2 Delivery O2 Flow Rate FiO2 08/31/20 06:02 98.1 78 24 133/87 (102) 98 Room Air Weight Weight [ ] Input and Output I.O. Intake and Output 08/31/20 07:00 Intake Total 660 ml Balance 660 ml Intake Oral 660 ml # Voids 3 # Bowel Movements 5 Laboratory Labs Laboratory Tests Test 08/29/20 11:52 08/29/20 15:10 08/29/20 17:09 08/29/20 20:22 Glucose (Fingerstick) 151 mg/dL (70-99) 214 mg/dL (70-99) 167 mg/dL (70-99) 103 mg/dL (70-99) Test 08/29/20 23:35 08/30/20 07:25 08/30/20 10:09 08/30/20 11:15 Glucose (Fingerstick) 80 mg/dL (70-99) 83 mg/dL (70-99) 260 mg/dL (70-99) Sodium Level 137 mmol/L (136-145) Potassium Level 3.4 mmol/L (3.5-5.1) Chloride Level 102 mmol/L (98-107) Carbon Dioxide Level 26 mmol/L (21-32) Anion Gap 9 (6-14) Blood Urea Nitrogen 24 mg/dL (7-20) Creatinine 1.3 mg/dL (0.6-1.0) Estimated GFR (Cockcroft-Gault) 42.5 Glucose Level 228 mg/dL (70-99) Calcium Level 7.5 mg/dL (8.5-10.1) Test 08/30/20 14:28 08/30/20 16:49 08/30/20 20:11 08/31/20 05:57 Glucose (Fingerstick) 124 mg/dL (70-99) 106 mg/dL (70-99) 232 mg/dL (70-99) Sodium Level 140 mmol/L (136-145) Potassium Level 3.7 mmol/L (3.5-5.1) Chloride Level 104 mmol/L (98-107) Carbon Dioxide Level 28 mmol/L (21-32) Anion Gap 8 (6-14) Blood Urea Nitrogen 22 mg/dL (7-20) Creatinine 1.2 mg/dL (0.6-1.0) Estimated GFR (Cockcroft-Gault) 46.6 Glucose Level 181 mg/dL (70-99) Calcium Level 8.0 mg/dL (8.5-10.1) Microbiology Micro Microbiology 08/28/20 Urine Culture - Final, Complete 08/28/20 Antimicrobic Susceptibility - Final, Complete Physical Exams HEENT: Neck Supple W Full Motion Chest: Symmetric Lungs: Other (diminished ) Heart: irregularly irregular (rate controlled ) Abdomen: Other (obese) Extremities: Other (1+ bilateral LE edema ) Neurology: alert, oriented, follow commands Assessment Assessment 1. Acute on chronic systolic, diastolic CHF; improved with IV diuresis 2. NICM; s/p Medtronic AICD. LVEF 25-30%. Cath 2017 with normal coronaries. Follows with [facility] Dr. Haider Zimmerman 3. PAFIB with RVR upon arrival. Remains in AFIB, rate controlled with resumption of BB 4. Hypertension; controlled 5. Hyperlipidemia; statin 6. Diabetes, II 7. CKD; Cr stable. 8. Anemia of chronic disease Recommendation Continue HF optimization with Entresto, BB, and lasix Metoprolol for rate control. Resume oral Dig No ASA, Eliquis given her recent GIB, anemia Consider outpatient referral for [facility]AAO Supportive care Follow up with CAROLE Jeffery DONALD J MD 08/31/20 1651: CARDIO Progress Notes Assessment Assessment Patient seen and evaluated. I agree with our nurse practitioners assessment and plan as above. Acute on chronic systolic, diastolic CHF; improved with IV diuresis. Continue medications as above. NICM; s/p Medtronic AICD. LVEF 25-30%. Cath 2017 with normal coronaries. Follows with Dr. Haider Palm PAFIB with RVR upon arrival. Remains in AFIB, rate controlled with resumption of BB Hypertension; controlled Hyperlipidemia; statin CKD; Cr stable. STAS MARTIN APRN Aug 31, 2020 08:11 LISA GRISSOM MD Aug 31, 2020 16:51
[2020-08-31] MEDS: LACTOBACILLUS RHAMNOSUS GG 1 CAPSULE. PO SCH (08:48)
[2020-08-31] MEDS: PANTOPRAZOLE 40 MG TABLET. PO SCH (08:48)
[2020-08-31] MEDS: AMOXICILLIN/K CLAV 500/125MG TABLET. PO SCH (08:48)
[2020-08-31] MEDS: SACUBITRIL/VALSARTAN 49/51MG TABLET. PO SCH (08:48)
[2020-08-31] MEDS: FUROSEMIDE 40 MG/4 ML VIAL IVP SCH (08:49)
[2020-08-31] MEDS: METOPROLOL SUCC 24HR ER 50 MG TAB.ER.24H. PO SCH (08:49)
[2020-08-31] MEDS: VANCOMYCIN 125 MG/2.5 ML ORAL SOLUTION. PO SCH ×2 (08:52→13:00)
[2020-08-31] MEDS ORDERED: FUROSEMIDE 40 MG TABLET PO SCH (09:00)
[2020-08-31] MEDS: BUDESONIDE 0.5 MG/2 ML NEBU NEB SCH (10:00)
[2020-08-31 12:00] VITALS: BP 140/80
--- NOTE | 2020-08-31 13:34 | DS ---
DATE OF DISCHARGE: 08/31/2020 ATTENDING PHYSICIAN: Dr. Womack. FINAL DISCHARGE DIAGNOSES: 1. Acute on chronic congestive heart failure. 2. Noncompliance of meds. 3. Paroxysmal atrial fibrillation with rapid ventricular rate, controlled. 4. Morbid obesity. 5. Recent Clostridium difficile colitis, treated. 6. Anemia of chronic disease. HISTORY AND PHYSICAL: This is a 54-year-old female with limited capacity. She was recently discharged from [facility]. Evidently, they did not give her the medication, went to the wrong pharmacy. She never inquired about it, has stopped her meds. She presented with exacerbation of congestive heart failure and atrial fibrillation with rapid ventricular rate. PHYSICAL EXAMINATION: Please see the dictated note. PERTINENT LABORATORY AND X-RAY STUDIES: Hemoglobin on admission was 8.8 g/dL, white count 10,300. Electrolytes within normal range. Creatinine 1.2 mg percent, nonfasting blood sugar 170. COURSE IN THE HOSPITAL: The patient was admitted to the Intensive Care Unit, restarted on her beta blockers. Cardiology consultation was entertained. She was better. Diet was advanced. Cardiology made recommendations ____ signed off. She was ready for discharge. Compliance is the issue. We encouraged her to take her medication. On the fourth hospital day, she was discharged home with the following meds, finish her Augmentin, Eliquis 5 b.i.d., aspirin, Lipitor, Invokana, digoxin, fluticasone, Lasix, metoprolol, potassium, and especially the Entresto. She was discharged then from our hospital in stable condition with explicit instructions and followup care regarding medication dosage. TOTAL DISCHARGE TIME SPENT: 39 minutes. JAVON WOMACK MD DR: EVERARDO/davina JOB#: [id number] / [id number]
[2020-09-01] MEDS ORDERED: DIGOXIN 125 MCG TABLET PO SCH (09:00)
== END 2020-08-31 16:50 | disposition home or self-care (01) | DRG 291 ==
LOC: ER 01:34 → ICU 05:58
PROVIDERS: ADMIT Internal Medicine; ATTEND Internal Medicine
DX: I13.0 Hypertensive heart and chronic kidney disease with heart failure and stage 1 through stage 4 chronic kidney disease, or unspecified chronic kidney disease (principal); I50.43 Acute on chronic combined systolic (congestive) and diastolic (congestive) heart failure; A04.72 Enterocolitis due to Clostridium difficile, not specified as recurrent; I48.20 Chronic atrial fibrillation, unspecified; J44.0 Chronic obstructive pulmonary disease with (acute) lower respiratory infection; N39.0 Urinary tract infection, site not specified; I42.8 Other cardiomyopathies; D50.9 Iron deficiency anemia, unspecified; D63.8 Anemia in other chronic diseases classified elsewhere; E11.22 Type 2 diabetes mellitus with diabetic chronic kidney disease; E66.01 Morbid (severe) obesity due to excess calories; E78.00 Pure hypercholesterolemia, unspecified; E78.5 Hyperlipidemia, unspecified; I48.0 Paroxysmal atrial fibrillation; N18.2 Chronic kidney disease, stage 2 (mild); Z72.0 Tobacco use; Z79.01 Long term (current) use of anticoagulants; Z79.4 Long term (current) use of insulin; Z87.442 Personal history of urinary calculi; Z91.14 Patient's other noncompliance with medication regimen; Z95.810 Presence of automatic (implantable) cardiac defibrillator; F41.9 Anxiety disorder, unspecified
CPT/HCPCS: 36415; 71045; 74177; 80048; 80053; 81001; 82947; 83605; 83735; 83880; 84443; 84484; 85025; 85379; 87077; 87086; 87186; 93005; 94640; 96361; 96365; 96366; 96376; J1815; J1940; J2405; J3490; J7120; Q9967; 99285-25

== ENCOUNTER 2020-09-14 19:06 | Emergency (ER) | payer OTHER ==
[~2020-09-14] VITALS: Ht 154.9 cm; Wt 168.6 kg
[2020-09-14 19:09] VITALS: BP 112/2
--- NOTE | 2020-09-14 19:48 | EKG ---
[address] [address] Test Date: 2020-09-14 Test Time: 19:39:18 Pat Name: DARELL CORONADO Department: Room: Gender: F Telephone Surveyor: : 1965 Requested By: BULMARO HOFFMAN Order Number: [id number] Reading MD: Measurements Intervals Ewing Rate: 94 P: GA: QRS: 197 QRSD: 100 T: 28 QT: 370 QTc: 468 Interpretive Statements SINUS ARRHYTHMIA VENTRICULAR PREMATURE COMPLEX(ES) ABNORMAL RIGHT SUPERIOR AXIS DEVIATION LOW VOLTAGE RVH WITH REPOLARIZATION ABNORMALITY QRS(T) CONTOUR ABNORMALITY CONSISTENT WITH LATERAL INFARCT POSSIBLY RECENT CONSIDER INFERIOR INFARCT ABNORMAL ECG RI6.02 No previous ECG available for comparison
[2020-09-14] MEDS ORDERED: IV RINGERS SOLUTION,LACTATED 1,000 ML IV ONE (20:00)
[2020-09-14] MEDS ORDERED: IOHEXOL 300 MG/ML 75 ML VIAL. IV ONE (20:00)
[2020-09-14 20:21] LABS: BASO # 0.1 x10^3/uL (0.0-0.2); BASO % 1 % (0-3); EOS # 0.1 x10^3/uL (0.0-0.7); EOS % 1 % (0-3); HEMATOCRIT 29.8 % (36.0-47.0); HEMOGLOBIN 8.5 g/dL (12.0-15.5); LYMPH # 2.2 x10^3/uL (1.0-4.8); LYMPH % 30 % (24-48); MEAN CORPUSCULAR HEMOGLOBIN 19 pg (25-35); MEAN CORPUSCULAR HGB CONC 29 g/dL (31-37); MEAN CORPUSCULAR VOLUME 66 fL (79-100); MONO # 0.7 x10^3/uL (0.0-1.1); MONO % 9 % (0-9); NEUT # 4.2 x10^3uL (1.8-7.7); NEUT % 59 % (31-73); PLATELET COUNT 351 x10^3/uL (140-400); RED CELL DISTRIBUTION WIDTH 21.7 % (11.5-14.5); WHITE BLOOD COUNT 7.2 x10^3/uL (4.0-11.0)
[2020-09-14 20:22] LABS: CALCIUM 8.5 mg/dL (8.5-10.1); CREATININE 0.9 mg/dL (0.6-1.0); POTASSIUM 4.5 mmol/L (3.5-5.1)
[2020-09-14 20:30] LABS: ALBUMIN 2.9 g/dL (3.4-5.0); ALBUMIN/GLOBULIN RATIO 0.8 (1.0-1.7); MAGNESIUM 2.1 mg/dL (1.8-2.4); TOTAL BILIRUBIN 0.6 mg/dL (0.2-1.0); TOTAL PROTEIN 6.6 g/dL (6.4-8.2)
--- NOTE | 2020-09-14 21:44 | RAD ---
Exam: CT of chest, abdomen and pelvis with contrast INDICATION: Abdominal pain TECHNIQUE: Sequential axial images through the chest, abdomen and pelvis obtained following the admin istration of 75 mL of Omni 300 IV contrast. Sagittal and coronal reformatted images were reconstructe d from the axial data and reviewed. Comparisons: 08/28/2020 FINDINGS: Visualized portions of the thyroid are unremarkable. No enlarged mediastinal lymph nodes are identifi ed. Heart is mildly enlarged. No pericardial effusion. Pacer with leads terminating in the right heart. T horacic aorta has a normal course and caliber. Pulmonary artery is not enlarged. Airways are patent. Mild bronchial wall thickening is noted. No consolidation or pneumothorax. No kianna picious lung nodules are identified. No pleural effusion or thickening. Diffuse hepatic steatosis. Spleen, pancreas, gallbladder and adrenals are unremarkable. No perinephric inflammation or hydronephrosis. There is a right-sided nephroureteral stent with proxi mal pigtail coiled in the renal pelvis and distal pigtail in the bladder. No renal or ureteral calcul i are identified Bladder is partially distended and appears thin-walled. Uterus is nonenlarged. Large and small bowel are unremarkable. Appendix is not identified. No free intra-abdominal air or fl uid. No obstruction. Abdominal aorta has a normal course and caliber. Abdominal vasculature is patent. No enlarged intra-abdominal lymph nodes are identified. No suspicious osseous lesions or acute fractu res. Soft tissue anasarca is noted. IMPRESSION: 1. No acute process identified within the abdomen or pelvis. 2. Right-sided nephroureteral stent which appears in appropriate position. No hydronephrosis. 3. No acute process identified within the chest. Exposure: One or more of the following in the visualized dose reduction techniques were utilized for this examination: 1. Automated exposure control 2. Adjustment of the MA and/or KV according to patient size 3. Use of iterative of reconstructive technique Electronically signed by: José Miguel Tucker MD (09/14/2020 9:41 PM) [facility]
[2020-09-14] MEDS ORDERED: DEXAMETHASONE 4 MG TABLET PO ONE (21:45)
[2020-09-14] MEDS ORDERED: IPRATRPIUM/ALBUTEROL 0.5/2.5MG 3 ML NEBU. NEB ONE (21:45)
[2020-09-14 22:03] LABS: ANISOCYTOSIS SLIGHT; HYPOCHROMIA MOD; MICROCYTOSIS MOD; OVALOCYTES OCC; PLT ESTIMATE ADEQUATE (ADEQUATE); POLYCHROMASIA SLIGHT; SCHISTOCYTES OCC; SPHEROCYTES OCC; TARGET CELLS OCC
--- NOTE | 2020-09-14 22:19 | PHYS DOC ---
Past History Past Medical History: A-Fib, Anemia, Anxiety, Asthma, CHF, COPD, Diabetes, High Cholesterol, Heart Disease, Hypertension, [place], Renal Failure Additional Past Medical Histor: cardiomegaly Past Surgical History: , Pacemaker, Other Additional Past Surgical Histo: HERNIA; cataract lt eye Smoking: Non-smoker Alcohol Use: Rarely Drug Use: None Adult General Chief Complaint Chief Complaint: BACK PAIN - NO INJURY HPI HPI Patient is a 54-year-old female with a past medical history significant for A. fib, COPD, asthma, anxiety, depression, insulin-dependent diabetes and [place] who presents to the emergency department with a chief complaint of shortness of breath and wheeze. Review of Systems Review of Systems Review of systems otherwise unremarkable except noted in HPI Current Medications Current Medications Current Medications Medications (Trade) Dose Ordered Sig/Christina Start Time Stop Time Status Last Admin Dose Admin Albuterol/ Ipratropium (Duoneb) 3 ml 1X ONCE 09/14/20 21:45 09/14/20 21:54 DC Dexamethasone (Decadron) 10 mg 1X ONCE 09/14/20 21:45 09/14/20 21:54 DC Iohexol (Omnipaque 300 Mg/ml) 75 ml 1X ONCE 09/14/20 20:00 09/14/20 20:15 DC 09/14/20 21:20 75 ML Lactated Ringer's 1,000 ml @ 1,000 mls/hr 1X ONCE 09/14/20 20:00 09/14/20 20:59 DC 09/14/20 21:37 1,000 MLS/HR Levofloxacin/ Dextrose 150 ml @ 100 mls/hr 1X ONCE 09/14/20 20:00 09/14/20 21:29 DC 09/14/20 21:37 100 MLS/HR Allergies Allergies Allergies Coded Allergies Type Severity Reaction Last Updated Verified No Known Drug Allergies 08/28/20 No Physical Exam Physical Exam Constitutional: Well developed, well nourished, no acute distress, non-toxic appearance. [] HENT: Normocephalic, atraumatic, bilateral external ears normal, oropharynx moist, no oral exudates, nose normal. [] Eyes: conjunctiva normal, no discharge. [] Neck: Normal range of motion, no tenderness, supple, no stridor. [] Cardiovascular:Heart rate regular rhythm, no murmur [] Lungs & Thorax: Tachypneic, with bilateral generalized rhonchi and end expiratory wheeze Abdomen: soft, no tenderness, no masses, no pulsatile masses. [] Skin: Warm, dry, no erythema, no rash. [] Back: No tenderness, Extremities: No tenderness, no cyanosis, no clubbing, ROM intact, no edema. [] Neurologic: Alert and oriented X 3, normal motor function, normal sensory function, no focal deficits noted. [] Psychologic: Affect normal, judgement normal, mood normal. [] Current Patient Data Vital Signs Vital Signs Date Time Temp Pulse Resp B/P (MAP) Pulse Ox O2 Delivery O2 Flow Rate FiO2 09/14/20 19:09 98.0 88 16 112/2 (38) 96 Room Air Lab Results Laboratory Tests Test 09/14/20 19:50 White Blood Count 7.2 x10^3/uL (4.0-11.0) Red Blood Count 4.50 x10^6/uL (3.50-5.40) Hemoglobin 8.5 g/dL (12.0-15.5) L Hematocrit 29.8 % (36.0-47.0) L Mean Corpuscular Volume 66 fL (79-100) L Mean Corpuscular Hemoglobin 19 pg (25-35) L Mean Corpuscular Hemoglobin Concent 29 g/dL (31-37) L Red Cell Distribution Width 21.7 % (11.5-14.5) H Platelet Count 351 x10^3/uL (140-400) Neutrophils (%) (Auto) 59 % (31-73) Lymphocytes (%) (Auto) 30 % (24-48) Monocytes (%) (Auto) 9 % (0-9) Eosinophils (%) (Auto) 1 % (0-3) Basophils (%) (Auto) 1 % (0-3) Neutrophils # (Auto) 4.2 x10^3uL (1.8-7.7) Lymphocytes # (Auto) 2.2 x10^3/uL (1.0-4.8) Monocytes # (Auto) 0.7 x10^3/uL (0.0-1.1) Eosinophils # (Auto) 0.1 x10^3/uL (0.0-0.7) Basophils # (Auto) 0.1 x10^3/uL (0.0-0.2) Platelet Estimate Adequate (ADEQUATE) Large Platelets Occ Polychromasia Slight Hypochromasia Mod Anisocytosis Slight Microcytosis Mod Spherocytes Occ Target Cells Occ Ovalocytes Occ Schistocytes Occ D-Dimer (Maria Alejandra) 0.55 mg/L (0.00-0.50) H Sodium Level 143 mmol/L (136-145) Potassium Level 4.5 mmol/L (3.5-5.1) Chloride Level 106 mmol/L (98-107) Carbon Dioxide Level 25 mmol/L (21-32) Anion Gap 12 (6-14) Blood Urea Nitrogen 22 mg/dL (7-20) H Creatinine 0.9 mg/dL (0.6-1.0) Estimated GFR (Cockcroft-Gault) 65.0 BUN/Creatinine Ratio 24 (6-20) H Glucose Level 191 mg/dL (70-99) H Lactic Acid Level 1.5 mmol/L (0.4-2.0) Calcium Level 8.5 mg/dL (8.5-10.1) Magnesium Level 2.1 mg/dL (1.8-2.4) Total Bilirubin 0.6 mg/dL (0.2-1.0) Aspartate Amino Transferase (AST) 25 U/L (15-37) Alanine Aminotransferase (ALT) 39 U/L (14-59) Alkaline Phosphatase 137 U/L (46-116) H Troponin I Quantitative 0.022 ng/mL (0-0.055) Total Protein 6.6 g/dL (6.4-8.2) Albumin 2.9 g/dL (3.4-5.0) L Albumin/Globulin Ratio 0.8 (1.0-1.7) L EKG EKG Rate of 94, QRS of 100, QTC of 468, multiple PVCs, no STEMI. [] Radiology/Procedures Radiology/Procedures []FINDINGS: Visualized portions of the thyroid are unremarkable. No enlarged mediastinal lymph nodes are identified. Heart is mildly enlarged. No pericardial effusion. Pacer with leads terminating in the right heart. Thoracic aorta has a normal course and caliber. Pulmonary artery is not enlarged. Airways are patent. Mild bronchial wall thickening is noted. No consolidation or pneumothorax. No suspicious lung nodules are identified. No pleural effusion or thickening. Diffuse hepatic steatosis. Spleen, pancreas, gallbladder and adrenals are unremarkable. No perinephric inflammation or hydronephrosis. There is a right-sided nephroureteral stent with proximal pigtail coiled in the renal pelvis and distal pigtail in the bladder. No renal or ureteral calculi are identified Bladder is partially distended and appears thin-walled. Uterus is nonenlarged. Large and small bowel are unremarkable. Appendix is not identified. No free intra-abdominal air or fluid. No obstruction. Abdominal aorta has a normal course and caliber. Abdominal vasculature is patent. No enlarged intra-abdominal lymph nodes are identified. No suspicious osseous lesions or acute fractures. Soft tissue anasarca is noted. IMPRESSION: 1. No acute process identified within the abdomen or pelvis. 2. Right-sided nephroureteral stent which appears in appropriate position. No hydronephrosis. 3. No acute process identified within the chest. Heart Score C/O Chest Pain: No Risk Factors: Risk Factors: DM, Current or recent (<one month) smoker, HTN, HLP, family history of CAD, obesity. Risk Scores: Risk Factors: DM, Current or recent (<one month) smoker, HTN, HLP, family history of CAD, obesity. Course & Med Decision Making Course & Med Decision Making Patient is a 54-year-old female who presents with shortness of breath and wheezing. Vital signs notable for tachypnea. No hypoxia or tachycardia. Physical exam noted above. Patient placed on the monitor with IV access established. Given breathing treatment, and steroids as well as started on antibiotics and given IV fluid resuscitation due to concern for sepsis. Laboratory analysis not concerning, with values at patient's baseline. Patient awake, alert, talking on the phone in the room on room air. No tachycardia, no tachypnea wheeze has resolved and otherwise asymptomatic. States that she gets these flareups at home because her spouse is a smoker and smokes around her which causes her COPD and asthma to flareup and will not smoke outside. States she tries to open the window whenever he smoking. States she is feeling better and would like to be discharged home but would like prescriptions for her albuterol. Offered admission for observation overnight and continue breathing treatments as needed if she did not feel safe to be discharged home, but patient stated she was doing well and would like to go home. States she is currently taking Augmentin for a cellulitis that was started for 5 days ago. Advised to call primary care physician first thing Thursday to set up a follow-up as soon as possible. Gave strict return precautions to the ED. Patient grateful, verbalized understanding and agreed with plan of discharge. [] Dragon Disclaimer Dragon Disclaimer This electronic medical record was generated, in whole or in part, using a voice recognition dictation system. Departure Departure: Impression: Primary Impression: COPD exacerbation Additional Impression: Asthma exacerbation Disposition: 01 DC HOME SELF CARE/HOMELESS Condition: GOOD Referrals: EULOGIO KISER (PCP) Patient Instructions: Asthma Attacks, Prevention, Chronic Obstructive Pulmonary Disease Exacerbation Additional Instructions: Please read all the attached information. Please take all your medications as prescribed. Please try to stay away from any cigarette smoke if you can avoid it. If you cannot do please go to a different room, close a door and open the window to keep ventilation going. Please call your primary care physician first thing Thursday to set up a follow-up appointment as soon as you can. Please come back to the emergency department immediately with any new or concerning symptoms as discussed. Scripts Albuterol Sulfate (PROAIR HFA INHALER) 8.5 Gm Hfa.aer.ad 2 PUFF IH PRN Q4-6HRS PRN for wheezing for 21 Days, #1 INHALER 0 Refills Prov: BULMARO HOFFMAN MD 09/14/20 Albuterol Sulfate (ALBUTEROL SULFATE NEB SOLN ) 2.5 Mg/3 Ml Vial.neb 1 VIAL NEB TID for SOB or wheezing for 10 Days, #50 VIAL Prov: BULMARO HOFFMAN MD 09/14/20 Problem Qualifiers BULMARO HOFFMAN MD Sep 14, 2020 22:19
[2020-09-14] MEDS ORDERED: ALBU2.5V8 IH (23:04)
[2020-09-14] MEDS ORDERED: ALBU2.5V5 NEB (23:04)
== END 2020-09-14 23:20 | disposition home or self-care (01) ==
LOC: ER 19:06
DX: J44.1 Chronic obstructive pulmonary disease with (acute) exacerbation (principal); I48.91 Unspecified atrial fibrillation; F41.9 Anxiety disorder, unspecified; E78.00 Pure hypercholesterolemia, unspecified; I25.2 Old myocardial infarction; E11.22 Type 2 diabetes mellitus with diabetic chronic kidney disease; N18.9 Chronic kidney disease, unspecified; I13.0 Hypertensive heart and chronic kidney disease with heart failure and stage 1 through stage 4 chronic kidney disease, or unspecified chronic kidney disease; I50.9 Heart failure, unspecified; Z86.2 Personal history of diseases of the blood and blood-forming organs and certain disorders involving the immune mechanism; Z95.0 Presence of cardiac pacemaker
CPT/HCPCS: 36415; 71260; 74177; 80053; 83605; 83735; 84484; 85025; 85379; 87040; 93005; 94640; 96365; 99285; J1956; J7120; J8540; Q9967

== ENCOUNTER 2020-09-18 06:00 | Emergency (ER) | payer OTHER ==
[~2020-09-18] VITALS: Ht 154.9 cm; Wt 168.6 kg
[~2020-09-18 06:00] MED LIST changes: +ALBU2.5V5 NEB; +ALBU2.5V8 IH
--- NOTE | 2020-09-18 06:24 | PHYS DOC ---
Past History Past Medical History: A-Fib, Anemia, Anxiety, Asthma, CHF, COPD, Diabetes, High Cholesterol, Heart Disease, Hypertension, [place], Renal Failure Additional Past Medical Histor: cardiomegaly Past Surgical History: , Pacemaker, Other Additional Past Surgical Histo: HERNIA; cataract lt eye Smoking: Non-smoker Alcohol Use: Rarely Drug Use: None General Adult EDM: Chief Complaint: SHORTNESS OF BREATH HPI: HPI: Patient is a 54-year-old female coming in via EMS for a "tugging" chest pain that radiates to her back. Says the pain is near the site of her pacemaker. Was seen and evaluated for the same pain 4 days ago. Patient states she has had multiple episodes of the same pain. States she used a breathing treatment about 3 to 4 hours prior to arrival. Patient states the pain started when she was getting up to use the restroom. She is a little bit short of breath has a history of COPD and asthma. Patient states she does not smoke anymore but per chart review her spouse still smokes in the house. Has not tried to follow-up with her ux researcher but says she has appointment in about a month. Has not taken anything for pain. Denies any other new symptoms or illnesses. Has her baseline nonproductive cough. Review of Systems: Review of Systems: All other systems within normal limits except for as noted in the HPI Allergies: Allergies: Allergies Coded Allergies Type Severity Reaction Last Updated Verified No Known Drug Allergies 08/28/20 No Physical Exam: PE: Constitutional: Well developed, well nourished, no acute distress, non-toxic appearance, morbidly obese. [] HENT: Normocephalic, atraumatic, bilateral external ears normal, nose normal. [] Eyes: PERRLA, conjunctiva normal, no discharge. [] Neck: No rigidity, supple, no stridor. [] Cardiovascular: Regular rate and rhythm, brisk cap refill [] Lungs & Thorax: Non labored symmetric respirations, no tachypnea or respiratory distress, decreased breath sounds, exam limited by patient's body habitus [] Abdomen: Soft, nondistended. Skin: Warm, dry, no erythema, no rash, wounds on abdomen without signs of infection, no purulent drainage from wounds. [] Back: Unremarkable Extremities: No deformities, range of motion grossly intact, no lower extremity edema [] Neurologic: Alert and oriented X 3, no focal deficits noted. [] Psychologic: Affect normal, judgement normal, mood normal. [] EKG: EK: Paced rhythm, indeterminate axis, no ST elevation or depression, multiple PVCs, wide QRS heart rate 90 bpm [] 0805: Paced rhythm, heart rate 90 bpm, multiple PVCs, indeterminate axis, no ST elevation or depression, wide QRS, no changes from previous ECG 2 hours prior. Radiology/Procedures: Radiology/Procedures: EXAM: XR CHEST 1V 09/18/2020 6:36 AM CLINICAL INDICATION: Chest pain, dyspnea COMPARISON: Chest radiograph 08/28/2020 TECHNIQUE: AP upright view of the chest. FINDINGS: Pacemaker/AICD is unchanged. There is mild cardiomegaly, unchanged. Lungs are hypoexpanded. No consolidation, pleural effusion, or pneumothorax. No pulmonary edema. No acute osseous abnormality. IMPRESSION: Mild cardiomegaly. No new abnormality.[] Heart Score: C/O Chest Pain: Yes HEART Score for Chest Pain: HEART Score for Chest Pain Response (Comments) Value History Slighlty/Non-Suspicious 0 ECG Nonspecific Repolarizatio 1 Age >45 - < 65 1 Risk Factors >3 Risk Factors or Hx CAD 2 Troponin < Normal Limit 0 Total 4 Risk Factors: Risk Factors: DM, Current or recent (<one month) smoker, HTN, HLP, family history of CAD, obesity. Risk Scores: Score 0 - 3: 2.5% MACE over next 6 weeks - Discharge Home Score 4 - 6: 20.3% MACE over next 6 weeks - Admit for Clinical Observation Score 7 - 10: 72.7% MACE over next 6 weeks - Early Invasive Strategies Course & Med Decision Making: Course & Med Decision Making Pertinent Labs and Imaging studies reviewed. (See chart for details) Cardiac work-up unremarkable, no change in patient's baseline labs. Patient's abdominal wounds all appear to be chronic wounds that are not infected. Patient has plan with primary care to get home health to assist her. Advised patient to follow-up with her ux researcher. Most of patient's various pains are likely musculoskeletal secondary to body habitus. [] Dragon Disclaimer: Dragon Disclaimer: This electronic medical record was generated, in whole or in part, using a voice recognition dictation system. Departure Departure: Impression: Primary Impression: Morbid (severe) obesity due to excess calories Additional Impressions: Chest pain Poorly controlled diabetes mellitus Disposition: 01 DC HOME SELF CARE/HOMELESS Condition: STABLE Referrals: EULOGIO KISER (PCP) Patient Instructions: Wound Care, [id number] KATELYNN AHUJA MD Sep 18, 2020 06:24
--- NOTE | 2020-09-18 06:25 | EKG ---
[address] [address] Test Date: 2020-09-18 Test Time: 06:05:14 Pat Name: DARELL CORONADO Department: Room: Gender: F Veneer Taper: : 1965 Requested By: KATELYNN AHUJA Order Number: [id number] Reading MD: Measurements Intervals [place] Rate: 99 P: [place]: QRS: 226 QRSD: 164 T: 53 QT: 396 QTc: 514 Interpretive Statements IRREGULAR RHYTHM, NO P-WAVE FOUND ABNORMAL RIGHT SUPERIOR AXIS DEVIATION LOW VOLTAGE NON SPECIFIC INTRAVENTRICULAR BLOCK RVH WITH REPOLARIZATION ABNORMALITY QRS(T) CONTOUR ABNORMALITY CONSISTENT WITH LATERAL INFARCT PROBABLY OLD CONSISTENT WITH INFERIOR INFARCT PROBABLY OLD
[2020-09-18] MEDS ORDERED: IPRATRPIUM/ALBUTEROL 0.5/2.5MG 3 ML NEBU. NEB ONE (06:30)
[2020-09-18] MEDS ORDERED: ASPIRIN CHEWABLE 81 MG TABLET. PO ONE (06:30)
[2020-09-18 07:20] LABS: BASO # 0.1 x10^3/uL (0.0-0.2); BASO % 1 % (0-3); EOS # 0.1 x10^3/uL (0.0-0.7); EOS % 2 % (0-3); HEMATOCRIT 29.4 % (36.0-47.0); HEMOGLOBIN 8.5 g/dL (12.0-15.5); LYMPH # 2.1 x10^3/uL (1.0-4.8); LYMPH % 24 % (24-48); MEAN CORPUSCULAR HEMOGLOBIN 19 pg (25-35); MEAN CORPUSCULAR HGB CONC 29 g/dL (31-37); MEAN CORPUSCULAR VOLUME 66 fL (79-100); MONO # 0.8 x10^3/uL (0.0-1.1); MONO % 8 % (0-9); NEUT # 5.8 x10^3uL (1.8-7.7); NEUT % 65 % (31-73); PLATELET COUNT 337 x10^3/uL (140-400); RED BLOOD COUNT 4.44 x10^6/uL (3.50-5.40); RED CELL DISTRIBUTION WIDTH 22.4 % (11.5-14.5); WHITE BLOOD COUNT 8.9 x10^3/uL (4.0-11.0)
--- NOTE | 2020-09-18 07:21 | RAD ---
EXAM: XR CHEST 1V 09/18/2020 6:36 AM CLINICAL INDICATION: Chest pain, dyspnea COMPARISON: Chest radiograph 08/28/2020 TECHNIQUE: AP upright view of the chest. FINDINGS: Pacemaker/AICD is unchanged. There is mild cardiomegaly, unchanged. Lungs are hypoexpanded . No consolidation, pleural effusion, or pneumothorax. No pulmonary edema. No acute osseous abnormali ty. IMPRESSION: Mild cardiomegaly. No new abnormality. Electronically signed by: Kirstin Ornelas MD (09/18/2020 7:19 AM) [id number]
[2020-09-18 07:29] LABS: CALCIUM 8.4 mg/dL (8.5-10.1); CREATININE 1.1 mg/dL (0.6-1.0); GFR 51.6; POTASSIUM 4.6 mmol/L (3.5-5.1)
[2020-09-18 07:41] LABS: ALBUMIN 2.7 g/dL (3.4-5.0); ALBUMIN/GLOBULIN RATIO 0.8 (1.0-1.7); TOTAL BILIRUBIN 0.6 mg/dL (0.2-1.0); TOTAL PROTEIN 6.2 g/dL (6.4-8.2)
[2020-09-18 08:55] VITALS: BP 132/88
[2020-09-18 09:05] LABS: ANISOCYTOSIS MOD; HYPOCHROMIA MOD; MICROCYTOSIS MOD; OVALOCYTES OCC; PLT ESTIMATE ADEQUATE (ADEQUATE); SCHISTOCYTES OCC; TARGET CELLS OCC; TEAR DROP CELLS OCC
--- NOTE | 2020-09-18 12:21 | EKG ---
[address] [address] Test Date: 2020-09-18 Test Time: 08:05:23 Pat Name: DARELL CORONADO Department: Room: Gender: F Vice President Diversity: [place] : 1965 Requested By: KATELYNN AHUJA Order Number: [id number] Reading MD: Measurements Intervals [place] Rate: 90 P: [place]: QRS: 204 QRSD: 166 T: 28 QT: 418 QTc: 516 Interpretive Statements IRREGULAR RHYTHM, NO P-WAVE FOUND VENTRICULAR PREMATURE COMPLEX(ES) ABNORMAL RIGHT SUPERIOR AXIS DEVIATION LOW VOLTAGE RIGHT BUNDLE BRANCH BLOCK RVH WITH REPOLARIZATION ABNORMALITY QRS(T) CONTOUR ABNORMALITY CONSIDER ANTEROSEPTAL MYOCARDIAL DAMAGE CONSIDER HIGH LATERAL INFARCT CONSISTENT WITH INFERIOR INFARCT ABNORMAL ECG
== END 2020-09-18 09:00 | disposition home or self-care (01) ==
LOC: ER 06:00
DX: R07.89 Other chest pain (principal); E11.65 Type 2 diabetes mellitus with hyperglycemia; E66.01 Morbid (severe) obesity due to excess calories; I48.91 Unspecified atrial fibrillation; F41.9 Anxiety disorder, unspecified; I11.0 Hypertensive heart disease with heart failure; I50.9 Heart failure, unspecified; J44.9 Chronic obstructive pulmonary disease, unspecified; E78.00 Pure hypercholesterolemia, unspecified; I25.2 Old myocardial infarction; E11.22 Type 2 diabetes mellitus with diabetic chronic kidney disease; Z95.0 Presence of cardiac pacemaker; Z68.45 Body mass index [BMI] 70 or greater, adult
CPT/HCPCS: 36415; 71045; 80053; 82803; 83880; 84484; 85025; 85379; 93005; 94640; 99285

== ENCOUNTER 2020-10-16 06:19 | Emergency (ER) | payer OTHER ==
[~2020-10-16] VITALS: Ht 154.9 cm; Wt 168.6 kg
[2020-10-16 07:23] LABS: BASO # 0.1 x10^3/uL (0.0-0.2); BASO % 2 % (0-3); EOS % 1 % (0-3); HEMATOCRIT 29.5 % (36.0-47.0); HEMOGLOBIN 8.5 g/dL (12.0-15.5); LYMPH # 1.8 x10^3/uL (1.0-4.8); LYMPH % 29 % (24-48); MEAN CORPUSCULAR HEMOGLOBIN 19 pg (25-35); MEAN CORPUSCULAR HGB CONC 29 g/dL (31-37); MEAN CORPUSCULAR VOLUME 65 fL (79-100); MONO # 0.6 x10^3/uL (0.0-1.1); MONO % 10 % (0-9); NEUT # 3.6 x10^3uL (1.8-7.7); NEUT % 58 % (31-73); PLATELET COUNT 381 x10^3/uL (140-400); RED BLOOD COUNT 4.54 x10^6/uL (3.50-5.40); WHITE BLOOD COUNT 6.2 x10^3/uL (4.0-11.0)
[2020-10-16 07:31] LABS: CALCIUM 8.8 mg/dL (8.5-10.1); CREATININE 1.2 mg/dL (0.6-1.0); GFR 46.6; POTASSIUM 4.2 mmol/L (3.5-5.1)
[2020-10-16 07:36] LABS: ALBUMIN 3.2 g/dL (3.4-5.0); ALBUMIN/GLOBULIN RATIO 0.8 (1.0-1.7); TOTAL BILIRUBIN 1.1 mg/dL (0.2-1.0); TOTAL PROTEIN 7.4 g/dL (6.4-8.2)
[2020-10-16 08:08] LABS: PLT ESTIMATE ADEQUATE (ADEQUATE)
[2020-10-16 08:10] LABS: ANISOCYTOSIS MOD; HYPOCHROMIA MOD; MICROCYTOSIS MARKED; OVALOCYTES FEW; TARGET CELLS FEW
--- NOTE | 2020-10-16 08:23 | PHYS DOC ---
Past History Past Medical History: A-Fib, Anemia, Anxiety, Asthma, CHF, COPD, Diabetes, High Cholesterol, Heart Disease, Hypertension, [place], Renal Failure Additional Past Medical Histor: cardiomegaly Past Surgical History: , Pacemaker, Other Additional Past Surgical Histo: HERNIA; cataract lt eye Smoking: Non-smoker Alcohol Use: Rarely Drug Use: None Adult General Chief Complaint Chief Complaint: ABDOMINAL PAIN HPI HPI Patient is a 54-year-old female who presents to the emergency room complaining of abdominal swelling and pain. Patient has a long history of abdominal cellulitis. This is similar to previous episodes. Patient was previously admitted to a nursing facility to help with her cellulitis but left due to not liking the care that she was receiving. History is very limited as patient has a difficult time answering questions. There is report of possible small amount of bright red bleeding. Is unclear at this time whether patient did or did not have rectal bleeding. She has not been running fevers. Review of Systems Review of Systems Complete ROS is negative unless otherwise documented in [facility] Allergies Allergies Allergies Coded Allergies Type Severity Reaction Last Updated Verified No Known Drug Allergies 08/28/20 No Physical Exam Physical Exam General: Awake, alert, NAD. Well Nourished, well hydrated. Cooperative, morbid obesity HEENT: Atraumatic, EOMI, PERRL, airway patent, moist oral mucosa Neck: Supple, trachea midline Respiratory: CTA bilaterally, normal effort, no wheezing/crackles CV: RRR, no murmur, cap refill <2 GI: Soft, obese abdomen, induration, swelling, erythema of the abdomen. No significant tenderness MSK: No obvious deformities Skin: Warm, dry, intact Neuro: A&O x3, speech NL, sensory and motor grossly intact, no focal deficits, difficulty hearing Psych: Normal affect, normal mood, not suicidal or homicidal Current Patient Data Vital Signs Vital Signs Date Time Temp Pulse Resp B/P (MAP) Pulse Ox O2 Delivery O2 Flow Rate FiO2 10/16/20 06:19 98.2 86 22 129/67 (87) 98 Room Air Lab Results Laboratory Tests Test 10/16/20 07:05 White Blood Count 6.2 x10^3/uL (4.0-11.0) Red Blood Count 4.54 x10^6/uL (3.50-5.40) Hemoglobin 8.5 g/dL (12.0-15.5) L Hematocrit 29.5 % (36.0-47.0) L Mean Corpuscular Volume 65 fL (79-100) L Mean Corpuscular Hemoglobin 19 pg (25-35) L Mean Corpuscular Hemoglobin Concent 29 g/dL (31-37) L Red Cell Distribution Width 22.0 % (11.5-14.5) H Platelet Count 381 x10^3/uL (140-400) Neutrophils (%) (Auto) 58 % (31-73) Lymphocytes (%) (Auto) 29 % (24-48) Monocytes (%) (Auto) 10 % (0-9) H Eosinophils (%) (Auto) 1 % (0-3) Basophils (%) (Auto) 2 % (0-3) Neutrophils # (Auto) 3.6 x10^3uL (1.8-7.7) Lymphocytes # (Auto) 1.8 x10^3/uL (1.0-4.8) Monocytes # (Auto) 0.6 x10^3/uL (0.0-1.1) Eosinophils # (Auto) 0.0 x10^3/uL (0.0-0.7) Basophils # (Auto) 0.1 x10^3/uL (0.0-0.2) Platelet Estimate Adequate (ADEQUATE) Hypochromasia Mod Anisocytosis Mod Microcytosis Marked Target Cells Few Ovalocytes Few Sodium Level 141 mmol/L (136-145) Potassium Level 4.2 mmol/L (3.5-5.1) Chloride Level 104 mmol/L (98-107) Carbon Dioxide Level 25 mmol/L (21-32) Anion Gap 12 (6-14) Blood Urea Nitrogen 19 mg/dL (7-20) Creatinine 1.2 mg/dL (0.6-1.0) H Estimated GFR (Cockcroft-Gault) 46.6 BUN/Creatinine Ratio 16 (6-20) Glucose Level 237 mg/dL (70-99) H Calcium Level 8.8 mg/dL (8.5-10.1) Total Bilirubin 1.1 mg/dL (0.2-1.0) H Aspartate Amino Transferase (AST) 31 U/L (15-37) Alanine Aminotransferase (ALT) 44 U/L (14-59) Alkaline Phosphatase 129 U/L (46-116) H Total Protein 7.4 g/dL (6.4-8.2) Albumin 3.2 g/dL (3.4-5.0) L Albumin/Globulin Ratio 0.8 (1.0-1.7) L Lipase 276 U/L (73-393) EKG EKG [] Radiology/Procedures Radiology/Procedures [] Heart Score C/O Chest Pain: N/A Risk Factors: Risk Factors: DM, Current or recent (<one month) smoker, HTN, HLP, family history of CAD, obesity. Risk Scores: Risk Factors: DM, Current or recent (<one month) smoker, HTN, HLP, family history of CAD, obesity. Course & Med Decision Making Course & Med Decision Making Pertinent Labs and Imaging studies reviewed. (See chart for details) Patient is a 54-year-old female who presents to the emergency room complaining of abdominal pain and swelling of the abdomen. Patient is overall well- appearing. Vitals are normal. Patient has known cellulitis to the abdomen and this appears to be baseline for her. Abdominal lab work and a CT was ordered to evaluate for any new pathology. CT shows a possible left adnexal soft tissue mass. Patient does not have any left-sided pain. I have discussed this with her and have discussed that she needs to follow-up with [facility] outpatient for an ultrasound. Pain is likely related to her ongoing cellulitis and UTI. Patient will be prescribed antibiotics patient's test results and vitals while in the ED were fully reviewed and discussed with the patient. Patient is stable and at this time does not need admission to the hospital. We have discussed strict return precautions and the importance of following up with their Primary Care Physician. Patient stated understanding and was given an opportunity to ask any questions. Patient is in agreement with plan. Dragon Disclaimer Dragon Disclaimer This electronic medical record was generated, in whole or in part, using a voice recognition dictation system. Departure Departure: Impression: Primary Impression: Cellulitis, abdominal wall Additional Impression: UTI (urinary tract infection) Disposition: 01 DC HOME SELF CARE/HOMELESS Condition: STABLE Referrals: EULOGIO KISER (PCP) Patient Instructions: Cellulitis, Urinary Tract Infection Additional Instructions: Please follow-up outpatient with [facility] for an ultrasound and to evaluate your left adnexal area Scripts Cephalexin (CEPHALEXIN) 500 Mg Capsule 1 CAP PO QID for UTI, #40 CAP Prov: CHUNG WOODWARD MD 10/16/20 Problem Qualifiers CHUNG WOODWARD MD Oct 16, 2020 08:23
--- NOTE | 2020-10-16 08:34 | RAD ---
PQRS Compliance Statement: One or more of the following individualized dose reduction techniques were utilized for this examinat ion: 1. Automated exposure control 2. Adjustment of the mA and/or kV according to patient size 3. Use of iterative reconstruction technique CT abdomen/pelvis without contrast 10/16/2020 7:00 AM INDICATION: Abdominal pain and bloating COMPARISON: None available TECHNIQUE: Multiple axial CT images of the abdomen and pelvis were obtained without intravenous contr ast. Coronal and sagittal reformats are provided. FINDINGS: Lung bases are clear. Heart size is enlarged. Cardiac pacer wires are partially profiled. Evaluation of solid abdominal viscera is limited by lack of intravenous contrast. Evaluation is partl y limited by body habitus. Liver, spleen, adrenal glands and pancreas are normal in appearance. There may be subtle high attenuation within the dependent portion of the gallbladder which could represent sludge or gallstones. Abdominal aorta is normal in course and caliber. No pathologically enlarged lymph nodes are identifie d in abdomen and pelvis. There is no free intraperitoneal air. Small volume abdominal ascites. There is extensive subcutaneous edema along the ventral abdomen and flanks as well as posterior lumbar puma on suggestive of anasarca. A right ureteral stent is identified at the proximal pigtail in the renal pelvis and distal pigtail i n the urinary bladder. Bilateral moderate renal cortical atrophy is noted. There is lobulated contour of the renal parenchyma bilaterally, right greater than left. Limited evaluation for solid renal mas s without intravenous contrast. 10 mm partly calcified suspected right renal artery aneurysm. Urinary bladder is within normal limits given degree of distention. No hydronephrosis is identified. Small and large bowel are normal in caliber. There is no evidence for bowel obstruction. There are no pericolonic inflammatory changes. Appendix is not definitively visualized. No pericecal inflammatory changes are identified. Uterus is normal in appearance. Adnexa appears limited without intravenous c ontrast and secondary to body habitus. There may be follicular changes bilaterally. More high attenua tion areas identified within the left adnexa measuring 6.8 x 4.6 cm. No suspicious osseous abnormality is identified. IMPRESSION: Soft tissue prominence in the left adnexa measuring 6.8 x 4.6 cm. This could represent the left ovary with follicular changes. However, further characterization with pelvic ultrasound or pelvic MRI coul d be of benefit. Right ureteral stent is identified. Lobulated nodule in the right kidney is nonspecific. Further anna acterization with contrast-enhanced examination could be of benefit. 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 Small volume abdominal and pelvic ascites. Anasarca. Cardiomegaly. Electronically signed by: Ashlyn Salgado MD (10/16/2020 8:31 AM) [id number]
[2020-10-16 08:59] LABS: BILIRUBIN,URINE NEG (NEG); CLARITY,URINE CLOUDY; COLOR,URINE YELLOW; GLUCOSE,URINE NEG (NEG)
[2020-10-16 09:00] LABS: BACTERIA,URINE MOD /HPF (0-FEW); NITRITE,URINE POS (NEG); SQUAMOUS EPITHELIAL CELL,UR FEW /LPF
[2020-10-16] MEDS ORDERED: CEPH500C PO (10:48)
[2020-10-16 11:15] VITALS: BP 115/55
== END 2020-10-16 11:15 | disposition home or self-care (01) ==
LOC: ER 06:19
DX: N39.0 Urinary tract infection, site not specified (principal); L03.311 Cellulitis of abdominal wall; I11.0 Hypertensive heart disease with heart failure; I50.9 Heart failure, unspecified; E78.00 Pure hypercholesterolemia, unspecified; I48.91 Unspecified atrial fibrillation; J45.909 Unspecified asthma, uncomplicated; I25.2 Old myocardial infarction; Z95.0 Presence of cardiac pacemaker
CPT/HCPCS: 36415; 74176; 80053; 81001; 83690; 85025; 87086; 99284-25

== ENCOUNTER 2020-10-28 09:40 | Inpatient (IN) | payer OTHER ==
[~2020-10-28] VITALS: Ht 149.9 cm; Wt 167.9 kg
[~2020-10-28 09:40] MED LIST changes: +CEPH500C PO
--- NOTE | 2020-10-28 10:08 | PHYS DOC ---
Past History Past Medical History: A-Fib, Anemia, Anxiety, Asthma, CHF, COPD, Diabetes, High Cholesterol, Heart Disease, Hypertension, [place], Renal Failure Additional Past Medical Histor: cardiomegaly Past Surgical History: , Pacemaker, Other Additional Past Surgical Histo: HERNIA; cataract lt eye Smoking: Non-smoker Alcohol Use: Rarely Drug Use: None General Adult EDM: Chief Complaint: ABDOMINAL PAIN HPI: HPI: 54-year-old female presents with abdominal pain and vomiting. Patient was diagnosed with cellulitis of the abdomen and placed on Keflex a few days ago. She presents today because she has had a few episodes of vomiting and there is only phlegm and a yellowish substance. No food. She is urinating without difficulty. She is having normal bowel movements. She has generalized lower abdominal firmness and discomfort. She denies fever or chills. She denies any trauma or falls. Review of Systems: Review of Systems: Constitutional: Denies fever or chills Eyes: Denies change in visual acuity HENT: Denies nasal congestion or sore throat Respiratory: Denies cough or shortness of breath Cardiovascular: Denies chest pain or edema GI: Lower abdominal pain, nausea, vomiting. Denies bloody stools or diarrhea : Denies dysuria Musculoskeletal: Denies back pain or joint pain Integument: firmness to lower abdominal skin, cellulitis Neurologic: Denies headache, focal weakness or sensory changes Endocrine: Denies polyuria or polydipsia Lymphatic: Denies swollen glands Psychiatric: Denies depression or anxiety Allergies: Allergies: Allergies Coded Allergies Type Severity Reaction Last Updated Verified No Known Drug Allergies 10/28/20 No Physical Exam: PE: Constitutional: Well developed, well nourished, morbidly obese, no acute distress, non-toxic appearance. [] HENT: Normocephalic, atraumatic, bilateral external ears normal, oropharynx moist, no oral exudates, nose normal. Very hard of hearing. [] Eyes: PERRLA, EOMI, conjunctiva normal, no discharge. [] Neck: Normal range of motion, no tenderness, supple, no stridor. [] Cardiovascular: Heart rate regular rhythm, no murmur [] Lungs & Thorax: Bilateral breath sounds clear to auscultation [] Abdomen: Bowel sounds normal, soft, no tenderness, no pulsatile masses. [] Skin: Firmness to the lower abdominal skin with edema, no significant erythema or warmth. [] Back: No tenderness, no CVA tenderness. [] Extremities: No tenderness, no cyanosis, no clubbing, ROM intact, no edema. [] Neurologic: Alert and oriented X 3, normal motor function, normal sensory function, no focal deficits noted. [] Psychologic: Affect normal, judgement normal, mood normal. [] Current Patient Data: Vital Signs: Vital Signs Date Time Temp Pulse Resp B/P (MAP) Pulse Ox O2 Delivery O2 Flow Rate FiO2 10/28/20 09:43 97.9 96 22 135/79 (97) 98 EKG: EKG: [] Radiology/Procedures: Radiology/Procedures: [] Impressions: CT ABDOMEN+PELVIS W History: Reason: abdominal pain, bloating Omni 300 60cc / Spl. Instructions: / History: Technique: After the administration of intravenous contrast, CT imaging was performed of the abdomen and pelvis. Multiplanar images are reviewed. Exposure: One or more of the following individualized dose reduction techniques were utilized for this examination: 1. Automated exposure control 2. Adjustment of the mA and/or kV according to patient size 3. Use of iterative reconstruction technique. Comparison: October 16, 2020 Findings: Lower chest: Mild mosaic attenuation, can be seen with small airways disease. Megaly. Abdomen and pelvis: Heterogeneous appearance of the liver, unchanged. The spleen, adrenal glands, and pancreas are unremarkable. No biliary ductal dilatation. Gallbladder sludge. No gallbladder wall thickening. Bilateral renal atrophy with numerous cortical defects, may relate to prior infarcts or infection. Calculus within the right renal pelvis measures 1.4 x 1.0 cm, unchanged. Right nephroureteral stent, unchanged positioning. Mild left pelvocaliectasis. No ureteral calculus. Right renal partially calcified artery aneurysm, unchanged. Appendix not well seen. No evidence of bowel obstruction. Small upper abdominal and pelvic ascites. Small retroperitoneal and mesenteric lymph nodes, unchanged. Diffuse body wall edema. Bones: No pathologic osseous lesions. Impression: 1. Small abdominal and pelvic ascites with diffuse body wall edema. 2. Mild left pelvocaliectasis. 3. Unchanged heterogeneous appearance of the liver, may relate to steatosis or inflammation is possible. 4. Unchanged right renal pelvis calculus with nephroureteral stent. Electronically signed by: Win Cam DO (10/28/2020 10:53 AM) [facility] DICTATED AND SIGNED BY: WIN CAM DO DATE: 10/28/20 1044 CC: BETSEY JOYCE DO; EULOGIO KISER ~MTH0 0 Heart Score: C/O Chest Pain: No Risk Factors: Risk Factors: DM, Current or recent (<one month) smoker, HTN, HLP, family history of CAD, obesity. Risk Scores: Score 0 - 3: 2.5% MACE over next 6 weeks - Discharge Home Score 4 - 6: 20.3% MACE over next 6 weeks - Admit for Clinical Observation Score 7 - 10: 72.7% MACE over next 6 weeks - Early Invasive Strategies Course & Med Decision Making: Course & Med Decision Making Pertinent Labs and Imaging studies reviewed. (See chart for details) Patient's labs are significant for low hemoglobin. It is consistent with previous lab results in her chart. Her lactic acid is 3.5. CT of the abdomen and pelvis shows some mild ascites and abdominal wall edema. This appears to be panniculitis that has not improved with oral antibiotics. I will admit the patient to the hospital. I spoke with Dr. Hernandez and he has agreed that we would not give the patient fluids despite her lactic acid because she is already edematous. I will give her 1.5 g of vancomycin prior to admission. She will be admitted to Dr. Hernandez as a regular admission to telemetry. [] Dragon Disclaimer: Dragon Disclaimer: This electronic medical record was generated, in whole or in part, using a voice recognition dictation system. Departure Departure: Impression: Primary Impression: Cellulitis of abdominal wall Disposition: ADMITTED INPATIENT Admitting Physician: Chirag Hernandez Condition: STABLE Referrals: EULOGIO KISER (PCP) BETSEY JOYCE DO Oct 28, 2020 10:08
[2020-10-28] MEDS ORDERED: ONDANSETRON PF 4 MG/2 ML VIAL. IVP ONE (10:15)
[2020-10-28] MEDS ORDERED: IV NORMAL SALINE 1,000ML 1,000 ML IV ONE (10:15)
[2020-10-28] MEDS ORDERED: IOHEXOL 300 MG/ML 75 ML VIAL. IV ONE (10:15)
[2020-10-28] MEDS ORDERED: CONTRAST GIVEN. MC PRN (10:30)
[2020-10-28 10:37] LABS: BASO # 0.1 x10^3/uL (0.0-0.2); BASO % 2 % (0-3); EOS % 1 % (0-3); HEMATOCRIT 28.7 % (36.0-47.0); HEMOGLOBIN 8.3 g/dL (12.0-15.5); LYMPH # 1.7 x10^3/uL (1.0-4.8); LYMPH % 29 % (24-48); MEAN CORPUSCULAR HEMOGLOBIN 19 pg (25-35); MEAN CORPUSCULAR HGB CONC 29 g/dL (31-37); MEAN CORPUSCULAR VOLUME 64 fL (79-100); MONO # 0.7 x10^3/uL (0.0-1.1); MONO % 11 % (0-9); NEUT # 3.4 x10^3uL (1.8-7.7); NEUT % 57 % (31-73); PLATELET COUNT 390 x10^3/uL (140-400); RED BLOOD COUNT 4.46 x10^6/uL (3.50-5.40); RED CELL DISTRIBUTION WIDTH 21.9 % (11.5-14.5); WHITE BLOOD COUNT 5.9 x10^3/uL (4.0-11.0)
[2020-10-28 10:45] LABS: CREATININE 1.2 mg/dL (0.6-1.0); GFR 46.6
[2020-10-28 10:50] LABS: ALBUMIN 3.3 g/dL (3.4-5.0); ALBUMIN/GLOBULIN RATIO 0.8 (1.0-1.7); TOTAL BILIRUBIN 0.8 mg/dL (0.2-1.0); TOTAL PROTEIN 7.4 g/dL (6.4-8.2)
--- NOTE | 2020-10-28 10:56 | RAD ---
CT ABDOMEN+PELVIS W History: Reason: abdominal pain, bloating Omni 300 60cc / Spl. Instructions: / History: Technique: After the administration of intravenous contrast, CT imaging was performed of the abdomen and pelvis. Multiplanar images are reviewed. Exposure: One or more of the following individualized dose reduction techniques were utilized for thi s examination: 1. Automated exposure control 2. Adjustment of the mA and/or kV according to patient size 3. Use of iterative reconstruction technique. Comparison: October 16, 2020 Findings: Lower chest: Mild mosaic attenuation, can be seen with small airways disease. Megaly. Abdomen and pelvis: Heterogeneous appearance of the liver, unchanged. The spleen, adrenal glands, and pancreas are unremarkable. No biliary ductal dilatation. Gallbladder sludge. No gallbladder wall thi ckening. Bilateral renal atrophy with numerous cortical defects, may relate to prior infarcts or infection. Ca lculus within the right renal pelvis measures 1.4 x 1.0 cm, unchanged. Right nephroureteral stent, un changed positioning. Mild left pelvocaliectasis. No ureteral calculus. Right renal partially calcifie d artery aneurysm, unchanged. Appendix not well seen. No evidence of bowel obstruction. Small upper abdominal and pelvic ascites. S mall retroperitoneal and mesenteric lymph nodes, unchanged. Diffuse body wall edema. Bones: No pathologic osseous lesions. Impression: 1. Small abdominal and pelvic ascites with diffuse body wall edema. 2. Mild left pelvocaliectasis. 3. Unchanged heterogeneous appearance of the liver, may relate to steatosis or inflammation is possi ble. 4. Unchanged right renal pelvis calculus with nephroureteral stent. Electronically signed by: Win Stone DO (10/28/2020 10:53 AM) [facility]
[2020-10-28 11:04] LABS: BILIRUBIN,URINE NEG (NEG); CLARITY,URINE CLEAR; COLOR,URINE YELLOW; GLUCOSE,URINE NEG (NEG)
[2020-10-28 11:05] LABS: BACTERIA,URINE 0 /HPF (0-FEW); NITRITE,URINE NEG (NEG); SQUAMOUS EPITHELIAL CELL,UR FEW /LPF; UROBILINOGEN,URINE 0.2 mg/dL (0.2 mg/dL); WBC,URINE OCC /HPF (0-4); YEAST,URINE PRESENT /HPF
[2020-10-28 11:55] LABS: HYPOCHROMIA PRESENT; TARGET CELLS PRESENT
[2020-10-28 11:56] LABS: POLYCHROMASIA PRESENT
[2020-10-28 11:57] LABS: ANISOCYTOSIS PRESENT
[2020-10-28 11:58] LABS: ACANTHOCYTES PRESENT; TEAR DROP CELLS PRESENT
[2020-10-28 11:59] LABS: MICROCYTOSIS PRESENT; OVALOCYTES PRESENT
[2020-10-28 12:00] LABS: BURR CELLS PRESENT
[2020-10-28 12:01] LABS: PLT ESTIMATE ADEQUATE (ADEQUATE)
[2020-10-28] MEDS ORDERED: VANCOMYCIN 1.5 GM in IV NORMAL SALINE 500ML 500 ML IV ONE (12:45)
[2020-10-28] MEDS ORDERED: VANCOMYCIN PER PHARMACY MC PRN (12:45)
[2020-10-28] MEDS ORDERED: ONDANSETRON PF 4 MG/2 ML VIAL. IVP PRN (12:45)
[2020-10-28] MEDS ORDERED: VANCOMYCIN 2 GM in IV NORMAL SALINE 500ML 500 ML IV ONE (13:00)
[2020-10-28 16:03] VITALS: BP 93/46
[2020-10-28] MEDS ORDERED: LORA10TA3 PO (17:12)
[2020-10-28 19:17] VITALS: BP 113/65
[2020-10-28 22:53] VITALS: BP 90/73
[2020-10-29] MEDS: VANCOMYCIN 1.5 GM in IV NORMAL SALINE 500ML 500 ML IV SCH ×2 (01:04→13:53)
[2020-10-29 06:15] VITALS: BP 107/58
--- NOTE | 2020-10-29 10:49 | HP ---
ADMIT DATE: 10/28/2020 ATTENDING PHYSICIAN: Dr. Womack. CHIEF COMPLAINT: Abdominal pain. HISTORY OF PRESENT ILLNESS: The patient is a 54-year-old female well known to us from multiple previous admissions. She has persistent chronic cellulitis of the abdomen, mainly at the large panniculitis. She is in excess of 350 pounds. She was started on cephalexin a few days ago, it is not any better. She has localized redness, induration, pain, few episodes of vomiting. She has excoriation where she scratches. The hygiene is certainly not high on the list and therefore, she is admitted to the hospital with cellulitis of the abdominal wall refractive to outpatient care. Compliance has been an issue too. PAST MEDICAL HISTORY: Significant for morbid obesity, paroxysmal atrial fibrillation, anemia of chronic disease, degenerative arthritis, anemia, history of acute on chronic congestive heart failure, noncompliance of meds, hyperlipidemia, hypertension, chronic kidney disease, and generalized inability to care for herself. She also has cardiomegaly. PAST SURGICAL HISTORY: Includes section, permanent pacemaker, cataract of left eye and hernia repair. ALLERGIES: She has no known drug allergies. CURRENT MEDICATIONS: Reviewed. She was taking oral cephalexin, albuterol 4 times a day, Eliquis 5 mg b.i.d., aspirin, Lipitor, Invokana, diclofenac cream, digitalis, Nexium, Advair, Lasix, insulin regular, Lantus, loratadine, metformin, metoprolol, potassium supplementation and Entresto 49/51 mg daily. SOCIAL HISTORY: She is a nonsmoker, nondrinker. FAMILY HISTORY: Unobtainable. REVIEW OF SYSTEMS: Significant for noncompliance of meds. She has persistent hearing loss. She has had abdominal pain, vomiting. No fevers. No COVID exposure. All other systems reviewed and turned to be negative. PHYSICAL EXAMINATION: GENERAL: When I saw her, this is a middle-aged female who is very hard of hearing. INITIAL VITAL SIGNS: Showed a blood pressure of 113/65, pulse is 85 and regular, temperature 98.1 degrees Fahrenheit, oxygen saturation 95% on room air. HEENT: Head is without trauma. Pupils are reactive. Sclerae nonicteric. Oropharynx is clear. NECK: Supple, no bruits. LUNGS: Clear. CARDIOVASCULAR: Shows very distant heart tones. No gallops. ABDOMEN: Large pannus, morbidly obese. No guarding or rebound tenderness. There is hardness, induration and excoriation along the lower abdominal wall. No obvious drainage or abscess is identified. EXTREMITIES: Showed trace edema. NEUROLOGIC: Focally intact. Very hard of hearing. SKIN: Warm and dry. PERTINENT LABORATORY STUDIES: Her admission hemoglobin was 8.3 g/dL with a white count of 5900. Nonfasting blood sugar was 102. Creatinine 1.2 mg/dL, sodium 141, potassium 4.0. ASSESSMENT: 1. This 54-year-old female has cellulitis and panniculitis of her large abdominal pannus, refractory to outpatient care. Most likely this is a Staphylococcus species. 2. Morbid obesity. 3. Paroxysmal atrial fibrillation. 4. Acute on chronic congestive heart failure, compensated. 5. Anemia of chronic disease. 6. Type 2 diabetes. 7. Severe presbycusis. 8. Generalized debilitation. PLAN: 1. Admit to the inpatient unit. 2. Empiric vancomycin, which have been started. We will monitor her creatinine and trough levels. 3. Continue home meds. 4. Diet as tolerated. 5. Continue insulin regimen. JAVON WOMACK MD DR: EVERARDO/davina JOB#: [id number] / [id number] EULOGIO Lambert
[2020-10-29 11:38] VITALS: BP 101/57
[2020-10-29] MEDS: FUROSEMIDE 40 MG TABLET PO SCH (11:40)
[2020-10-29] MEDS: APIXABAN 5 MG TABLET. PO SCH ×2 (11:40→20:51)
[2020-10-29] MEDS: POTASSIUM CHLORIDE 20 MEQ TABLET.ER. PO SCH (11:40)
[2020-10-29] MEDS: PANTOPRAZOLE 40 MG TABLET. PO SCH (11:40)
[2020-10-29] MEDS: ALBUTEROL SULFATE 2.5 MG/3 ML NEBU. NEB SCH ×3 (12:00→20:51)
[2020-10-29] MEDS: INSULIN LISPRO 300 UNITS/3 ML VIAL. SQ SCH ×2 (12:10→17:06)
[2020-10-29] MEDS: SACUBITRIL/VALSARTAN 49/51MG TABLET. PO SCH ×2 (12:11→20:51)
[2020-10-29 13:14] LABS: VANC TR 16.2 mcg/mL (10.0-20.0)
[2020-10-29 15:38] VITALS: BP 106/59
[2020-10-29 19:00] VITALS: BP 127/62
[2020-10-29] MEDS: BUDESONIDE 0.5 MG/2 ML NEBU NEB SCH (20:51)
[2020-10-29] MEDS: DICLOFENAC SODIUM 1% TOPICAL GEL 100GM TUBE. TP SCH ×2 (20:52→20:57)
[2020-10-29] MEDS ORDERED: ATORVASTATIN CALCIUM 20 MG TABLET PO SCH (21:00)
[2020-10-29] MEDS ORDERED: NON FORMULARY ITEM (Fluticasone/Salmeterol (Advair 100-50 Diskus) 1 PUFF) IH SCH (21:00)
[2020-10-29] MEDS ORDERED: INSULIN GLARGINE SYRINGE. SQ SCH (21:00)
[2020-10-29 23:00] VITALS: BP 110/55
[2020-10-30] MEDS: VANCOMYCIN 1.5 GM in IV NORMAL SALINE 500ML 500 ML IV SCH (01:56)
[2020-10-30] MEDS: ALBUTEROL SULFATE 2.5 MG/3 ML NEBU. NEB SCH (05:13)
[2020-10-30 06:08] VITALS: BP 116/66
[2020-10-30] MEDS: PANTOPRAZOLE 40 MG TABLET. PO SCH (07:49)
[2020-10-30] MEDS: DICLOFENAC SODIUM 1% TOPICAL GEL 100GM TUBE. TP SCH (07:49)
[2020-10-30] MEDS: SACUBITRIL/VALSARTAN 49/51MG TABLET. PO SCH (07:50)
[2020-10-30] MEDS: POTASSIUM CHLORIDE 20 MEQ TABLET.ER. PO SCH (07:50)
[2020-10-30] MEDS: APIXABAN 5 MG TABLET. PO SCH (07:50)
[2020-10-30] MEDS: FUROSEMIDE 40 MG TABLET PO SCH (07:51)
[2020-10-30] MEDS: INSULIN LISPRO 300 UNITS/3 ML VIAL. SQ SCH (07:53)
[2020-10-30 08:05] VITALS: BP 128/73
[2020-10-30] MEDS ORDERED: ASPIRIN CHEWABLE 81 MG TABLET. PO SCH (09:00)
[2020-10-30] MEDS ORDERED: metFORMIN XR 500 MG TAB.ER.24H PO SCH (09:00)
[2020-10-30] MEDS ORDERED: NON FORMULARY ITEM (Canagliflozin (Invokana) 1 TAB) PO SCH (09:00)
[2020-10-30] MEDS ORDERED: METOPROLOL SUCC 24HR ER 50 MG TAB.ER.24H. PO SCH (09:00)
[2020-10-30] MEDS: BUDESONIDE 0.5 MG/2 ML NEBU NEB SCH (09:04)
--- NOTE | 2020-10-30 09:40 | DS ---
DATE OF DISCHARGE: 10/30/2020 ATTENDING PHYSICIAN: Dr. Womack. FINAL DISCHARGE DIAGNOSES: 1. Cellulitis and panniculitis of large abdominal pannus, refractory to outpatient care. 2. Morbid obesity. 3. Paroxysmal atrial fibrillation. 4. Acute on chronic congestive heart failure, diastolic, compensated. 5. Anemia of chronic disease, stable. 6. Type 2 diabetes mellitus. 7. Severe presbycusis. 8. Generalized debilitation. 9. Noncompliance of meds. HISTORY AND PHYSICAL: The patient is a 54-year-old female with multiple medical issues. She has questionable social background and has been hospitalized many times due to lack of information and noncompliant. Her main complaint this admission is cellulitis. She has very poor hygiene. It involved the lower abdomen and entire abdominal wall, which is hard, indurated and reddened. She had been on oral cephalexin. Most likely this is a Staphylococcus infection that is refractory to beta lactam. PHYSICAL EXAMINATION: Please see my dictated note. PERTINENT LABORATORY AND X-RAY STUDIES: On this admission, her hemoglobin is the same at 8.3 g/dL with a white count of 5900. Indices are low suggesting iron deficiency. Her chemistry panel showed a sodium of 141 mEq, potassium 4.0 mEq per liter. Creatinine is 1.2 mg/dL, nonfasting blood sugar 102. Hemoglobin A1c is 9.0. Nonfasting blood sugar 197, repeated. Transaminases were normal. COURSE IN THE HOSPITAL: The patient was admitted. She was started on empiric vancomycin. She received 4 full doses. She did well. Pain and redness subsided and the infection improved with dissipation of her erythema. On the third hospital day, her vital signs were quite stable. Her sugars were adequate. She was afebrile and she felt well clinically. I did examine her abdomen, it was fairly benign for her. At this time, I recommended discharge from the hospital. I recommended 7 more days of a combination of doxycycline 100 mg p.o. b.i.d. along with trimethoprim sulfa. This combination has been shown to be beneficial for oral treatment as opposed to the limited other options. The problem with Zyvox is the cost and other options require intravenous therapy. She will also continue her home meds, which are unchanged, they include the following: She should continue her albuterol, Eliquis 5 mg b.i.d., aspirin 1 daily, Lipitor 80 mg daily, Invokana 300 mg daily, diclofenac gel, digoxin 0.125 mg daily, Nexium 40 mg daily, fluticasone, Lasix 40 mg daily, insulin regular and Lantus, loratadine, metformin, metoprolol, potassium supplementation and Entresto 49/51 one daily. I suggested she follow up with her primary care provider, Jose Raul Barton at the scheduled time. The patient was then discharged from our hospital in stable condition with explicit instructions and followup care. TOTAL DISCHARGE TIME SPENT: 41 minutes. JAVON WOMACK MD DR: EVERARDO/davina JOB#: [id number] / [id number] JOSE RAUL Lambert
== END 2020-10-30 09:50 | disposition home or self-care (01) | DRG 602 ==
LOC: ER 09:40 → ICU 12:43 → UNDODISIN 10-30 09:50
PROVIDERS: ADMIT Hospitalist; ATTEND Hospitalist
DX: L03.311 Cellulitis of abdominal wall (principal); I50.33 Acute on chronic diastolic (congestive) heart failure; I13.0 Hypertensive heart and chronic kidney disease with heart failure and stage 1 through stage 4 chronic kidney disease, or unspecified chronic kidney disease; R18.8 Other ascites; Z68.45 Body mass index [BMI] 70 or greater, adult; D63.8 Anemia in other chronic diseases classified elsewhere; B95.8 Unspecified staphylococcus as the cause of diseases classified elsewhere; E11.22 Type 2 diabetes mellitus with diabetic chronic kidney disease; E66.01 Morbid (severe) obesity due to excess calories; E78.00 Pure hypercholesterolemia, unspecified; E78.5 Hyperlipidemia, unspecified; I48.0 Paroxysmal atrial fibrillation; J44.9 Chronic obstructive pulmonary disease, unspecified; M79.3 Panniculitis, unspecified; N18.9 Chronic kidney disease, unspecified; N20.0 Calculus of kidney; F41.9 Anxiety disorder, unspecified; M19.90 Unspecified osteoarthritis, unspecified site; R53.81 Other malaise; Z79.01 Long term (current) use of anticoagulants; Z79.899 Other long term (current) drug therapy; Z91.14 Patient's other noncompliance with medication regimen
CPT/HCPCS: 36415; 74177; 80053; 80202; 81001; 82947; 83605; 85025; 87040; 87086; 94640; 96361; 96365; 96375; J1815; J2405; J3370; J7040; Q9967; 99285-25; J7030; J7613

== ENCOUNTER 2021-01-11 01:14 | Emergency (ER) | payer OTHER ==
[~2021-01-11] VITALS: Ht 149.9 cm; Wt 167.9 kg
--- NOTE | 2021-01-11 02:09 | PHYS DOC ---
Past History Past Medical History: A-Fib, Anemia, Anxiety, Asthma, CHF, COPD, Diabetes, High Cholesterol, Heart Disease, Hypertension, [place], Renal Failure Additional Past Medical Histor: cardiomegaly Past Surgical History: , Pacemaker, Other Additional Past Surgical Histo: HERNIA; cataract lt eye Smoking: Non-smoker Alcohol Use: Occasionally Drug Use: None Adult General Chief Complaint Chief Complaint: SHORTNESS OF BREATH HPI HPI Patient is a 55-year-old female with a past medical history significant for A. fib, CAD, CHF, COPD, diabetes and morbid obesity who presents with a chief complaint of 3 days of increased cough, congestion, wheeze and feelings of shortness of breath more than usual. Denies any recent traumas, travel, fevers, chest pain, abdominal pain, nausea, vomiting, dysuria, hematuria or blood in the stool. States has been eating and drinking normally for her. States she has been making urine and stool normally for her with no blood in either. States she is taking all her medications as prescribed. States her albuterol inhalers do give minimal relief. Review of Systems Review of Systems Review of systems otherwise unremarkable except noted in HPI Allergies Allergies Allergies Coded Allergies Type Severity Reaction Last Updated Verified No Known Drug Allergies 10/28/20 No Physical Exam Physical Exam Constitutional: Morbidly obese, well nourished, no acute distress, non-toxic appearance. [] HENT: Normocephalic, atraumatic, bilateral external ears normal, oropharynx moist, no oral exudates, nose normal. [] Eyes: conjunctiva normal, no discharge. [] Neck: Normal range of motion, Cardiovascular:Heart rate regular rhythm, no murmur [] Lungs & Thorax: Decreased breath sounds bilaterally with mild global rhonchi and end expiratory wheeze bilaterally Abdomen: soft, no tenderness, no masses, no pulsatile masses, multiple stretch morales. [] Skin: Warm, dry, no erythema, no rash. [] Extremities: No tenderness, no cyanosis, no clubbing, ROM intact, no edema. [] Neurologic: Alert and oriented X 3, normal motor function, normal sensory function, no focal deficits noted. [] Psychologic: Affect normal, judgement normal, mood normal. [] Current Patient Data Vital Signs Vital Signs Date Time Temp Pulse Resp B/P (MAP) Pulse Ox O2 Delivery O2 Flow Rate FiO2 01/11/21 01:35 98.6 83 20 108/53 97 Room Air EKG EKG Rate of 83, QRS of 106, QTc of 471, irregular rhythm, low voltage likely due to body habitus, no STEMI [] Radiology/Procedures Radiology/Procedures []R CHEST 1V INDICATION: wheeze COMPARISON STUDY: 09/18/2020. FINDINGS: Left pectoral ICD/pacemaker Lungs: Normal lung volume. No pulmonary mass or consolidation. The tracheobronchial tree and hilar structures are normal. Pleura: No pleural effusion or pneumothorax. Heart and Mediastinum: Cardiomegaly. Great vessels of the thorax are normal. IMPRESSION: No focal airspace disease. Electronically signed by: Perfecto Lane MD (01/11/2021 2:54 AM) [facility] Heart Score C/O Chest Pain: No Risk Factors: Risk Factors: DM, Current or recent (<one month) smoker, HTN, HLP, family history of CAD, obesity. Risk Scores: Risk Factors: DM, Current or recent (<one month) smoker, HTN, HLP, family history of CAD, obesity. Course & Med Decision Making Course & Med Decision Making Patient is a 55-year-old female who presents with a chief complaint of about 3 days of increased cough, congestion, wheeze Vital signs within normal limits. Physical exam noted above. Given breathing treatment, and steroids. EKG noted above with no STEMI. Troponin normal. Laboratory analysis notable for microcytic anemia, approximate baseline for patient's last few readings here. BUN and creatinine elevated, but again at patient's approximate baseline. BNP elevated but again at patient's baseline are actually lower. Imaging noted above with no concerning findings on chest x- ray. On reassessment patient stated she was feeling much better after the breathing treatment and felt safe to discharge home. Advised to call primary care physician in the morning to update on ED visit and set up a follow-up as soon as possible. Gave strict return precautions to the ED. Patient grateful, verbalized understanding and agreed with plan of discharge. Dragon Disclaimer Dragon Disclaimer This electronic medical record was generated, in whole or in part, using a voice recognition dictation system. Departure Departure: Impression: Primary Impression: Cough Additional Impressions: Nasal congestion Shortness of breath Wheeze Asthma exacerbation Disposition: HOME / SELF CARE / HOMELESS Condition: IMPROVED Referrals: EULOGIO KISER (PCP) Patient Instructions: Asthma Attacks, Prevention, Asthma, Acute Bronchospasm, Cough, Adult Additional Instructions: Thank you for coming into the emergency department tonight and allowing us to take care of you. Please read all of the attached information very carefully to go back over what we discussed. Please take all of your medications at home as prescribed and as needed. Please stay away from cigarette smoke as this could exacerbate your wheeze and asthma symptoms. Please call your primary care physician first thing in the morning to update on your ED visit and discuss your asthma symptoms and congestion. Your EKG and troponin which looks at your heart were reassuring and were not suggestive of a heart attack today as you were concerned for. As discussed, would be a good idea to get on a very strict diabetic diet and stick to it as weight loss could help alleviate some of your chronic symptoms and increase overall health. As discussed, please come back to the emergency department immediately with new or concerning symptoms. Problem Qualifiers BULMARO HOFFMAN MD Jan 11, 2021 02:09
[2021-01-11 02:28] LABS: CALCIUM 8.5 mg/dL (8.5-10.1); CREATININE 1.7 mg/dL (0.6-1.0); GFR 31.1; POTASSIUM 4.8 mmol/L (3.5-5.1)
[2021-01-11] MEDS: IPRATRPIUM/ALBUTEROL 0.5/2.5MG 3 ML NEBU. NEB ONE (02:30)
[2021-01-11 02:39] LABS: BASO # 0.1 x10^3/uL (0.0-0.2); BASO % 1 % (0-3); EOS # 0.1 x10^3/uL (0.0-0.7); EOS % 2 % (0-3); HEMOGLOBIN 7.5 g/dL (12.0-15.5); LYMPH # 1.7 x10^3/uL (1.0-4.8); LYMPH % 23 % (24-48); MEAN CORPUSCULAR HEMOGLOBIN 19 pg (25-35); MEAN CORPUSCULAR HGB CONC 29 g/dL (31-37); MEAN CORPUSCULAR VOLUME 64 fL (79-100); MONO # 0.8 x10^3/uL (0.0-1.1); MONO % 11 % (0-9); NEUT # 4.8 x10^3uL (1.8-7.7); NEUT % 64 % (31-73); PLATELET COUNT 359 x10^3/uL (140-400); RED BLOOD COUNT 4.08 x10^6/uL (3.50-5.40); WHITE BLOOD COUNT 7.6 x10^3/uL (4.0-11.0)
[2021-01-11 02:47] LABS: ANISOCYTOSIS SLIGHT; HYPOCHROMIA MOD; PLT ESTIMATE ADEQUATE (ADEQUATE)
[2021-01-11 02:48] LABS: MICROCYTOSIS MOD
--- NOTE | 2021-01-11 02:56 | RAD ---
XR CHEST 1V INDICATION: wheeze COMPARISON STUDY: 09/18/2020. FINDINGS: Left pectoral ICD/pacemaker Lungs: Normal lung volume. No pulmonary mass or consolidation. The tracheobronchial tree and hilar st ructures are normal. Pleura: No pleural effusion or pneumothorax. Heart and Mediastinum: Cardiomegaly. Great vessels of the thorax are normal. IMPRESSION: No focal airspace disease. Electronically signed by: Perfecto Lane MD (01/11/2021 2:54 AM) [facility]
[2021-01-11] MEDS: DEXAMETHASONE 4 MG TABLET PO ONE (03:20)
[2021-01-11 03:55] VITALS: BP 108/58
[2021-01-11] MEDS: ALBUTEROL SULFATE 8GM INHALER. INH ONE (04:00)
--- NOTE | 2021-01-11 04:35 | EKG ---
[address] [address] Test Date: 2021-01-11 Test Time: 01:54:37 Pat Name: DARELL CORONADO Department: Room: Gender: F Healthcare Liaison: : 1965 Requested By: BULMARO HOFFMAN Order Number: [id number] Reading MD: Measurements Intervals [place] Rate: 83 P: [place]: QRS: -66 QRSD: 106 T: 42 QT: 400 QTc: 471 Interpretive Statements IRREGULAR RHYTHM, NO P-WAVE FOUND ABNORMAL LEFT AXIS DEVIATION LOW LIMB LEAD VOLTAGE QRS(T) CONTOUR ABNORMALITY CONSIDER ANTEROLATERAL INFARCT CONSISTENT WITH INFERIOR INFARCT PROBABLY OLD ABNORMAL ECG RI6.02 No previous ECG available for comparison
== END 2021-01-11 04:05 | disposition home or self-care (01) ==
LOC: ER 01:14
DX: J45.901 Unspecified asthma with (acute) exacerbation (principal); I11.0 Hypertensive heart disease with heart failure; I50.9 Heart failure, unspecified; E11.9 Type 2 diabetes mellitus without complications; E78.5 Hyperlipidemia, unspecified
CPT/HCPCS: 36415; 71045; 80048; 83880; 84484; 85025; 93005; 94640; 99285; J8540

== ENCOUNTER 2021-01-12 22:47 | Emergency (ER) | payer OTHER ==
[~2021-01-12] VITALS: Ht 149.9 cm; Wt 167.6 kg
[2021-01-12 22:47] VITALS: BP 120/55
--- NOTE | 2021-01-12 22:57 | PHYS DOC ---
Past History Past Medical History: A-Fib, Anemia, Anxiety, Asthma, CHF, COPD, Diabetes, Fibromyalgia, High Cholesterol, Heart Disease, Hypertension, [place], Renal Failure Additional Past Medical Histor: cardiomegaly Past Surgical History: , Pacemaker, Other Additional Past Surgical Histo: HERNIA; cataract lt eye Smoking: Non-smoker Alcohol Use: Occasionally Drug Use: None General Adult EDM: Chief Complaint: ABDOMINAL PAIN HPI: HPI: ".. I ve been having abdomen pain since August..and not having any bowel movements for months.. just little balls..." ".I am so blotted.. I having chest pain now..." Patient is a 55 year old female who presents with above hx and complaints of generalized abdomen pain, constipation, pannus cellulitis, and malaise. Pt. seen two days ago for similar complaints.. Pt. has also followed with [facility]. Patient has known history of morbid obesity, persistent chronic cellulitis of pannus, proximal A. fib, chronic anemia, hypo chromic microcytic, noncompliance, hyperlipidemia, hypertension, chronic kidney disease, cardiomegaly, degenerative arthritis, CHF, constipation, hearing loss, chronic pain skill skeletal, chronic abdomen pain,. The patient's morbid obesity has added to her noncompliance and inability to care for self. Has poor generalized hygiene. Has had previous surgeries of C-sections, pacemaker placement and left cataract repair left eye. And hernia repairs. Patient no known drug allergies. Patient does not smoke. Does not drink. Review of Systems: Review of Systems: Constitutional: Denies fever or chills Eyes: Denies change in visual acuity HENT: Denies nasal congestion or sore throat Respiratory: Denies cough or shortness of breath Cardiovascular: Denies chest pain or edema GI: Complains of pannus abdominal pain, nausea. Complains of constipation., vomiting, bloody stools or diarrhea : Denies dysuria Musculoskeletal: Denies back pain or joint pain Integument: Denies rash Neurologic: Denies headache, focal weakness or sensory changes Endocrine: Denies polyuria or polydipsia Lymphatic: Denies swollen glands Psychiatric: Complains of anxiety Family History: Family History: Noncontributory to presentation Current Medications: Current Meds: See nursing for home meds Allergies: Allergies: Allergies Coded Allergies Type Severity Reaction Last Updated Verified No Known Drug Allergies 01/12/21 No Physical Exam: PE: Constitutional: Moderate acute distress, non-toxic appearance. [] HENT: Normocephalic, atraumatic, bilateral external ears normal, oropharynx moist, no oral exudates, nose normal. [] Eyes: PERRLA, old surgery findings left eye EOMI, conjunctiva normal, no discharge. [] Neck: Normal range of motion, no tenderness, supple, no stridor. More than 17 inches circumference Cardiovascular: Irregular heart rate and irregular rhythm, no murmur []. PMI to the left. Lungs & Thorax: Bilateral breath sounds equal at apex with bilateral basilar crackles auscultation [] Abdomen: Bowel sounds normal, soft, some pannus tenderness, no masses, no pulsatile masses. Does have old surgery scars. Does have pannus cellulitis. Skin: Warm, dry, no erythema, cellulitis, multiple areas of sores (where she pick s) Back: No tenderness, no CVA tenderness. [] Extremities: No tenderness, no cyanosis, no clubbing, ROM intact, no edema. No cording appreciated. Soft and woody edema of lower limbs. Venous stasis. Neurologic: Alert and oriented X 3, moves extremities on request, does have distal sensory,, no focal deficits noted. [] Psychologic: Affect anxious, judgement normal, mood normal. [] EKG: EKG: My interpretation of EKG shows a irregular rhythm consistent with A. fib. Low voltage. Contour changes. Both and QRS and ST. Ventricular strain. No findings of acute STEMI with contralateral changes. Overall morphology similar to prior EKGs on file. At 00 44 hours Radiology/Procedures: Radiology/Procedures: [[address] [address] IMAGING REPORT Signed PATIENT: DARELL CORONADO LACCOUNT: [id number] : 1965 LOCATION: ER AGE: 55 SEX: F EXAM STATUS: REG ER ORD. PHYSICIAN: LIBRA TRACEY MD REASON: abdomen pain PROCEDURE: ACUTE ABDOMEN SERIES Three-view acute abdominal series. HISTORY: Abdominal pain 3 views were taken for an acute abdominal series. Heart is enlarged. There is a pacemaker on the left. There is no pleural effusion. There are no confluent infiltrates. There is no definite free air on the upright view. There is a right double-J catheter. There is probable calcification at the proximal pigtail. Pa tient size markedly limits evaluation. There is no bowel obstruction. IMPRESSION: 1. No acute infiltrates. 2. No bowel obstruction. 3. Right double-J pigtail catheter with probable calcification at the proximal pigtail. Electronically signed by: Harpal Queen MD (01/13/2021 1:06 AM) [facility] DICTATED AND SIGNED BY: HARPAL QUEEN MD DATE: 01/13/21103 CC: LIBRA TRACEY MD; EULOGIO KISER ~MTH0 0 ][address] [address] IMAGING REPORT Signed PATIENT: DARELL CORONADO LACCOUNT: [id number] : 1965 LOCATION: ER AGE: 55 SEX: F EXAM STATUS: REG ER ORD. PHYSICIAN: LIBRA TRACEY MD REASON: complaints severe epigastric and mid abdomen pain -60mls omni 300 PROCEDURE: CT ABD PELV W/ORAL&IV CONTRAST Examination: CT of the abdomen pelvis with IV contrast HISTORY: History of epigastric pain COMPARISON: 10/28/2020 TECHNIQUE: Axial CT images of the abdomen pelvis were performed with IV contrast. Coronal and sagittal reformats are performed Exposure: One or more of the following individualized dose reduction techniques were utilized for this examination: 1. Automated exposure control 2. Adjustment of the mA and/or kV according to patient size 3. Use of iterative reconstruction technique FINDINGS: There is a 6.5 mm nodule identified in the right lower lobe of the lung, unchanged. No evidence of free air identified in the abdomen. Diffuse decreased attenuation noted in the liver likely hepatic steatosis. The spleen, adrenals grossly appears unremarkable. The stomach is mildly distended. The small bowel is nondilated. Feces and gas identified in the colon Multiple colon diverticulosis identified. Small amount of free fluid identified in the perihepatic region and in the pelvis likely mild ascites similar to prior exam. Urinary bladder is mildly distended. Right renal ureteral stent again identified. 1.4 cm calculus identified in the right renal pelvis similar to prior exam. Irregular appearing right renal cortex similar to prior exam likely old infarcts. Severe fat stranding or edema identified in the anterior abdominal wall extending medially and laterally could be edema or cellulitis again identified. Mild degenerative changes lumbar spine. IMPRESSION: 1. Severe fat stranding or edema identified in the anterior abdominal wall extending medially and laterally could be edema or cellulitis again identified. 2. 1.4 cm calculus identified in the right renal pelvis similar to prior exam. Right renal ureteral stent again identified. 3. Hepatic steatosis. 4. Small amount of free fluid identified in the perihepatic region and in the pelvis likely mild ascites similar to prior exam. 5. Multiple colon diverticulosis. 6. 6.5 mm nodule identified in the right lower lobe of the lung, unchanged. Electronically signed by: Karlos Birmingham MD (01/13/2021 1:29 AM) [id number] DICTATED AND SIGNED BY: KARLOS BIRMINGHAM MD DATE: 01/13/21 0123 CC: LIBRA TRACEY MD; EULOGIO KISER ~MTH0 0 Heart Score: C/O Chest Pain: Yes HEART Score for Chest Pain: HEART Score for Chest Pain Response (Comments) Value History Moderately Suspicious 1 ECG Nonspecific Repolarizatio 1 Age >45 - < 65 1 Risk Factors 1 or 2 Risk Factors 1 Troponin < Normal Limit 0 Total 4 Risk Factors: Risk Factors: DM, Current or recent (<one month) smoker, HTN, HLP, family history of CAD, obesity. Risk Scores: Score 0 - 3: 2.5% MACE over next 6 weeks - Discharge Home Score 4 - 6: 20.3% MACE over next 6 weeks - Admit for Clinical Observation Score 7 - 10: 72.7% MACE over next 6 weeks - Early Invasive Strategies Course & Med Decision Making: Course & Med Decision Making Pertinent Labs and Imaging studies reviewed. (See chart for details) Patient remain on a clear fluid diet only for the next 2 days. Follow-up primary care. Avoid any milk products or solids for the next 48 hours. Take meds as previous directed. Patient take Bactrim DS twice a day. Patient to wash pannus cellulitis area twice a day and allow adequate drying. Must recheck BUN and creatinine with the start of the Bactrim. Pt. somewhat likely to have out pt. treatment failure because of non- compliance. Will attempt out pt. treatment so she may have the January 13 celebration at home. Patient encouraged to be compliant however with her diet and home meds. Impression: 1. Abdomen pain 2. Constipation 3. Pannus cellulitis 4. Morbid obesity 5. A. fib 6. Anemia of chronic disease microcytic hyperchromic-hemoglobin 8.0 HC18, MCV 65 7. Diabetes=, glucose 179 8. Renal insufficiency= creatinine 1.2 BUN 43 9. Noncompliance 10. Deconditioned- [] Dragon Disclaimer: Dragon Disclaimer: This electronic medical record was generated, in whole or in part, using a voice recognition dictation system. Departure Departure: Referrals: EULOGIO KISER (PCP) Scripts Sulfamethoxazole/Trimethoprim (BACTRIM DS TABLET) 1 Each Tablet 1 TAB PO BID for cellulitis, and UTI for 7 Days, #14 TAB 0 Refills Prov: LIBRA TRACEY MD 01/13/21 Demetriuson Disclaimer This chart was dictated in whole or in part using Voice Recognition software in a busy, high-work load, and often noisy Emergency Department environment. It may contain unintended and wholly unrecognized errors or omissions. Dragon Disclaimer This chart was dictated in whole or in part using Voice Recognition software in a busy, high-work load, and often noisy Emergency Department environment. It may contain unintended and wholly unrecognized errors or omissions. Dragon Disclaimer This chart was dictated in whole or in part using Voice Recognition software in a busy, high-work load, and often noisy Emergency Department environment. It may contain unintended and wholly unrecognized errors or omissions. Dragon Disclaimer This chart was dictated in whole or in part using Voice Recognition software in a busy, high-work load, and often noisy Emergency Department environment. It may contain unintended and wholly unrecognized errors or omissions. Dragon Disclaimer This chart was dictated in whole or in part using Voice Recognition software in a busy, high-work load, and often noisy Emergency Department environment. It may contain unintended and wholly unrecognized errors or omissions. LIBRA TRACEY MD Jan 12, 2021 22:57
[2021-01-13] MEDS ORDERED: CONTRAST GIVEN. MC PRN (00:15)
[2021-01-13] MEDS ORDERED: ONDANSETRON PF 4 MG/2 ML VIAL. IVP ONE (00:30)
[2021-01-13] MEDS ORDERED: FAMOTIDINE 20 MG/2 ML VIAL IVP ONE (00:30)
[2021-01-13] MEDS ORDERED: KETOROLAC 30 MG/ML VIAL. IVP ONE (00:30)
[2021-01-13] MEDS ORDERED: IV RINGERS SOLUTION,LACTATED 1,000 ML IV SCH (00:30)
[2021-01-13] MEDS ORDERED: IOHEXOL 300 MG/ML 75 ML VIAL. IV ONE (00:30)
[2021-01-13] MEDS ORDERED: IOHEXOL 240 MG/ML 50ML VIAL. PO ONE (00:30)
[2021-01-13] MEDS ORDERED: MAGNESIUM CITRATE 296 ML SOLUTION. PO ONE (00:30)
[2021-01-13 00:57] LABS: BASO # 0.1 x10^3/uL (0.0-0.2); BASO % 1 % (0-3); EOS # 0.1 x10^3/uL (0.0-0.7); EOS % 1 % (0-3); HEMATOCRIT 28.1 % (36.0-47.0); LYMPH # 2.6 x10^3/uL (1.0-4.8); LYMPH % 27 % (24-48); MEAN CORPUSCULAR HEMOGLOBIN 18 pg (25-35); MEAN CORPUSCULAR HGB CONC 29 g/dL (31-37); MEAN CORPUSCULAR VOLUME 65 fL (79-100); MONO % 10 % (0-9); NEUT # 5.9 x10^3uL (1.8-7.7); NEUT % 61 % (31-73); PLATELET COUNT 405 x10^3/uL (140-400); RED BLOOD COUNT 4.36 x10^6/uL (3.50-5.40); RED CELL DISTRIBUTION WIDTH 25.4 % (11.5-14.5); WHITE BLOOD COUNT 9.6 x10^3/uL (4.0-11.0)
[2021-01-13 01:05] LABS: BILIRUBIN,URINE NEG (NEG); CLARITY,URINE CLOUDY; COLOR,URINE PINK; GLUCOSE,URINE NEG (NEG); NITRITE,URINE POS (NEG)
[2021-01-13 01:06] LABS: BACTERIA,URINE MANY /HPF (0-FEW); RBC,URINE TNTC /HPF (0-2); SQUAMOUS EPITHELIAL CELL,UR OCC /LPF; WBC,URINE TNTC /HPF (0-4)
[2021-01-13 01:09] LABS: CALCIUM 8.6 mg/dL (8.5-10.1); CREATININE 1.7 mg/dL (0.6-1.0); GFR 31.1; POTASSIUM 4.6 mmol/L (3.5-5.1)
--- NOTE | 2021-01-13 01:09 | RAD ---
Three-view acute abdominal series. HISTORY: Abdominal pain 3 views were taken for an acute abdominal series. Heart is enlarged. There is a pacemaker on the left . There is no pleural effusion. There are no confluent infiltrates. There is no definite free air on the upright view. There is a right double-J catheter. There is probable calcification at the proximal pigtail. Patient size markedly limits evaluation. There is no bowel obstruction. IMPRESSION: 1. No acute infiltrates. 2. No bowel obstruction. 3. Right double-J pigtail catheter with probable calcification at the proximal pigtail. Electronically signed by: Harpal Queen MD (01/13/2021 1:06 AM) [facility]
[2021-01-13 01:14] LABS: % BASOS 9 % (0-3); % EOS 1 % (0-5); % LYMPHS 27 % (24-48); % MONOS 9 % (0-10); % SEGS 54 % (35-66); ANISOCYTOSIS MARKED; HYPOCHROMIA MOD; MICROCYTOSIS MARKED; PLT ESTIMATE ADEQUATE (ADEQUATE)
[2021-01-13 01:15] LABS: ALBUMIN 3.3 g/dL (3.4-5.0); DIRECT BILIRUBIN 0.6 mg/dL (0.0-0.2); TOTAL PROTEIN 7.1 g/dL (6.4-8.2)
--- NOTE | 2021-01-13 01:32 | RAD ---
Examination: CT of the abdomen pelvis with IV contrast HISTORY: History of epigastric pain COMPARISON: 10/28/2020 TECHNIQUE: Axial CT images of the abdomen pelvis were performed with IV contrast. Coronal and sagitta l reformats are performed Exposure: One or more of the following individualized dose reduction techniques were utilized for thi s examination: 1. Automated exposure control 2. Adjustment of the mA and/or kV according to patient size 3. Use of iterative reconstruction technique FINDINGS: There is a 6.5 mm nodule identified in the right lower lobe of the lung, unchanged. No evidence of fr ee air identified in the abdomen. Diffuse decreased attenuation noted in the liver likely hepatic damion atosis. The spleen, adrenals grossly appears unremarkable. The stomach is mildly distended. The small bowel is nondilated. Feces and gas identified in the colon Multiple colon diverticulosis identified. Small amount of free fluid identified in the perihepatic region and in the pelvis likely mild ascites similar to prior exam. Urinary bladder is mildly distended. Right renal ureteral stent again identif ied. 1.4 cm calculus identified in the right renal pelvis similar to prior exam. Irregular appearing right renal cortex similar to prior exam likely old infarcts. Severe fat stranding or edema identifie d in the anterior abdominal wall extending medially and laterally could be edema or cellulitis again identified. Mild degenerative changes lumbar spine. IMPRESSION: 1. Severe fat stranding or edema identified in the anterior abdominal wall extending medially and la terally could be edema or cellulitis again identified. 2. 1.4 cm calculus identified in the right renal pelvis similar to prior exam. Right renal ureteral stent again identified. 3. Hepatic steatosis. 4. Small amount of free fluid identified in the perihepatic region and in the pelvis likely mild asc ites similar to prior exam. 5. Multiple colon diverticulosis. 6. 6.5 mm nodule identified in the right lower lobe of the lung, unchanged. Electronically signed by: Karlos Birmingham MD (01/13/2021 1:29 AM) [id number]
[2021-01-13] MEDS ORDERED: SULF1TAB24 PO (02:29)
[2021-01-13] MEDS ORDERED: cefTRIAXone IM 1 GM VIAL IM ONE (03:00)
[2021-01-13] MEDS ORDERED: SMZ/TMP 800/160MG TABLET. PO ONE (03:00)
--- NOTE | 2021-01-13 03:50 | EKG ---
[address] [address] Test Date: 2021-01-13 Test Time: 00:01:41 Pat Name: DARELL CORONADO Department: Room: Gender: F Acid Leveler: MARÍA : 1965 Requested By: LIBRA TRACEY Order Number: [id number] Reading MD: Chance Richard Measurements Intervals [place] Rate: 0 P: [place]: QRS: 0 QRSD: 0 T: 0 QT: 0 QTc: 0 Interpretive Statements VENTRICULAR PACED RHYTHM Electronically Signed On 01-16-2021 12:07:21 CDT by Chance Richard
== END 2021-01-13 03:00 | disposition home or self-care (01) ==
LOC: ER 22:47
DX: K59.00 Constipation, unspecified (principal); L03.311 Cellulitis of abdominal wall; E66.01 Morbid (severe) obesity due to excess calories; I48.91 Unspecified atrial fibrillation; D63.8 Anemia in other chronic diseases classified elsewhere; N28.9 Disorder of kidney and ureter, unspecified; Z91.19 Patient's noncompliance with other medical treatment and regimen; Z68.45 Body mass index [BMI] 70 or greater, adult
CPT/HCPCS: 36415; 74022; 74177; 80048; 80076; 81001; 82550; 83690; 83880; 84484; 85007; 85025; 87077; 87086; 87186; 93005; 96361; 96372; 96374; 96375; 99285; J0696; J1885; J2405; J3490; J7120; Q9966; Q9967

== ENCOUNTER 2021-01-15 06:19 | Emergency (ER) | payer OTHER ==
[~2021-01-15] VITALS: Ht 154.9 cm; Wt 167.6 kg
[~2021-01-15 06:19] MED LIST changes: +SULF1TAB24 PO
[2021-01-15 06:38] VITALS: BP 108/77
[2021-01-15 06:41] LABS: BASO # 0.1 x10^3/uL (0.0-0.2); BASO % 1 % (0-3); EOS # 0.1 x10^3/uL (0.0-0.7); EOS % 1 % (0-3); HEMATOCRIT 26.4 % (36.0-47.0); HEMOGLOBIN 7.6 g/dL (12.0-15.5); LYMPH # 1.9 x10^3/uL (1.0-4.8); LYMPH % 26 % (24-48); MEAN CORPUSCULAR HEMOGLOBIN 18 pg (25-35); MEAN CORPUSCULAR HGB CONC 29 g/dL (31-37); MEAN CORPUSCULAR VOLUME 64 fL (79-100); MONO # 0.7 x10^3/uL (0.0-1.1); MONO % 10 % (0-9); NEUT # 4.5 x10^3uL (1.8-7.7); NEUT % 62 % (31-73); PLATELET COUNT 367 x10^3/uL (140-400); RED CELL DISTRIBUTION WIDTH 24.5 % (11.5-14.5); WHITE BLOOD COUNT 7.3 x10^3/uL (4.0-11.0)
--- NOTE | 2021-01-15 06:48 | PHYS DOC ---
Past History Past Medical History: A-Fib, Anemia, Anxiety, Asthma, CHF, COPD, Diabetes, Fibromyalgia, High Cholesterol, Heart Disease, Hypertension, [place], Renal Failure Additional Past Medical Histor: cardiomegaly Past Surgical History: , Pacemaker, Other Additional Past Surgical Histo: HERNIA; cataract lt eye Smoking: Non-smoker Alcohol Use: Occasionally Drug Use: None General Adult EDM: Chief Complaint: SHORTNESS OF BREATH HPI: HPI: 55-year-old female presents via EMS with left shoulder pain and shortness of breath. Patient states that after she ate dinner last night she started having pain in her left shoulder. She is not sure why. It radiates down to her elbow. She denies any falls or trauma. She also states that when she woke up this morning she was feeling short of breath. "It just felt more difficult to breathe". The patient tells the nurse that her boyfriend/nurse head is currently in the hospital and there is no one to help take care of her. Review of Systems: Review of Systems: Constitutional: Denies fever or chills Eyes: Denies change in visual acuity HENT: Denies nasal congestion or sore throat Respiratory: shortness of breath Cardiovascular: Denies chest pain or edema GI: Denies abdominal pain, nausea, vomiting, bloody stools or diarrhea : Denies dysuria Musculoskeletal: Left shoulder pain Integument: Denies rash Neurologic: Denies headache, focal weakness or sensory changes Endocrine: Denies polyuria or polydipsia Lymphatic: Denies swollen glands Psychiatric: Denies depression or anxiety Allergies: Allergies: Allergies Coded Allergies Type Severity Reaction Last Updated Verified No Known Drug Allergies 01/12/21 No Physical Exam: PE: Constitutional: Well developed, well nourished, morbidly obese, no acute distress, non-toxic appearance. [] HENT: Normocephalic, atraumatic, bilateral external ears normal, oropharynx moist, no oral exudates, nose normal. Extremely hard of hearing. [] Eyes: PERRLA, EOMI, conjunctiva normal, no discharge. [] Neck: Normal range of motion, no tenderness, supple, no stridor. [] Cardiovascular: Heart rate regular rhythm, no murmur [] Lungs & Thorax: Bilateral breath sounds clear to auscultation [] Abdomen: Bowel sounds normal, soft, no tenderness, no masses, no pulsatile masses. [] Skin: Warm, dry, no erythema, no rash. [] Back: No tenderness, no CVA tenderness. [] Extremities: No tenderness, no cyanosis, no clubbing, ROM intact, no edema. [] Neurologic: Alert and oriented X 3, normal motor function, normal sensory function, no focal deficits noted. [] Psychologic: Affect normal, judgement normal, mood normal. [] EKG: EKG: Rate 77, no definitive P waves, right axis primarily downsloping QRSs throughout, no ST elevation. [] Radiology/Procedures: Radiology/Procedures: [] Impressions: Examination: Frontal view of the chest and 2 views of the left shoulder HISTORY: History of shortness of breath, left shoulder pain COMPARISON: 01/11/2021 FINDINGS: Low lung volumes and technique accentuates heart size and pulmonary vascularity identified. Left-sided cardiac pacer AICD is identified. Mild bibasilar lung airspace disease likely atelectasis or infiltrates. The humerus head is within the glenoid. Moderate joint space loss identified in the glenohumeral joint likely degenerative changes. IMPRESSION: Mild bibasilar lung airspace disease likely atelectasis or infiltrates. Electronically signed by: Karlos Birmingham MD (01/15/2021 7:01 AM) [id number] DICTATED AND SIGNED BY: KARLOS BIRMINGHAM MD DATE: 01/15/21 0657 CC: BETSEY JOYCE DO; EULOGIO KISER PA ~MTH0 0 Heart Score: C/O Chest Pain: No Risk Factors: Risk Factors: DM, Current or recent (<one month) smoker, HTN, HLP, family history of CAD, obesity. Risk Scores: Score 0 - 3: 2.5% MACE over next 6 weeks - Discharge Home Score 4 - 6: 20.3% MACE over next 6 weeks - Admit for Clinical Observation Score 7 - 10: 72.7% MACE over next 6 weeks - Early Invasive Strategies Course & Med Decision Making: Course & Med Decision Making Pertinent Labs and Imaging studies reviewed. (See chart for details) The patient's labs are similar to her previous in the chart. She still has quite a bit of blood in her urine. She tells the nurse that she did not picker her Bactrim prescription that she was prescribed by my colleague a few days ago. I will treat her with fosfomycin in the ED. Her chest x-ray and shoulder x-ray are negative for acute findings. She is not feeling short of breath at this time. She is mostly concerned with this numbness in her arm. It is not currently numb. I talked to her about the possibility that this could be coming from strain in her cervical spine. If she continues to have these episodes she should follow-up with her primary care physician and consider seeing a specialist. She does not meet admission criteria at this time. She is stable for discharge. [] Dragon Disclaimer: Dragon Disclaimer: This electronic medical record was generated, in whole or in part, using a voice recognition dictation system. Departure Departure: Impression: Primary Impression: Urinary tract infection Additional Impressions: Left arm pain Cervical radiculopathy Disposition: HOME / SELF CARE / HOMELESS Condition: STABLE Referrals: EULOGIO KISER (PCP) Patient Instructions: Cervical Radiculopathy, Fhte-[id number]-Aywl BETSEY JOYCE DO Jan 15, 2021 06:47
[2021-01-15 06:53] LABS: CALCIUM 8.3 mg/dL (8.5-10.1); CREATININE 1.7 mg/dL (0.6-1.0); GFR 31.1; POTASSIUM 4.9 mmol/L (3.5-5.1)
[2021-01-15 06:59] LABS: ALBUMIN 3.2 g/dL (3.4-5.0); TOTAL BILIRUBIN 1.2 mg/dL (0.2-1.0); TOTAL PROTEIN 6.4 g/dL (6.4-8.2)
--- NOTE | 2021-01-15 07:03 | RAD ---
Examination: Frontal view of the chest and 2 views of the left shoulder HISTORY: History of shortness of breath, left shoulder pain COMPARISON: 01/11/2021 FINDINGS: Low lung volumes and technique accentuates heart size and pulmonary vascularity identified. Left-side d cardiac pacer AICD is identified. Mild bibasilar lung airspace disease likely atelectasis or infilt rates. The humerus head is within the glenoid. Moderate joint space loss identified in the glenohumer al joint likely degenerative changes. IMPRESSION: Mild bibasilar lung airspace disease likely atelectasis or infiltrates. Electronically signed by: Karlos Birmingham MD (01/15/2021 7:01 AM) [id number]
--- NOTE | 2021-01-15 07:11 | EKG ---
[address] [address] Test Date: 2021-01-15 Test Time: 07:04:19 Pat Name: DARELL CORONADO Department: Room: Gender: F Mirror Inspector: LEXIS : 1965 Requested By: BETSEY JOYCE Order Number: [id number] Reading MD: Chance Richard Measurements Intervals [place] Rate: 77 P: [place]: QRS: 219 QRSD: 98 T: 16 QT: 426 QTc: 484 Interpretive Statements VENTRICULAR PACED RHYTHM Electronically Signed On 01-16-2021 11:51:58 CDT by Chance Richard
[2021-01-15 07:24] LABS: CLARITY,URINE TURBID; COLOR,URINE BROWN
[2021-01-15 07:25] LABS: BACTERIA,URINE 0 /HPF (0-FEW); RBC,URINE TNTC /HPF (0-2)
[2021-01-15] MEDS ORDERED: FOSFOMYCIN TROMETHAMINE 3 GM PACKET PO ONE (08:00)
[2021-01-15 09:47] LABS: BURR CELLS MOD
[2021-01-15 09:48] LABS: OVALOCYTES PRESENT; POLYCHROMASIA PRESENT
[2021-01-15 09:49] LABS: TARGET CELLS PRESENT; TEAR DROP CELLS OCC
[2021-01-15 09:50] LABS: SCHISTOCYTES OCC
[2021-01-15 09:54] LABS: ANISOCYTOSIS SLIGHT; HYPOCHROMIA PRESENT; MICROCYTOSIS PRESENT
[2021-01-15 09:57] LABS: PLT ESTIMATE ADEQUATE (ADEQUATE)
== END 2021-01-15 08:42 | disposition home or self-care (01) ==
LOC: ER 06:19
DX: N39.0 Urinary tract infection, site not specified (principal); M54.12 Radiculopathy, cervical region; M79.602 Pain in left arm; I48.91 Unspecified atrial fibrillation; F41.9 Anxiety disorder, unspecified; I13.0 Hypertensive heart and chronic kidney disease with heart failure and stage 1 through stage 4 chronic kidney disease, or unspecified chronic kidney disease; E11.22 Type 2 diabetes mellitus with diabetic chronic kidney disease; N18.9 Chronic kidney disease, unspecified; I50.9 Heart failure, unspecified; J44.9 Chronic obstructive pulmonary disease, unspecified; M79.7 Fibromyalgia; E78.00 Pure hypercholesterolemia, unspecified; I25.2 Old myocardial infarction; Z86.2 Personal history of diseases of the blood and blood-forming organs and certain disorders involving the immune mechanism; Z95.0 Presence of cardiac pacemaker
CPT/HCPCS: 36415; 71045; 73030; 80053; 81001; 84484; 85025; 87086; 93005; 99285

== ENCOUNTER → 2021-01-25 | Outpatient (CLI) | payer OTHER ==
[2021-01-15 06:38] VITALS: BP 108/77
--- NOTE | 2021-01-25 18:36 | RAD ---
XR FOOT_RIGHT 3 VIEWS 01/25/2021 5:44 PM INDICATION: Swelling of the right foot COMPARISON: None available. TECHNIQUE: 3 views the right foot are provided. FINDINGS/ IMPRESSION: There is no acute fracture or dislocation. Joint spaces are maintained. Bone mineralization is within normal limits. Diffuse soft tissue swelling. There is no soft tissue gas or osseous erosion. No radi opaque foreign body. Electronically signed by: Ashlyn Salgado MD (01/25/2021 6:33 PM) [facility]
== END ==
LOC: PMG 17:29
PROVIDERS: ATTEND Nurse Practitioner Family
DX: M79.89 Other specified soft tissue disorders (principal)
CPT/HCPCS: 73630

== ENCOUNTER 2021-01-26 02:26 | Emergency (ER) | payer OTHER ==
[~2021-01-26] VITALS: Ht 154.9 cm; Wt 177.3 kg
[2021-01-26 02:35] VITALS: BP 108/58
--- NOTE | 2021-01-26 02:41 | PHYS DOC ---
Past History Past Medical History: A-Fib, Anemia, Anxiety, Asthma, CHF, COPD, Diabetes, Fibromyalgia, High Cholesterol, Heart Disease, Hypertension, MT, Renal Failure Additional Past Medical Histor: cardiomegaly Past Surgical History: , Pacemaker, Other Additional Past Surgical Histo: HERNIA; cataract lt eye Smoking: Non-smoker Alcohol Use: None Drug Use: None Adult General HPI HPI Patient is a 55-year-old female, history of A. fib, asthma and morbidly obese with multiple medical problems significantly for this visit asthma and obesity who presents with left knee pain. States has had left knee pain over the last couple of days, 5 out of 10, dull and achy in nature. States she has not taken anything for the pain. States that she does seem to be wheezing as well, and possibly having an asthma exacerbation as her constantly smokes around her. States she did use her asthma inhaler earlier. Denies any recent traumas, travels, illnesses, fevers, chest pain, abdominal pain, nausea, vomiting, dysuria, hematuria, diarrhea or blood in the stool. States she is otherwise taking all her medications as prescribed. Review of Systems Review of Systems Review of systems otherwise unremarkable except noted in HPI Current Medications Current Medications Current Medications Medications (Trade) Dose Ordered Sig/Christina Start Time Stop Time Status Last Admin Dose Admin Albuterol/ Ipratropium (Duoneb) 3 ml 1X ONCE 01/26/21 02:45 01/26/21 02:46 UNV Dexamethasone (Decadron) 8 mg 1X ONCE 01/26/21 02:45 01/26/21 02:46 UNV Allergies Allergies Allergies Coded Allergies Type Severity Reaction Last Updated Verified No Known Drug Allergies 01/12/21 No Physical Exam Physical Exam Constitutional: Morbid obesity, well nourished, no acute distress, non-toxic appearance. [] HENT: Normocephalic, atraumatic, bilateral external ears normal, oropharynx moist, no oral exudates, nose normal. [] Eyes: conjunctiva normal, no discharge. [] Neck: Normal range of motion, no tenderness, supple, no stridor. [] Cardiovascular:Heart rate regular rhythm, no murmur [] Lungs & Thorax: Mild, bilateral end expiratory wheeze Abdomen: soft, no tenderness, no masses, no pulsatile masses. [] Skin: Warm, dry, no erythema, no rash. [] Extremities: No tenderness, ROM intact, no edema. [] Neurologic: Alert and oriented X 3, normal motor function, normal sensory function, no focal deficits noted. [] Psychologic: Affect normal, judgement normal, mood normal. [] EKG EKG Rate of 71, irregular rhythm, QRS of 114, QTc of 480, low voltage, no STEMI [] Radiology/Procedures Radiology/Procedures [] Heart Score C/O Chest Pain: No Risk Factors: Risk Factors: DM, Current or recent (<one month) smoker, HTN, HLP, family history of CAD, obesity. Risk Scores: Risk Factors: DM, Current or recent (<one month) smoker, HTN, HLP, family history of CAD, obesity. Course & Med Decision Making Course & Med Decision Making Patient is a 55-year-old female who presents with a chief complaint of left knee pain. Noted to have some wheeze on exam. Vital signs notable for tachypnea to 22 otherwise unremarkable. Patient placed on the monitor with IV access established. Given breathing treatment and dexamethasone for asthma exacerbation. EKG noted above with no STEMI. Troponin not concerning. X-rays of the knee show arthritis but no other acute osseous abnormalities. 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 Advised on pain control for arthritis. Gave strict return precautions to the ED. [] Dragon Disclaimer Dragon Disclaimer This electronic medical record was generated, in whole or in part, using a voice recognition dictation system. Departure Departure: Impression: Primary Impression: Asthma exacerbation Additional Impressions: Knee pain Osteoarthritis Disposition: HOME / SELF CARE / HOMELESS Condition: GOOD Referrals: EULOGIO KISER (PCP) Patient Instructions: Asthma Attacks, Prevention, Asthma, Acute Bronchospasm, Osteoarthritis Additional Instructions: Thank you for coming into the emergency department tonight and allowing us to take care of you. Please read all the attached information very carefully to go over what we discussed. Please call your primary care physician as soon as you can to set up a follow-up visit to discuss asthma management as well as diabetes and weight loss strategies. As discussed your weight is a large contributor to the symptoms you are experiencing with your osteoarthritis. Please come back to the emergency department immediately with new or concerning symptoms as discussed. Problem Qualifiers BULMARO HOFFMAN MD Jan 26, 2021 02:41
[2021-01-26] MEDS ORDERED: IPRATRPIUM/ALBUTEROL 0.5/2.5MG 3 ML NEBU. NEB ONE (03:00)
[2021-01-26] MEDS ORDERED: DEXAMETHASONE 4 MG TABLET PO ONE (03:00)
--- NOTE | 2021-01-26 03:11 | EKG ---
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
[2021-01-26] MEDS ORDERED: ALBUTEROL SULFATE 8GM INHALER. INH ONE (03:45)
--- NOTE | 2021-01-26 08:18 | RAD ---
EXAM: XR KNEE _3 VIEWS_LT 01/26/2021 2:36 AM CLINICAL INDICATION: Knee pain COMPARISON: None TECHNIQUE: 4 views of the left knee FINDINGS: No acute fracture. Alignment is normal. There is tricompartmental degenerative joint disea se, greatest in medial compartment where there is mild to moderate joint space narrowing. There are t ricompartment osteophytes. No joint effusion. IMPRESSION: Tricompartmental degenerative joint disease, greatest in medial compartment. No acute os seous abnormality. Electronically signed by: Kirstin Ornelas MD (01/26/2021 8:16 AM) [id number]
== END 2021-01-26 04:50 | disposition home or self-care (01) ==
LOC: ER 02:26
DX: J45.901 Unspecified asthma with (acute) exacerbation (principal); M19.90 Unspecified osteoarthritis, unspecified site; M25.562 Pain in left knee; I48.91 Unspecified atrial fibrillation; F41.9 Anxiety disorder, unspecified; J44.9 Chronic obstructive pulmonary disease, unspecified; E11.9 Type 2 diabetes mellitus without complications; M79.7 Fibromyalgia; E78.00 Pure hypercholesterolemia, unspecified; I11.9 Hypertensive heart disease without heart failure; I25.2 Old myocardial infarction; Z98.890 Other specified postprocedural states; Z95.0 Presence of cardiac pacemaker; Z86.2 Personal history of diseases of the blood and blood-forming organs and certain disorders involving the immune mechanism
CPT/HCPCS: 36415; 73562; 84484; 93005; 94640; 99284; J8540; 94664

== ENCOUNTER 2021-02-05 23:28 | Emergency (ER) | payer OTHER ==
[~2021-02-05] VITALS: Ht 154.9 cm; Wt 173.1 kg
[2021-02-05] MEDS ORDERED: IV NORMAL SALINE 1,000ML 1,000 ML IV ONE (23:45)
[2021-02-05] MEDS ORDERED: ASPIRIN ENTERIC COATED 325 MG TABLET.DR. PO ONE (23:45)
[2021-02-06] MEDS ORDERED: ASPIRIN 325 MG TABLET ONE (00:31)
[2021-02-06 02:29] VITALS: BP 126/64
--- NOTE | 2021-02-06 05:44 | EKG ---
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
--- NOTE | 2021-02-06 06:23 | RAD ---
EXAMINATION: Chest radiograph. VIEWS: Single view COMPARISON: 01/15/2021 INDICATION:55 years, Female, dyspnea. FINDINGS: Stable cardiomegaly with left chest wall pacemaker device. No focal consolidation. No pleural effusio n or pneumothorax. No acute osseous process. IMPRESSION: No acute cardiopulmonary process. Electronically signed by: Morenita Guardado MD (02/06/2021 6:20 AM) [facility]
[2021-02-06 06:53] LABS: ALBUMIN/GLOBULIN RATIO 0.8 (1.0-1.7); TOTAL PROTEIN 6.7 g/dL (6.4-8.2)
[2021-02-06 06:54] LABS: CALCIUM 8.5 mg/dL (8.5-10.1); CREATININE 1.6 mg/dL (0.6-1.0); GFR 33.3; POTASSIUM 4.1 mmol/L (3.5-5.1)
[2021-02-06 07:39] LABS: BASO # 0.1 x10^3/uL (0.0-0.2); BASO % 1 % (0-3); EOS # 0.1 x10^3/uL (0.0-0.7); EOS % 2 % (0-3); HEMATOCRIT 25.3 % (36.0-47.0); HEMOGLOBIN 7.3 g/dL (12.0-15.5); LYMPH # 1.3 x10^3/uL (1.0-4.8); LYMPH % 16 % (24-48); MEAN CORPUSCULAR HEMOGLOBIN 19 pg (25-35); MEAN CORPUSCULAR HGB CONC 29 g/dL (31-37); MEAN CORPUSCULAR VOLUME 64 fL (79-100); MONO # 0.9 x10^3/uL (0.0-1.1); MONO % 11 % (0-9); NEUT # 5.7 x10^3uL (1.8-7.7); NEUT % 70 % (31-73); PLATELET COUNT 352 x10^3/uL (140-400); RED BLOOD COUNT 3.96 x10^6/uL (3.50-5.40); RED CELL DISTRIBUTION WIDTH 24.9 % (11.5-14.5); WHITE BLOOD COUNT 8.1 x10^3/uL (4.0-11.0)
[2021-02-06 07:42] LABS: ANISOCYTOSIS MOD; HYPOCHROMIA MOD; MICROCYTOSIS MOD
[2021-02-06 07:43] LABS: PLT ESTIMATE ADEQUATE (ADEQUATE)
== END 2021-02-06 02:48 | disposition home or self-care (01) ==
LOC: ER 23:28
DX: D64.9 Anemia, unspecified (principal); E11.65 Type 2 diabetes mellitus with hyperglycemia; R06.02 Shortness of breath; I13.0 Hypertensive heart and chronic kidney disease with heart failure and stage 1 through stage 4 chronic kidney disease, or unspecified chronic kidney disease; E11.22 Type 2 diabetes mellitus with diabetic chronic kidney disease; N18.9 Chronic kidney disease, unspecified; I48.91 Unspecified atrial fibrillation; I50.9 Heart failure, unspecified; J44.9 Chronic obstructive pulmonary disease, unspecified; K21.9 Gastro-esophageal reflux disease without esophagitis; Z86.2 Personal history of diseases of the blood and blood-forming organs and certain disorders involving the immune mechanism
CPT/HCPCS: 36415; 71045; 80053; 83605; 83690; 83880; 84484; 85025; 93005; 99285

== ENCOUNTER 2021-02-09 01:30 | Emergency (ER) | payer OTHER ==
[~2021-02-09] VITALS: Ht 154.9 cm; Wt 173.1 kg
--- NOTE | 2021-02-09 02:10 | PHYS DOC ---
Past History Past Medical History: A-Fib, Anemia, Anxiety, Asthma, CHF, COPD, Diabetes, Fibromyalgia, High Cholesterol, Heart Disease, Hypertension, MS, Renal Failure Additional Past Medical Histor: cardiomegaly Past Surgical History: , Pacemaker, Other Additional Past Surgical Histo: HERNIA; cataract lt eye Smoking: Non-smoker Alcohol Use: None Drug Use: None General Adult EDM: Chief Complaint: CHEST PAIN HPI: HPI: 55-year-old female returns the emergency room with chest wall tightness and cough. The patient was reportedly sitting outside of her house because they have no power and no air conditioning. The patient began to feel some chest tightness with her increased cough about 2 hours ago. She decided to call EMS. The patient is not vaccinated against COVID-19. She has had a worsening cough today. Denies fever or shortness of breath. Review of Systems: Review of Systems: Constitutional: Denies fever or chills Eyes: Denies change in visual acuity HENT: Denies nasal congestion or sore throat Respiratory: Cough without shortness of breath Cardiovascular: Chest wall pain GI: Denies abdominal pain, nausea, vomiting, bloody stools or diarrhea : Denies dysuria Musculoskeletal: Denies back pain or joint pain Integument: Denies rash Neurologic: Denies headache, focal weakness or sensory changes Endocrine: Denies polyuria or polydipsia Lymphatic: Denies swollen glands Psychiatric: Denies depression or anxiety Current Medications: Current Meds: Current Medications Medications (Trade) Dose Ordered Sig/Christina Start Time Stop Time Status Last Admin Dose Admin Sodium Chloride 1,000 ml @ 1,000 mls/hr 1X ONCE 02/09/21 02:30 02/09/21 03:29 Allergies: Allergies: Allergies Coded Allergies Type Severity Reaction Last Updated Verified No Known Drug Allergies 01/26/21 No Physical Exam: PE: Constitutional: Well developed, well nourished, morbidly obese, no acute distress, non-toxic appearance. [] HENT: Normocephalic, atraumatic, bilateral external ears normal, oropharynx moist, no oral exudates, nose normal. [] Eyes: PERRLA, EOMI, conjunctiva normal, no discharge. [] Neck: Normal range of motion, no tenderness, supple, no stridor. [] Cardiovascular: Heart rate regular rhythm, no murmur [] Lungs & Thorax: Bilateral breath sounds diminished.[] Abdomen: Bowel sounds normal, soft, no tenderness, no masses, no pulsatile masses. [] Skin: Warm, dry, no erythema, no rash. [] Back: No tenderness, no CVA tenderness. [] Extremities: No tenderness, no cyanosis, no clubbing, ROM intact, no edema. [] Neurologic: Alert and oriented X 3, normal motor function, normal sensory function, no focal deficits noted. [] Psychologic: Affect normal, judgement normal, mood normal. [] EKG: EKG: [] Radiology/Procedures: Radiology/Procedures: [] Impressions: EXAMINATION: Chest radiograph. VIEWS: Single view COMPARISON: 02/06/2021 INDICATION:55 years, Female, chest pain and shortness of air. FINDINGS: Low lung volume, may accentuate cardiac silhouette and pulmonary vascularity. Stable enlarged cardiomediastinal silhouette. No focal consolidation. No pleural effusion or pneumothorax. No acute osseous process. Left chest wall pacemaker device remains unchanged. IMPRESSION: No acute cardiopulmonary process. Electronically signed by: Jer Guardado MD (02/09/2021 2:23 AM) [facility] DICTATED AND SIGNED BY: JER GUARDADO MD DATE: 02/09/21221 CC: BETSEY JOYCE DO; EULOGIO KISER NE ~MTH0 0 Heart Score: C/O Chest Pain: N/A Risk Factors: Risk Factors: DM, Current or recent (<one month) smoker, HTN, HLP, family history of CAD, obesity. Risk Scores: Score 0 - 3: 2.5% MACE over next 6 weeks - Discharge Home Score 4 - 6: 20.3% MACE over next 6 weeks - Admit for Clinical Observation Score 7 - 10: 72.7% MACE over next 6 weeks - Early Invasive Strategies Course & Med Decision Making: Course & Med Decision Making Pertinent Labs and Imaging studies reviewed. (See chart for details) I looked at the patient's chart and she has not been tested for COVID-19 for several months. We have performed the test but results will not come back till tomorrow. The patient's labs have several abnormal values. See labs for more details. Review of her chart shows that they are similar to her previous. There is nothing new is remarkable. Her troponin is similar to previous. Based on the patient's presentation and cough, I find it likely that she has COVID- 19. Her oxygen saturation on room air is in the mid 90s. She does not meet admission criteria at this time. She is stable for discharge. [] Adalberto Disclaimer: Adalberto Disclaimer: This electronic medical record was generated, in whole or in part, using a voice recognition dictation system. Departure Departure: Impression: Primary Impression: Acute chest pain Additional Impressions: Hyperglycemia due to diabetes mellitus Suspected 2019 novel coronavirus infection Disposition: HOME / SELF CARE / HOMELESS Condition: STABLE Referrals: EULOGIO KISER (PCP) Patient Instructions: Chest Wall Pain, [id number] Additional Instructions: You have been tested for or diagnosed with COVID-19. It is an infection caused by a new type of coronavirus. COVID-19 will cause cold-like or mild flu symptoms in most. It can cause more severe symptoms like problems breathing in some. There is no treatment for COVID-19. The body will clear the infection over time. Self-care will help to ease discomfort. Steps to Take: Self-Care Rest as needed. Healthy habits may help you feel better. Steps include: Choose healthy foods including fruits and vegetables. Drink water throughout the day. Get plenty of sleep each night. If you smoke, try to quit. It may ease breathing. Avoid alcohol. Keep Others Healthy The virus can spread to others. Droplets are released every time you sneeze or cough. The droplets can get into the mouth, nose, or eyes of people near you and lead to infection. To lower the chances of spreading COVID-19 to others: Stay at home until your doctor has said it is safe to leave. If you tested positive this will mean staying isolated until both of the following are true: At least 7 days have passed since the start of illness. You are free of fever for at least 72 hours without the use of medicine. During this time: - Avoid public areas, events, or transportation. Do not return to work or school until your doctor has said it is safe to do so. - Call ahead if you need to go to a medical center. Let them know you may have COVID-19. It will help them guide you where to go. They may also ask you to wear a facemask when you come to the office. - If you call for emergency medical services, let them know you may have COVID- 19. While at home: - Try to avoid close contact with others. Stay about 6 feet away. - If possible, spend most of your time in a separate room from others. - Use a face mask if you will be in close contact with others such as sharing a room or vehicle. - Have someone wipe down common surfaces in the home. Use household tooling supervisor every day on areas like doorknobs, counters, or sinks. - Cough or sneeze into a tissue. Throw the tissue away right after use. If a tissue is not available, cough or sneeze into your elbow. - Wash your hands often. Wash them after sneezing or coughing. Use soap and water and wash for at least 20 seconds. Alcohol based hand tower cleaner can be used if soap and water is not available. - Do not prepare food for others. Avoid sharing personal items like forks, spoo ns, or toothbrushes. - Avoid close contact with pets while you are sick. There is no evidence of the virus passing to pets. This is a safety step until more is known about this virus. Isolation can be frustrating. Social interaction can help. Keep in touch with friends and family through phone and tech options. You can still interact with others in your home, just keep a safe distance of about 6 feet. Follow-up: Your doctors office will check in with you to see if there are any changes in your health. You may be asked to keep track of symptoms to share with them. They will also let you know when you are clear to be in public again. Problems to Look Out For: Contact your doctor if your recovery is not going as you expect. Get emergency care if you have problems such as: - Trouble breathing - Nonstop chest pain or pressure - Changes in awareness, confusion, or problems waking - Lips or face have bluish color - Worsening of symptoms If you think you have an emergency, call for emergency medical services right away. As taken from [facility] BETSEY Nunes DO Feb 09, 2021 02:10
[2021-02-09 02:18] LABS: CALCIUM 8.6 mg/dL (8.5-10.1); CREATININE 1.7 mg/dL (0.6-1.0); GFR 31.1; POTASSIUM 4.1 mmol/L (3.5-5.1)
[2021-02-09 02:21] LABS: BASO # 0.2 x10^3/uL (0.0-0.2); BASO % 2 % (0-3); EOS # 0.2 x10^3/uL (0.0-0.7); EOS % 2 % (0-3); HEMATOCRIT 25.9 % (36.0-47.0); HEMOGLOBIN 7.5 g/dL (12.0-15.5); LYMPH # 1.5 x10^3/uL (1.0-4.8); LYMPH % 17 % (24-48); MEAN CORPUSCULAR HEMOGLOBIN 19 pg (25-35); MEAN CORPUSCULAR HGB CONC 29 g/dL (31-37); MEAN CORPUSCULAR VOLUME 65 fL (79-100); MONO # 0.9 x10^3/uL (0.0-1.1); MONO % 10 % (0-9); NEUT # 5.9 x10^3uL (1.8-7.7); NEUT % 69 % (31-73); PLATELET COUNT 358 x10^3/uL (140-400); RED BLOOD COUNT 4.01 x10^6/uL (3.50-5.40); RED CELL DISTRIBUTION WIDTH 24.9 % (11.5-14.5); WHITE BLOOD COUNT 8.6 x10^3/uL (4.0-11.0)
[2021-02-09 02:24] LABS: ALBUMIN 3.2 g/dL (3.4-5.0); ALBUMIN/GLOBULIN RATIO 0.9 (1.0-1.7); TOTAL BILIRUBIN 1.3 mg/dL (0.2-1.0); TOTAL PROTEIN 6.9 g/dL (6.4-8.2)
--- NOTE | 2021-02-09 02:25 | RAD ---
EXAMINATION: Chest radiograph. VIEWS: Single view COMPARISON: 02/06/2021 INDICATION:55 years, Female, chest pain and shortness of air. FINDINGS: Low lung volume, may accentuate cardiac silhouette and pulmonary vascularity. Stable enlarged cardiom ediastinal silhouette. No focal consolidation. No pleural effusion or pneumothorax. No acute osseous process. Left chest wall pacemaker device remains unchanged. IMPRESSION: No acute cardiopulmonary process. Electronically signed by: Morenita Guardado MD (02/09/2021 2:23 AM) [facility]
[2021-02-09] MEDS ORDERED: IV NORMAL SALINE 1,000ML 1,000 ML IV ONE (02:30)
[2021-02-09 02:36] LABS: ANISOCYTOSIS MOD; HYPOCHROMIA MOD; MICROCYTOSIS MARKED; PLT ESTIMATE ADEQUATE (ADEQUATE)
[2021-02-09 04:00] VITALS: BP 112/68
== END 2021-02-09 04:10 | disposition home or self-care (01) ==
LOC: ER 01:30
DX: E11.65 Type 2 diabetes mellitus with hyperglycemia (principal); R07.89 Other chest pain; Z20.822 Contact with and (suspected) exposure to COVID-19
CPT/HCPCS: 36415; 71045; 80053; 83880; 84484; 85025; 99284; C9803; U0003

== ENCOUNTER 2021-02-12 00:52 | Emergency (ER) | payer OTHER ==
[~2021-02-12] VITALS: Ht 154.9 cm; Wt 173.1 kg
--- NOTE | 2021-02-12 01:12 | PHYS DOC ---
Past History Past Medical History: A-Fib, Anemia, Anxiety, Asthma, CHF, COPD, Diabetes, Fibromyalgia, High Cholesterol, Heart Disease, Hypertension, [place], Renal Failure Additional Past Medical Histor: cardiomegaly; cellulitis of the paniculous Past Surgical History: , Pacemaker, Other Additional Past Surgical Histo: HERNIA; cataract lt eye Smoking: Non-smoker Alcohol Use: None Drug Use: None Adult General HPI HPI Patient is a 55-year-old female with multiple medical comorbidities who presents emergency department with a chief complaint of watery diarrhea. States that she ate lunch earlier in the afternoon and shortly after that began having watery nonbloody nonbilious diarrhea. States this just started today. Denies any recent traumas, travels, illnesses, fevers, chest pain, shortness of breath, abdominal pain, nausea, vomiting, dysuria, hematuria or blood in the stool. States that she has been having a backache and has been taking Midol and took 5 pills every 2-3 hours today for this. Review of Systems Review of Systems Review of systems otherwise unremarkable except noted in HPI Allergies Allergies Allergies Coded Allergies Type Severity Reaction Last Updated Verified No Known Drug Allergies 01/26/21 No Physical Exam Physical Exam Constitutional: Morbidly obese, no acute distress, non-toxic appearance. [] HENT: Normocephalic, atraumatic, Eyes: conjunctiva normal, no discharge. [] Neck: Normal range of motion, no tenderness, supple, no stridor. [] Cardiovascular:Heart rate regular rhythm, no murmur [] Lungs & Thorax: Bilateral breath sounds clear to auscultation [] Abdomen: soft, no tenderness, no masses, no pulsatile masses. [] Skin: Warm, dry, no erythema, no rash. [] Extremities: No tenderness, ROM intact, no edema. [] Neurologic: Alert and oriented X 3, no focal deficits noted. [] Psychologic: Affect normal, judgement normal, mood normal. [] EKG EKG [] Radiology/Procedures Radiology/Procedures [] Heart Score C/O Chest Pain: No Risk Factors: Risk Factors: DM, Current or recent (<one month) smoker, HTN, HLP, family history of CAD, obesity. Risk Scores: Risk Factors: DM, Current or recent (<one month) smoker, HTN, HLP, family history of CAD, obesity. Course & Med Decision Making Course & Med Decision Making Patient is a 55-year-old female who presents to the emergency department with chief complaint of diarrhea for day Vital signs not concerning. Physical exam noted above. Placed on monitor with IV access established and IV fluid given. Given Zofran. Laboratory analysis baseline for patient. Patient feeling better after resuscitation in the emergency department. Discussed symptom control at home. Advised to follow-up in the morning with primary care physician. Gave return precautions to the ED. Patient grateful, verbalized understanding and agreed with plan of discharge. [] Dragon Disclaimer Dragon Disclaimer This electronic medical record was generated, in whole or in part, using a voice recognition dictation system. Departure Departure: Impression: Primary Impression: Diarrhea Disposition: HOME / SELF CARE / HOMELESS Condition: GOOD Referrals: EULOGIO KISER (PCP) Patient Instructions: Diarrhea Additional Instructions: Thank you for coming into the emergency department tonight and allowing us to take care of you. Please read all the attached information above carefully to go back over what we discussed. Please be sure to drink plenty of fluids while you are having episodes of diarrhea. Please contact your primary care physician in the morning to update on your recent ED visit and set up a follow-up visit as soon as possible. Please come back to the ED with new or concerning symptoms as discussed. BULMARO HOFFMAN MD Feb 12, 2021 01:12
[2021-02-12] MEDS ORDERED: IV RINGERS SOLUTION,LACTATED 1,000 ML IV ONE (01:30)
[2021-02-12] MEDS ORDERED: ONDANSETRON PF 4 MG/2 ML VIAL. IVP ONE (01:30)
[2021-02-12 01:51] LABS: CALCIUM 8.7 mg/dL (8.5-10.1); CREATININE 1.4 mg/dL (0.6-1.0); GFR 38.9
[2021-02-12 01:55] LABS: ACETAMIN 24.2 mcg/mL (10-30); SALIC < 2.8 mg/dL (2.8-20.0)
[2021-02-12 01:56] LABS: ALBUMIN 3.4 g/dL (3.4-5.0); ALBUMIN/GLOBULIN RATIO 0.9 (1.0-1.7); BASO # 0.1 x10^3/uL (0.0-0.2); BASO % 0 % (0-3); EOS # 0.1 x10^3/uL (0.0-0.7); EOS % 1 % (0-3); HEMATOCRIT 27.3 % (36.0-47.0); HEMOGLOBIN 7.8 g/dL (12.0-15.5); LYMPH # 0.7 x10^3/uL (1.0-4.8); LYMPH % 5 % (24-48); MEAN CORPUSCULAR HEMOGLOBIN 19 pg (25-35); MEAN CORPUSCULAR HGB CONC 28 g/dL (31-37); MEAN CORPUSCULAR VOLUME 65 fL (79-100); MONO # 0.9 x10^3/uL (0.0-1.1); MONO % 6 % (0-9); NEUT # 13.1 x10^3uL (1.8-7.7); NEUT % 88 % (31-73); PLATELET COUNT 368 x10^3/uL (140-400); RED BLOOD COUNT 4.19 x10^6/uL (3.50-5.40); TOTAL BILIRUBIN 1.5 mg/dL (0.2-1.0); WHITE BLOOD COUNT 14.8 x10^3/uL (4.0-11.0)
[2021-02-12 02:15] VITALS: BP 127/52
[2021-02-12 02:17] LABS: PLT ESTIMATE ADEQUATE (ADEQUATE)
[2021-02-12 02:18] LABS: ANISOCYTOSIS SLIGHT; HYPOCHROMIA SLIGHT; MICROCYTOSIS MOD
== END 2021-02-12 02:35 | disposition home or self-care (01) ==
LOC: ER 00:52
DX: R19.7 Diarrhea, unspecified (principal); M54.9 Dorsalgia, unspecified; I48.91 Unspecified atrial fibrillation; F41.9 Anxiety disorder, unspecified; J45.909 Unspecified asthma, uncomplicated; I11.0 Hypertensive heart disease with heart failure; I50.9 Heart failure, unspecified; J44.9 Chronic obstructive pulmonary disease, unspecified; E11.9 Type 2 diabetes mellitus without complications; M79.7 Fibromyalgia; E78.00 Pure hypercholesterolemia, unspecified; I25.2 Old myocardial infarction; Z86.2 Personal history of diseases of the blood and blood-forming organs and certain disorders involving the immune mechanism; Z98.890 Other specified postprocedural states; Z95.0 Presence of cardiac pacemaker
CPT/HCPCS: 36415; 80053; 80329; 85025; 96361; 96374; 99284; J2405; J7120; G0480

== ENCOUNTER 2021-02-17 18:26 | Emergency (ER) | payer OTHER ==
[~2021-02-17] VITALS: Ht 162.6 cm; Wt 181.8 kg
[2021-02-17 18:40] VITALS: BP 131/74
[2021-02-17] MEDS ORDERED: CEPHALEXIN 250 MG CAPSULE PO ONE (19:00)
--- NOTE | 2021-02-17 19:40 | PHYS DOC ---
Past History Past Medical History: A-Fib, Anemia, Anxiety, Asthma, CHF, COPD, Diabetes, Fibromyalgia, High Cholesterol, Heart Disease, Hypertension, [place], Renal Failure Additional Past Medical Histor: cardiomegaly; cellulitis of the paniculous (KONSTANTIN REYNA APRN) Past Surgical History: No Surgical History Additional Past Surgical Histo: HERNIA; cataract lt eye (KONSTANTIN REYNA APRN) Smoking: Non-smoker Alcohol Use: None Drug Use: None (KONSTANTIN REYNA APRN) General Adult EDM: Chief Complaint: LOWEREXTREMITY INJURY HPI: HPI: Patient is a 55-year-old female who presents with cellulitis to her left lower leg. Patient states "I was at the store when a stranger came up to me and asked me if I realized that my leg was bleeding". Patient denies fever and pain. Denies known injury. (KONSTANTIN REYNA APRN) Review of Systems: Review of Systems: Constitutional: Denies fever or chills Eyes: Denies change in visual acuity HENT: Denies nasal congestion or sore throat Respiratory: Denies cough or shortness of breath Cardiovascular: Denies chest pain or edema GI: Denies abdominal pain, nausea, vomiting, bloody stools or diarrhea : Denies dysuria Musculoskeletal: Denies back pain or joint pain Integument: Red, draining, wound to left lower leg, some swelling Neurologic: Denies headache, focal weakness or sensory changes Endocrine: Denies polyuria or polydipsia Lymphatic: Denies swollen glands Psychiatric: Denies depression or anxiety (KONSTANTIN REYNA APRN) Current Medications: Current Meds: Current Medications Medications (Trade) Dose Ordered Sig/Christina Start Time Stop Time Status Last Admin Dose Admin Cephalexin HCl (Keflex) 500 mg 1X ONCE 02/17/21 19:00 02/17/21 19:01 DC (KONSTANTIN REYNA APRN) Allergies: Allergies: Allergies Coded Allergies Type Severity Reaction Last Updated Verified No Known Drug Allergies 01/26/21 No (KONSTANTIN REYNA APRN) Physical Exam: PE: Constitutional: Well developed, well nourished, no acute distress, non-toxic appearance. [] HENT: Normocephalic, atraumatic, bilateral external ears normal, oropharynx moist, no oral exudates, nose normal. [] Eyes: PERRLA, EOMI, conjunctiva normal, no discharge. [] Neck: Normal range of motion, no tenderness, supple, no stridor. [] Cardiovascular:Heart rate regular rhythm, no murmur [] Lungs & Thorax: Bilateral breath sounds clear to auscultation [] Abdomen: Bowel sounds normal, soft, no tenderness, no masses, no pulsatile masses. [] Skin: Left lower leg, red, swelling, drainage Back: No tenderness, no CVA tenderness. [] Extremities: No tenderness, no cyanosis, no clubbing, ROM intact, no edema. [] Neurologic: Alert and oriented X 3, normal motor function, normal sensory function, no focal deficits noted. [] Psychologic: Affect normal, judgement normal, mood normal. [] (KONSTANTIN REYNA APRN) Current Patient Data: Vital Signs: Vital Signs Date Time Temp Pulse Resp B/P (MAP) Pulse Ox O2 Delivery O2 Flow Rate FiO2 02/17/21 18:40 99.3 75 20 131/74 95 (KONSTANTIN REYNA APRN) EKG: EKG: [] (KONSTANTIN REYNA APRN) Radiology/Procedures: Radiology/Procedures: [] (KONSTANTIN REYNA APRN) Heart Score: C/O Chest Pain: No Risk Factors: Risk Factors: DM, Current or recent (<one month) smoker, HTN, HLP, family history of CAD, obesity. Risk Scores: Score 0 - 3: 2.5% MACE over next 6 weeks - Discharge Home Score 4 - 6: 20.3% MACE over next 6 weeks - Admit for Clinical Observation Score 7 - 10: 72.7% MACE over next 6 weeks - Early Invasive Strategies (KONSTANTIN REYNA APRN) Course & Med Decision Making: Course & Med Decision Making Pertinent Labs and Imaging studies reviewed. (See chart for details) [] 55-year-old female presents with cellulitis to her left lower leg. Patient reports drainage, redness, swelling to the area. Denies pain, afebrile patient was unaware that wound was there until someone at the grocery store told her leg was bleeding this afternoon. All labs unremarkable. Labs are consistent with patient's trend. Patient given 1 dose of Keflex in the ER. Patient sent home with prescription for Keflex. Explained to patient that she needs to take the antibiotic in full to prevent infection. Patient given strict return precautions and discussed signs of infection. Patient is hemodynamically stable. (KONSTANTIN REYNA APRN) Demetriuson Disclaimer: Adalberto Disclaimer: This electronic medical record was generated, in whole or in part, using a voice recognition dictation system. (KONSTANTIN REYNA APRN) Departure Departure: Impression: Primary Impression: Cellulitis Qualified Codes: L03.116 - Cellulitis of left lower limb Disposition: HOME / SELF CARE / HOMELESS Condition: STABLE Referrals: EULOGIO KISER (PCP) Patient Instructions: Cellulitis, [id number] Additional Instructions: You were seen in the emergency room for lower leg cellulitis. You were given antibiotics. Your labs were unremarkable. You are also sent home with Keflex. Please make sure you take the antibiotics in full. You can take ibuprofen or Tylenol for pain. Please call your PCP in the morning make an appointment for a follow-up. Any signs of infection please return to the ER or PCP. EMERGENCY DEPARTMENT GENERAL DISCHARGE INSTRUCTIONS Thank you for coming to [facility] (ED) today and trusting us with you care. We trust that you had a positivie experience in our Emergency Department. If you wish to speak to the department management, you may call the director at [phone]. YOUR FOLLOW UP INSTRUCTIONS ARE FOLLOWS: 1. Do you have a private Doctor? If you do not have a private doctor, please ask for a resource list of physicians or clinics that may be able to assist you with follow up care. 2. The Emergency Physician has interpreted your x-rays. The X-Ray specialist will also review them. If there is a change in the findings, you will be notified in 48 hours when at all possible. 3. A lab test or culture has been done, your results will be reviewed and you will be notified if you need a change in treatment. ADDITIONAL INSTRUCTIONS AND INFORMATION: 1. Your care today has been supervised by a physician who is specially trained in emergency care. Many problems require more than one evaluation for a complete diagnosis and treatment. We recommend that you schedule your follow up appointment as recommended to ensure complete treatment of you illness or injury. If you are unable to obtain follow up care and continue to have a problem, or if your condition worsens, we recommend that you return to the ED. 2. We are not able to safely determine your condition over the phone nor are we able to give sound medical advice over the phone. For these safety reasons, if you call for medical advice we will ask you to come to the ED for further evaluation. 3. If you have any questions regarding these discharge instructions please call the ED at [phone]. SAFETY INFORMATION: In the interest of safety, wellness, and injury prevention; we encourage you to wear your sealbelt, if you smoke; quite smoking, and we encourage family to use a protective helmet for bicycling and other sporting events that present an increased risk for head injury. IF YOUR SYMPTOMS WORSEN OR NEW SYMPTOMS DEVELOP, OR YOU HAVE CONCERNS ABOUT YOUR CONDITION; OR IF YOUR CONDITION WORSENS WHILE YOU ARE WAITING FOR YOUR FOLLOW UP APPOINTMENT; EITHER CONTACT YOUR PRIMARY CARE DOCTOR, THE PHYSICIAN WHOSE NAME AND NUMBER YOU WERE GIVEN, OR RETURN TO THE ED IMMEDIATELY. Attending Signature Attending Signature I have participated in the care of this patient and I have reviewed and agree with all pertinent clinical information above including history, exam, and recommendations. (LIBRA TRACEY MD) KONSTANTIN REYNA APRN Feb 17, 2021 19:40 LIBRA TRACEY MD Feb 19, 2021 04:37
[2021-02-17 20:52] LABS: CALCIUM 8.7 mg/dL (8.5-10.1); CREATININE 1.4 mg/dL (0.6-1.0); GFR 38.9; POTASSIUM 3.6 mmol/L (3.5-5.1)
[2021-02-17 20:58] LABS: ALBUMIN 3.1 g/dL (3.4-5.0); ALBUMIN/GLOBULIN RATIO 0.8 (1.0-1.7); TOTAL BILIRUBIN 1.4 mg/dL (0.2-1.0)
[2021-02-17 21:10] LABS: BASO # 0.1 x10^3/uL (0.0-0.2); BASO % 1 % (0-3); EOS # 0.1 x10^3/uL (0.0-0.7); EOS % 1 % (0-3); HEMATOCRIT 27.9 % (36.0-47.0); HEMOGLOBIN 8.1 g/dL (12.0-15.5); LYMPH # 1.1 x10^3/uL (1.0-4.8); LYMPH % 11 % (24-48); MEAN CORPUSCULAR HEMOGLOBIN 19 pg (25-35); MEAN CORPUSCULAR HGB CONC 29 g/dL (31-37); MEAN CORPUSCULAR VOLUME 65 fL (79-100); MONO # 0.9 x10^3/uL (0.0-1.1); MONO % 9 % (0-9); NEUT % 78 % (31-73); PLATELET COUNT 477 x10^3/uL (140-400); RED BLOOD COUNT 4.28 x10^6/uL (3.50-5.40); RED CELL DISTRIBUTION WIDTH 25.7 % (11.5-14.5); WHITE BLOOD COUNT 10.3 x10^3/uL (4.0-11.0)
[2021-02-17 21:51] LABS: HYPOCHROMIA MARKED; PLT ESTIMATE INCREASED (ADEQUATE)
[2021-02-17 21:52] LABS: ANISOCYTOSIS MARKED; MICROCYTOSIS MARKED
== END 2021-02-17 22:07 | disposition home or self-care (01) ==
LOC: ER 18:26
DX: L03.116 Cellulitis of left lower limb (principal); J45.909 Unspecified asthma, uncomplicated; I11.0 Hypertensive heart disease with heart failure; I50.9 Heart failure, unspecified; J44.9 Chronic obstructive pulmonary disease, unspecified; E78.5 Hyperlipidemia, unspecified
CPT/HCPCS: 36415; 80053; 85025; 99283

== ENCOUNTER 2021-03-05 18:49 | Emergency (ER) | payer OTHER ==
[~2021-03-05] VITALS: Ht 162.6 cm; Wt 181.8 kg
--- NOTE | 2021-03-05 19:55 | PHYS DOC ---
Past History Past Medical History: A-Fib, Anemia, Anxiety, Asthma, CHF, COPD, Diabetes, Fibromyalgia, High Cholesterol, Heart Disease, Hypertension, [place], Renal Failure Additional Past Medical Histor: cardiomegaly; cellulitis of the paniculous Past Surgical History: No Surgical History Additional Past Surgical Histo: HERNIA; cataract lt eye Smoking: Non-smoker Alcohol Use: None Drug Use: None General Adult EDM: Chief Complaint: HEAT EXPOSURE HPI: HPI: 55 yo F PMH aFib, Anemia, Anxiety, Asthma, CHF, COPD, Diabetes, Fibromyalgia, High Cholesterol, Heart Disease, Hypertension, [place], and Renal Failure, presents to the ed with c/o nausea and vomiting, intermittently for the past week stating she does not have $2800 to pay the electric bill for air conditioning. Patient is well-known to this emergency department for presenting with thes complaints. Patient states she cannot keep anything down has some epigastric abdominal discomfort with vomiting. Also believes her slightly more edematous than normal. Review of Systems: Review of Systems: Constitutional: Denies fever or chills Eyes: Denies change in visual acuity HENT: Denies nasal congestion or sore throat Respiratory: Denies cough or shortness of breath Cardiovascular: Denies chest pain or edema GI: Denies bloody stools or diarrhea : Denies dysuria or hematuria Musculoskeletal: Denies back pain or joint pain Integument: Denies diaphoresis or blistering lesions Neurologic: Denies headache, focal weakness or sensory changes Endocrine: Denies polyuria or polydipsia Lymphatic: Denies swollen glands Psychiatric: Denies depression or anxiety Allergies: Allergies: Allergies Coded Allergies Type Severity Reaction Last Updated Verified No Known Drug Allergies 01/26/21 No Physical Exam: PE: Constitutional: Abdominal obesity, hard of hearing, non-toxic appearance. HENT: Normocephalic, atraumatic, dry mucous membranes Eyes: EOMI, conjunctiva normal, no discharge. Neck: Normal range of motion, supple, Cardiovascular: S1/2 present, regular rhythm Lungs & Thorax: Speaking in full sentences, bilateral equal chest rise, no tachypnea or increased work of breathing Abdomen: soft, no tenderness, large pannus with copious abdominal striae but no evidence of erythema/induration/fluctuance or pain cellulitis Skin: Warm, dry, multiple areas of excoriation over extremities, UE worse than LEs, Back: No tenderness, no CVA tenderness. [] Extremities: No tenderness, no cyanosis, no unilateral lower extremity edema, pts' legs equal in size-cannot appreciate any pitting edema Neurologic: Alert and oriented X 3, normal motor function, normal sensory function, no focal deficits noted. [] Psychologic: Affect normal, judgement normal, mood normal. [] EKG: EKG: A. fib 70 bpm, extreme right axis deviation, wide QRS, no obvious elevations or ST depressions, no active chest pain Radiology/Procedures: Radiology/Procedures: [] Heart Score: C/O Chest Pain: No Risk Factors: Risk Factors: DM, Current or recent (<one month) smoker, HTN, HLP, family hist ory of CAD, obesity. Risk Scores: Score 0 - 3: 2.5% MACE over next 6 weeks - Discharge Home Score 4 - 6: 20.3% MACE over next 6 weeks - Admit for Clinical Observation Score 7 - 10: 72.7% MACE over next 6 weeks - Early Invasive Strategies Course & Med Decision Making: Course & Med Decision Making Pertinent Labs and Imaging studies reviewed. (See chart for details) Concern for nausea and vomiting in the setting of urinary tract infection and heat exposure. Labs show stable chronic microcytic anemia and chronic kidney disease that is not worsened. Troponin is within normal limits-similar to prior. Patient's lower extremity exam appears chronic PVD with no associated unilateral swelling, hemoptysis, shortness of breath or fever. Patient does have hematuria on her urinalysis but has no chest, upper or lower back pain or abdominal pain. On reevaluation patient is sleeping comfortably in no active distress. Will discharge home with strict ED return precautions were given for intractable nausea or vomiting, flank pain, flulike symptoms, dehydration or confusion. Encouraged urgent outpatient follow-up with PMD for repeat evaluation in the next 7 days. Life-threatening processes were considered but are low suspicion at this time, given history, physical exam and ED workup. Pt was educated on all prescription medications and adverse effects. All patient's questions were answered and pt was stable at time of discharge. Life/limb-threatening differential includes but is not limited to, acute coronary syndrome/myocardial infarction, Boerhaave's, DKA, gastrointestinal bleeding, intracranial hemorrhage, ischemic bowel, meningitis, sepsis, surgical abdomen (AAA), toxidrome (drug over/overdose/carbon monoxide, etc), trauma, or infection/sepsis. I have spoken with the patient and/or caregivers. I explained the patient's condition, diagnoses and treatment plan based on the information available to me at this time. I have answered the patient and/or caregiver's questions and addressed any concerns. The patient and/or caregivers have a good understanding of patient's diagnosis, condition and treatment plan as can be expected at this point. Vital signs have been stable. Patient's condition is stable and appropriate for discharge from the emergency department. Patient will pursue further outpatient evaluation with primary care physician or other designated or consulting physician as outlined in the discharge instructions. The patient and/or caregivers are agreeable to this plan of care and follow-up instructions have been explained in detail. The patient and/or caregivers have received these instructions in written form and have expressed an understanding of the discharge instructions. The patient and/or caregivers are aware that any significant change of condition or worsening of symptoms should prompt immediate return to this or the closest emergency department or call to [id number] Disclaimer: Adalberto Disclaimer: This electronic medical record was generated, in whole or in part, using a voice recognition dictation system. Departure Departure: Impression: Primary Impression: Nausea and vomiting Additional Impression: UTI (urinary tract infection) Disposition: 01 HOME / SELF CARE / HOMELESS Condition: STABLE Referrals: EULOGIO KISER (PCP) Follow-up within the next week for reevaluation and repeat urinalysis Patient Instructions: Heat Disorders, Nausea and Vomiting, Urinary Tract Infection Additional Instructions: Return to the ED if you should develop any fever, worsening pain, intractable nausea or vomiting or strokelike symptoms. EMERGENCY DEPARTMENT GENERAL DISCHARGE INSTRUCTIONS Thank you for coming to [facility] (ED) today and trusting us with you care. We trust that you had a positivie experience in our Emergency Department. If you wish to speak to the department management, you may call the director at [phone]. YOUR FOLLOW UP INSTRUCTIONS ARE FOLLOWS: 1. Do you have a private Doctor? If you do not have a private doctor, please ask for a resource list of physicians or clinics that may be able to assist you with follow up care. 2. The Emergency Physician has interpreted your x-rays. The X-Ray specialist will also review them. If there is a change in the findings, you will be notified in 48 hours when at all possible. 3. A lab test or culture has been done, your results will be reviewed and you will be notified if you need a change in treatment. ADDITIONAL INSTRUCTIONS AND INFORMATION: 1. Your care today has been supervised by a physician who is specially trained in emergency care. Many problems require more than one evaluation for a complete diagnosis and treatment. We recommend that you schedule your follow up appointment as recommended to ensure complete treatment of you illness or injury. If you are unable to obtain follow up care and continue to have a problem, or if your condition worsens, we recommend that you return to the ED. 2. We are not able to safely determine your condition over the phone nor are we able to give sound medical advice over the phone. For these safety reasons, if you call for medical advice we will ask you to come to the ED for further evaluation. 3. If you have any questions regarding these discharge instructions please call the ED at [phone]. SAFETY INFORMATION: In the interest of safety, wellness, and injury prevention; we encourage you to wear your sealbelt, if you smoke; quite smoking, and we encourage family to use a protective helmet for bicycling and other sporting events that present an increased risk for head injury. IF YOUR SYMPTOMS WORSEN OR NEW SYMPTOMS DEVELOP, OR YOU HAVE CONCERNS ABOUT YOUR CONDITION; OR IF YOUR CONDITION WORSENS WHILE YOU ARE WAITING FOR YOUR FOLLOW UP APPOINTMENT; EITHER CONTACT YOUR PRIMARY CARE DOCTOR, THE PHYSICIAN WHOSE NAME AND NUMBER YOU WERE GIVEN, OR RETURN TO THE ED IMMEDIATELY. Scripts Cefpodoxime Proxetil (CEFPODOXIME PROXETIL) 200 Mg Tablet 1 TAB PO BID for UTI for 7 Days, #14 TAB Prov: MILES VILCHIS DO 03/05/21 Ondansetron (ONDANSETRON ODT) 4 Mg Tab.rapdis 4 MG PO Q6HRS for Nausea/Vomiting, #15 TAB Prov: MILES VILCHIS DO 03/05/21 MILES VILCHIS DO Mar 05, 2021 19:55
[2021-03-05] MEDS ORDERED: IV NORMAL SALINE 1,000ML 1,000 ML IV SCH (20:00)
[2021-03-05 20:21] LABS: BASO # 0.2 x10^3/uL (0.0-0.2); BASO % 3 % (0-3); EOS # 0.1 x10^3/uL (0.0-0.7); EOS % 2 % (0-3); HEMATOCRIT 27.7 % (36.0-47.0); LYMPH # 1.9 x10^3/uL (1.0-4.8); LYMPH % 29 % (24-48); MEAN CORPUSCULAR HEMOGLOBIN 19 pg (25-35); MEAN CORPUSCULAR HGB CONC 29 g/dL (31-37); MEAN CORPUSCULAR VOLUME 66 fL (79-100); MONO # 0.8 x10^3/uL (0.0-1.1); MONO % 11 % (0-9); NEUT # 3.7 x10^3uL (1.8-7.7); NEUT % 55 % (31-73); PLATELET COUNT 429 x10^3/uL (140-400); RED BLOOD COUNT 4.18 x10^6/uL (3.50-5.40); RED CELL DISTRIBUTION WIDTH 25.8 % (11.5-14.5); WHITE BLOOD COUNT 6.7 x10^3/uL (4.0-11.0)
[2021-03-05 20:30] LABS: BARBITURATES NEG (NEG); BENZODIAZEPINES NEG (NEG); CANNABINOIDS NEG (NEG); COCAINE NEG (NEG); METHADONE NEG (NEG); OPIATES NEG (NEG); PHENCYCLIDINE NEG (NEG)
[2021-03-05 20:31] LABS: CALCIUM 8.5 mg/dL (8.5-10.1); CREATININE 1.6 mg/dL (0.6-1.0); GFR 33.3; POTASSIUM 3.5 mmol/L (3.5-5.1)
[2021-03-05 20:34] LABS: BILIRUBIN,URINE NEG (NEG); CLARITY,URINE CLOUDY; COLOR,URINE YELLOW; GLUCOSE,URINE NEG (NEG)
[2021-03-05 20:35] LABS: BACTERIA,URINE MOD /HPF (0-FEW); NITRITE,URINE POS (NEG); RBC,URINE 20-40 /HPF (0-2); WBC,URINE >40 /HPF (0-4)
[2021-03-05 20:36] LABS: SQUAMOUS EPITHELIAL CELL,UR MOD /LPF
[2021-03-05 20:41] LABS: AMPHETAMINE/METHAMPHETAMINE NEG (NEG)
[2021-03-05 20:44] LABS: ALBUMIN 3.1 g/dL (3.4-5.0); ALBUMIN/GLOBULIN RATIO 0.8 (1.0-1.7); MAGNESIUM 2.2 mg/dL (1.8-2.4); TOTAL BILIRUBIN 1.2 mg/dL (0.2-1.0); TOTAL PROTEIN 7.1 g/dL (6.4-8.2)
--- NOTE | 2021-03-05 21:48 | RAD ---
XR CHEST 1V INDICATION: n/v, HEAT EXPOSURE, CARDIOMEGALY, CHF / Spl. Instructions: / History: . COMPARISON STUDY: 02/10/2020. FINDINGS: Left pectoral ICD/pacemaker Lungs: Normal lung volume. Indistinct central vasculature. Pleura: No pleural effusion or pneumothorax. Heart and Mediastinum: Cardiomegaly. The great vessels of the thorax are normal. IMPRESSION: Indistinct central vasculature, which may reflect interstitial edema. Electronically signed by: Perfecto Lane MD (03/05/2021 9:45 PM) [facility]
[2021-03-05] MEDS ORDERED: CEFP200T PO (22:08)
[2021-03-05] MEDS ORDERED: ONDA4TAB12 PO (22:08)
[2021-03-05 22:49] VITALS: BP 113/66
[2021-03-05 22:52] LABS: ANISOCYTOSIS MOD; HYPOCHROMIA MOD; MICROCYTOSIS MOD; PLT ESTIMATE ADEQUATE (ADEQUATE)
--- NOTE | 2021-03-06 03:41 | EKG ---
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
--- NOTE | 2021-03-06 03:42 | EKG ---
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
== END 2021-03-05 22:48 | disposition home or self-care (01) ==
LOC: ER 18:49
DX: N39.0 Urinary tract infection, site not specified (principal); R11.2 Nausea with vomiting, unspecified; I48.91 Unspecified atrial fibrillation; J44.9 Chronic obstructive pulmonary disease, unspecified; M79.7 Fibromyalgia; E78.00 Pure hypercholesterolemia, unspecified; I13.0 Hypertensive heart and chronic kidney disease with heart failure and stage 1 through stage 4 chronic kidney disease, or unspecified chronic kidney disease; E11.22 Type 2 diabetes mellitus with diabetic chronic kidney disease; N18.9 Chronic kidney disease, unspecified; I50.9 Heart failure, unspecified; I25.2 Old myocardial infarction; Z86.2 Personal history of diseases of the blood and blood-forming organs and certain disorders involving the immune mechanism
CPT/HCPCS: 36415; 71045; 80053; 80307; 81001; 82550; 83690; 83735; 83880; 84484; 85025; 87086; 93005; 96360; 99285; J7030

== ENCOUNTER 2021-03-09 06:31 | Emergency (ER) | payer OTHER ==
[~2021-03-09] VITALS: Ht 162.6 cm; Wt 154.0 kg
[~2021-03-09 06:31] MED LIST changes: +CEFP200T PO; +ONDA4TAB12 PO
--- NOTE | 2021-03-09 06:42 | PHYS DOC ---
Past History Past Medical History: A-Fib, Anemia, Anxiety, Asthma, CHF, COPD, Diabetes, Fibromyalgia, High Cholesterol, Heart Disease, Hypertension, DC, Renal Failure Additional Past Medical Histor: cardiomegaly; cellulitis of the paniculous Past Surgical History: No Surgical History Additional Past Surgical Histo: HERNIA; cataract lt eye Smoking: Non-smoker Alcohol Use: None Drug Use: None Adult General Chief Complaint Chief Complaint: MECHANICAL FALL HPI HPI Patient is a 55-year-old female well-known to our facility presenting for a fall via EMS. Onset was approximately 1 hour prior to arrival. Fall was unwitnessed but patient reports sitting on the side of her bed after getting up and attempting to change from a seated to a standing position. Patient's house unc lean and bed unstable, patient denies any prodromal symptoms such as lightheadedness, dizziness, vision changes, or chest pain. Reports she tried to stand up and the next thing she knew she was on the ground prompting family member who lives with her to call EMS. On arrival, patient found to be hemodynamically stable. Due to the fact that patient is on warfarin, patient was brought into our ER for evaluation. On arrival, patient reports right anterior face pain, right shoulder pain without any change in the motor or sensory or neuro function, a dull headache and substernal chest pain that started after she woke up from her fall Of note, patient's home life called into question. She is a regular to our department, on arrival EMS found a filthy house with poor overall hygiene. It is unclear how the patient is living in current house condition especially given her numerous comorbid conditions. They have no electricity. She has had several falls over the last month none of which have been severe but she remains an ongoing fall risk. Family questions ability to care for patient giving current state of health and size Review of Systems Review of Systems Fourteen body systems of review of systems have been reviewed. See HPI for pertinent positives and negative responses, other martell all other systems are negative, non-pertinent or non-contributory Allergies Allergies Allergies Coded Allergies Type Severity Reaction Last Updated Verified No Known Drug Allergies 01/26/21 No Physical Exam Physical Exam Constitutional: Age-appropriate. No acute distress. Grossly overweight HEENT: Head: Normocephalic and atraumatic. External ears unremarkable, no vigil sign Conjunctivae and EOM are normal. Pupils are equal, round, and reactive to light. Oropharynx is clear and moist. No hematomas or lacerations or abrasions to face or scalp OP clear, no blood, no malocclusion, dentition intact Nares clear, no nasal septal hematoma Midface stable Neck: C-spine midline nontender, no step-offs Cardiovascular: Regular rate, regular rhythm and normal heart sounds. Pulmonary/Chest: Effort normal and breath sounds normal. No respiratory distress. No wheezes. CTA bilaterally Abdominal: Soft. Bowel sounds are normal. Pt exhibits no distension. There is no tenderness. Protuberant abdomen Musculoskeletal: Patient reports bony tenderness over right shoulder without any visual or palpable abnormalities, no deformities, full ROM extremities Chest wall stable Pelvis stable and non-tender No vertebral TTP and spine without stepoffs Neurological: Pt is alert and oriented to person, place, and time. Moving all extremities willfully, able to wiggle all fingers and toes Alert and oriented x 3 Motor and sensory function fully intact No saddle anesthesia Skin: Skin is warm and dry. No abrasions, no lacerations Psychiatric: Behavior is appropriate for situation Current Patient Data Vital Signs Vital Signs Date Time Temp Pulse Resp B/P (MAP) Pulse Ox O2 Delivery O2 Flow Rate FiO2 03/09/21 06:50 97.6 88 24 132/65 97 Vital Signs Date Time Temp Pulse Resp B/P (MAP) Pulse Ox O2 Delivery O2 Flow Rate FiO2 03/09/21 06:50 97.6 88 24 132/65 97 Lab Results Laboratory Tests Test 03/09/21 07:25 03/09/21 07:40 White Blood Count 6.4 x10^3/uL Red Blood Count 4.07 x10^6/uL Hemoglobin 7.9 g/dL Hematocrit 27.1 % Mean Corpuscular Volume 67 fL Mean Corpuscular Hemoglobin 19 pg Mean Corpuscular Hemoglobin Concent 29 g/dL Red Cell Distribution Width 25.4 % Platelet Count 407 x10^3/uL Neutrophils (%) (Auto) 62 % Lymphocytes (%) (Auto) 21 % Monocytes (%) (Auto) 12 % Eosinophils (%) (Auto) 2 % Basophils (%) (Auto) 3 % Neutrophils # (Auto) 4.0 x10^3uL Lymphocytes # (Auto) 1.4 x10^3/uL Monocytes # (Auto) 0.8 x10^3/uL Eosinophils # (Auto) 0.1 x10^3/uL Basophils # (Auto) 0.2 x10^3/uL Platelet Estimate Pending Sodium Level 140 mmol/L Potassium Level 4.0 mmol/L Chloride Level 102 mmol/L Carbon Dioxide Level 26 mmol/L Anion Gap 12 Blood Urea Nitrogen 14 mg/dL Creatinine 1.4 mg/dL Estimated GFR (Cockcroft-Gault) 38.9 BUN/Creatinine Ratio 10 Glucose Level 198 mg/dL Calcium Level 8.4 mg/dL Total Bilirubin 1.4 mg/dL Aspartate Amino Transf (AST/SGOT) 25 U/L Alanine Aminotransferase (ALT/SGPT) 18 U/L Alkaline Phosphatase 137 U/L Troponin I Quantitative < 0.017 ng/mL Total Protein 6.8 g/dL Albumin 3.0 g/dL Albumin/Globulin Ratio 0.8 SARS-CoV-2 Antigen (Rapid) Negative Current Medications Medications (Trade) Dose Ordered Sig/Christina Route PRN Reason Start Time Stop Time Status Last Admin Dose Admin Acetaminophen (Tylenol) 650 mg PRN Q4HRS PRN PO FEVER > 100.3'F 03/09/21 08:15 03/10/21 08:14 Nitroglycerin (Nitrostat) 0.4 mg PRN Q5MIN PRN SL CHEST PAIN 03/09/21 08:15 03/10/21 08:14 EKG EKG EKG ordered and interpreted by myself 0705 hrs. as sinus rhythm at 85 bpm, prolonged QTC at 512 otherwise unremarkable intervals, left axis deviation, x1 PVC present, no obvious ischemic findings, no STEMI Radiology/Procedures Radiology/Procedures AP chest, Right shoulder 3 views HISTORY: Fall, right shoulder pain AP view was taken of the chest. The heart is mildly prominent. There is a left pacemaker without change. No acute infiltrates are noted. There is no effusion. Right shoulder 3 views were taken of the right shoulder. There is not evidence of an acute fracture or dislocation or osseous abnormality. IMPRESSION: 1. No acute chest disease. 2. No fracture or dislocation in the right shoulder. Electronically signed by: Harpal Queen MD (03/09/2021 7:07 AM) [id number] //////////////////////////////////// CT brain without contrast, CT C-spine without contrast, CT maxillofacial without contrast HISTORY: Fall right anterior facial trauma CT brain CT scan the brain was done without contrast. Sinuses are clear. Skull fracture is not identified. There is no intracranial hemorrhage or subdural hematoma. There is soft tissue swelling on the forehead. Ventricles are normal in size. No mass effect or shift of the midline. An acute CVA is not identified. IMPRESSION: 1. No intracranial hemorrhage or acute finding noted. End impression CT maxillofacial Axial CT images were obtained to the facial bones. Sagittal and coronal reconstructed images were reviewed. Sinuses are clear. A facial fracture is not identified. An orbital fracture is not identified. Nasal bone appears intact. IMPRESSION: 1. No facial fracture noted. End impression CT cervical spine Axial CT images were obtained to the cervical spine. Sagittal and coronal reconstructed images were reviewed. A C-spine fracture is not identified. Thyroid is homogeneous. There is no adenopathy in the neck. There is not evidence of spinal stenosis. C-spine is in normal alignment. 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 IMPRESSION: 1. No acute fracture noted in the cervical spine. ///////////////////////////////////// EXAM: 2 views right forearm DATE: 03/09/2021 8:28 AM INDICATION: Reason: pain after fall / Spl. Instructions: / History: . COMPARISON: No Prior FINDINGS/ IMPRESSION: No evidence of acute fracture or dislocation. Joint spaces are grossly preserved. Soft tissue swelling about the right wrist. Electronically signed by: Kip Houston MD (03/09/2021 8:41 AM) [id number] Heart Score C/O Chest Pain: No HEART Score for Chest Pain: HEART Score for Chest Pain Response (Comments) Value History Slighlty/Non-Suspicious 0 Age >45 - < 65 1 Risk Factors >3 Risk Factors or Hx CAD 2 Troponin < Normal Limit 0 Total 3 Risk Factors: Risk Factors: DM, Current or recent (<one month) smoker, HTN, HLP, family history of CAD, obesity. Risk Scores: Risk Factors: DM, Current or recent (<one month) smoker, HTN, HLP, family history of CAD, obesity. Course & Med Decision Making Course & Med Decision Making Vitals stable. HPI physical exam and comprehensive ER work-up nonconcerning for any emergent or surgical issues No concerning findings status post fall. With that said, patient with high risk for adverse cardiovascular events reported chest pain on arrival that self resolved prior to any ER intervention In addition, there is great concern for patient's wellbeing if discharged back to home. Her daughter and daughter is significant other lives at home and she reports that they help her very little when transferring and doing activities of daily living Patient states she has a nurse which comes out once a week to check in on her but that is it, states that time she is left on her own to do everything which she feels she cannot do. She is tearful because she has been sent to a group home in the past and did not like it Hospitalist contacted and case reviewed, they agreed need for admission. Patient updated on proposed plan of care given chest pain with numerous comorbid conditions and fear that she cannot take care of her self and current state if discharged home, she was amenable Nonetheless, prior to transportation from ER to [facility] patient with full capacity voiced that she wanted to leave against medical advice. I had an extensive discussion with the patient regarding the risks of leaving AMA including but not limited to , permanent disability, and worsening condition. Pt acknowledged the risks and agreed to take full responsibility. Pt was A&Ox4 and had full medical decision making capacity when they signed the AMA sheet. Risks and Recommendations: The risks of refusing recommended care that were di sclosed and acknowledged by the patient include loss of current lifestyle, permanent mental impairment, and . The recommended medical care being refused has been discussed with the patient and is to stay for continued monitoring, workup, and possible treatment. Discharge Care: The patient understands they are welcome to return to the hospital at any time to receive the recommended care or any other care at any time, regardless of their ability to pay for such care. Discharge instructions were provided to the patient. Dragon Disclaimer Dragon Disclaimer This electronic medical record was generated, in whole or in part, using a voice recognition dictation system. Departure Departure: Impression: Primary Impression: Chest pain, rule out acute myocardial infarction Additional Impressions: Multiple falls Unable to care for self Morbid (severe) obesity due to excess calories Chronic systolic CHF (congestive heart failure) Disposition: LEFT AGAINST MEDICAL ADVICE Condition: GUARDED Referrals: EULOGIO KISER (PCP) Problem Qualifiers PEORIA,PRATIK DO Mar 09, 2021 06:42
--- NOTE | 2021-03-09 07:10 | RAD ---
AP chest, Right shoulder 3 views HISTORY: Fall, right shoulder pain AP view was taken of the chest. The heart is mildly prominent. There is a left pacemaker without charles ge. No acute infiltrates are noted. There is no effusion. Right shoulder 3 views were taken of the right shoulder. There is not evidence of an acute fracture or dislocation o r osseous abnormality. IMPRESSION: 1. No acute chest disease. 2. No fracture or dislocation in the right shoulder. Electronically signed by: Harpal Queen MD (03/09/2021 7:07 AM) [id number]
--- NOTE | 2021-03-09 07:16 | RAD ---
CT brain without contrast, CT C-spine without contrast, CT maxillofacial without contrast HISTORY: Fall right anterior facial trauma CT brain CT scan the brain was done without contrast. Sinuses are clear. Skull fracture is not identified. The re is no intracranial hemorrhage or subdural hematoma. There is soft tissue swelling on the forehead. Ventricles are normal in size. No mass effect or shift of the midline. An acute CVA is not identifie d. IMPRESSION: 1. No intracranial hemorrhage or acute finding noted. End impression CT maxillofacial Axial CT images were obtained to the facial bones. Sagittal and coronal reconstructed images were rev iewed. Sinuses are clear. A facial fracture is not identified. An orbital fracture is not identified. Nasal bone appears intact. IMPRESSION: 1. No facial fracture noted. End impression CT cervical spine Axial CT images were obtained to the cervical spine. Sagittal and coronal reconstructed images were r eviewed. A C-spine fracture is not identified. Thyroid is homogeneous. There is no adenopathy in the neck. There is not evidence of spinal stenosis. C-spine is in normal alignment. There is congenital f usion C5-6. IMPRESSION: 1. No acute fracture noted in the cervical spine. PQRS Compliance Statement: One or more of the following individualized dose reduction techniques were utilized for this examinat ion: 1. Automated exposure control 2. Adjustment of the mA and/or kV according to patient size 3. Use of iterative reconstruction technique Electronically signed by: Harpal Queen MD (03/09/2021 7:14 AM) [id number]
--- NOTE | 2021-03-09 07:42 | EKG ---
[address] [address] Test Date: 2021-03-09 Test Time: 06:58:31 Pat Name: DARELL CORONADO Department: Room: Gender: F In Home [employer] Consultant: : [id number] Requested By: PRATIK CHOU Order Number: [id number] Reading MD: Measurements Intervals [place] Rate: 85 P: 0 CT: 96 QRS: 230 QRSD: 152 T: 14 QT: 430 QTc: 512 Interpretive Statements SINUS RHYTHM VENTRICULAR PREMATURE COMPLEX(ES) ABNORMAL RIGHT SUPERIOR AXIS DEVIATION LOW VOLTAGE NON SPECIFIC INTRAVENTRICULAR BLOCK RVH WITH REPOLARIZATION ABNORMALITY QRS(T) CONTOUR ABNORMALITY CONSISTENT WITH SEPTAL INFARCT AGE UNDETERMINED CONSISTENT WITH HIGH LATERAL INFARCT PROBABLY OLD CONSIDER INFERIOR INFARCT
[2021-03-09 07:44] LABS: BASO # 0.2 x10^3/uL (0.0-0.2); BASO % 3 % (0-3); EOS # 0.1 x10^3/uL (0.0-0.7); EOS % 2 % (0-3); HEMATOCRIT 27.1 % (36.0-47.0); HEMOGLOBIN 7.9 g/dL (12.0-15.5); LYMPH # 1.4 x10^3/uL (1.0-4.8); LYMPH % 21 % (24-48); MEAN CORPUSCULAR HEMOGLOBIN 19 pg (25-35); MEAN CORPUSCULAR HGB CONC 29 g/dL (31-37); MEAN CORPUSCULAR VOLUME 67 fL (79-100); MONO # 0.8 x10^3/uL (0.0-1.1); MONO % 12 % (0-9); NEUT % 62 % (31-73); PLATELET COUNT 407 x10^3/uL (140-400); RED BLOOD COUNT 4.07 x10^6/uL (3.50-5.40); RED CELL DISTRIBUTION WIDTH 25.4 % (11.5-14.5); WHITE BLOOD COUNT 6.4 x10^3/uL (4.0-11.0)
[2021-03-09 07:53] LABS: CALCIUM 8.4 mg/dL (8.5-10.1); CREATININE 1.4 mg/dL (0.6-1.0); GFR 38.9
[2021-03-09 07:56] LABS: ALBUMIN/GLOBULIN RATIO 0.8 (1.0-1.7); TOTAL BILIRUBIN 1.4 mg/dL (0.2-1.0); TOTAL PROTEIN 6.8 g/dL (6.4-8.2)
[2021-03-09] MEDS ORDERED: ACETAMINOPHEN 325 MG TABLET PO PRN (08:15)
[2021-03-09] MEDS ORDERED: NITROGLYCERIN SUBLINGUAL 0.4 MG BOTTLE OF 25. SL PRN (08:15)
--- NOTE | 2021-03-09 08:44 | RAD ---
EXAM: 2 views right forearm DATE: 03/09/2021 8:28 AM INDICATION: Reason: pain after fall / Spl. Instructions: / History: . COMPARISON: No Prior FINDINGS/ IMPRESSION: No evidence of acute fracture or dislocation. Joint spaces are grossly preserved. Soft tissue swelling about the right wrist. Electronically signed by: Kip Houston MD (03/09/2021 8:41 AM) [id number]
[2021-03-09 11:50] VITALS: BP 140/60
[2021-03-09 12:39] LABS: ANISOCYTOSIS MOD; HYPOCHROMIA MARKED; MICROCYTOSIS MOD; PLT ESTIMATE ADEQUATE (ADEQUATE)
== END 2021-03-09 12:05 | disposition left against medical advice (07) ==
LOC: ER 06:31
DX: R07.89 Other chest pain (principal); E66.01 Morbid (severe) obesity due to excess calories; I11.0 Hypertensive heart disease with heart failure; I50.22 Chronic systolic (congestive) heart failure; J44.9 Chronic obstructive pulmonary disease, unspecified; E78.5 Hyperlipidemia, unspecified; Z68.43 Body mass index [BMI] 50.0-59.9, adult; Z20.822 Contact with and (suspected) exposure to COVID-19
CPT/HCPCS: 36415; 70450; 70486; 71045; 72125; 73030; 73090; 80053; 84484; 85025; 87426; 93005; 99285; C9803; U0003

== ENCOUNTER 2021-03-13 11:12 | Inpatient (IN) | payer OTHER ==
[~2021-03-13] VITALS: Ht 162.6 cm; Wt 154.0 kg
--- NOTE | 2021-03-13 11:33 | PHYS DOC ---
Past History Past Medical History: A-Fib, Anemia, Anxiety, Asthma, CHF, COPD, Diabetes, Fibromyalgia, High Cholesterol, Heart Disease, Hypertension, [place], Renal Failure Additional Past Medical Histor: cardiomegaly; cellulitis of the paniculous Past Surgical History: Other Additional Past Surgical Histo: HERNIA; cataract lt eye Smoking: Non-smoker Alcohol Use: None Drug Use: None Adult General HPI HPI Patient is a 55yo female presenting via EMS for hypoglycemia. Patient well known to us. I just saw and admitted patient to [facility] 03/09 for CP r/o ACS and for failure to thrive. Patient has low medical literacy and lives in a subpar situation with daughter and daughter's boyfriend that is filthy and without electricity. We were hopeful for NH placement but patient deferred. Nonetheless, today, EMS report that daughter saw patient on couch and witnessed here having "a few" generalized tonic clonic seizures without any falls/trauma. After "about the third", EMS was called to evaluate patient and bring her to our ER for evaluation. On arrival, patient found on couch where she had been all morning with a concerning bent spoon by her (K2 abuse?). Vitals were stable, FSBG 50, patient appeared post-ictal. Patient was subsequently given Glucagon IM and transported to our facility for evaluation. On arrival, patient appears post- ictal and history is limited. Review of Systems Review of Systems ROS limited due to post-ictal state. Allergies Allergies Allergies Coded Allergies Type Severity Reaction Last Updated Verified No Known Drug Allergies 01/26/21 No Physical Exam Physical Exam Constitutional: Appears disheveled, poor overall hygiene, appears post-ictal. GCS 13 (E4,V4,M5) HEENT: Head: Normocephalic and atraumatic. TMs clear, no hemotympanum Conjunctivae and EOM are normal. Pupils are equal, round, and reactive to light. Oropharynx is clear and moist. No teeth No hematomas or lacerations or abrasions to face or scalp OP clear, no blood, no malocclusion, dentition intact Nares clear, no nasal septal hematoma Midface stable. Patient has black-eye on right consistent with prior fall not related to today's visit Neck: C-spine midline nontender, no step-offs Cardiovascular: Irregular rate, regular rhythm and normal heart sounds. Pacemaker present Pulmonary/Chest: Effort normal and breath sounds normal. No respiratory distress. No wheezes. CTA bilaterally Abdominal: Soft and protuberant. Bowel sounds are normal. Pt exhibits no distension. There is no tenderness. Musculoskeletal: No bony tenderness to extremities, no deformities, full ROM extremities Chest wall stable Pelvis stable and non-tender No vertebral TTP and spine without stepoffs Neurological: Pt is alert and oriented to person but not place or time which is not her baseline Moving all extremities willfully, able to wiggle all fingers and toes CN 2-12 intact Motor and sensory function in tact Downgoing toes bilaterally No meningial signs/nuchal rigidity ARVIN Skin: Skin is warm and dry. No abrasions, no lacerations Psychiatric: Unable to fully assess due to post-ictal state Current Patient Data Vital Signs Vital Signs Date Time Temp Pulse Resp B/P (MAP) Pulse Ox O2 Delivery O2 Flow Rate FiO2 03/13/21 11:15 97.5 109 20 134/78 97 Room Air 03/13/21 16:01 2.0 Vital Signs Date Time Temp Pulse Resp B/P (MAP) Pulse Ox O2 Delivery O2 Flow Rate FiO2 03/14/21 05:57 101 28 105/50 (68) 93 NonRebreather Mask 12.0 03/14/21 04:57 97.1 Lab Results Laboratory Tests Test 03/13/21 11:18 03/13/21 11:30 03/13/21 11:58 03/13/21 14:05 Glucose (Fingerstick) 80 mg/dL White Blood Count 7.1 x10^3/uL Red Blood Count 4.29 x10^6/uL Hemoglobin 8.2 g/dL Hematocrit 28.7 % Mean Corpuscular Volume 67 fL Mean Corpuscular Hemoglobin 19 pg Mean Corpuscular Hemoglobin Concent 29 g/dL Red Cell Distribution Width 25.5 % Platelet Count 490 x10^3/uL Neutrophils (%) (Auto) 59 % Lymphocytes (%) (Auto) 24 % Monocytes (%) (Auto) 13 % Eosinophils (%) (Auto) 3 % Basophils (%) (Auto) 2 % Neutrophils # (Auto) 4.2 x10^3uL Lymphocytes # (Auto) 1.7 x10^3/uL Monocytes # (Auto) 0.9 x10^3/uL Eosinophils # (Auto) 0.2 x10^3/uL Basophils # (Auto) 0.1 x10^3/uL Platelet Estimate Increased Sodium Level 143 mmol/L Potassium Level 3.0 mmol/L Chloride Level 104 mmol/L Carbon Dioxide Level 24 mmol/L Anion Gap 15 Blood Urea Nitrogen 12 mg/dL Creatinine 1.5 mg/dL Estimated GFR (Cockcroft-Gault) 35.9 BUN/Creatinine Ratio 8 Glucose Level 57 mg/dL Lactic Acid Level 6.3 mmol/L Calcium Level 8.4 mg/dL Magnesium Level 2.3 mg/dL Total Bilirubin 1.1 mg/dL Aspartate Amino Transf (AST/SGOT) 19 U/L Alanine Aminotransferase (ALT/SGPT) 16 U/L Alkaline Phosphatase 148 U/L Troponin I Quantitative < 0.017 ng/mL Total Protein 7.1 g/dL Albumin 3.2 g/dL Albumin/Globulin Ratio 0.8 Urine Collection Type Unknown Urine Color Yellow Urine Clarity Clear Urine pH 6.5 Urine Specific Western 1.015 Urine Protein Trace Urine Glucose (UA) Neg mg/dL Urine Ketones (Stick) Neg mg/dL Urine Blood Large Urine Nitrite Neg Urine Bilirubin Neg Urine Urobilinogen Dipstick 0.2 mg/dL Urine Leukocyte Esterase Small Urine RBC 6-10 /HPF Urine WBC 5-10 /HPF Urine Squamous Epithelial Cells Few /LPF Urine Bacteria Many /HPF Urine Opiates Screen Neg Urine Methadone Screen Neg Urine Barbiturates Neg Urine Phencyclidine Screen Neg Urine Amphetamine/Methamphetamine Neg Urine Benzodiazepines Screen Neg Urine Cocaine Screen Neg Urine Cannabinoids Screen Neg Urine Ethyl Alcohol Neg Coronavirus (COVID-19)(PCR) Negative SARS-CoV-2 Antigen (Rapid) Negative Test 03/13/21 15:15 03/13/21 16:01 03/13/21 18:46 03/13/21 20:22 Glucose (Fingerstick) 80 mg/dL 107 mg/dL 80 mg/dL 80 mg/dL Test 03/13/21 20:46 03/14/21 00:26 03/14/21 02:58 03/14/21 08:39 Glucose (Fingerstick) 170 mg/dL 143 mg/dL 170 mg/dL 194 mg/dL EKG EKG EKG ordered and interpreted by myself at 1245 hrs. as an atrial fibrillation with occasional PVCs at 71 bpm, prolonged QRS at 164 and prolonged QTC at 503, right axis deviation, T wave inversion noted in V1 otherwise no acute ischemic findings, no STEMI EKG ordered and interpreted by myself 1630 hrs. as atrial fibrillation with occasional PVCs at a rate of 114 bpm, unremarkable intervals, right axis deviation, V1 QRS complex negatively deflected versus prior EKG which is likely positional otherwise no STEMI Radiology/Procedures Radiology/Procedures CT HEAD/BRAIN WO Date: 03/13/2021 12:17 PM Clinical Indication: ams Comparison: 03/09/2021. Technique: 5 mm axial tomographic images were obtained of the head without contrast. These were viewed on brain and bone windows. One or more of the following dose reduction techniques were utilized: Automated exposure control (AEC), Adjustment of mA and/or kV according to patient size, Use of iterative reconstruction technique such as ASiR, CT scan done according to ALARA and image gently/image wisely Findings: The brain parenchyma is normal in attenuation. No intra- or extra-axial mass or fluid collection. No acute hemorrhage. The ventricles are normal in size, shape, and morphology. The eaton-white matter junction is normal. The subarachnoid cisterns are patent. The visualized paranasal sinuses are normal. The visualized portions of the orbits and globes are normal. The mastoid air cells are clear. The corrugator operator helper topogram shows no lytic lesion or fracture. Impression: No acute intracranial process. Electronically signed by: Perfecto Lane MD (03/13/2021 12:33 PM) [id number] Heart Score C/O Chest Pain: No HEART Score for Chest Pain: HEART Score for Chest Pain Response (Comments) Value History Moderately Suspicious 1 ECG Nonspecific Repolarizatio 1 Age > 65 2 Risk Factors >3 Risk Factors or Hx CAD 2 Troponin < Normal Limit 0 Total 6 Risk Factors: Risk Factors: DM, Current or recent (<one month) smoker, HTN, HLP, family history of CAD, obesity. Risk Scores: Risk Factors: DM, Current or recent (<one month) smoker, HTN, HLP, family history of CAD, obesity. Course & Med Decision Making Course & Med Decision Making ABCs unremarkable. GCS 13. FSBG 80 on arrival and patient able to eat. Still post-ictal with poor history of presenting illness obtained Patient's ER workup grossly non-concerning for emergent or surgical findings Patient required consistent feedings and at times, IV Dextrose to keep FSBG >80. I wonder if she took too much insulin? In addition, patient did suffer x2 seperate generalized tonic-clonic seizures while in ER with right-sided nystagmus that were aborted with 2mg IV Ativan. Could all of this have been precipitated by K2 or another synthetic drug? Patient not fit for ER discharge. I contacted Dr. Hernandez, hospitalist at [facility] who agreed need for admission to ICU. It is unclear if patient took all her meds this morning. As such, Dr. Hernandez requested I administer 250mcg IV Digoxin prior to admission I updated patient on plan for admission but she was still post-ictal from her second observed seizure in ER. Her daughter was contacted and updated on plan of care and was amenable. All questions and concerns addressed. Critical Care Time This patient required critical care. Due to the fact that the patient required a significant amount of one on one physician - patient contact time, ordering and review of studies, arranging urgent treatment with development of a management plan, evaluation of patients response to treatment with frequent reassessments, and discussions with other providers this patient required 45 minutes of critical care time. Critical care time was indicated due to the inherent instability and/or potential for instability in this patient. The critical care time that is allocated to this patient is above and beyond any time spent on any other billable procedures performed on this patient. Dragon Disclaimer Dragon Disclaimer This electronic medical record was generated, in whole or in part, using a voice recognition dictation system. Departure Departure: Impression: Primary Impression: Hypoglycemia Additional Impressions: Seizure Hypokalemia Disposition: ADMITTED INPATIENT Admitting Physician: Chirag Hernandez Condition: GUARDED Referrals: EULOGIO KISER (PCP) Problem Qualifiers PRATIK CHOU DO Mar 13, 2021 11:33
[2021-03-13 11:55] LABS: BASO # 0.1 x10^3/uL (0.0-0.2); BASO % 2 % (0-3); EOS # 0.2 x10^3/uL (0.0-0.7); EOS % 3 % (0-3); HEMATOCRIT 28.7 % (36.0-47.0); HEMOGLOBIN 8.2 g/dL (12.0-15.5); LYMPH # 1.7 x10^3/uL (1.0-4.8); LYMPH % 24 % (24-48); MEAN CORPUSCULAR HEMOGLOBIN 19 pg (25-35); MEAN CORPUSCULAR HGB CONC 29 g/dL (31-37); MEAN CORPUSCULAR VOLUME 67 fL (79-100); MONO # 0.9 x10^3/uL (0.0-1.1); MONO % 13 % (0-9); NEUT # 4.2 x10^3uL (1.8-7.7); NEUT % 59 % (31-73); PLATELET COUNT 490 x10^3/uL (140-400); RED BLOOD COUNT 4.29 x10^6/uL (3.50-5.40); RED CELL DISTRIBUTION WIDTH 25.5 % (11.5-14.5); WHITE BLOOD COUNT 7.1 x10^3/uL (4.0-11.0)
[2021-03-13 12:31] LABS: BARBITURATES NEG (NEG); BENZODIAZEPINES NEG (NEG); CANNABINOIDS NEG (NEG); COCAINE NEG (NEG); METHADONE NEG (NEG); OPIATES NEG (NEG); PHENCYCLIDINE NEG (NEG)
[2021-03-13 12:31] LABS: ALBUMIN 3.2 g/dL (3.4-5.0); ALBUMIN/GLOBULIN RATIO 0.8 (1.0-1.7); CALCIUM 8.4 mg/dL (8.5-10.1); CREATININE 1.5 mg/dL (0.6-1.0); GFR 35.9; TOTAL BILIRUBIN 1.1 mg/dL (0.2-1.0); TOTAL PROTEIN 7.1 g/dL (6.4-8.2)
[2021-03-13 12:32] LABS: AMPHETAMINE/METHAMPHETAMINE NEG (NEG)
--- NOTE | 2021-03-13 12:36 | RAD ---
CT HEAD/BRAIN WO Date: 03/13/2021 12:17 PM Clinical Indication: ams Comparison: 03/09/2021. Technique: 5 mm axial tomographic images were obtained of the head without contrast. These were view ed on brain and bone windows. One or more of the following dose reduction techniques were utilized: A utomated exposure control (AEC), Adjustment of mA and/or kV according to patient size, Use of iterati ve reconstruction technique such as ASiR, CT scan done according to ALARA and image gently/image martell ly Findings: The brain parenchyma is normal in attenuation. No intra- or extra-axial mass or fluid collection. No acute hemorrhage. The ventricles are normal in size, shape, and morphology. The eaton-white matter arnel ction is normal. The subarachnoid cisterns are patent. The visualized paranasal sinuses are normal. The visualized portions of the orbits and globes are no rmal. The mastoid air cells are clear. The finger grip machine operator topogram shows no lytic lesion or fracture. Impression: No acute intracranial process. Electronically signed by: Perfecto Lane MD (03/13/2021 12:33 PM) [id number]
--- NOTE | 2021-03-13 12:50 | EKG ---
[address] [address] Test Date: 2021-03-13 Test Time: 12:33:25 Pat Name: DARELL CORONADO Department: Room: Gender: F Housing Coordinator: JACK : 1965 Requested By: PRATIK CHOU Order Number: [id number] Reading MD: Measurements Intervals [place] Rate: 71 P: AL: QRS: 234 QRSD: 164 T: 9 QT: 458 QTc: 503 Interpretive Statements IRREGULAR RHYTHM, NO P-WAVE FOUND ABNORMAL RIGHT SUPERIOR AXIS DEVIATION LOW VOLTAGE NON SPECIFIC INTRAVENTRICULAR BLOCK RVH WITH REPOLARIZATION ABNORMALITY QRS(T) CONTOUR ABNORMALITY CONSISTENT WITH SEPTAL INFARCT AGE UNDETERMINED CONSISTENT WITH HIGH LATERAL INFARCT PROBABLY OLD CONSISTENT WITH INFERIOR INFARCT PROBABLY OLD
[2021-03-13 12:58] LABS: BILIRUBIN,URINE NEG (NEG); CLARITY,URINE CLEAR; COLOR,URINE YELLOW; GLUCOSE,URINE NEG (NEG)
[2021-03-13 12:59] LABS: BACTERIA,URINE MANY /HPF (0-FEW); NITRITE,URINE NEG (NEG); SQUAMOUS EPITHELIAL CELL,UR FEW /LPF; UROBILINOGEN,URINE 0.2 mg/dL (0.2 mg/dL)
[2021-03-13 13:49] LABS: PLT ESTIMATE INCREASED (ADEQUATE)
--- NOTE | 2021-03-13 14:32 | HP ---
ADMIT DATE: 03/13/2021 ATTENDING PHYSICIAN: Dr. Hernandez. CHIEF COMPLAINT: Obtundation. HISTORY OF PRESENT ILLNESS: The patient is a 55-year-old female well known to us from multiple previous admissions. She has very poor social situation at home. She herself is mentally challenged and has difficulty understanding and taking care of her medicines. She was hypoglycemic, sugars were 50. Had a probable witnessed seizure. She is postictal. They gave her glucagon and dextrose. By the time I saw her in the ED, sugars were 80, but she still has altered mentation. She is admitted into the hospital with symptomatic hypoglycemia. PAST MEDICAL HISTORY: Significant for morbid obesity. She still weighs 154 kg, which is about 330 pounds. She is very short. She has very poorly controlled type 2 diabetes, insulin-dependent. She has had chronic panniculitis, chronic atrial fibrillation and chronic systolic congestive heart failure. CURRENT MEDICATIONS: At home include albuterol, apixaban 5 mg b.i.d. for atrial fibrillation, aspirin, Lipitor, Invokana, cefpodoxime, diclofenac sodium gel, digitalis, furosemide, insulin regular and Lantus, loratadine, metformin, metoprolol, ondansetron, potassium, Entresto 49/51 and Bactrim. ALLERGIES: She has no recorded drug allergies. SOCIAL HISTORY: She is a nonsmoker, nondrinker. FAMILY HISTORY: Unobtainable. REVIEW OF SYSTEMS: Unobtainable. PHYSICAL EXAMINATION: GENERAL: When I saw her, this is a chronically ill-appearing female who was a bit lethargic. INITIAL VITAL SIGNS: Showed a blood pressure of 128/49 mmHg, pulse was 82 and regular. She was afebrile. Oxygen saturation 98% on room air. HEENT: Head is without trauma. Pupils are reactive. Sclerae nonicteric. Oropharynx is clear. NECK: Supple, no bruits. LUNGS: Shallow respirations. CARDIOVASCULAR: Showed regular heart tones. No gallop. ABDOMEN: Soft, obese, protuberant. There is no organomegaly. There is a large pannus with chronic panniculitis. EXTREMITIES: Showed 2+ edema. NEUROLOGIC FUNCTION: Focally intact, but is very confused. LABORATORY STUDIES: Hemoglobin 8.2 g/dL, white count 7100. Electrolytes, creatinine is 1.5 mg percent, potassium 3.0 mEq. Cardiac enzymes negative. Admission blood sugar was 50. ASSESSMENT: 1. A 55-year-old female with symptomatic hypoglycemia. 2. Poorly controlled type 2 diabetes. 3. Morbid obesity. 4. Chronic panniculitis. 5. Anemia of chronic disease. 6. Generalized debilitation. PLAN: 1. Admit to the inpatient unit. 2. We will hold her insulin and oral hypoglycemics. 3. Diet as tolerated. 4. Continue home meds. 5. With a poor social situation, we will try to get her placed in a fci. Her family obviously cannot take care of her at this time. JUAN DR: Adelia TID: [id number]
[2021-03-13] MEDS ORDERED: POTASSIUM CHLORIDE 20 MEQ TABLET.ER. PO ONE (15:15)
[2021-03-13] MEDS ORDERED: IV NORMAL SALINE 1,000ML 1,000 ML IV ONE (15:15)
[2021-03-13] MEDS ORDERED: DEXTROSE 50% 25 GM / 50ML DISP.SYRIN. IV ONE ×4 (15:22→20:31)
[2021-03-13] MEDS ORDERED: DEXTROSE 25% 10 ML DISP.SYRIN. IV ONE (15:30)
[2021-03-13] MEDS ORDERED: POTASSIUM CL 40MEQ IN 0.9%NACL 1,000 ML IV ONE (16:15)
[2021-03-13] MEDS ORDERED: DIGOXIN IV 500 MCG/2 ML AMPUL. IV ONE (17:00)
--- NOTE | 2021-03-13 17:28 | EKG ---
[address] [address] Test Date: 2021-03-13 Test Time: 16:15:15 Pat Name: DARELL CORONADO Department: Room: Gender: F Room Server: : 1965 Requested By: PRATIK CHOU Order Number: [id number] Reading MD: Measurements Intervals [place] Rate: 114 P: [place]: QRS: 257 QRSD: 104 T: 8 QT: 336 QTc: 467 Interpretive Statements IRREGULAR RHYTHM, NO P-WAVE FOUND VENTRICULAR PREMATURE COMPLEX(ES) ABNORMAL RIGHT SUPERIOR AXIS DEVIATION LOW VOLTAGE CONSIDER RIGHT VENTRICULAR HYPERTROPHY QRS(T) CONTOUR ABNORMALITY CONSISTENT WITH ANTERIOR INFARCT AGE UNDETERMINED CONSISTENT WITH INFEROLATERAL INFARCT
--- NOTE | 2021-03-13 18:38 | NUR ---
Pt admitted from ED via gurney to ICU bed 5. Pt unresponsive, VSS. Pt changed into gown and purewick inserted. Pt on monitor and set up to frequent vitals.
[2021-03-13 19:00] VITALS: BP 135/80
[2021-03-13 20:00] VITALS: BP 108/74
[2021-03-13] MEDS ORDERED: IV DEXTROSE 5 %-0.45 % NACL 1,000 ML IV SCH (20:30)
[2021-03-13] MEDS: IV DEXTROSE 5% - 0.9 % NACL 1,000 ML IV SCH (20:38)
[2021-03-13 21:00] VITALS: BP 97/63
[2021-03-13 22:00] VITALS: BP 110/64
--- NOTE | 2021-03-13 22:24 | NUR ---
Pt began seizure activity at approx 2014; Ativan 1mg IVP given as per standing order with no relief; Dr. Hernandez notified and Neuro consult obtained; bedside glucometer 80mg/dl; orders obtained from both and Dr. Salazar; seizure activity lasted >45 minutes with nurse x2 at bedside administering care throughout; bedside glucose 170 mg/dl after 1 amp D50 given and IVF changed to D5NS; total of 5mg Ativan given IVP, Keppra 1000mg IV bolus given, seizure activity stopped at approx 2107; VSS, briefly applied non-rebreather mask to keep SaO2 >90% during seizure activity, now on 6L via nasal canula, respirations even and unlabored; remains sedated/unresponsive at this time, continuing to monitor closely.
[2021-03-13 23:12] VITALS: BP 114/70
[2021-03-14 01:43] VITALS: BP 113/62
--- NOTE | 2021-03-14 01:54 | NUR ---
At approx 0005 pt began seizing for approx 20-25 min., Dr. Hernandez and Dr. Salazar notified; attempting to secure transfer to [place] or other facility for EEG and continued neuro care; currently on non-rebreather mask at 12L to keep SaO2 .90%; remains unresponsive at this time.
--- NOTE | 2021-03-14 02:27 | NUR ---
Seizure activity noted for approx 5-7 min, resolved spontaneously without medication or intervention; O2 Sats dropped to 75% during episode, currently on 15L via non-rebreather with SaO2 at 94%; awaiting available bed at [facility] for transfer, none avail at this time.
[2021-03-14 03:00] VITALS: BP 105/62
--- NOTE | 2021-03-14 03:35 | NUR ---
Seizure activity approx 5-6 minutes, resolved within 2 minutes of Ativan administered; oxygen desats to 78% during seizure, currently 91% on 12L via non-rebreather.
[2021-03-14 04:23] VITALS: BP 116/56
[2021-03-14 04:57] VITALS: BP 113/61
[2021-03-14 05:57] VITALS: BP 105/50
--- NOTE | 2021-03-14 05:59 | NUR ---
Seizure at 0545 lasting approx 10 min, Ativan 1mg IVP given; currently requires O2 via non-rebreather at 12L concurrent with 8L via nasal canula to keep Sat >90%; attempts to remove either form of O2 delivery, either canula or mask, cause rapid desaturation to low 80's; minimal urine output, between 30-40ml per hour via leung cath; BP's and HR stable thus far. Addendum: 03/14/21 at 0604 by MIN MAE RN RN Awaiting available bed at [facility] for transfer.
[2021-03-14] MEDS: IV DEXTROSE 5% - 0.9 % NACL 1,000 ML IV SCH (06:09)
--- NOTE | 2021-03-14 06:29 | NUR ---
Seizure at 0620 lasting approx 6-7 min, Ativan given.
[2021-03-14] MEDS ORDERED: SUCCINYLCHOLINE 200 MG/10 ML VIAL. IV ONE (08:15)
[2021-03-14] MEDS ORDERED: PROPOFOL 100 ML IV PRN (08:15)
--- NOTE | 2021-03-14 08:21 | RAD ---
Site ID: [id number] EXAMINATION: XR CHEST 1V. HISTORY: 55 years Female G-tube insertion. COMPARISON: March 09, 2021. Findings: There is an ET tube, NG tube and pacemaker from with the 2 pacer wires seen. There is a mil d the prominence of interstitial markings in the lungs may relate to vascular congestion with minimal right perihilar and basilar infiltrate or atelectasis.. The heart size is enlarged. There is no effu osmany or pneumothorax. The mediastinum and lev appear unremarkable. Impression: Cardiomegaly with vascular congestion. There is also right perihilar and basilar mild inf iltrate or atelectasis. Electronically signed by: Priyank Irizarry MD (03/14/2021 8:19 AM) [id number]
--- NOTE | 2021-03-14 08:23 | RAD ---
Site ID: [id number] EXAMINATION: XR ABDOMEN 1V. HISTORY: 55 years Female G-tube. COMPARISON: January 12, 2021 FINDINGS: There is an NG tube in the stomach terminating in the distal stomach area. There is a partially visua lized right ureteric stent with suggestion of 1.5 cm stone in the right kidney. There is mild gaseous distention of segments of the colon particularly the cecum and ascending colon with no significant d ilatation or evidence of obstruction. No dilated small bowel loops seen. IMPRESSION: Right kidney stone with the ureteric stent in place. Nonspecific mild gaseous distention of the colon . Electronically signed by: Priyank Irizarry MD (03/14/2021 8:21 AM) [id number]
[2021-03-14] MEDS ORDERED: FOSPHENYTOIN 1,000 MG in IV NORMAL SALINE 50ML 50 ML IV ONE (08:30)
[2021-03-14 08:54] LABS: BGAS PH 7.2 (7.35-7.45)
[2021-03-14 08:56] LABS: BASO % 0 % (0-3); EOS % 0 % (0-3); HEMATOCRIT 33.8 % (36.0-47.0); HEMOGLOBIN 9.3 g/dL (12.0-15.5); LYMPH # 0.5 x10^3/uL (1.0-4.8); LYMPH % 5 % (24-48); MEAN CORPUSCULAR HEMOGLOBIN 19 pg (25-35); MEAN CORPUSCULAR HGB CONC 27 g/dL (31-37); MEAN CORPUSCULAR VOLUME 70 fL (79-100); MONO % 9 % (0-9); NEUT # 8.9 x10^3uL (1.8-7.7); NEUT % 85 % (31-73); PLATELET COUNT 547 x10^3/uL (140-400); RED BLOOD COUNT 4.82 x10^6/uL (3.50-5.40); RED CELL DISTRIBUTION WIDTH 25.8 % (11.5-14.5); WHITE BLOOD COUNT 10.4 x10^3/uL (4.0-11.0)
[2021-03-14 08:57] LABS: CALCIUM 7.9 mg/dL (8.5-10.1); CREATININE 1.6 mg/dL (0.6-1.0); GFR 33.3; POTASSIUM 4.4 mmol/L (3.5-5.1)
[2021-03-14 09:03] LABS: ALBUMIN 2.7 g/dL (3.4-5.0); ALBUMIN/GLOBULIN RATIO 0.6 (1.0-1.7); MAGNESIUM 2.2 mg/dL (1.8-2.4); TOTAL BILIRUBIN 1.3 mg/dL (0.2-1.0); TOTAL PROTEIN 6.9 g/dL (6.4-8.2)
[2021-03-14 09:28] LABS: ANISOCYTOSIS SLIGHT; HYPOCHROMIA PRESENT; MICROCYTOSIS SLIGHT; PLT ESTIMATE INCREASED (ADEQUATE); POLYCHROMASIA PRESENT; TARGET CELLS PRESENT
--- NOTE | 2021-03-14 10:00 | DS ---
DATE OF DISCHARGE: 03/14/2021 ATTENDING PHYSICIAN: Dr. Hernandez. FINAL DISCHARGE DIAGNOSES: 1. New-onset seizures. 2. Status epilepticus. 3. Hypoglycemia. 4. Acute respiratory failure requiring intubation of trachea and mechanical ventilator support. 5. Poorly controlled type 2 diabetes mellitus. 6. Acute on chronic systolic congestive heart failure. 7. Morbid obesity. 8. Chronic panniculitis. 9. Generalized debilitation. HISTORY OF PRESENT ILLNESS: The patient is a 55-year-old female admitted with new-onset seizures. She was found to be hypoglycemic, blood sugar was 57. She was given dextrose and Ativan with some improvement. She was still fairly lethargic. She was admitted then with a new onset seizure. CT of the head done in the ED showed no acute strokes or bleeds. PHYSICAL EXAMINATION: Please see my dictated note. PERTINENT LABORATORY AND X-RAY STUDIES: Admission hemoglobin was 8.2 g/dL with a white count of 7100. Creatinine was 1.6 mg/dL, which is about baseline for her. Potassium 4.4 mEq, nonfasting blood sugar subsequently were 143, 170, and 194 mg/dL. Bilirubin was 1.3, slight elevation of transaminases. Serology was negative for coronavirus. Arterial blood gas done following intubation of trachea showed a pH of 7.20, pCO2 of 66, pO2 of 192 mmHg. IMAGING STUDIES: The CT of the head done on admission in the ED showed no acute intracranial process. The chest x-ray showed no acute intrathoracic process, limited respiratory effort. COURSE IN THE HOSPITAL: The patient was admitted to the ICU. She was started on Keppra with p.r.n. Ativan. She continued to have episodes of breakthrough seizures, mostly witnessed left-sided motor cortex seizures. Neurology consultation was obtained. Dr. Salazar recommended transfer of the patient to a higher level of care with MRI and EEG capability. We do not have that here at this facility. We were trying since 0100 hours early on the morning of 03/14/2021. At about 0730 hours, the patient developed respiratory distress. A code blue was called. Emergency physician came up here and intubated her and we have her on mechanical ventilation. Arrangements were then made for the patient to go to [facility] on [address] in [facility] in [place], [place]. [facility] ICU was full. I spoke with their hospitalist division leader, Dr. Jiménez. He was kind enough to accept the patient in transfer. I gave him a full detailed account of the 2 days that she has been in our facility. Her discharge meds include the following: She should continue her Keppra 1000 mg IV twice a day p.r.n., Ativan and again mechanical ventilator support. I tried to get some fosphenytoin on board, but that is not available at this facility. She remains a full code. She was discharged then by ambulance to [facility] ICU under the care of their hospitalist. Her prognosis is certainly guarded. Total discharge time spent is [address]: Adelia TID: [id number] CC: ARLEN PRATHER
--- NOTE | 2021-03-14 10:26 | NUR ---
Upon receiving report on pt this am at roughly 0640, pt was on 8 L NC and 15 L NRB. Pt spo2 was 84-88%, pt head leaning to side, attempted to reposition pt head with towel rolls, pt Spo2 did not improve. Attempted to place NPA and OPA without any increase in spo2, pt spo2 continues to decrease. Placed pt on HFNC and upped it to 15L NC and 15L NRB. Pt spo2 still not increasing, head tilt chin lift, jaw thrust, bite block to hold tongue and bagging with ambu bag all attempted. RT attempted to put pt on bipap with no success. Pt having multiple seizures during all of thisspo2 in the 40s, and code blue called. See code blue sheet for documentation. Pt daughter called by other staff on unit and updated on pt condition during code. Pt bagged by RT, bed acquired in ICU at [facility], report called to Reyna FARAH. Pt daughter called and consented to transfer. Pt significant other came in, saw pt as EMS here to pick her up. EMS took pt at 0942 with xochitl piv x2, propofol, og, vent and ivf in place. pt daughter notified of pt transfer and phone number to unit given.
--- NOTE | 2021-03-14 12:30 | EKG ---
[address] [address] Test Date: 2021-03-14 Test Time: 08:48:44 Pat Name: DARELL CORONADO Department: Room: [place] [address] Gender: F [employer]: : [id number] Requested By: JAVON WOMACK Order Number: [id number] Reading MD: Measurements Intervals [place] Rate: 87 P: 180 CT: 76 QRS: -143 QRSD: 112 T: 31 QT: 350 QTc: 427 Interpretive Statements SUPRAVENTRICULAR RHYTHM LOW VOLTAGE RVH WITH REPOLARIZATION ABNORMALITY QRS(T) CONTOUR ABNORMALITY CONSISTENT WITH ANTERIOR INFARCT PROBABLY OLD CONSISTENT WITH INFEROLATERAL INFARCT ABNORMAL ECG RI6.01 No previous ECG available for comparison
== END 2021-03-14 09:42 | disposition short-term general hospital (02) | DRG 100 ==
LOC: ER 11:24 → ICU 13:39
PROVIDERS: ADMIT Hospitalist; ATTEND Hospitalist
PROC: 0BH17EZ Insertion of Endotracheal Airway into Trachea, Via Natural or Artificial Opening (ICD-10-PCS; principal; 2021-03-14)
PROC: 5A1935Z Respiratory Ventilation, Less than 24 Consecutive Hours (ICD-10-PCS; 2021-03-14)
DX: G40.901 Epilepsy, unspecified, not intractable, with status epilepticus (principal); I50.23 Acute on chronic systolic (congestive) heart failure; J96.00 Acute respiratory failure, unspecified whether with hypoxia or hypercapnia; I48.20 Chronic atrial fibrillation, unspecified; Z68.43 Body mass index [BMI] 50.0-59.9, adult; E11.649 Type 2 diabetes mellitus with hypoglycemia without coma; D63.8 Anemia in other chronic diseases classified elsewhere; E66.01 Morbid (severe) obesity due to excess calories; E78.00 Pure hypercholesterolemia, unspecified; E87.6 Hypokalemia; I11.0 Hypertensive heart disease with heart failure; J44.9 Chronic obstructive pulmonary disease, unspecified; M79.3 Panniculitis, unspecified; Z79.4 Long term (current) use of insulin; F41.9 Anxiety disorder, unspecified; Z20.822 Contact with and (suspected) exposure to COVID-19
CPT/HCPCS: 36415; 70450; 71045; 74018; 80053; 80177; 80307; 81001; 82803; 82947; 83605; 83735; 84484; 85025; 85610; 85730; 87040; 87077; 87086; 87186; 87426; 93005; 96365; 96375; J1160; J1953; J2060; J7042; U0003; 99285-25; J7030